=== PATIENT | female | born 2000 | race Two or more races ===

== ENCOUNTER 2023-04-25 13:51 | Outpatient (OUT) | payer MEDICAID, SELFPAY ==
[2023-04-25 15:06] LABS: HCG Quantitative 1252 mIU/mL
== END 2023-04-25 13:52 | disposition home or self-care (01) ==
LOC: LAB 13:55
PROVIDERS: PCP Family Medicine; Visit Provider Obstetrics & Gynecology
DX: N92.5 Other specified irregular menstruation (principal)
CPT/HCPCS: 36415; 84702

== ENCOUNTER 2023-05-03 12:39 | Outpatient (OUT) | payer MEDICAID, SELFPAY | END 2023-05-03 12:40 | disposition home or self-care (01) | PROVIDERS: Visit Provider Obstetrics & Gynecology | DX: N92.6 Irregular menstruation, unspecified (principal) | CPT/HCPCS: 36415; 84702 ==

== ENCOUNTER 2023-05-06 10:46 | Outpatient (OUT) | payer MEDICAID, SELFPAY ==
--- NOTE | 2023-05-06 10:47 | US_ITS ---
[address] [address] Patient Name: SANTOS HARPER MRN: [id number] date: 2000 Sex: F Assigned Patient Location: US Current Patient Location: Accession/Order Number: [id number] Exam Date: 05/06/2023 10:50 Report Date: 05/06/2023 21:13 At the request of: SHEELA ANTUNEZ Procedure: US OB transvaginal EXAMINATION: US OB transvaginal HISTORY: MISSED MENSES COMPARISON: No relevant comparison available. TECHNIQUE: Transabdominal sonographic examination was performed for obstetrical and evaluation. FINDINGS: Number: 1 Heart Rate: 107.0 bpm H.B. /min Cervix Length: 4.1 cm Gestational sac: 1.62 cm, 5 weeks 6 days CRL: 4.3 mm, 6 weeks 1 day Yolk sac: 3.1 mm The uterus is normal, anteverted. The right ovary measures 3.0 x 1.2 x 2.1 cm. The left ovary measures 3.4 x 1.8 x 2.1 cm. Suspected 2.1 cm corpus luteal cyst Clinical age: 10 weeks 1 day Clinical SANTOSH: 12/01/2023 Ultrasound age: 6 weeks 0 days Ultrasound SANTOSH: 12/30/2023 US/US OB transvaginal IMPRESSION: Viable engle intrauterine gestation measuring 6 weeks 0 days *Reference: [facility] Practice Guideline for the performance of Obstetric Ultrasound Examinations, July 03, 2007. Electronically authenticated by: JOI ROPER Date: 05/06/2023 21:13
== END 2023-05-06 10:47 | disposition home or self-care (01) ==
LOC: US 10:46
PROVIDERS: Visit Provider Obstetrics & Gynecology
DX: Z34.91 Encounter for supervision of normal pregnancy, unspecified, first trimester (principal); Z3A.01 Less than 8 weeks gestation of pregnancy; N92.6 Irregular menstruation, unspecified
CPT/HCPCS: 76817

== ENCOUNTER 2023-05-26 14:50 | Emergency (ER) | payer MEDICAID, SELFPAY ==
[2023-05-26 15:01] VITALS: BP 113/66; PULSE 71; RESP 24; TEMP 37.3; O2SAT 100; BMI 28.6
[2023-05-26] MEDS: FAMOTIDINE/PF 20 MG/2 ML VIAL IV (15:44)
[2023-05-26] MEDS: DEXTROSE 5%-0.9% NACL 1,000 ML IV.SOLN 1000 ML IV (15:44)
[2023-05-26] MEDS: METOCLOPRAMIDE HCL 10 MG/2 ML VIAL INJ (15:44)
[2023-05-26] MEDS: DIPHENHYDRAMINE HCL 50 MG/ML (1ML) VIAL 25 MG IV (15:44)
--- NOTE | 2023-05-26 15:44 | ED_ITS ---
HPI - General Adult General Chief complaint: Nausea/Vomiting/Diarrhea Stated complaint: 9 WKS PT FEELS LIKE BODY IS SHUTTING DOWN Time Seen by Provider: 05/26/23 14:54 Source: patient Mode of arrival: Wheelchair History of Present Illness HPI narrative: patient is a 23-year-old female who presents to the emergency department for a feeling that her body is shutting down . patient states she is approximately nine weeks . She had an outpatient ultrasound and quantitative hCG on 05/06/23. She has a history of hyperemesis with her previous pregnancies but states this has been much worse. She arrives to the emergency department hyperventilating and reporting diffuse abdominal pain with no fevers, upper respiratory symptoms, diarrhea. She states she is constipated. She has had no urinary symptoms or vaginal bleeding. She had a Zofran pump placed yesterday as well as a peripheral IV with IV fluids from a home health provider. she states the Zofran pump was increased today. She states she continues to have v omiting and is unable to hold down food or fluids. Related Data Previous Rx's Medication Instructions Recorded metoclopramide HCl 10 mg tablet 10 mg PO Q6H PRN nausea and 05/26/23 (Reglan) vomiting #12 tabs Allergies Allergy/AdvReac Type Severity Reaction Status Date / Time No Known Drug Allergies Allergy Verified 05/26/23 15:05 Review of Systems ROS Constitutional Denies: fever or chills Ears, nose, mouth, and throat Denies: throat pain Cardiovascular Denies: chest pain Respiratory Denies: cough Gastrointestinal Reports: abdominal pain, nausea and vomiting Genitourinary Denies: painful urination or vaginal bleeding Integumentary/Breast Denies: rash Neurological Denies: headache Hematologic/Lymphatic Denies: easy bruising Allergic/Immunologic Denies: hives Exam Narrative Exam Narrative: Gen.: Awake, alert, in no distress Head: Normocephalic, atraumatic ENT: Moist mucous membranes Respiratory: No respiratory distress, lungs clear bilaterally Cardio: Regular rate and rhythm Gastrointestinal: Abdomen is soft, nondistended and diffusely tender to palpation with no guarding or rebound, no focal areas of tenderness. Zofran pump noted to the right anterior abdomen Extremities: Moves extremities equally Psych: patient is hyperventilating on entering the exam room but she is easily redirected and when she is answering questions she speaks easily and is noted to be breathing easily Neuro: No focal neuro deficit Skin: Warm, dry, intact Constitutional Vital Signs, click to edit/add: Last Vital Signs Temp 99.1 F 05/26/23 15:01 Pulse 64 05/26/23 17:17 Resp 16 05/26/23 17:17 BP 100/60 05/26/23 17:17 Pulse Ox 100 05/26/23 17:17 O2 Del Method Room Air 05/26/23 17:17 Course Vital Signs Vital signs: Vital Signs Temperature 99.1 F 05/26/23 15:01 Pulse Rate 71 05/26/23 15:01 Respiratory Rate 24 05/26/23 15:01 Blood Pressure 113/66 05/26/23 15:01 Pulse Oximetry 100 05/26/23 15:01 Oxygen Delivery Method Room Air 05/26/23 15:01 Temperature 99.1 F 05/26/23 15:01 Pulse Rate 64 05/26/23 17:17 Respiratory Rate 16 05/26/23 17:17 Blood Pressure 100/60 05/26/23 17:17 Pulse Oximetry 100 05/26/23 17:17 Oxygen Delivery Method Room Air 05/26/23 17:17 Medical Decision Making MDM Narrative Medical decision making narrative: lab studies were obtained, no leukocytosis or significant electrolyte abnormalities noted. Patient does have ketones in her urine and the specimen was contaminated so we will wait for culture as she had no significant evidence of urinary tract infection. Abdomen is soft and benign in the emergency department on recheck by attending physician. She was treated with 1 L of D5 normal saline as well as IV Reglan, Benadryl and Pepcid with significant improvement. 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 She has a Zofran pump, she will be given additional Reglan prescription as needed. In no distress on reevaluation by attending physician at discharge. Medical Records Medical records reviewed: Yes I reviewed the patient's medical records Lab Data Lab results reviewed: Yes I reviewed the patient's lab results Labs: Lab Results 05/26/23 Range/Units 15:40 WBC 10.8 (4.0-11.0) 10^3/uL RBC 3.83 L (4.20-5.40) 10^6/uL Hgb 11.3 L (12.0-16.0) g/dL Hct 31.1 L (36.0-48.0) % MCV 81.2 (81.0-99.0) fL MCH 29.5 (26.7-34.0) pg MCHC 36.3 H (29.9-35.2) g/dL RDW 12.5 (11.0-15.0) % Plt Count 220 (150-450) 10^3/uL MPV 10.5 (9.5-13.5) fL Neut % (Auto) 73.6 (43.0-75.0) % Lymph % (Auto) 18.7 L (20.5-60.0) % [place] % (Auto) 6.7 (1.7-12.0) % Eos % (Auto) 0.1 L (0.9-7.0) % Baso % (Auto) 0.3 (0.2-2.0) % Neut # (Auto) 8.0 H (1.4-6.5) 10^3/uL Lymph # (Auto) 2.0 (1.2-3.8) 10^3/uL [place] # (Auto) 0.7 (0.3-0.8) 10^3/uL Eos # (Auto) 0.0 (0.0-0.7) 10^3/uL Baso # (Auto) 0.0 (0.0-0.1) 10^3/uL Abs Immat Gran (auto) 0.06 H (0.00-0.03) 10^3/uL Imm/Tot Granulo (auto) 0.6 H (0.0-0.5) % Sodium 134 L (136-145) mmol/L Potassium 3.5 (3.5-5.1) mmol/L Chloride 102 (98-107) mmol/L Carbon Dioxide 15.4 L (21.0-32.0) mmol/L Anion Gap 20.1 BUN 5.0 L (7.0-18.0) mg/dL Creatinine 0.64 (0.55-1.02) mg/dL Est GFR ( Amer) >60 (>=60) Est GFR (Non-Af Amer) >60 (>=60) BUN/Creatinine Ratio 7.8 Glucose 89 (74-106) mg/dL Calcium 8.7 (8.5-10.1) mg/dL Total Bilirubin 1.1 H (0.2-1.0) mg/dL AST 23 (15-37) U/L ALT 30 (14-59) U/L Alkaline Phosphatase 38 L (46-116) U/L Total Protein 7.4 (6.4-8.2) g/dL Albumin 4.0 (3.4-5.0) g/dL Globulin 3.4 g/dL Albumin/Globulin Ratio 1.2 Urine Color Lt. yellow (YELLOW) Urine Clarity Clear (CLEAR) Urine pH 7.0 (5.0-9.0) Ur Specific [place] 1.010 (1.005-1.025) Urine Protein Negative (NEG/TRACE) mg/dL Urine Glucose (UA) Negative (NEGATIVE) mg/dL Urine Ketones >=80 A (NEGATIVE) mg/dL Urine Occult Blood Trace-i (NEGATIVE) Urine Nitrite Negative (NEGATIVE) Urine Bilirubin Negative (NEGATIVE) Urine Urobilinogen 1.0 (0.2-1.0) EU/dL Ur Leukocyte Esterase Trace A (NEGATIVE) Urine RBC 0-2 (0-2) #/HPF Urine WBC 2-5 A (NONE SEEN) #/HPF Ur Squamous Epith Cells Moderate A (NONE/RARE) #/LPF Urine Crystals None seen (None Seen) #/HPF Urine Bacteria None seen (NONE SEEN) #/HPF Urine Casts None seen (NONE SEEN) #/LPF Urine Mucus Trace A (NONE SEEN) Ur Culture Indicated? No Discharge Plan Discharge Chief Complaint: Nausea/Vomiting/Diarrhea Clinical Impression: Hyperemesis Patient Disposition: Home, Self-Care Time of Disposition Decision: 16:59 Condition: Good Prescriptions / Home Meds: New metoclopramide HCl [Reglan] 10 mg tablet 10 mg PO Q6H PRN (Reason: nausea and vomiting) Qty: 12 0RF Instructions: Acute Nausea and Vomiting (ED) Stand Alone Forms: Portal Instructions Referrals: Physician,Non-Staff, MD [Primary Care Provider] - 1 week Discharge Date/Time: 05/26/23 17:18
[2023-05-26 15:46] LABS: Bilirubin Urine NEGATIVE (NEGATIVE); Blood Urine TRACE-I (NEGATIVE); Clarity Urine CLEAR (CLEAR); Color Urine LT. YELLOW (YELLOW); Glucose Urine UA NEGATIVE (NEGATIVE); Ketones Urine >=80 mg/dL (NEGATIVE); Leukocyte Esterase Urine TRACE (NEGATIVE); Nitrite Urine NEGATIVE (NEGATIVE); Protein Urine NEGATIVE (NEG/TRACE)
[2023-05-26 15:49] LABS: Basophils Percent Auto 0.3 % (0.2-2.0); Eosinophils Percent Auto 0.1 % (0.9-7.0); Hematocrit 31.1 % (36.0-48.0); Hemoglobin 11.3 g/dL (12.0-16.0); Immature Granulocytes Abs Auto 0.06 10^3/uL (0.00-0.03); Immature Granulocytes Pct Auto 0.6 % (0.0-0.5); Lymphocytes Percent Auto 18.7 % (20.5-60.0); Mean Corpuscular HGB Conc 36.3 g/dL (29.9-35.2); Mean Corpuscular Hemoglobin 29.5 pg (26.7-34.0); Mean Corpuscular Volume 81.2 fL (81.0-99.0); Mean Platelet Volume 10.5 fL (9.5-13.5); Monocytes Absolute Auto 0.7 10^3/uL (0.3-0.8); Monocytes Percent Auto 6.7 % (1.7-12.0); Neutrophils Percent Auto 73.6 % (43.0-75.0); Platelet Count 220 10^3/uL (150-450); Red Blood Count 3.83 10^6/uL (4.20-5.40); Red Cell Distribution Width 12.5 % (11.0-15.0); White Blood Count 10.8 10^3/uL (4.0-11.0)
[2023-05-26 15:50] LABS: Urine Microscopic Indicated YES
[2023-05-26 15:53] LABS: Bacteria Urine NONE SEEN #/HPF (NONE SEEN); Cast Seen? NONE SEEN #/LPF (NONE SEEN); Crystals Seen? None Seen #/HPF (None Seen); Mucus Urine TRACE (NONE SEEN); RBC Urine 0-2 #/HPF (0-2); Squamous Epithelial Cell Urine MODERATE #/LPF (NONE/RARE); Urine Culture Indicated NO
[2023-05-26 16:02] LABS: Alanine Aminotransferase 30 U/L (14-59); Albumin Globulin Ratio 1.2; Alkaline Phosphatase 38 U/L (46-116); Anion Gap 20.1; Aspartate Amino Transferase 23 U/L (15-37); BUN Creatinine Ratio 7.8; Bilirubin Total 1.1 mg/dL (0.2-1.0); Calcium 8.7 mg/dL (8.5-10.1); Carbon Dioxide 15.4 mmol/L (21.0-32.0); Chloride 102 mmol/L (98-107); Estimated GFR (African America >60 (>=60); Estimated GFR (Non-African Ame >60 (>=60); Globulin 3.4 g/dL; Glucose 89 mg/dL (74-106); Potassium 3.5 mmol/L (3.5-5.1); Sodium 134 mmol/L (136-145); Total Protein 7.4 g/dL (6.4-8.2)
[2023-05-26 16:10] VITALS: BP 119/61; PULSE 72; RESP 16; O2SAT 99
[2023-05-26 17:17] VITALS: BP 100/60; PULSE 64; RESP 16; O2SAT 100
== END 2023-05-26 17:18 | disposition home or self-care (01) ==
PROVIDERS: Physician Assistant; Emergency Provider Emergency Medicine
DX: O21.0 Mild hyperemesis gravidarum (principal); Z3A.09 9 weeks gestation of pregnancy
CPT/HCPCS: 36415; 80053; 81001; 85025; 96372; 96374; 96375; 99284

== ENCOUNTER 2023-06-03 18:03 | Emergency (ER) | payer MEDICAID, SELFPAY ==
[2023-06-03 18:05] VITALS: BP 88/65; PULSE 63; RESP 18; TEMP 36.8; O2SAT 100; BMI 26.9
--- NOTE | 2023-06-03 18:15 | PC.NURSE ---
pt presents to ED because pt is 10 weeks , obgyn is dr. covarrubias. pt has had hyperemesis during and currently has a zofran pump that she got a week ago, but pt states that medication isn't helping and still having n/v. denies any abdominal cramping or vaginal bleeding.
[2023-06-03] MEDS: DEXTROSE 5%-0.9% NACL 1,000 ML IV.SOLN 1000 ML IV (18:30)
[2023-06-03] MEDS: DIPHENHYDRAMINE HCL 50 MG/ML (1ML) VIAL 25 MG IV (18:31)
[2023-06-03] MEDS: METOCLOPRAMIDE HCL 10 MG/2 ML VIAL INJ (18:31)
[2023-06-03 18:32] LABS: Basophils Percent Auto 0.2 % (0.2-2.0); Eosinophils Percent Auto 0.2 % (0.9-7.0); Hematocrit 32.1 % (36.0-48.0); Hemoglobin 11.5 g/dL (12.0-16.0); Immature Granulocytes Abs Auto 0.03 10^3/uL (0.00-0.03); Immature Granulocytes Pct Auto 0.4 % (0.0-0.5); Lymphocytes Absolute Auto 1.5 10^3/uL (1.2-3.8); Lymphocytes Percent Auto 18.4 % (20.5-60.0); Mean Corpuscular HGB Conc 35.8 g/dL (29.9-35.2); Mean Corpuscular Hemoglobin 29.4 pg (26.7-34.0); Mean Corpuscular Volume 82.1 fL (81.0-99.0); Mean Platelet Volume 10.9 fL (9.5-13.5); Monocytes Absolute Auto 0.5 10^3/uL (0.3-0.8); Monocytes Percent Auto 6.7 % (1.7-12.0); Neutrophils Percent Auto 74.1 % (43.0-75.0); Platelet Count 231 10^3/uL (150-450); Red Blood Count 3.91 10^6/uL (4.20-5.40); White Blood Count 8.1 10^3/uL (4.0-11.0)
[2023-06-03 18:43] LABS: Bilirubin Urine NEGATIVE (NEGATIVE); Blood Urine NEGATIVE (NEGATIVE); Clarity Urine CLOUDY (CLEAR); Color Urine YELLOW (YELLOW); Glucose Urine UA NEGATIVE (NEGATIVE); Ketones Urine >=80 mg/dL (NEGATIVE); Leukocyte Esterase Urine TRACE (NEGATIVE); Nitrite Urine NEGATIVE (NEGATIVE); Protein Urine TRACE mg/dL (NEG/TRACE); Specific Gravity Urine 1.015 (1.005-1.025); Urine Microscopic Indicated YES; pH Urine 7.5 (5.0-9.0)
[2023-06-03 18:45] LABS: Alanine Aminotransferase 18 U/L (14-59); Albumin Globulin Ratio 0.9; Albumin Level 3.7 g/dL (3.4-5.0); Alkaline Phosphatase 50 U/L (46-116); Aspartate Amino Transferase 12 U/L (15-37); BUN Creatinine Ratio 14.3; Bilirubin Total 0.6 mg/dL (0.2-1.0); Calcium 9.7 mg/dL (8.5-10.1); Carbon Dioxide 19.6 mmol/L (21.0-32.0); Chloride 97 mmol/L (98-107); Estimated GFR (African America >60 (>=60); Estimated GFR (Non-African Ame >60 (>=60); Globulin 4.1 g/dL; Glucose 87 mg/dL (74-106); Potassium 3.6 mmol/L (3.5-5.1); Sodium 132 mmol/L (136-145); Total Protein 7.8 g/dL (6.4-8.2)
[2023-06-03 18:55] LABS: Bacteria Urine LARGE #/HPF (NONE SEEN); Crystals Seen? Seen #/HPF (None Seen); Mucus Urine NONE SEEN (NONE SEEN); RBC Urine 0-2 #/HPF (0-2); Squamous Epithelial Cell Urine FEW #/LPF (NONE/RARE)
[2023-06-03 18:56] LABS: Amorphous Sediment Urine MANY; Cast Seen? NONE SEEN #/LPF (NONE SEEN); Urine Culture Indicated YES
--- NOTE | 2023-06-03 19:20 | ED.GENADUL1 ---
HPI - General Adult General Chief complaint: Nausea/Vomiting/Diarrhea Stated complaint: HYPEREMISIS 10 WEEKS Time Seen by Provider: 06/03/23 18:05 Mode of arrival: walk-in Limitations: no limitations History of Present Illness HPI narrative: patient is a 23-year-old female who presents to the emergency department for the evaluation of hyperemesis in . Patient is approximately ten weeks . She has had a Zofran pump in place for one week and was seen in this emergency department one week ago for the same symptoms. She denies fevers, chills, upper respiratory symptoms. She denies abdominal pain, vaginal bleeding or fluid leakage. She has an IV in place at time of initial interview, last week she was receiving home IV fluids. She does have a prescription for Reglan and she states it is not helping in the last several days. She denies urinary symptoms. Related Data Previous Rx's Medication Instructions Recorded metoclopramide HCl 10 mg tablet 10 mg PO Q6H PRN nausea and 05/26/23 (Reglan) vomiting #12 tabs cephalexin 500 mg capsule 500 mg PO Q8H 10 days #15 caps 06/03/23 Allergies Allergy/AdvReac Type Severity Reaction Status Date / Time No Known Drug Allergies Allergy Verified 05/26/23 15:05 Review of Systems ROS Constitutional Denies: fever or chills Ears, nose, mouth, and throat Denies: throat pain Cardiovascular Denies: chest pain Respiratory Denies: shortness of breath or cough Gastrointestinal Reports: nausea and vomiting Genitourinary Denies: painful urination Musculoskeletal Denies: back pain Integumentary/Breast Denies: rash Neurological Denies: headache Exam Narrative Exam Narrative: Gen.: Awake, alert, in no distress Head: Normocephalic, atraumatic ENT: Moist mucous membranes Respiratory: No respiratory distress, lungs clear bilaterally Cardio: Regular rate and rhythm Gastrointestinal: Abdomen is soft, nondistended and nontender to palpation Extremities: Moves extremities equally Psych: Normal mood and affect Neuro: No focal neuro deficit Skin: Warm, dry, intact Constitutional Vital Signs, click to edit/add: Last Vital Signs Temp 98.3 F 06/03/23 18:05 Pulse 85 06/03/23 19:46 Resp 18 06/03/23 18:05 BP 109/61 06/03/23 19:46 Pulse Ox 9 L 06/03/23 19:46 O2 Del Method Room Air 06/03/23 18:05 Course Vital Signs Vital signs: Vital Signs Temperature 98.3 F 06/03/23 18:05 Pulse Rate 63 06/03/23 18:05 Respiratory Rate 18 06/03/23 18:05 Blood Pressure 88/65 L 06/03/23 18:05 Pulse Oximetry 100 06/03/23 18:05 Oxygen Delivery Method Room Air 06/03/23 18:05 Temperature 98.3 F 06/03/23 18:05 Pulse Rate 85 06/03/23 19:46 Respiratory Rate 18 06/03/23 18:05 Blood Pressure 109/61 06/03/23 19:46 Pulse Oximetry 9 L 06/03/23 19:46 Oxygen Delivery Method Room Air 06/03/23 18:05 Medical Decision Making MDM Narrative Medical decision making narrative: patient was medicated with IV fluids, lab studies are unremarkable, although the patient does have a very mild urinary tract infection. She is given Keflex. Follow-up with [facility] COORDINATOR and return to the Emergency Room if symptoms change or worsen. Blood pressure has improved at discharge and patient reports feeling much better with D5 normal saline, Reglan and Benadryl. Medical Records Medical records reviewed: Yes I reviewed the patient's medical records Lab Data Lab results reviewed: Yes I reviewed the patient's lab results Labs: Lab Results 06/03/23 Range/Units 18:10 WBC 8.1 (4.0-11.0) 10^3/uL RBC 3.91 L (4.20-5.40) 10^6/uL Hgb 11.5 L (12.0-16.0) g/dL Hct 32.1 L (36.0-48.0) % MCV 82.1 (81.0-99.0) fL MCH 29.4 (26.7-34.0) pg MCHC 35.8 H (29.9-35.2) g/dL RDW 13.0 (11.0-15.0) % Plt Count 231 (150-450) 10^3/uL MPV 10.9 (9.5-13.5) fL Neut % (Auto) 74.1 (43.0-75.0) % Lymph % (Auto) 18.4 L (20.5-60.0) % [place] % (Auto) 6.7 (1.7-12.0) % Eos % (Auto) 0.2 L (0.9-7.0) % Baso % (Auto) 0.2 (0.2-2.0) % Neut # (Auto) 6.0 (1.4-6.5) 10^3/uL Lymph # (Auto) 1.5 (1.2-3.8) 10^3/uL [place] # (Auto) 0.5 (0.3-0.8) 10^3/uL Eos # (Auto) 0.0 (0.0-0.7) 10^3/uL Baso # (Auto) 0.0 (0.0-0.1) 10^3/uL Abs Immat Gran (auto) 0.03 (0.00-0.03) 10^3/uL Imm/Tot Granulo (auto) 0.4 (0.0-0.5) % Sodium 132 L (136-145) mmol/L Potassium 3.6 (3.5-5.1) mmol/L Chloride 97 L (98-107) mmol/L Carbon Dioxide 19.6 L (21.0-32.0) mmol/L Anion Gap 19.0 BUN 9.0 (7.0-18.0) mg/dL Creatinine 0.63 (0.55-1.02) mg/dL Est GFR ( Amer) >60 (>=60) Est GFR (Non-Af Amer) >60 (>=60) BUN/Creatinine Ratio 14.3 Glucose 87 (74-106) mg/dL Calcium 9.7 (8.5-10.1) mg/dL Total Bilirubin 0.6 (0.2-1.0) mg/dL AST 12 L (15-37) U/L ALT 18 (14-59) U/L Alkaline Phosphatase 50 (46-116) U/L Total Protein 7.8 (6.4-8.2) g/dL Albumin 3.7 (3.4-5.0) g/dL Globulin 4.1 g/dL Albumin/Globulin Ratio 0.9 Urine Color Yellow (YELLOW) Urine Clarity Cloudy A (CLEAR) Urine pH 7.5 (5.0-9.0) Ur Specific [place] 1.015 (1.005-1.025) Urine Protein Trace (NEG/TRACE) mg/dL Urine Glucose (UA) Negative (NEGATIVE) mg/dL Urine Ketones >=80 A (NEGATIVE) mg/dL Urine Occult Blood Negative (NEGATIVE) Urine Nitrite Negative (NEGATIVE) Urine Bilirubin Negative (NEGATIVE) Urine Urobilinogen 2.0 A (0.2-1.0) EU/dL Ur Leukocyte Esterase Trace A (NEGATIVE) Urine RBC 0-2 (0-2) #/HPF Urine WBC 5-10 A (NONE SEEN) #/HPF Ur Squamous Epith Cells Few A (NONE/RARE) #/LPF Urine Crystals Seen A (None Seen) #/HPF Amorphous Sediment Many Urine Bacteria Large A (NONE SEEN) #/HPF Urine Casts None seen (NONE SEEN) #/LPF Urine Mucus None seen (NONE SEEN) Ur Culture Indicated? Yes Discharge Plan Discharge Chief Complaint: Nausea/Vomiting/Diarrhea Clinical Impression: Hyperemesis, UTI (urinary tract infection) Patient Disposition: Home, Self-Care Time of Disposition Decision: 19:43 Condition: Good Prescriptions / Home Meds: New cephalexin 500 mg capsule 500 mg PO Q8H 10 Days Qty: 15 0RF No Action metoclopramide HCl [Reglan] 10 mg tablet 10 mg PO Q6H PRN (Reason: nausea and vomiting) Qty: 12 0RF Instructions: Hyperemesis Gravidarum (ED), Urinary Tract Infection in (ED) Stand Alone Forms: Portal Instructions Referrals: Physician,Non-Staff, MD [Primary Care Provider] - 1 week
[2023-06-03 19:46] VITALS: BP 109/61; PULSE 85; O2SAT 9
== END 2023-06-03 19:55 | disposition home or self-care (01) ==
PROVIDERS: Physician Assistant; Emergency Provider Emergency Medicine Emergency Medical Services
DX: O21.0 Mild hyperemesis gravidarum (principal); O23.41 Unspecified infection of urinary tract in pregnancy, first trimester; N39.0 Urinary tract infection, site not specified; Z3A.10 10 weeks gestation of pregnancy
CPT/HCPCS: 36415; 80053; 81001; 85025; 87086; 96372; 96374; 99284

== ENCOUNTER 2023-06-08 12:20 | Outpatient (OUT) | payer MEDICAID, SELFPAY ==
[2023-06-08 12:49] LABS: Basophils Percent Auto 0.3 % (0.2-2.0); Eosinophils Percent Auto 0.3 % (0.9-7.0); Hematocrit 31.9 % (36.0-48.0); Hemoglobin 11.3 g/dL (12.0-16.0); Immature Granulocytes Abs Auto 0.03 10^3/uL (0.00-0.03); Immature Granulocytes Pct Auto 0.4 % (0.0-0.5); Lymphocytes Absolute Auto 1.4 10^3/uL (1.2-3.8); Lymphocytes Percent Auto 20.3 % (20.5-60.0); Mean Corpuscular HGB Conc 35.4 g/dL (29.9-35.2); Mean Corpuscular Hemoglobin 29.2 pg (26.7-34.0); Mean Corpuscular Volume 82.4 fL (81.0-99.0); Mean Platelet Volume 10.2 fL (9.5-13.5); Monocytes Absolute Auto 0.4 10^3/uL (0.3-0.8); Monocytes Percent Auto 5.7 % (1.7-12.0); Neutrophils Absolute Auto 4.9 10^3/uL (1.4-6.5); Platelet Count 228 10^3/uL (150-450); Red Blood Count 3.87 10^6/uL (4.20-5.40); Red Cell Distribution Width 13.1 % (11.0-15.0); White Blood Count 6.7 10^3/uL (4.0-11.0)
[2023-06-08 13:53] LABS: Thyroid Stimulating Hormone 1.448 uIU/mL (0.358-3.740)
[2023-06-08 14:25] LABS: Estimated Average Glucose 80 mg/dL; Glycohemoglobin A1C 4.4 % (4.5-6.2)
[2023-06-09 06:15] LABS: HBsAg Screen Negative (Negative); HCV Ab Non Reactive (Non Reactive); Rubella Antibodies, IgG 2.96 index (Immune >0.99)
[2023-06-09 08:14] LABS: HIV Ab/p24 Ag Screen Non Reactive (Non Reactive)
[2023-06-09 12:09] LABS: Rapid Plasma Reagin, Quant Non Reactive (NonRea<1:1)
== END 2023-06-08 12:21 | disposition home or self-care (01) ==
LOC: LAB 12:22
PROVIDERS: Visit Provider Obstetrics & Gynecology
DX: Z34.80 Encounter for supervision of other normal pregnancy, unspecified trimester (principal); N92.6 Irregular menstruation, unspecified
CPT/HCPCS: 36415; 83036; 84443; 85025; 86592; 86762; 86803; 86850; 86900; 86901; 87086; 87340; 87389

== ENCOUNTER 2023-07-11 20:22 | Outpatient (REF) | payer MEDICAID, SELFPAY ==
[2023-07-15 13:08] LABS: Age Gdln ACOG Testing Note (.); IGP, rfx Aptima HPV ASCU Note (.)
== END 2023-07-11 20:23 | disposition home or self-care (01) ==
LOC: LAB 20:22
PROVIDERS: Visit Provider Physician Assistant
DX: Z12.4 Encounter for screening for malignant neoplasm of cervix (principal)
CPT/HCPCS: G0145

== ENCOUNTER 2023-08-15 13:03 | Outpatient (OUT) | payer MEDICAID, SELFPAY ==
--- NOTE | 2023-08-15 13:04 | US_ITS ---
[address] [address] Patient Name: SANTOS HARPER MRN: [id number] date: 2000 Sex: F Assigned Patient Location: US Current Patient Location: US Accession/Order Number: [id number] Exam Date: 08/15/2023 13:06 Report Date: 08/15/2023 15:56 At the request of: SHEELA ANTUNEZ Procedure: US OB anatomy EXAMINATION: US OB anatomy, US OB transvaginal HISTORY: SECOND TRIMESTER Z34.92 COMPARISON: No relevant comparison available. TECHNIQUE: Transabdominal sonographic examination was performed for obstetrical and evaluation. FINDINGS: Number: 1 Heart Rate: 147.0 bpm Amniotic Fluid Volume: Subjectively normal Placental Location: POSTERIOR with lower margin 4.4 cm from os. Cervix Length: 4.5 cm, closed. Incidental nabothian cyst. ANATOMY: Normal Structures -cerebellum, choroid plexus, cisterna magna, lateral cerebral ventricles, orbits, midline falx, stomach, kidneys, bladder, umbilical cord insertion into abdomen, three-vessel cord, cervical spine, thoracic spine, lumbar spine, sacral spine, right upper extremity, left upper extremity, right lower extremity, left lower extremity. SUBOPTIMALLY SEEN: Hard palate, four-chamber heart, and cardiac outflow tracts due to position. ABNORMALITIES: None BIOMETRY: BPD: 4.6 cm 19 weeks 5 days HC: 18.0 cm 20 weeks 3 days AC: 15.1 cm 20 weeks 2 days FL: 3.6 cm 21 weeks 2 days EFW:373.4 grams; 63% FL/AC: 23.7 FL/BPD: 78.5 HC/AC: 1.2 GESTATIONAL AGE: Age by EDC: 20 weeks 3 days SANTOSH by EDC: 12/30/2023 Age by current US: 20 weeks 3 days SANTOSH by current US: 12/30/2023 US/US OB anatomy IMPRESSION: 1. Single live intrauterine with growth detailed above. 2. Suboptimal visualization of the hard palate, four-chamber heart, and cardiac outflow tracts due to position. Electronically authenticated by: JO MONGE Date: 08/15/2023 15:56
--- NOTE | 2023-08-15 13:05 | US_ITS ---
[address] [address] Patient Name: SANTOS HARPER MRN: [id number] date: 2000 Sex: F Assigned Patient Location: US Current Patient Location: Accession/Order Number: [id number] Exam Date: 08/15/2023 13:06 Report Date: 08/15/2023 15:56 At the request of: SHEELA ANTUNEZ Procedure: US OB transvaginal EXAMINATION: US OB anatomy, US OB transvaginal HISTORY: SECOND TRIMESTER Z34.92 COMPARISON: No relevant comparison available. TECHNIQUE: Transabdominal sonographic examination was performed for obstetrical and evaluation. FINDINGS: Number: 1 Heart Rate: 147.0 bpm Amniotic Fluid Volume: Subjectively normal Placental Location: POSTERIOR with lower margin 4.4 cm from os. Cervix Length: 4.5 cm, closed. Incidental nabothian cyst. ANATOMY: Normal Structures -cerebellum, choroid plexus, cisterna magna, lateral cerebral ventricles, orbits, midline falx, stomach, kidneys, bladder, umbilical cord insertion into abdomen, three-vessel cord, cervical spine, thoracic spine, lumbar spine, sacral spine, right upper extremity, left upper extremity, right lower extremity, left lower extremity. SUBOPTIMALLY SEEN: Hard palate, four-chamber heart, and cardiac outflow tracts due to position. ABNORMALITIES: None BIOMETRY: BPD: 4.6 cm 19 weeks 5 days HC: 18.0 cm 20 weeks 3 days AC: 15.1 cm 20 weeks 2 days FL: 3.6 cm 21 weeks 2 days EFW:373.4 grams; 63% FL/AC: 23.7 FL/BPD: 78.5 HC/AC: 1.2 GESTATIONAL AGE: Age by EDC: 20 weeks 3 days SANTOSH by EDC: 12/30/2023 Age by current US: 20 weeks 3 days SANTOSH by current US: 12/30/2023 US/US OB transvaginal IMPRESSION: 1. Single live intrauterine with growth detailed above. 2. Suboptimal visualization of the hard palate, four-chamber heart, and cardiac outflow tracts due to position. Electronically authenticated by: JO MONGE Date: 08/15/2023 15:56
== END 2023-08-15 13:04 | disposition home or self-care (01) ==
LOC: US 13:04
PROVIDERS: Visit Provider Obstetrics & Gynecology
DX: Z34.92 Encounter for supervision of normal pregnancy, unspecified, second trimester (principal); N92.6 Irregular menstruation, unspecified; Z3A.20 20 weeks gestation of pregnancy
CPT/HCPCS: 76805; 76817

== ENCOUNTER 2023-08-30 13:10 | Observation (INO) | payer MEDICAID, SELFPAY ==
--- NOTE | 2023-08-30 13:12 | US_ITS ---
[address] [address] Patient Name: SANTOS HARPER MRN: [id number] date: 2000 Sex: F Assigned Patient Location: [facility] Current Patient Location: [facility] Accession/Order Number: [id number] Exam Date: 08/30/2023 14:06 Report Date: 08/30/2023 15:45 At the request of: SHEELA ANTUNEZ Procedure: US OB amniotic fluid vol EXAMINATION: US OB placenta, US OB cervical length, US OB amniotic fluid vol HISTORY: Pain COMPARISON: Ultrasound OB anatomy 08/15/2023 FINDINGS: PLACENTA: Posterior with lower margin 4.0 cm from os. CERVIX LENGTH: 4.1 cm; closed. Incidental nabothian cysts within wall of cervix. HEART RATE: 159 bpm AMNIOTIC FLUID: 19.6 cm (normal range) OTHER: None. GA: 20 weeks 4 days SANTOSH: 12/30/2023 US/US OB amniotic fluid vol IMPRESSION: 1. Single live intrauterine . 2. Posterior placenta without previa. 3. No placental abruption or subchorionic hematoma. 4. Normal amniotic fluid volume. Electronically authenticated by: JO MONGE Date: 08/30/2023 15:45
[2023-08-30 14:02] LABS: Amnisure NEGATIVE (NEGATIVE)
--- NOTE | 2023-08-30 14:14 | US_ITS ---
[address] [address] Patient Name: SANTOS HARPER MRN: [id number] date: 2000 Sex: F Assigned Patient Location: [facility] Current Patient Location: [facility] Accession/Order Number: [id number] Exam Date: 08/30/2023 14:06 Report Date: 08/30/2023 15:45 At the request of: SHEELA ANTUNEZ Procedure: US OB placenta EXAMINATION: US OB placenta, US OB cervical length, US OB amniotic fluid vol HISTORY: Pain COMPARISON: Ultrasound OB anatomy 08/15/2023 FINDINGS: PLACENTA: Posterior with lower margin 4.0 cm from os. CERVIX LENGTH: 4.1 cm; closed. Incidental nabothian cysts within wall of cervix. HEART RATE: 159 bpm AMNIOTIC FLUID: 19.6 cm (normal range) OTHER: None. GA: 20 weeks 4 days SANTOSH: 12/30/2023 US/US OB placenta IMPRESSION: 1. Single live intrauterine . 2. Posterior placenta without previa. 3. No placental abruption or subchorionic hematoma. 4. Normal amniotic fluid volume. Electronically authenticated by: JO MONGE Date: 08/30/2023 15:45
--- NOTE | 2023-08-30 14:14 | US_ITS ---
[address] [address] Patient Name: SANTOS HARPER MRN: [id number] date: 2000 Sex: F Assigned Patient Location: [facility] Current Patient Location: [facility] Accession/Order Number: [id number] Exam Date: 08/30/2023 14:06 Report Date: 08/30/2023 15:45 At the request of: SHEELA ANTUNEZ Procedure: US OB cervical length EXAMINATION: US OB placenta, US OB cervical length, US OB amniotic fluid vol HISTORY: Pain COMPARISON: Ultrasound OB anatomy 08/15/2023 FINDINGS: PLACENTA: Posterior with lower margin 4.0 cm from os. CERVIX LENGTH: 4.1 cm; closed. Incidental nabothian cysts within wall of cervix. HEART RATE: 159 bpm AMNIOTIC FLUID: 19.6 cm (normal range) OTHER: None. GA: 20 weeks 4 days SANTOSH: 12/30/2023 US/US OB cervical length IMPRESSION: 1. Single live intrauterine . 2. Posterior placenta without previa. 3. No placental abruption or subchorionic hematoma. 4. Normal amniotic fluid volume. Electronically authenticated by: JO MONGE Date: 08/30/2023 15:45
[2023-08-30] MEDS: FLUCONAZOLE 150 MG TABLET PO (14:22)
[2023-08-30 14:23] VITALS: TEMP 36
[2023-08-30 14:23] LABS: Bilirubin Urine NEGATIVE (NEGATIVE); Blood Urine NEGATIVE (NEGATIVE); Clarity Urine CLEAR (CLEAR); Color Urine LT. YELLOW (YELLOW); Glucose Urine UA NEGATIVE (NEGATIVE); Ketones Urine NEGATIVE (NEGATIVE); Leukocyte Esterase Urine SMALL (NEGATIVE); Nitrite Urine NEGATIVE (NEGATIVE); Protein Urine NEGATIVE (NEG/TRACE); Urobilinogen Urine 0.2 EU/dL (0.2-1.0)
[2023-08-30 14:24] VITALS: BP 105/54; PULSE 63
[2023-08-30 14:37] LABS: Urine Microscopic Indicated YES
[2023-08-30 14:40] LABS: Bacteria Urine TRACE #/HPF (NONE SEEN); Mucus Urine NONE SEEN (NONE SEEN); RBC Urine NONE SEEN #/HPF (0-2); Squamous Epithelial Cell Urine MANY #/LPF (NONE/RARE); WBC Urine 0-2 #/HPF (NONE SEEN)
[2023-08-30] MEDS: 0.9 % SODIUM CHLORIDE 1,000 ML 1000 ML IV (15:53)
== END 2023-08-30 16:56 | disposition home or self-care (01) ==
PROVIDERS: Admitting Provider Obstetrics & Gynecology; Visit Provider Obstetrics & Gynecology
DX: O47.02 False labor before 37 completed weeks of gestation, second trimester (principal); Z03.71 Encounter for suspected problem with amniotic cavity and membrane ruled out; Z3A.22 22 weeks gestation of pregnancy
CPT/HCPCS: 59025; 76815; 76817; 81001; 84112; G0378; G0379

== ENCOUNTER 2023-09-13 12:43 | Outpatient (OUT) | payer MEDICAID, SELFPAY ==
[2023-09-13 14:00] LABS: Basophils Absolute Auto 0.1 10^3/uL (0.0-0.1); Basophils Percent Auto 0.5 % (0.2-2.0); Eosinophils Percent Auto 0.3 % (0.9-7.0); Hematocrit 29.8 % (36.0-48.0); Hemoglobin 9.8 g/dL (12.0-16.0); Immature Granulocytes Abs Auto 0.06 10^3/uL (0.00-0.03); Immature Granulocytes Pct Auto 0.6 % (0.0-0.5); Lymphocytes Percent Auto 20.6 % (20.5-60.0); Mean Corpuscular HGB Conc 32.9 g/dL (29.9-35.2); Mean Corpuscular Hemoglobin 29.4 pg (26.7-34.0); Mean Corpuscular Volume 89.5 fL (81.0-99.0); Mean Platelet Volume 10.5 fL (9.5-13.5); Monocytes Absolute Auto 0.5 10^3/uL (0.3-0.8); Monocytes Percent Auto 5.3 % (1.7-12.0); Neutrophils Percent Auto 72.7 % (43.0-75.0); Platelet Count 180 10^3/uL (150-450); Red Blood Count 3.33 10^6/uL (4.20-5.40); Red Cell Distribution Width 11.9 % (11.0-15.0); White Blood Count 9.7 10^3/uL (4.0-11.0)
[2023-09-13 14:15] LABS: Glucose 1 Hour 83 mg/dL
== END 2023-09-13 12:44 | disposition home or self-care (01) ==
LOC: LAB 12:44
PROVIDERS: Visit Provider Obstetrics & Gynecology
DX: Z34.92 Encounter for supervision of normal pregnancy, unspecified, second trimester (principal); N92.6 Irregular menstruation, unspecified
CPT/HCPCS: 36415; 82950; 85025

== ENCOUNTER 2023-10-30 16:48 | Observation (INO) | payer MEDICAID, SELFPAY ==
--- OUTSIDE RECORDS SUMMARY | 2023-10-30 16:52 | XMS_ITS | CCD ---
Author Name Unknown Address [address] [facility] [address] [place] [address] Organization [facility] Care Team Providers Care Artillery Meteorological Man Name Role Phone Sandy Herring Unavailable SHEELA BRITO Attending Unavailable DEXTER, DR JAYLA Noriega Primary Care Unavailable NICOLE SANCHEZ Admitting Unavailable DANIEL, NICOLE Attending Unavailable NICOLE SANCHEZ Consulting Unavailable TULIO ., DR COKER Admitting Unavailable TULIO ., DR COKER Attending Unavailable DEXTER, DR JAYLA Noriega Primary Care Unavailable JACQUELIN, DR JOI Díaz Consulting Unavailable OLMAN GALLEGOS Consulting Unavailable TULIO ., DR COKER Admitting Unavailable TULIO ., DR COKER Attending Unavailable DEXTER, DR JAYLA Noriega Primary Care Unavailable TULIO ., DR COKER Consulting Unavailable AZUCENA II, ANGIE Consulting Unavailable JOSE DAVID CHUA Consulting Unavailable TULIO ., DR COKER Admitting Unavailable TULIO ., DR COKER Attending Unavailable DEXTER, DR JAYLA Noriega Primary Care Unavailable TULIO ., DR COKER Consulting Unavailable ÓSCAR ., SHONNA Admitting Unavailable ÓSCAR ., SHONNA Attending Unavailable REQUEST, DR JOBY LISTED Primary Care Unavaila brennan MONGE, DR JO Guillen Consulting Unavailable ÓSCAR ., SHONNA Consulting Unavailable TULIO ., DR COKER Admitting Unavailable TULIO ., DR COKER Attending Unavailable DEXTER, DR JAYLA Noriega Primary Care Unavailable JACQUELIN, DR JOI Díaz Consulting Unavailable TULIO ., DR COKER Consulting Unavailable DEXTER, DR JAYLA Noriega Primary Care Unavailable MONY SAVAGE Admitting Unavailable MONY SAVAGE Attending Unavailable MARIPOSA, DR JO Guillen Consulting Unavailable GRECHNY ., HAKEEM HERNANDEZ Consulting UnavailMONY Barba Consulting Unavailable DEXTER, DR JAYLA Noriega Primary Care Unavailable PAY ., DR FERNANDES Admitting Unavailable PAY ., DR FERNANDES Attending Unavailable PAY .DR FERNANDES Consulting Unavailable SHEELA BRITO Attending Unavailable SHONNA CANTRELL Attending Unavailable SHONNA CANTRELL Attending Unavailable SHEELA BRITO Attending Unavailable Medications Current Medications Medication Drug Class(es) Dates Sig (Normalized) Sig (Original) brompheniramine maleate 0.4 mg/ml / dextromethorphan hydrobromide 2 mg/ml / pseudoephedrine hydrochloride 6 mg/ml oral solution (1 source) alpha-Adrenergic Agonist, Uncompetitive X-jzncac-K-aspartat e Receptor Antagonist, Sigma-1 Agonist Start: 05-02-2022 take 10 mL by mouth every six hours Pseudoeph-Bromp hen-DM 30-2-10 MG/5ML 10 mL Orally every 6 hours for 5 days Apr, Active busPIRone hydrochloride 10 mg oral tablet (1 source) take 1 tablet by mouth every twelve hours busPIRone HCl 10 MG 1 tablet Orally Twice a day Active escitalopram 20 mg oral tablet (1 source) Serotonin Reuptake Inhibitor take 1 tablet by mouth every twenty-four hours Lexapro 20 MG 1 tablet Orally Once a day prn Active traZODone hydrochloride 50 mg oral tablet (1 source) Serotonin Reuptake Inhibitor take 1 tablet by mouth every twenty-four hours traZODone HCl 50 MG 1 tablet at bedtime as needed Orally Once a day Active Problems Active Problems Problem Classification Problem Date Documented Da te Episodic/Chronic Abdominal pain (4 sources) Unspecified abdominal pain; Translations: [UNSPECIFIED ABDOMINAL PAIN] Onset: 12-06-2022 Episodic Anxiety disorders (1 source) Anxiety disorder, unspecified; Translations: [ANXIETY DISORDER UNSPECIFIED] Onset: 01-17-2023 Chronic Hemorrhage during ; abruptio placenta; placenta previa (5 sources) Hemorrhage in early , unspecified; Translations: [Threatened ] Onset: 12-15-2022 Episodic Mood disorders (1 source) Mood disorders; Translations: [DEPRESSION UNSPECIFIED] Onset: 01-17-2023 Other aftercare (1 source) 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; Translations: [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] Onset: 12-15-2022 Episodic Other complications of (5 sources) Missed ; Translations: [MISSED ] Onset: 01-06-2023 Episodic Other complications of (1 source) Smoking (tobacco) complicating , first trimester; Translations: [SMOKING TOBACCO COMP PREG 1ST TRI] Onset: 12-15-2022 Episodic Other complications of (1 source) Other specified related conditions, first trimester; Translations: [OTH SPEC PREG RELATED COND 1ST TRI] Onset: 12-08-2022 Episodic Residual codes; unclassified (1 source) 10 weeks gestation of ; Translations: [10 WEEKS GESTATION OF ] Onset: 12-25-2022 Episodic Residual codes; unclassified (1 source) Weeks of gestation of not specified; Translations: [WEEKS GESTATION NOT SPEC] Onset: 12-15-2022 Episodic Substance-related disorders (1 source) Nicotine dependence, other tobacco product, uncomplicated; Translations: [NICOTINE DEPEND OTH TOB PROD UNCOMP] Onset: 01-17-2023 Chronic Past or Other Problems Problem Classification Problem Date Documented Date Episodic/Chronic Fluid and electrolyte disorders (1 source) Dehydration; Translations: [DEHYDRATION] Onset: 05-11-2022 Episodic Immunizations and screening for infectious disease (1 source) Encounter for screening for human papillomavirus (HPV); Translations: [ENC SCREENING HUMAN PAPILLOMAVIRUS] Onset: 06-30-2022 Episodic Other connective tissue disease (1 source) Rhabdomyolysis; Translations: [RHABDOMYOLYSIS] Onset: 05-11-2022 Episodic Other nervous system disorders (1 source) Tremor, unspecified; Translations: [TREMOR UNSPECIFIED] Onset: 05-11-2022 Episodic Other screening for suspected conditions (not mental disorders or infectious disease) (4 sources) Encounter for screening for malignant neoplasm of cervix; Translations: [ENC SCREENING MALIG NEOPLASM CERV] Onset: 06-28-2022 Episodic Other upper respiratory infections (1 source) Acute upper respiratory infection, unspecified Onset: 05-02-2022 Resolved: 05-02-2022 Episodic Syncope (4 sources) Syncope and collapse; Translations: [SYNCOPE AND COLLAPSE] Onset: 05-08-2022 Episodic Unclassified (1 source) Cough R05.9 Onset: 05-02-2022 Resolved: 05-02-2022 Results Test Name Value Interpretation Reference Range Facility SURGICAL PATH REPORTon 01-10 SURGICAL PATH REPORT [facility] Department of Pathology [address] [place] [id number] Name: HARPERSANTOS ADAMES : 2000 [employer] [id number] Number: Gender [facility] : n: Admit 22 years Attending SHEELA BRITO Age: Provider: Ordering SHEELA BRITO Provider: Consulti Surgical Pathology Report ng: ACCESSION: COLLECTED DATE/TIME: RECEIVED DATE/TIME: PATHOLOGIST: [id number] 01/06/2023 16:30 EDT 01/07/2023 11:25 EDT LORNA DURAN MD Final Diagnosis Report for [facility] [place] PRODUCTS OF CONCEPTION: - IMMATURE CHORIONIC VILLI AND GESTATIONAL ENDOMETRIUM, CONSISTENT WITH PRODUCTS OF CONCEPTION. LORNA DURAN PATHOLOGIST (Electronic Signature) Date Verified 01/10/2023 LN Clinical Data PRE-OP DIAGNOSIS: Not specified POST-OP DIAGNOSIS: Missed PROCEDURES: D and C with suction SPECIMEN: Products of conception / Ambulatory surgery Gross Description Labeled products of conception. Received in formalin in a suction sock are multiple irregular segments of hernandez-pink to red-burr soft tissue. The individual segments have a variable granular to partially membranous character. The specimen in total aggregate measures 4.7 x 4.0 x 2.5 cm. There are no grossly identifiable parts. Value Analyst sections are submitted in three cassettes. ANEL/griselda 01/07/2023 Tissue pathology report for: [facility], [address] [place] [id number]; ____ Print 01/10/2023 13:39 EDT Number: Date/Time: [facility] Department of Pathology [address] [place] [phone] Name: SANTOS HARPER : 2000 [employer] [id number] Number: Gender Female Kenzie FERRELL : n: Admit 22 years Attending SHEELA BRITO Age: Provider: Ordering SHEELA BRITO Provider: Consulti Surgical Pathology Report ng: ACCESSION: COLLECTED DATE/TIME: RECEIVED DATE/TIME: PATHOLOGIST: [id number] 01/06/2023 16:30 EDT 01/07/2023 11:25 EDT RENEE ZUNIGA, LORNA Gross Description PATHOLOGY SERVICES PROVIDED BY [facility] (CLIA #[id number]) in cooperation with [facility] at [address] [place] [address] ( CLIA #[id number]) Microscopic Diagnosis The final diagnosis is based on a microscopic exam of phlebotomy services representative sections. Codes CPT CODE: 85765 ____ Print 01/10/2023 13:39 EDT Number: Date/Time: Normal [facility] Comment on above: Performed By: #### [id number] #### [facility] Laboratory Services [address] [place] [address] Manager Applied: Jose Agarwal MD CBC AUTO DIFFon 01-06-2023 BASO # 0.0 103/ul Normal 0.0-0.1 [facility] Comment on above: Performed By: #### P REG #### [facility] [address] [place] [address] Dr. Darian Scott Basophils/100 WBC (Bld) 0.3 % Normal 0.2-2.0 [facility] Comment on above: Performed By: #### P REG #### [facility] [address] [place] [address] Dr. Darian Scott EO # 0.0 103/ul Normal 0.0-0.7 [facility] Comment on above: Performed By: #### P REG #### [facility] [address] [place] [address] Dr. Darian Scott Eosinophils/100 WBC (Bld) 0.5 % Critically low 0.9-7.0 [facility] Comment on above: Performed By: #### P REG #### [facility] [address] [place] [address] Dr. Darian Scott Erythrocyte distribution width (RBC) [Ratio] 12.4 % Normal 11.0-15.0 [facility] Comment on above: Performed By: #### P REG #### [facility] [address] [place] [address] Dr. Darian Scott Hematocrit (Bld) [Volume fraction] 33.6 % Critically low 36.0-48.0 [facility] Comment on above: Performed By: #### P REG #### [facility] [address] [place] [address] Dr. Darian Scott Hemoglobin (Bld) [Mass/Vol] 11.6 g/dL Critically low 12.0-16.0 [facility] Comment on above: Performed By: #### P REG #### [facility] [address] [place] [address] Dr. Darian Scott IG # 0.02 10e3/ul Normal 0.00-0.03 [facility] Comment on above: Performed By: #### P REG #### [facility] [address] [place] [address] Dr. Darian Scott IG % 0.3 % Normal 0.0-0.5 [facility] Comment on above: Performed By: #### P REG #### [facility] [address] [place] [address] Dr. Darian Scott LYMPH # 1.7 103/ul Normal 1.2-3.8 [facility] Comment on above: Performed By: #### P REG #### [facility] [address] [place] [address] Dr. Darian Scott Lymphocytes/100 WBC (Bld) 28.5 % Normal 20.5-60.0 [facility] Comment on above: Performed By: #### P REG #### [facility] [address] [place] [address] Dr. Darian Scott MANUAL DIFF REQ NO Normal [facility] Comment on above: Performed By: #### P REG #### [facility] [address] [place] [address] Dr. Darian Scott MCH (RBC) [Entitic mass] 29.3 pg Normal 26.7-34.0 [facility] Comment on above: Performed By: #### P REG #### [facility] [address] [place] [address] Dr. Darian Scott MCHC (RBC) [Mass/Vol] 34.5 g/dL Normal 29.9-35.2 [facility] Comment on above: Performed By: #### P REG #### [facility] [address] [place] [address] Dr. Darian Scott MCV (RBC) [Entitic vol] 84.8 fL Normal 81.0-99.0 [facility] Comment on above: Performed By: #### P REG #### [facility] [address] [place] [address] Dr. Darian Scott MONO # 0.4 103/ul Normal 0.3-0.8 [facility] Comment on above: Performed By: #### P REG #### [facility] [address] [place] [address] Dr. Darian Scott Monocytes/100 WBC (Bld) 5.9 % Normal 1.7-12.0 [facility] Comment on above: Performed By: #### P REG #### [facility] [address] [place] [address] Dr. Darian Scott NEUT # 3.8 103/ul Normal 1.4-6.5 [facility] Comment on above: Performed By: #### P REG #### [facility] [address] [place] [address] Dr. Darian Scott Neutrophils/100 WBC (Bld) 64.5 % Normal 43.0-75.0 [facility] Comment on above: Performed By: #### P REG #### [facility] [address] [address] [address] Darian Scott Platelet mean volume (Bld) [Entitic vol] 10.1 fL Normal 9.5-13.5 [facility] Comment on above: Performed By: #### P REG #### [facility] [address] [address] [address] Darian Scott PLT 190 103/ul Normal 150-450 [facility] Comment on above: Performed By: #### P REG #### [facility] [address] [address] [address] Darian Scott RBC 3.96 106/ul Critically low 4.20-5.40 [facility] Comment on above: Performed By: #### P REG #### [facility] [address] [place] [address] Dr. Darian Scott WBC 6.0 103/ul Normal 4.0-11.0 [facility] Comment on above: Performed By: #### P REG #### [facility] [address] [address] [address] Darian Scott PREG QUANT HCGon 01-06-2023 HCG QUANT 8841 mIU/mL Normal [facility] Comment on above: Performed By: #### P REG #### [facility] [address] [place] [address] Dr. Darian Scott HCG RANGE SEE BELOW Normal [facility] Comment on above: Result Comment: 5-50 0.2-1 WEEK 50-500 1-2 WEEKS 100-5,000 2-3 WEEKS 500-10,000 3-4 WEEKS 1,000-50,000 4-5 WEEKS 10,000-100,000 5-6 WEEKS 15,000-200,000 6-8 WEEKS 10,000-100,000 2-3 MONTHS Performed By: #### P REG #### [facility] [address] [place] [address] Dr. Darian Scott US PREG TVon 12-31-2022 US PREG TV EXAMINATION: US PREG TV HISTORY: viability COMPARISON: 12/21/2022 FINDINGS: Hernandez intrauterine gestation Gestational sac: 1.86 cm, 6 weeks 2 days Ione-rump length: 3.3 mm, 6 weeks 0 days Yolk sac: 2.7 mm cardiac activity: Not observed Cervix: Closed, 4.2 cm The uterus is normal, anteverted, anteflexed The ovaries are normal in appearance Clinical age: 11 weeks 3 days Clinical SANTOSH: 07/19/2023 Ultrasound age: 6 weeks 1 day Ultrasound SANTOSH: 08/25/2023 IMPRESSION: No cardiac activity identified but seen previously. Findings are consistent with a demise Electronically authenticated by: JOI ROPER Date: 2022-12-31 15:06 Normal [facility] US PREG TVon 12-21-2022 US PREG TV EXAMINATION: US PREG TV HISTORY: Hemorrhagic complication of COMPARISON: Ultrasound transvaginal 12/14/2022 FINDINGS: GESTATIONAL SAC: Present and normal appearing. YOLK SAC: Present and normal appearing. POLE: Present and normal appearing. CARDIAC: 93 bpm UTERUS: Normal size and appearance. OVARIES: Right: Normal. Left: Normal. CERVIX: 3.3 cm in length and closed. CUL-DE-SAC: Normal. OTHER: None. AGE BY LMP: 10 weeks 0 days SANTOSH BY LMP: 07/19/2023 AGE BY US CRL: 6 weeks 4 days SANTOSH BY US CRL: 08/12/2023 IMPRESSION: 1. Single live intrauterine 6 weeks 4 days by today's ultrasound. Electronically authenticated by: JO MONGE Date: 2022-12-21 15:07 Normal [facility] CBC AUTO DIFFon 12-14-2022 BASO # 0.0 103/ul Normal 0.0-0.1 [facility] Comment on above: Performed By: #### C BC #### [facility] [address] [address] [address] Darian Scott Basophils/100 WBC (Bld) 0.9 % Normal 0.2-2.0 [facility] Comment on above: Performed By: #### C BC #### [facility] [address] [address] [address] Darian Scott EO # 0.0 103/ul Normal 0.0-0.7 [facility] Comment on above: Performed By: #### C BC #### [facility] [address] [place] [address] Dr. Darian Scott Eosinophils/100 WBC (Bld) 0.4 % Critically low 0.9-7.0 [facility] Comment on above: Performed By: #### C BC #### [facility] [address] [place] [address] Dr. Darian Scott Erythrocyte distribution width (RBC) [Ratio] 12.5 % Normal 11.0-15.0 [facility] Comment on above: Performed By: #### C BC #### [facility] [address] [place] [address] Dr. Darian Scott Hematocrit (Bld) [Volume fraction] 34.8 % Critically low 36.0-48.0 [facility] Comment on above: Performed By: #### C BC #### [facility] [address] [place] [address] Dr. Darian Scott Hemoglobin (Bld) [Mass/Vol] 11.8 g/dL Critically low 12.0-16.0 [facility] Comment on above: Performed By: #### C BC #### [facility] [address] [place] [address] Dr. Darian Scott IG # 0.02 10e3/ul Normal 0.00-0.03 [facility] Comment on above: Performed By: #### C BC #### [facility] [address] [place] [address] Dr. Darian Scott IG % 0.4 % Normal 0.0-0.5 [facility] Comment on above: Performed By: #### C BC #### [facility] [address] [place] [address] Dr. Darian Scott LYMPH # 1.4 103/ul Normal 1.2-3.8 [facility] Comment on above: Performed By: #### C BC #### [facility] [address] [place] [address] Dr. Darian Scott Lymphocytes/100 WBC (Bld) 29.3 % Normal 20.5-60.0 [facility] Comment on above: Performed By: #### C BC #### [facility] [address] [place] [address] Dr. Darian Scott MANUAL DIFF REQ NO Normal [facility] Comment on above: Performed By: #### C BC #### [facility] [address] [place] [address] Dr. Darian Scott MCH (RBC) [Entitic mass] 28.9 pg Normal 26.7-34.0 [facility] Comment on above: Performed By: #### C BC #### [facility] [address] [place] [address] Dr. Darian Scott MCHC (RBC) [Mass/Vol] 33.9 g/dL Normal 29.9-35.2 [facility] Comment on above: Performed By: #### C BC #### [facility] [address] [place] [address] Dr. Darian Scott MCV (RBC) [Entitic vol] 85.3 fL Normal 81.0-99.0 [facility] Comment on above: Performed By: #### C BC #### [facility] [address] [place] [address] Dr. Darian Scott MONO # 0.4 103/ul Normal 0.3-0.8 [facility] Comment on above: Performed By: #### C BC #### [facility] [address] [place] [address] Dr. Darian Scott Monocytes/100 WBC (Bld) 8.8 % Normal 1.7-12.0 [facility] Comment on above: Performed By: #### C BC #### [facility] [address] [place] [address] Dr. Darian Scott NEUT # 2.8 103/ul Normal 1.4-6.5 [facility] Comment on above: Performed By: #### C BC #### [facility] [address] [place] [address] Dr. Darian Scott Neutrophils/100 WBC (Bld) 60.2 % Normal 43.0-75.0 [facility] Comment on above: Performed By: #### C BC #### [facility] [address] [place] [address] Dr. Darian Scott Platelet mean volume (Bld) [Entitic vol] 10.6 fL Normal 9.5-13.5 [facility] Comment on above: Performed By: #### C BC #### [facility] [address] [place] [address] Dr. Darian Scott PLT 206 103/ul Normal 150-450 [facility] Comment on above: Performed By: #### C BC #### [facility] [address] [place] [address] Dr. Darian Scott RBC 4.08 106/ul Critically low 4.20-5.40 [facility] Comment on above: Performed By: #### C BC #### [facility] [address] [place] [address] Dr. Darian Scott WBC 4.7 103/ul Normal 4.0-11.0 [facility] Comment on above: Performed By: #### C BC #### [facility] [address] [place] [address] Dr. Darian Scott CULTURE URINEon 12-14-2022 CULTURE URINE Culture Observations : LIGHT GROWTH OF MIXED GENITAL ELEN. NO POTENTIAL PATHOGENS SEEN. Normal [facility] Comment on above: Performed By: #### JOYCE JOVELRO #### [facility] [address] [place] [address] Dr. Darian Scott ER URINE PROFILEon 3 Bilirubin Ql (U) Negative Normal NEGATIVE [facility] Comment on above: Performed By: #### JOYCE JOVELRO #### [facility] [address] [place] [address] Dr. Darian Scott Clarity (U) CLEAR Normal CLEAR [facility] Comment on above: Performed By: #### JOYCE JOVELRO #### [facility] [address] [place] [address] Dr. Dairan Scott Color (U) LT. YELLOW Normal YELLOW [facility] Comment on above: Performed By: #### JOYCE JOVELRO #### [facility] [address] [place] [address] Dr. Darian HAYWARD A micrscopic examination will be performed if indicated. Normal [facility] Comment on above: Performed By: #### Ge DUFFY UMICRO #### [facility] [address] [place] [address] Dr. Darian Scott Glucose Ql (U) Negative Normal NEGATIVE [facility] Comment on above: Performed By: #### Ge DUFFY UMICRO #### [facility] [address] [place] [address] Dr. Darian Scott Hemoglobin Ql (U) LARGE Abnormal NEGATIVE [facility] Comment on above: Performed By: #### Ge DUFFY UMICRO #### [facility] [address] [place] [address] Dr. Darian Scott Ketones Ql (U) TRACE Abnormal NEGATIVE [facility] Comment on above: Performed By: #### Ge DUFFY UMICRO #### [facility] [address] [place] [address] Dr. Darian Scott LEUKOCYTES TRACE Abnormal NEGATIVE [facility] Comment on above: Performed By: #### Ge DUFFY UMICRO #### [facility] [address] [place] [address] Dr. Darian Scott Nitrite Ql (U) Negative Normal NEGATIVE [facility] Comment on above: Performed By: #### Ge DUFFY UMICRO #### [facility] [address] [place] [address] Dr. Darian Scott pH (U) 7.5 [pH] Normal 5-9 [facility] Comment on above: Performed By: #### Ge DUFFY UMICRO #### [facility] [address] [place] [address] Dr. Darian Scott SPEC GRAVITY 1.010 Normal 1.005-<=1.025 [facility] Comment on above: Performed By: #### Ge DUFFY UMICRO #### [facility] [address] [place] [address] Dr. Darian Scott UA PROTEIN TRACE Normal NEGATIVE/ TRACE [facility] Comment on above: Performed By: #### E TATI, UMICRO #### [facility] [address] [place] [address] Dr. Darian Scott UR MICRO IND INDICATED Normal [facility] Comment on above: Performed By: #### Ge DUFFY UMICRO #### [facility] [address] [place] [address] Dr. Darian Scott Urobilinogen Qn (U) 0.2 {Marielos'U}/dL Normal 0.2 - 1.0 [facility] Comment on above: Performed By: #### Ge DUFFY UMICRO #### [facility] [address] [place] [address] Dr. Darian Scott PREG QUANT HCGon 12-14-2022 HCG QUANT 9234 mIU/mL Normal [facility] Comment on above: Performed By: #### Ge DUFFY UMICRO #### [facility] [address] [place] [address] Dr. Darian Scott HCG RANGE SEE BELOW Normal [facility] [facility] Comment on above: Result Comment: 5-50 0.2-1 WEEK 50-500 1-2 WEEKS 100-5,000 2-3 WEEKS 500-10,000 3-4 WEEKS 1,000-50,000 4-5 WEEKS 10,000-100,000 5-6 WEEKS 15,000-200,000 6-8 WEEKS 10,000-100,000 2-3 MONTHS Performed By: #### Ge DUFFY UMCHARURO #### [facility] [address] [place] [address] Dr. Darian Scott PROF CHEM 8 (BAS METB)on Anion gap [Moles/Vol] 9.9 mmol/L Normal [facility] Comment on above: Performed By: #### P REG #### [facility] [address] [place] [address] Dr. Darian Scott Calcium [Mass/Vol] 9.2 mg/dL Normal 8.5-10.1 [facility] Comment on above: Performed By: #### P REG #### [facility] [address] [place] [address] Dr. Darian Scott Chloride [Moles/Vol] 103 mmol/L Normal 98-107 [facility] Comment on above: Performed By: #### P REG #### [facility] [address] [address] [address] Darian Scott CO2 [Moles/Vol] 26.9 mmol/L Normal 21.0-32.0 [facility] Comment on above: Performed By: #### P REG #### [facility] [address] [address] [address] Darian Scott Creatinine [Mass/Vol] 0.59 mg/dL Normal 0.55-1.02 [facility] Comment on above: Performed By: #### P REG #### [facility] [address] [place] [address] Dr. Darian Soctt EGFR-AF SWAZI >60 Normal >=60 [facility] Comment on above: Performed By: #### P REG #### [facility] [address] [place] [address] Dr. Darian Scott EGFR-NON AF SWAZI >60 Normal >=60 [facility] Comment on above: Performed By: #### P REG #### [facility] [address] [address] [address] Darian Scott Glucose [Mass/Vol] 90 mg/dL Normal 74-106 [facility] Comment on above: Performed By: #### P REG #### [facility] [address] [place] [address] Dr. Darian Scott Potassium [Moles/Vol] 3.8 mmol/L Normal 3.5-5.1 [facility] Comment on above: Performed By: #### P REG #### [facility] [address] [address] [address] Darian Scott Sodium [Moles/Vol] 136 mmol/L Normal 136-145 [facility] Comment on above: Performed By: #### P REG #### [facility] [address] [place] [address] Dr. Darian Scott Urea nitrogen [Mass/Vol] 14.0 mg/dL Normal 7.0-18.0 [facility] Comment on above: Performed By: #### P REG #### [facility] [address] [place] [address] Dr. Darian Scott Urea nitrogen/Creatini ne [Mass ratio] 23.7 mg/mg Normal [facility] Comment on above: Performed By: #### P REG #### [facility] [address] [place] [address] Dr. Darian Scott TYPE AND SCREENon 12-14-2022 TYPE AND SCREEN Negative Normal [facility] Comment on above: Performed By: #### E RUR, UMICRO #### [facility] [address] [place] [address] Dr. Darian Scott URINE MICROSCOPIC ONLYon BACTERIA MODERATE Abnormal NONE SEEN [facility] Comment on above: Performed By: #### E RUR, UMICRO #### [facility] [address] [place] [address] Dr. Darian Scott Bacteria identified Cx Nom (U) INDICATED Normal [facility] Comment on above: Performed By: #### E RUR, UMICRO #### [facility] [address] [place] [address] Dr. Darian Scott CAST NONE SEEN Normal NONE SEEN [facility] Comment on above: Performed By: #### E RUR, UMICRO #### [facility] [address] [place] [address] Dr. Darian Scott Crystals LM Nom (Urine sed) NONE SEEN Normal NONE SEEN [facility] Comment on above: Performed By: #### E RUR, UMICRO #### [facility] [address] [place] [address] Dr. Darian Scott Epithelial cells LM Ql (Urine sed) MODERATE Abnormal NONE SEEN /RARE [facility] Comment on above: Performed By: #### E RUR, UMICRO #### [facility] [address] [place] [address] Dr. Darian Scott MUCOUS TRACE Abnormal NONE SEEN [facility] Comment on above: Performed By: #### E RUR, UMICRO #### [facility] [address] [place] [address] Dr. Darian Scott RBC 5-10 Abnormal 0-2 [facility] Comment on above: Performed By: #### ESTER JOVEL #### [facility] [address] [place] [address] Dr. Darian Scott WBC 5-10 Abnormal NONE SEEN [facility] Comment on above: Performed By: #### ESTER JOVEL #### [facility] [address] [address] [address] Darian Scott US PREG TVon 12-14-2022 US PREG TV EXAMINATION: US PREG TV HISTORY: Vaginal bleeding complicating early COMPARISON: No relevant comparison available. FINDINGS: GESTATIONAL SAC: Present and normal appearing. YOLK SAC: Present and normal appearing. POLE: Present and normal appearing. CARDIAC: Absent UTERUS: Normal size and appearance. Incidental nabothian cysts within the anterior wall of cervix. OVARIES: Right: Corpus lutein cyst. Left: Normal. CERVIX: 4.2 cm in length and closed. CUL-DE-SAC: Normal. OTHER: None. AGE BY LMP: 9 weeks 0 days SANTOSH BY LMP: 07/19/2023 AGE BY US CRL: 6 weeks 1 day [place] BY US CRL: 08/08/2023 IMPRESSION: 1. Single intrauterine 6 weeks 1 day by today's ultrasound with no detectable heartbeat; early versus demise. Follow-up recommended. Electronically authenticated by: JO MONGE Date: 2022-12-14 15:05 Normal [facility] ABO AND RH TYPEon 12-08-2022 ABO and Rh group Nom (Bld) ABO Rh Typing A Rh Positive Blood Bank Notes Testing done by on 12/06/22 Normal [facility] Comment on above: Performed By: #### ESTER JOVEL #### [facility] [address] [place] [address] Dr. Darian Scott CBC AUTO DIFFon 12-07-2022 BASO # 0.1 103/ul Normal 0.0-0.1 [facility] Comment on above: Performed By: #### ESTER JOVEL #### [facility] [address] [place] [address] Dr. Darian Scott Basophils/100 WBC (Bld) 0.7 % Normal 0.2-2.0 [facility] Comment on above: Performed By: #### ESTER JOVEL #### [facility] [address] [place] [address] Dr. Darian Scott EO # 0.0 103/ul Normal 0.0-0.7 [facility] Comment on above: Performed By: #### JOYCE JOVELRO #### [facility] [address] [place] [address] Dr. Darian Scott Eosinophils/100 WBC (Bld) 0.4 % Critically low 0.9-7.0 [facility] Comment on above: Performed By: #### ESTER JOVEL #### [facility] [address] [place] [address] Dr. Darian Scott Erythrocyte distribution width (RBC) [Ratio] 12.8 % Normal 11.0-15.0 [facility] Comment on above: Performed By: #### ESTER JOVEL #### [facility] [address] [place] [address] Dr. Darian Scott Hematocrit (Bld) [Volume fraction] 33.7 % Critically low 36.0-48.0 [facility] Comment on above: Performed By: #### JOYCE JOVELRO #### [facility] [address] [place] [address] Dr. Darian Scott Hemoglobin (Bld) [Mass/Vol] 11.5 g/dL Critically low 12.0-16.0 [facility] Comment on above: Performed By: #### JOYCE JOVELRO #### [facility] [address] [place] [address] Dr. Darian Scott IG # 0.01 10e3/ul Normal 0.00-0.03 [facility] Comment on above: Performed By: #### JOYCE JOVELRO #### [facility] [address] [place] [address] Dr. Darian Scott IG % 0.1 % Normal 0.0-0.5 [facility] Comment on above: Performed By: #### Ge DUFFY UMICRO #### [facility] [address] [place] [address] Dr. Darian Scott LYMPH # 2.6 103/ul Normal 1.2-3.8 [facility] Comment on above: Performed By: #### Ge DUFFY UMICRO #### [facility] [address] [place] [address] Dr. Dairan Scott Lymphocytes/100 WBC (Bld) 34.8 % Normal 20.5-60.0 [facility] Comment on above: Performed By: #### Ge DUFFY UMICRO #### [facility] [address] [place] [address] Dr. Darian Scott MANUAL DIFF REQ NO Normal [facility] Comment on above: Performed By: #### Ge DUFFY UMICRO #### [facility] [address] [place] [address] Dr. Darian Scott MCH (RBC) [Entitic mass] 29.8 pg Normal 26.7-34.0 [facility] Comment on above: Performed By: #### Ge DUFFY UMICRO #### [facility] [address] [place] [address] Dr. Darian Scott MCHC (RBC) [Mass/Vol] 34.1 g/dL Normal 29.9-35.2 [facility] Comment on above: Performed By: #### Ge DUFFY UMICRO #### [facility] [address] [place] [address] Dr. Darian Scott MCV (RBC) [Entitic vol] 87.3 fL Normal 81.0-99.0 [facility] Comment on above: Performed By: #### Ge DUFYF UMICRO #### [facility] [address] [place] [address] Dr. Darian Scott MONO # 0.5 103/ul Normal 0.3-0.8 [facility] Comment on above: Performed By: #### Ge DUFFY UMICRO #### [facility] [address] [place] [address] Dr. Darian Scott Monocytes/100 WBC (Bld) 6.9 % Normal 1.7-12.0 [facility] Comment on above: Performed By: #### ESTER JOVEL #### [facility] [address] [place] [address] Dr. Darian Scott NEUT # 4.3 103/ul Normal 1.4-6.5 [facility] Comment on above: Performed By: #### JOYCE JOVELRO #### [facility] [address] [place] [address] Dr. Darian Scott Neutrophils/100 WBC (Bld) 57.1 % Normal 43.0-75.0 [facility] Comment on above: Performed By: #### JOYCE JOVELRO #### [facility] [address] [place] [address] Dr. Darian Scott Platelet mean volume (Bld) [Entitic vol] 10.4 fL Normal 9.5-13.5 [facility] Comment on above: Performed By: #### JOYCE JOEVLRO #### [facility] [address] [place] [address] Dr. Darian Scott PLT 207 103/ul Normal 150-450 [facility] Comment on above: Performed By: #### JOYCE JOVELRO #### [facility] [address] [place] [address] Dr. Darian Scott RBC 3.86 106/ul Critically low 4.20-5.40 [facility] Comment on above: Performed By: #### JOYCE JOVELRO #### [facility] [address] [place] [address] Dr. Darian Scott WBC 7.5 103/ul Normal 4.0-11.0 [facility] Comment on above: Performed By: #### JOYCE JOVELRO #### [facility] [address] [place] [address] Dr. Darian Scott ER URINE PROFILEon 3 Bilirubin Ql (U) Negative Normal NEGATIVE [facility] Comment on above: Performed By: #### P REG #### [facility] [address] [place] [address] Dr. Darian Scott Clarity (U) CLEAR Normal CLEAR [facility] Comment on above: Performed By: #### P REG #### [facility] [address] [place] [address] Dr. Darian Scott Color (U) LT. YELLOW Normal YELLOW [facility] Comment on above: Performed By: #### P REG #### [facility] [address] [place] [address] Dr. Darian HAYWARD A micrscopic examination will be performed if indicated. Normal [facility] Comment on above: Performed By: #### P REG #### [facility] [address] [place] [address] Dr. Darian Scott Glucose Ql (U) Negative Normal NEGATIVE [facility] Comment on above: Performed By: #### P REG #### [facility] [address] [place] [address] Dr. Darian Scott Hemoglobin Ql (U) Negative Normal NEGATIVE [facility] Comment on above: Performed By: #### P REG #### [facility] [address] [place] [address] Dr. Darian Scott Ketones Ql (U) Negative Normal NEGATIVE [facility] Comment on above: Performed By: #### P REG #### [facility] [address] [place] [address] Dr. Darian Scott LEUKOCYTES Negative Normal NEGATIVE [facility] Comment on above: Performed By: #### P REG #### [facility] [address] [place] [address] Dr. Darian Scott Nitrite Ql (U) Negative Normal NEGATIVE [facility] Comment on above: Performed By: #### P REG #### [facility] [address] [place] [address] Dr. Darian Scott pH (U) 5.5 [pH] Normal 5-9 [facility] Comment on above: Performed By: #### P REG #### [facility] [address] [place] [address] Dr. Darian Scott SPEC GRAVITY <=1.005 Abnormal 1.005-<=1.025 [facility] Comment on above: Performed By: #### P REG #### [facility] [address] [place] [address] Dr. Darian Scott UA PROTEIN Negative Normal NEGATIVE/ TRACE [facility] Comment on above: Performed By: #### P REG #### [facility] [address] [place] [address] Dr. Darian Scott UR MICRO IND NOT INDICATED Normal [facility] Comment on above: Performed By: #### P REG #### [facility] [address] [place] [address] Dr. Darian Scott Urobilinogen Qn (U) 0.2 {Marielos'U}/dL Normal 0.2 - 1.0 [facility] Comment on above: Performed By: #### P REG #### [facility] [address] [place] [address] Dr. Darian Scott PROF CHEM 8 (BAS METB)on Anion gap [Moles/Vol] 15.0 mmol/L Normal [facility] Comment on above: Performed By: #### B MP #### [facility] [address] [place] [address] Dr. Darian Scott Calcium [Mass/Vol] 8.4 mg/dL Critically low 8.5-10.1 [facility] Comment on above: Performed By: #### B MP #### [facility] [address] [place] [address] Dr. Darian Scott Chloride [Moles/Vol] 106 mmol/L Normal 98-107 [facility] Comment on above: Performed By: #### B MP #### [facility] [address] [place] [address] Dr. Darian Scott CO2 [Moles/Vol] 22.6 mmol/L Normal 21.0-32.0 [facility] Comment on above: Performed By: #### B MP #### [facility] [address] [place] [address] Dr. Darian Scott Creatinine [Mass/Vol] 0.68 mg/dL Normal 0.55-1.02 [facility] Comment on above: Performed By: #### B MP #### [facility] [address] [address] [address] Darian Scott EGFR-AF SWAZI >60 Normal >=60 [facility] Comment on above: Performed By: #### B MP #### [facility] [address] [address] [address] Darian Scott EGFR-NON AF SWAZI >60 Normal >=60 [facility] Comment on above: Performed By: #### B MP #### [facility] [address] [address] [address] Darian Scott Glucose [Mass/Vol] 88 mg/dL Normal 74-106 [facility] Comment on above: Performed By: #### B MP #### [facility] [address] [place] [address] Dr. Darian Scott Potassium [Moles/Vol] 3.6 mmol/L Normal 3.5-5.1 [facility] Comment on above: Performed By: #### B MP #### [facility] [address] [place] [address] Dr. Darian Scott Sodium [Moles/Vol] 140 mmol/L Normal 136-145 [facility] Comment on above: Performed By: #### B MP #### [facility] [address] [place] [address] Dr. Darian Scott Urea nitrogen [Mass/Vol] 15.0 mg/dL Normal 7.0-18.0 [facility] Comment on above: Performed By: #### B MP #### [facility] [address] [place] [address] Dr. Darian Scott Urea nitrogen/Creatini ne [Mass ratio] 22.1 mg/mg Normal [facility] Comment on above: Performed By: #### B MP #### [facility] [address] [place] [address] Dr. Darian Scott PAP ACOG PANEL 2: 21 to 29on 07-05-2022 . . Normal [facility] Comment on above: Performed By: #### [id number] #### [facility] [address] [place] [address] Dr. Darian Scott Age Gdln ACOG Testing 21-29 [facility] Comment on above: Performed By: #### [id number] #### [facility] [address] [place] [address] Dr. Darian Scott DIAGNOSIS: Comment [facility] Comment on above: Result Comment: NEGA TIVE FOR INTRAEPITHELIAL LESION OR MALIGNANCY. Performed By: #### [id number] #### [facility] [address] [place] [address] Dr. Darian Scott Methodology: Comment [facility] Comment on above: Result Comment: This liquid based ThinPrep(R) pap test was screened with the use of an image guided system. Performed By: #### [id number] #### [facility] [address] [place] [address] Dr. Darian Scott Note: Comment [facility] Comment on above: Result Comment: The Pap smear is a screening test designed to aid in the detection of premalignant and malignant conditions of the uterine cervix. It is not a diagnostic procedure and should not be used as the sole means of detecting cervical cancer. Both false-positive and false-negative reports do occur. . Performed By: #### [id number] #### [facility] [address] [place] [address] Dr. Darian Scott Performed by: Comment Normal [facility] Comment on above: Result Comment: [employer] (ASCP) Performed By: #### [id number] #### [facility] [address] [place] [address] Dr. Darian Scott Reflex Criteria: Comment [facility] Comment on above: Result Comment: The HPV DNA reflex criteria were not met with this specimen result therefore, no HPV testing was performed. . Performed By: #### [id number] #### [facility] [address] [place] [address] Dr. Darian Scott Specimen adequacy: Comment [facility] Comment on above: Result Comment: Sati sfactory for evaluation. Endocervical and/or squamous metaplastic cells (endocervical component) are present. Performed By: #### [id number] #### [facility] [address] [address] [address] Darian Scott ER URINE PROFILEon 2 Bilirubin Ql (U) Negative Normal NEGATIVE [facility] Comment on above: Performed By: #### P REG #### [facility] [address] [address] [address] Darian Scott Clarity (U) CLEAR Normal CLEAR [facility] Comment on above: Performed By: #### P REG #### [facility] [address] [place] [address] Dr. Darian Scott Color (U) YELLOW Normal YELLOW [facility] Comment on above: Performed By: #### P REG #### [facility] [address] [place] [address] Dr. Darian HAYWARD A micrscopic examination will be performed if indicated. Normal [facility] Comment on above: Performed By: #### P REG #### [facility] [address] [place] [address] Dr. Darian Scott Glucose Ql (U) Negative Normal NEGATIVE [facility] Comment on above: Performed By: #### P REG #### [facility] [address] [place] [address] Dr. Darian Scott Hemoglobin Ql (U) MODERATE Abnormal NEGATIVE [facility] Comment on above: Performed By: #### P REG #### [facility] [address] [place] [address] Dr. Darian Scott Ketones Ql (U) Negative Normal NEGATIVE [facility] Comment on above: Performed By: #### P REG #### [facility] [address] [address] [address] Darian Scott LEUKOCYTES Negative Normal NEGATIVE [facility] Comment on above: Performed By: #### P REG #### [facility] [address] [place] [address] Dr. Darian Scott Nitrite Ql (U) Negative Normal NEGATIVE [facility] Comment on above: Performed By: #### P REG #### [facility] [address] [place] [address] Dr. Darian Scott pH (U) 6.5 [pH] Normal 5-9 [facility] Comment on above: Performed By: #### P REG #### [facility] [address] [place] [address] Dr. Darian Scott SPEC GRAVITY 1.020 Normal 1.005-<=1.025 [facility] Comment on above: Performed By: #### P REG #### [facility] [address] [place] [address] Dr. Darian Scott UA PROTEIN Negative Normal NEGATIVE/ TRACE [facility] Comment on above: Performed By: #### P REG #### [facility] [address] [place] [address] Dr. Darian Scott UR MICRO IND INDICATED Normal [facility] Comment on above: Performed By: #### P REG #### [facility] [address] [place] [address] Dr. Darian Scott Urobilinogen Qn (U) 1.0 {Marielos'U}/dL Normal 0.2 - 1.0 [facility] Comment on above: Performed By: #### P REG #### [facility] [address] [place] [address] Dr. Darian Scott URINE MICROSCOPIC ONLYon BACTERIA TRACE Abnormal NONE SEEN [facility] Comment on above: Performed By: #### P REG #### [facility] [address] [place] [address] Dr. Darian Scott Bacteria identified Cx Nom (U) NOT INDICATED Normal [facility] Comment on above: Performed By: #### P REG #### [facility] [address] [place] [address] Dr. Darian Scott CA OX CRYSTALS FEW Normal [facility] Comment on above: Performed By: #### P REG #### [facility] [address] [place] [address] Dr. Darian Scott CAST NONE SEEN Normal NONE SEEN [facility] Comment on above: Performed By: #### P REG #### [facility] [address] [address] [address] Darian Scott Crystals LM Nom (Urine sed) SEEN Abnormal NONE SEEN [facility] Comment on above: Performed By: #### P REG #### [facility] [address] [place] [address] Dr. Darian Scott Epithelial cells LM Ql (Urine sed) RARE Normal NONE SEEN /RARE [facility] Comment on above: Performed By: #### P REG #### [facility] [address] [address] [address] Darian Scott MUCOUS NONE SEEN Normal NONE SEEN [facility] Comment on above: Performed By: #### P REG #### [facility] [address] [place] [address] Dr. Darian Scott RBC 2-5 Abnormal 0-2 [facility] Comment on above: Performed By: #### P REG #### [facility] [address] [place] [address] Dr. Darian Scott WBC NONE SEEN Normal NONE SEEN [facility] Comment on above: Performed By: #### P REG #### [facility] [address] [place] [address] Dr. Darian Scott CARDIAC JESSICA ADMITon 022 CK [Catalytic activity/Vol] 445 U/L Critically high 26-192 [facility] Comment on above: Performed By: #### L IPA, CMADM, CMP, TSH #### [facility] [address] [place] [address] Dr. Darian Scott CK.MB [Mass/Vol] 1.81 ng/mL Normal <=3.60 [facility] Comment on above: Performed By: #### L IPA, CMADM, CMP, TSH #### [facility] [address] [place] [address] Dr. Darian Scott HSTROP 6.1 pg/mL Normal 4.0-51.3 [facility] Comment on above: Result Comment: CUT- OFF POINTS HAVE BEEN ESTABLISHED BASED ON THE FOURTH UNIVERSAL DEFINITIONS OF MYOCARDIAL INFARCTION. THE UPPER REFERENCE LIMIT (URL) OF TROPONIN, DEFINED THE 99TH PERCENTILE OF cTnI DISTRIBUTION IN A REFERENCE POPULATION, HAS BEEN CONFIRMED THE DECISION THRESHOLD FOR PA DIAGNOSIS. Performed By: #### L IPA, CMADM, CMP, TSH #### [facility] [address] [place] [address] Dr. Darian Scott TRESSA 94 ng/mL Critically high 9-82 [facility] Comment on above: Performed By: #### L IPA, CMADM, CMP, TSH #### [facility] [address] [place] [address] Dr. Darian Scott CBC AUTO DIFFon 05-08-2022 BASO # 0.1 103/ul Normal 0.0-0.1 [facility] Comment on above: Performed By: #### JOYCE JVOELRO #### [facility] [address] [place] [address] Dr. Darian Scott Basophils/100 WBC (Bld) 0.8 % Normal 0.2-2.0 [facility] Comment on above: Performed By: #### ESTER JOVEL #### [facility] [address] [place] [address] Dr. Darian Scott EO # 0.0 103/ul Normal 0.0-0.7 [facility] Comment on above: Performed By: #### ESTER JOVEL #### [facility] [address] [place] [address] Dr. Darian Scott Eosinophils/100 WBC (Bld) 0.5 % Critically low 0.9-7.0 [facility] Comment on above: Performed By: #### JOYCE JOVELRO #### [facility] [address] [place] [address] Dr. Darian Scott Erythrocyte distribution width (RBC) [Ratio] 12.5 % Normal 11.0-15.0 [facility] Comment on above: Performed By: #### JOYCE JOVELRO #### [facility] [address] [place] [address] Dr. Darian Scott Hematocrit (Bld) [Volume fraction] 34.4 % Critically low 36.0-48.0 [facility] Comment on above: Performed By: #### JOYCE JOVELRO #### [facility] [address] [address] [address] Darian Scott Hemoglobin (Bld) [Mass/Vol] 11.9 g/dL Critically low 12.0-16.0 [facility] Comment on above: Performed By: #### E TATI, UMICRO #### [facility] [address] [address] [address] Darian Scott IG # 0.04 10e3/ul Critically high 0.00-0.03 [facility] Comment on above: Performed By: #### E TATI, UMICRO #### [facility] [address] [place] [address] Dr. Darian Scott IG % 0.5 % Normal 0.0-0.5 [facility] Comment on above: Performed By: #### Ge DUFFY, UMICRO #### [facility] [address] [place] [address] Dr. Darian Scott LYMPH # 3.2 103/ul Normal 1.2-3.8 [facility] Comment on above: Performed By: #### Ge DUFFY, UMICRO #### [facility] [address] [place] [address] Dr. Darian Scott Lymphocytes/100 WBC (Bld) 38.7 % Normal 20.5-60.0 [facility] Comment on above: Performed By: #### Ge DUFFY, UMICRO #### [facility] [address] [place] [address] Dr. Darian Scott MANUAL DIFF REQ NO Normal [facility] Comment on above: Performed By: #### Ge DUFFY, UMICRO #### [facility] [address] [place] [address] Dr. Darian Scott MCH (RBC) [Entitic mass] 29.5 pg Normal 26.7-34.0 [facility] Comment on above: Performed By: #### Ge DUFFY, UMICRO #### [facility] [address] [place] [address] Dr. Darian Scott MCHC (RBC) [Mass/Vol] 34.6 g/dL Normal 29.9-35.2 [facility] Comment on above: Performed By: #### ESTER JOVEL #### [facility] [address] [place] [address] Dr. Darian Scott MCV (RBC) [Entitic vol] 85.4 fL Normal 81.0-99.0 [facility] Comment on above: Performed By: #### ESTER JOVEL #### [facility] [address] [place] [address] Dr. Darian Scott MONO # 0.6 103/ul Normal 0.3-0.8 [facility] Comment on above: Performed By: #### ESTER JOVEL #### [facility] [address] [place] [address] Dr. Darian Scott Monocytes/100 WBC (Bld) 7.0 % Normal 1.7-12.0 [facility] Comment on above: Performed By: #### ESTER JOVEL #### [facility] [address] [place] [address] Dr. Darian Scott NEUT # 4.3 103/ul Normal 1.4-6.5 [facility] Comment on above: Performed By: #### ESTER JOVEL #### [facility] [address] [place] [address] Dr. Darian Scott Neutrophils/100 WBC (Bld) 52.5 % Normal 43.0-75.0 [facility] Comment on above: Performed By: #### ESTER JOVEL #### [facility] [address] [place] [address] Dr. Darian Scott Platelet mean volume (Bld) [Entitic vol] 9.9 fL Normal 9.5-13.5 [facility] Comment on above: Performed By: #### ESTER JOVEL #### [facility] [address] [place] [address] Dr. Darian Scott PLT 257 103/ul Normal 150-450 [facility] Comment on above: Performed By: #### ESTER JOVEL #### [facility] [address] [place] [address] Dr. Darian Scott RBC 4.03 106/ul Critically low 4.20-5.40 [facility] Comment on above: Performed By: #### ESTER JOVEL #### [facility] [address] [place] [address] Dr. Darian Scott WBC 8.2 103/ul Normal 4.0-11.0 [facility] Comment on above: Performed By: #### ESTER JOVEL #### [facility] [address] [place] [address] Dr. Darian Scott LIPASEon 05-08-2022 Lipase [Catalytic activity/Vol] 65.0 U/L Critically low 73.0-393.0 [facility] Comment on above: Performed By: #### L IPA, CMADM, CMP, TSH #### [facility] [address] [place] [address] Dr. Darian Scott PREG HCG QUALon 05-08-2022 , QUAL Negative Normal NEGATIVE [facility] Comment on above: Performed By: #### P REG #### [facility] [address] [place] [address] Dr. Darian Scott PROF 14(COMP METB)on 022 Albumin [Mass/Vol] 3.9 g/dL Normal 3.4-5.0 [facility] Comment on above: Performed By: #### L IPA, CMADM, CMP, TSH #### [facility] [address] [place] [address] Dr. Darian Scott Albumin/Globulin [Mass ratio] 1.1 {ratio} Normal [facility] Comment on above: Performed By: #### L IPA, CMADM, CMP, TSH #### [facility] [address] [place] [address] Dr. Darian Scott ALP [Catalytic activity/Vol] 65 U/L Normal 46-116 [facility] Comment on above: Performed By: #### L IPA, CMADM, CMP, TSH #### [facility] [address] [place] [address] Dr. Darian Scott ALT [Catalytic activity/Vol] 23 U/L Normal 14-59 [facility] Comment on above: Performed By: #### L IPA, CMADM, CMP, TSH #### [facility] [address] [address] [address] Darian Scott Anion gap [Moles/Vol] 12.2 mmol/L Normal [facility] Comment on above: Performed By: #### L IPA, CMADM, CMP, TSH #### [facility] [address] [address] [address] Darian Scott AST [Catalytic activity/Vol] 18 U/L Normal 15-37 [facility] Comment on above: Performed By: #### L IPA, CMADM, CMP, TSH #### [facility] [address] [place] [address] Dr. Darian Scott Bilirubin [Mass/Vol] 0.5 mg/dL Normal 0.2-1.0 [facility] Comment on above: Performed By: #### L IPA, CMADM, CMP, TSH #### [facility] [address] [address] [address] Darian Scott Calcium [Mass/Vol] 9.2 mg/dL Normal 8.5-10.1 [facility] Comment on above: Performed By: #### L IPA, CMADM, CMP, TSH #### [facility] [address] [place] [address] Dr. Darian Scott Chloride [Moles/Vol] 104 mmol/L Normal 98-107 [facility] Comment on above: Performed By: #### L IPA, CMADM, CMP, TSH #### [facility] [address] [place] [address] Dr. Darian Scott CO2 [Moles/Vol] 27.9 mmol/L Normal 21.0-32.0 [facility] Comment on above: Performed By: #### L IPA, CMADM, CMP, TSH #### [facility] [address] [place] [address] Dr. Darian Scott Creatinine [Mass/Vol] 0.87 mg/dL Normal 0.55-1.02 [facility] Comment on above: Performed By: #### L IPA, CMADM, CMP, TSH #### [facility] [address] [address] [address] Darian Scott EGFR-AF SWAZI >60 Normal >=60 [facility] Comment on above: Performed By: #### L IPA, CMADM, CMP, TSH #### [facility] [address] [address] [address] Darian Scott EGFR-NON AF SWAZI >60 Normal >=60 [facility] Comment on above: Performed By: #### L IPA, CMADM, CMP, TSH #### [facility] [address] [address] [address] Darian Scott Globulin (S) [Mass/Vol] 3.6 g/dL Normal [facility] Comment on above: Performed By: #### L IPA, CMADM, CMP, TSH #### [facility] [address] [address] [address] Darian Scott Glucose [Mass/Vol] 89 mg/dL Normal 74-106 [facility] Comment on above: Performed By: #### L IPA, CMADM, CMP, TSH #### [facility] [address] [address] [address] Darian Scott Potassium [Moles/Vol] 3.1 mmol/L Critically low 3.5-5.1 [facility] Comment on above: Performed By: #### L IPA, CMADM, CMP, TSH #### [facility] [address] [address] [address] Darian Scott Protein [Mass/Vol] 7.5 g/dL Normal 6.4-8.2 [facility] Comment on above: Performed By: #### L IPA, CMADM, CMP, TSH #### [facility] [address] [address] [address] Darian Scott Sodium [Moles/Vol] 141 mmol/L Normal 136-145 [facility] Comment on above: Performed By: #### L IPA, CMADM, CMP, TSH #### [facility] [address] [address] [address] Darian Scott Urea nitrogen [Mass/Vol] 11.0 mg/dL Normal 7.0-18.0 [facility] Comment on above: Performed By: #### L IPA, CMADM, CMP, TSH #### [facility] [address] [address] [address] Darian Scott Urea nitrogen/Creatini ne [Mass ratio] 12.6 mg/mg Normal [facility] Comment on above: Performed By: #### L IPA, CMADM, CMP, TSH #### [facility] [address] [address] [address] Darian Scott TSHon 05-08-2022 TSH 2.377 uIU/mL Normal 0.358-3.740 [facility] Comment on above: Performed By: #### L IPA, CMADM, CMP, TSH #### [facility] [address] [address] [address] Darian Scott SARS-CoV-2 (COVID-19) RNA NA A+probe Ql (Resp)on 05-02-2022 SARS-CoV-2 (COVID-19) RNA RYAN+probe Ql (Unsp spec) Negative [facility] Other Vital Signs Date Time Vital Sign Value Performing Clinician Facility 05-02-2022 13:55-0400 Body height 157.48 cm Sandy Herring Other [facility] Other 05-02-2022 13:55-0400 Body mass index (BMI) [Ratio] 29.26 kg/m2 Sandy Herring Other [facility] Other 05-02-2022 13:55-0400 Body temperature 98.7 [degF] Sandy Herring Other [facility] Other 05-02-2022 13:55-0400 Body weight 72.58 kg Sandy Herring Other [facility] Other 05-02-2022 13:55-0400 SaO2% (BldA) [Mass fraction] 98 % Sandy Herring Other [facility] Other Encounters Encounter Date Encounter Type Care Provider Facility Start: 10-24-2023 End: 10-24-2023 ambulatory SHONNA CANTRELL Not Available Start: 10-11-2023 End: 10-11-2023 ambulatory SHEELA BRITO Not Available Start: 09-12-2023 End: 09-12-2023 ambulatory SHONNA OSMANEY Not Available Start: 08-15-2023 End: 08-15-2023 ambulatory SHEELA BRITO Not Available Start: 01-14-2023 Encounter for preprocedural cardiovascular examination DR SHEELA BRITO . [facility] Start: 01-06-2023 End: 01-07-2023 ambulatory SHEELA BRITO Facility:[facility] Start: 01-06-2023 End: 01-06-[address] SHEELA BRITO . Facility: Start: 01-05-2023 End: 01-06-[address] SHEELA BRITO . Facility: Start: 01-05-2023 End: 01-06-2023 Encounter for preprocedural cardiovascular examination DR SHEELA BRITO . Facility: Start: 12-31-2022 End: 01-01-[address] SHEELA BRITO . Facility: Start: 12-21-2022 End: 12-22-2022 ambulatory SHONNA CANTRELL . Facility: Start: 12-14-2022 End: 12-14-[address] JAYLA RENTERIA Facility: Start: 12-06-2022 End: 12-07-[address] JAYLA RENTERIA Facility: Start: 06-28-2022 End: 06-28-[address] SHEELA BRITO . Facility: Start: 05-08-2022 End: 05-09-[address] JAYLA RENTERIA Facility: Start: 05-02-2022 End: 05-02-2022 ambulatory Sandy Herring Other [facility] Other Start: 05-02-2022 Office outpatient ne w 30 minutes Sandy Herring [facility] [place] Payers Date Payer Category Payer Medicaid [id number] 2000 Unknown [id number] 2.16.84 [id number] 2001 Unknown [id number] 2.16.84 [id number] 2001 Unknown [id number] 2.16.84 [id number] 2001 Unknown [id number] 2.16.84 [id number] 2001 Unknown [id number] 2.16.84 [id number] 2001 Unknown [id number] 2.16.84 0.1.012951.3.579.2.593 2001 Unknown [id number] 2.16.84 0.1.349762.3.579.2.593 2001 Unknown [id number] 2.16.84 [id number] 2001 Unknown [id number] 2.16.84 0.1.527946.3.579.2.1259 2001 Unknown [id number] 2.16.84 0.1.611718.3.579.2.1259 2001 Unknown [id number] 2.16.840 .1.612340.3.579.2.9 2001 Unknown [id number] 2.16.840. [id number] 1959 Unknown [id number] 2.1 [id number] Social History Date Type Detail Facility Sex Assigned At [facility] Other Clinical Note 01-06-2023 Note Date & Type Note Facility 01-06-2023 Note OPERATIVE NOTE OPERATION DATE: 01/06/2023 PROCEDURE: Suction D AND C. PREOPERATIVE DIAGNOSIS: Missed . POSTOPERATIVE DIAGNOSIS: Missed . ANESTHESIA: General. SURGEON: Sheela Brito D.O. BROADCAST PROGRAM DIRECTOR: None. FINDINGS: Products of conception. SPECIMEN: Products of conception. BLOOD LOSS: 25 mL. URINE OUTPUT: Yellow and clear. PROCEDURE: The patient was taken back to the OR where she was given general anesthesia without difficulty. She was then placed in dorsal lithotomy position, prepped and draped in the normal sterile fashion. A weighted speculum was placed in the patient's vagina and the anterior lip of the cervix was identified and grasped with a single-tooth tenaculum. The patient was then gently dilated using Hegar dilators after we had sounded roughly to 10 cm. The suction curette was then tested. The suction curette was then placed in the patient's uterus and products of conception were removed using an 9-Occitan suction curette. Excellent hemostasis was noted. The patient tolerated the procedure well. Sponge, lap, and needle counts were correct x 2. All instruments were then removed from the patient's vagina. The patient was taken to the Recovery Room in stable condition. ?? [facility] Clinical Note 01-05-2023 Note Date & Type Note Facility 01-05-2023 Note EXAMINATION: XR CHES T 2 V HISTORY: Pre-surgery evaluation COMPARISON: No relevant comparison available. TECHNIQUE: FINDINGS: LUNGS: No significant pulmonary parenchymal abnormalities. VASCULATURE: No increased pulmonary vasculature. PLEURA: No pneumothorax, effusion, or pleural thickening. CARDIAC: No cardiomegaly or cardiac silhouette abnormality. MEDIASTINUM: No visible mass or adenopathy. BONES: No fracture or visible bone lesion. OTHER: Negative. IMPRESSION: Normal examination. Electronically authenticated by: JOI ROPER Date: 2023-01-05 14:07 [facility] Evaluation note 05-02-2022 Note Date & Type Note Facility 05-02-2022 Evaluation note Encounter Date Diagnosis Assessment Notes Apr, Cough (ICD-10 - R05.9) Apr, Viral URI (ICD-10 - J06.9) Advised patient that COVID PCR test was negative today. Advised patient that will treat as viral URI. Supportive care as directed, increase fluids and rest, Tylenol/Motrin as directed, rx of Bromfed as directed, cool mist humidifier, throat lozenges. Discussed infection control practices such as good hand washing and mask wearing. Patient to follow up with PCP if symptoms persist or worsen despite treatment. Immediate eval for SOB, difficulty, chest pain, fevers that do not break with antipyretic or any other concerning symptoms as reviewed on patient education handout. Patient verbalizes understanding and is agreeable to treatment plan. Patient left in stable condition. [facility] Other History general Narrative - Reported Note Date & Type Note Facility History general Narrative - Reported Type Medical History Depression/anxiety [facility] Other Summary Purpose Family History No Family History Records FoundNo Family History Records FoundNo Family History Records Found Advance Directives No Advanced Directives Records FoundNo Advanced Directives Records FoundNo Advanced Directives Records Found Additional Source Comments REASON FOR VISIT (unrecogniz ed section and content) BURR MALIBU, SORE THROAT, H/ A, COUGH INFORMATION SOURCE (unrecogn ized section and content) DATE CREATED AUTHOR 01/10/2023 [facility] DATE CREATED AUTHOR AUTHOR'S ORGANIZ ATION 01/17/2023 [facility] DATE CREATED AUTHOR AUTHOR'S ORGANIZ ATION 10/25/2023 [facility] FOR RECORDS PERTAINING TO PATIENTS WHO ARE OR HAVE BEEN ENROLLED IN A CHEMICAL DEPENDENCY/SUBSTANCEABUSE PROGRAM, SOME INFORMATION MAY BE OMITTED. This clinical summary was aggregated from multiple sources. Caution should be exercised in using it in the provision of clinical care. This summary normalizes information from multiple sources, and as a consequence, information in this document may materially change the coding, format and clinical context of patient data. In addition, data may be omitted in some cases. CLINICAL DECISIONS SHOULD BE BASED ON THE PRIMARY CLINICAL RECORDS. [facility]. provides no warranty or guarantee of the accuracy or completeness of information in this document.
[2023-10-30 17:05] VITALS: BP 120/64; PULSE 87
[2023-10-30 17:22] LABS: Bilirubin Urine NEGATIVE (NEGATIVE); Blood Urine NEGATIVE (NEGATIVE); Clarity Urine SL CLOUDY (CLEAR); Color Urine YELLOW (YELLOW); Glucose Urine UA NEGATIVE (NEGATIVE); Ketones Urine NEGATIVE (NEGATIVE); Leukocyte Esterase Urine TRACE (NEGATIVE); Nitrite Urine NEGATIVE (NEGATIVE); Protein Urine NEGATIVE (NEG/TRACE)
[2023-10-30 17:27] LABS: Urine Microscopic Indicated YES
[2023-10-30 17:28] LABS: Amorphous Sediment Urine MODERATE; Bacteria Urine MODERATE #/HPF (NONE SEEN); Cast Seen? NONE SEEN #/LPF (NONE SEEN); Crystals Seen? Seen #/HPF (None Seen); Mucus Urine TRACE (NONE SEEN); RBC Urine 0-2 #/HPF (0-2); Squamous Epithelial Cell Urine MODERATE #/LPF (NONE/RARE)
[2023-10-30 17:29] LABS: Urine Culture Indicated YES
== END 2023-10-30 18:08 | disposition home or self-care (01) ==
LOC: FBC 16:49
PROVIDERS: Admitting Provider Obstetrics & Gynecology Gynecology; Visit Provider Obstetrics & Gynecology Gynecology
DX: O26.899 Other specified pregnancy related conditions, unspecified trimester (principal); R10.30 Lower abdominal pain, unspecified; Z3A.00 Weeks of gestation of pregnancy not specified
CPT/HCPCS: 59025; 81001; 87086; G0378; G0379

== ENCOUNTER 2023-11-07 14:04 | Outpatient (OUT) | payer MEDICAID, SELFPAY ==
--- NOTE | 2023-11-07 14:07 | US_ITS ---
[address] [address] Patient Name: SANTOS HARPER MRN: [id number] date: 2000 Sex: F Assigned Patient Location: [facility] Current Patient Location: [facility] Accession/Order Number: [id number] Exam Date: 11/07/2023 14:07 Report Date: 11/07/2023 15:38 At the request of: SHEELA ANTUNEZ Procedure: US OB incomplete anatomy EXAMINATION: US OB incomplete anatomy HISTORY: SUBVISUALIZED HARD PALATE, FOUR CHAMBER HEART, RVOT, LVOT COMPARISON: 08/15/2023 TECHNIQUE: Transabdominal sonographic examination was performed for obstetrical and evaluation. FINDINGS: position: Cephalic presentation, longitudinal lie Normal anatomy: RVOT, LVOT, four-chamber heart, hard, hard palate US/US OB incomplete anatomy IMPRESSION: Normal observed anatomy *Reference: [facility] Practice Guideline for the performance of Obstetric Ultrasound Examinations, July 03, 2007. Electronically authenticated by: JOI ROPER Date: 11/07/2023 15:38
--- OUTSIDE RECORDS SUMMARY | 2023-11-07 14:10 | XMS_ITS | CCD ---
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 Name Role Phone Sandy Herring Unavailable SHEELA BRITO Attending Unavailable DEXTER, DR JAYLA Noriega Primary Care Unavailable NICOLE SANCHEZ Admitting Unavailable NICOLE SANCHEZ Attending Unavailable NICOLE SANCHEZ Consulting Unavailable TULIO [...] Unavailable ÓSCAR ., SHONNA Admitting Unavailable ÓSCAR .SHONNA Attending Unavailable REQUEST, DR HEMPHILL LISTED Primary Care Unavaila brennan MONGE, DR JO Guillen Consulting Unavailable ÓSCAR .SHONNA Consulting Unavailable TULIO ., DR COKER Admitting Unavailable TULIO ., DR COKER Attending Unavailable DEXTER, DR JAYLA Noriega Primary Care Unavailable JACQUELIN, DR JOI Díaz Consulting Unavailable TULIO ., DR COKER Consulting Unavailable DEXTER, DR JAYLA Noriega Primary Care Unavailable MONY SAVAGE Admitting Unavailable MONY SAVAGE Attending Unavailable MARIPOSA, DR JO Guillen Consulting Unavailable ALANIS .HAKEEM Consulting UnavailMONY Barba Consulting Unavailable DEXTER, DR JAYLA Noriega Primary Care Unavailable PAY ., DR FERNANDES Admitting Unavailable PAY ., DR FERNANDES Attending Unavailable PAY ., DR FERNANDES Consulting Unavailable SHEELA BRITO Attending Unavailable SHONNA CANTRELL Attending Unavailable SHONNA CANTRELL Attending Unavailable SHEELA BRITO Attending Unavailable Medications Current Medications Medication Drug Class(es) Dates Sig (Normalized) Sig (Original) brompheniramine maleate 0.4 mg/ml / dextromethorphan hydrobromide 2 mg/ml / pseudoephedrine hydrochloride 6 mg/ml oral solution (1 source) alpha-Adrenergic Agonist, Uncompetitive X-ihxxvf-D-aspartat e Receptor Antagonist, Sigma-1 Agonist Start: 05-02-2022 [...] Onset: 01-17-2023 Other aftercare (1 source) Other penitentiary (current) drug therapy; Translations: [OTH PRISON CURRENT 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] Onset: 12-15-2022 Episodic Other [...] SURGICAL PATH REPORTon 01-10 SURGICAL PATH REPORT [facility] Department of Pathology [address] [place] [address] [phone] Name: SANTOS HARPER : 2000 [facility] [id number] Number: Gender Female Kenzie AVERY GREENE : n: Admit 22 years Attending SHEELA BRITO Age: Provider: Ordering SHEELA BRITO Provider: Consulti Surgical Pathology Report ng: ACCESSION: COLLECTED DATE/TIME: RECEIVED DATE/TIME: PATHOLOGIST: [id number] 01/06/2023 16:30 EDT 01/07/2023 11:25 EDT LORNA DURAN MD Final Diagnosis Report for [facility] [employer] [place] [employer]: - IMMATURE CHORIONIC [...] cm. There are no grossly identifiable parts. Typesetters Printer sections are submitted in three cassettes. MP/griselda 01/07/2023 Tissue pathology report for: [facility], [address] [place] [id number]; ____ Print 01/10/2023 13:39 EDT Number: Date/Time: [facility] Department of Pathology [address] [place] [phone] Name: SANTOS HARPER : 2000 [facility] [id number] Number: Gender Female Kenzie AVERY GHASSAN : n: Admit 22 years Attending SHEELA BRITO Age: Provider: Ordering SHEELA BRITO Provider: Donyi Surgical Pathology Report ng: ACCESSION: COLLECTED DATE/TIME: RECEIVED DATE/TIME: PATHOLOGIST: [id number] 01/06/2023 16:30 EDT 01/07/2023 11:25 EDT RENEE ZUNIGA, LORNA Gross Description PATHOLOGY SERVICES PROVIDED BY [employer] (CLIA #[id number]) in cooperation with [facility] at [address] [place] [address] ( CLIA #[id number]) Microscopic Diagnosis The final diagnosis is based on a microscopic exam of sales representatives sections. Codes CPT CODE: 40300 ____ Print 01/10/2023 13:39 EDT Number: Date/Time: Normal [facility] Comment on above: Performed By: #### [id number] #### [facility] Laboratory Services [address] [place] [address] Final Finisher: Jose Agarwal MD CBC AUTO DIFFon 01-06-2023 BASO # 0.0 103/ul Normal 0.0-0.1 [facility] Comment on above: Performed By: #### P REG #### [facility] [address] [place] [address] Dr. Darian Scott Basophils/100 WBC (Bld) 0.3 % Normal 0.2-2.0 [facility] Comment on above: Performed By: #### P REG #### [facility] [address] [place] [address] Dr. Darian Scott EO # 0.0 103/ul Normal 0.0-0.7 [facility] Comment on above: Performed By: #### P REG #### [facility] [address] [place] [address] Dr. Darian Scott Eosinophils/100 WBC (Bld) 0.5 % Critically low 0.9-7.0 [facility] Comment on above: Performed By: #### P REG #### [facility] [address] [place] [address] Dr. Darian Scott Erythrocyte distribution width (RBC) [Ratio] 12.4 % Normal 11.0-15.0 [facility] Comment on above: Performed By: #### P REG #### [facility] [address] [place] [address] Dr. Darian Scott Hematocrit (Bld) [Volume fraction] 33.6 % Critically low 36.0-48.0 [facility] Comment on above: Performed By: #### P REG #### [facility] [address] [place] [address] Dr. Darain Scott Hemoglobin (Bld) [Mass/Vol] 11.6 g/dL Critically low 12.0-16.0 [facility] Comment on above: Performed By: #### P REG #### [facility] [address] [place] [address] Dr. Darian Scott IG # 0.02 10e3/ul Normal 0.00-0.03 [facility] Comment on above: Performed By: #### P REG #### [facility] [address] [place] [address] Dr. Darian Scott IG % 0.3 % Normal 0.0-0.5 [facility] Comment on above: Performed By: #### P REG #### [facility] [address] [place] [address] Dr. Darian Scott LYMPH # 1.7 103/ul Normal 1.2-3.8 [facility] Comment on above: Performed By: #### P REG #### [facility] [address] [place] [address] Dr. Darian Scott Lymphocytes/100 WBC (Bld) 28.5 % Normal 20.5-60.0 [facility] Comment on above: Performed By: #### P REG #### [facility] [address] [place] [address] Dr. Darian Scott MANUAL DIFF REQ NO Normal [facility] Comment on above: Performed By: #### P REG #### [facility] [address] [place] [address] Dr. Darian Scott MCH (RBC) [Entitic mass] 29.3 pg Normal 26.7-34.0 [facility] Comment on above: Performed By: #### P REG #### [facility] [address] [place] [address] Dr. Darian Scott MCHC (RBC) [Mass/Vol] 34.5 g/dL Normal 29.9-35.2 [facility] Comment on above: Performed By: #### P REG #### [facility] [address] [place] [address] Dr. Darian Scott MCV (RBC) [Entitic vol] 84.8 fL Normal 81.0-99.0 [facility] Comment on above: Performed By: #### P REG #### [facility] [address] [place] [address] Dr. Darian Scott MONO # 0.4 103/ul Normal 0.3-0.8 [facility] Comment on above: Performed By: #### P REG #### [facility] [address] [place] [address] Dr. Darian Scott Monocytes/100 WBC (Bld) 5.9 % Normal 1.7-12.0 [facility] Comment on above: Performed By: #### P REG #### [facility] [address] [place] [address] Dr. Darian Scott NEUT # 3.8 103/ul Normal 1.4-6.5 [facility] Comment on above: Performed By: #### P REG #### [facility] [address] [place] [address] Dr. Darian Scott Neutrophils/100 WBC (Bld) 64.5 % Normal 43.0-75.0 [facility] Comment on above: Performed By: #### P REG #### [facility] [address] [address] [address] Darian Scott Platelet mean volume (Bld) [Entitic vol] 10.1 fL Normal 9.5-13.5 [facility] Comment on above: Performed By: #### P REG #### [facility] [address] [address] [address] Darian Scott PLT 190 103/ul Normal 150-450 [facility] Comment on above: Performed By: #### P REG #### [facility] [address] [address] [address] Darian Scott RBC 3.96 106/ul Critically low 4.20-5.40 [facility] Comment on above: Performed By: #### P REG #### [facility] [address] [place] [address] Dr. Darian Scott WBC 6.0 103/ul Normal 4.0-11.0 [facility] Comment on above: Performed By: #### P REG #### [facility] [address] [place] [address] Dr. Darian Scott PREG QUANT HCGon 01-06-2023 HCG QUANT 8841 mIU/mL Normal [facility] Comment on above: Performed By: #### P REG #### [facility] [address] [place] [address] Dr. Darian Scott HCG RANGE SEE BELOW Normal [facility] Comment on above: Result Comment: 5-50 0.2-1 WEEK 50-500 1-2 WEEKS 100-5,000 2-3 WEEKS 500-10,000 3-4 WEEKS 1,000-50,000 4-5 WEEKS 10,000-100,000 5-6 WEEKS 15,000-200,000 6-8 WEEKS 10,000-100,000 2-3 MONTHS Performed By: #### P REG #### [facility] [address] [place] [address] Dr. Darian Scott US PREG TVon 12-31-2022 US PREG TV EXAMINATION: US PREG TV HISTORY: viability COMPARISON: 12/21/2022 FINDINGS: Hernandez intrauterine gestation Gestational sac: 1.86 cm, 6 weeks 2 days [place]-rump length: 3.3 mm, 6 weeks 0 days [...] JOI ROPER Date: 2022-12-31 15:06 Normal [facility] US PREG TVon 12-21-2022 US PREG TV [...] JO MONGE Date: 2022-12-21 15:07 Normal [facility] CBC AUTO DIFFon 12-14-2022 BASO # 0.0 103/ul Normal 0.0-0.1 [facility] Comment on above: Performed By: #### C BC #### [facility] [address] [address] [address] Darian Scott Basophils/100 WBC (Bld) 0.9 % Normal 0.2-2.0 [facility] Comment on above: Performed By: #### C BC #### [facility] [address] [address] [address] Darian Scott EO # 0.0 103/ul Normal 0.0-0.7 [facility] Comment on above: Performed By: #### C BC #### [facility] [address] [place] [address] Dr. Darian Scott Eosinophils/100 WBC (Bld) 0.4 % Critically low 0.9-7.0 [facility] Comment on above: Performed By: #### C BC #### [facility] [address] [place] [address] Dr. Darian Scott Erythrocyte distribution width (RBC) [Ratio] 12.5 % Normal 11.0-15.0 [facility] Comment on above: Performed By: #### C BC #### [facility] [address] [place] [address] Dr. Darian Scott Hematocrit (Bld) [Volume fraction] 34.8 % Critically low 36.0-48.0 [facility] Comment on above: Performed By: #### C BC #### [facility] [address] [place] [address] Dr. Darian Scott Hemoglobin (Bld) [Mass/Vol] 11.8 g/dL Critically low 12.0-16.0 [facility] Comment on above: Performed By: #### C BC #### [facility] [address] [place] [address] Dr. Dairan Scott IG # 0.02 10e3/ul Normal 0.00-0.03 [facility] Comment on above: Performed By: #### C BC #### [facility] [address] [place] [address] Dr. Darian Scott IG % 0.4 % Normal 0.0-0.5 [facility] Comment on above: Performed By: #### C BC #### [facility] [address] [place] [address] Dr. Darian Scott LYMPH # 1.4 103/ul Normal 1.2-3.8 [facility] Comment on above: Performed By: #### C BC #### [facility] [address] [place] [address] Dr. Darian Scott Lymphocytes/100 WBC (Bld) 29.3 % Normal 20.5-60.0 [facility] Comment on above: Performed By: #### C BC #### [facility] [address] [place] [address] Dr. Darian Scott MANUAL DIFF REQ NO Normal [facility] Comment on above: Performed By: #### C BC #### [facility] [address] [place] [address] Dr. Darian Scott MCH (RBC) [Entitic mass] 28.9 pg Normal 26.7-34.0 [facility] Comment on above: Performed By: #### C BC #### [facility] [address] [place] [address] Dr. Darian Scott MCHC (RBC) [Mass/Vol] 33.9 g/dL Normal 29.9-35.2 [facility] Comment on above: Performed By: #### C BC #### [facility] [address] [place] [address] Dr. Darian Scott MCV (RBC) [Entitic vol] 85.3 fL Normal 81.0-99.0 [facility] Comment on above: Performed By: #### C BC #### [facility] [address] [place] [address] Dr. Darian Scott MONO # 0.4 103/ul Normal 0.3-0.8 [facility] Comment on above: Performed By: #### C BC #### [facility] [address] [place] [address] Dr. Darian Scott Monocytes/100 WBC (Bld) 8.8 % Normal 1.7-12.0 [facility] Comment on above: Performed By: #### C BC #### [facility] [address] [place] [address] Dr. Darian Scott NEUT # 2.8 103/ul Normal 1.4-6.5 [facility] Comment on above: Performed By: #### C BC #### [facility] [address] [place] [address] Dr. Darian Scott Neutrophils/100 WBC (Bld) 60.2 % Normal 43.0-75.0 [facility] Comment on above: Performed By: #### C BC #### [facility] [address] [address] [address] Darian Scott Platelet mean volume (Bld) [Entitic vol] 10.6 fL Normal 9.5-13.5 [facility] Comment on above: Performed By: #### C BC #### [facility] [address] [place] [address] Dr. Darian Scott PLT 206 103/ul Normal 150-450 [facility] Comment on above: Performed By: #### C BC #### [facility] [address] [place] [address] Dr. Darian Scott RBC 4.08 106/ul Critically low 4.20-5.40 [facility] Comment on above: Performed By: #### C BC #### [facility] [address] [place] [address] Dr. Darian Scott WBC 4.7 103/ul Normal 4.0-11.0 [facility] Comment on above: Performed By: #### C BC #### [facility] [address] [place] [address] Dr. Darian Scott CULTURE URINEon 12-14-2022 CULTURE URINE Culture Observations : LIGHT GROWTH OF MIXED GENITAL ELEN. NO POTENTIAL PATHOGENS SEEN. Normal [facility] Comment on above: Performed By: #### Ge DUFFY UMICRO #### [facility] [address] [place] [address] Dr. Darian Scott ER URINE PROFILEon 3 Bilirubin Ql (U) Negative Normal NEGATIVE [facility] Comment on above: Performed By: #### Ge DUFFY UMICRO #### [facility] [address] [place] [address] Dr. Darian Scott Clarity (U) CLEAR Normal CLEAR [facility] Comment on above: Performed By: #### Ge DUFFY UMICRO #### [facility] [address] [place] [address] Dr. Darian Scott Color (U) LT. YELLOW Normal YELLOW [facility] Comment on above: Performed By: #### JOYCE JOVELRO #### [facility] [address] [address] [address] Darian HAYWARD A micrscopic examination will be performed if indicated. Normal [facility] Comment on above: Performed By: #### SHELLEY JOVELICRO #### [facility] [address] [place] [address] Dr. Darian Scott Glucose Ql (U) Negative Normal NEGATIVE [facility] Comment on above: Performed By: #### Ge DUFFY UMICRO #### [facility] [address] [place] [address] Dr. Darian Scott Hemoglobin Ql (U) LARGE Abnormal NEGATIVE [facility] Comment on above: Performed By: #### JOYCE JOVELRO #### [facility] [address] [place] [address] Dr. Darian Scott Ketones Ql (U) TRACE Abnormal NEGATIVE [facility] Comment on above: Performed By: #### JOYCE JOVELRO #### [facility] [address] [place] [address] Dr. Darian Scott LEUKOCYTES TRACE Abnormal NEGATIVE [facility] Comment on above: Performed By: #### JOYCE JOVELRO #### [facility] [address] [place] [address] Dr. Darian Scott Nitrite Ql (U) Negative Normal NEGATIVE [facility] Comment on above: Performed By: #### JOYCE JOVELRO #### [facility] [address] [place] [address] Dr. Darian Scott pH (U) 7.5 [pH] Normal 5-9 [facility] Comment on above: Performed By: #### JOYCE JOVELRO #### [facility] [address] [place] [address] Dr. Darian Scott SPEC GRAVITY 1.010 Normal 1.005-<=1.025 [facility] Comment on above: Performed By: #### JOYCE JOVELRO #### [facility] [address] [place] [address] Dr. Darian Scott UA PROTEIN TRACE Normal NEGATIVE/ TRACE [facility] Comment on above: Performed By: #### Ge DUFFY UMICRO #### [facility] [address] [place] [address] Dr. Darian Scott UR MICRO IND INDICATED Normal [facility] Comment on above: Performed By: #### Ge DUFFY UMICRO #### [facility] [address] [place] [address] Dr. Darian Scott Urobilinogen Qn (U) 0.2 {Marielos'U}/dL Normal 0.2 - 1.0 [facility] Comment on above: Performed By: #### Ge DUFFY UMICRO #### [facility] [address] [place] [address] Dr. Darian Scott PREG QUANT HCGon 12-14-2022 HCG QUANT 9234 mIU/mL Normal [facility] Comment on above: Performed By: #### Ge DUFFY UMICRO #### [facility] [address] [place] [address] Dr. Darian Scott HCG RANGE SEE BELOW Normal [facility] Comment on above: Result Comment: 5-50 0.2-1 WEEK 50-500 1-2 WEEKS 100-5,000 2-3 WEEKS 500-10,000 3-4 WEEKS 1,000-50,000 4-5 WEEKS 10,000-100,000 5-6 WEEKS 15,000-200,000 6-8 WEEKS 10,000-100,000 2-3 MONTHS Performed By: #### Ge DUFFY UMICRO #### [facility] [address] [place] [address] Dr. Darian Scott PROF CHEM 8 (BAS METB)on Anion gap [Moles/Vol] 9.9 mmol/L Normal [facility] Comment on above: Performed By: #### P REG #### [facility] [address] [place] [address] Dr. Darian Scott Calcium [Mass/Vol] 9.2 mg/dL Normal 8.5-10.1 [facility] Comment on above: Performed By: #### P REG #### [facility] [address] [address] [address] Darian Scott Chloride [Moles/Vol] 103 mmol/L Normal 98-107 [facility] Comment on above: Performed By: #### P REG #### [facility] [address] [place] [address] Dr. Darian Scott CO2 [Moles/Vol] 26.9 mmol/L Normal 21.0-32.0 [facility] Comment on above: Performed By: #### P REG #### [facility] [address] [place] [address] Dr. Darian Scott Creatinine [Mass/Vol] 0.59 mg/dL Normal 0.55-1.02 [facility] Comment on above: Performed By: #### P REG #### [facility] [address] [place] [address] Dr. Darian Scott EGFR-AF TRISTANIAN >60 Normal >=60 [facility] Comment on above: Performed By: #### P REG #### [facility] [address] [place] [address] Dr. Darian Scott EGFR-NON AF TRISTANIAN >60 Normal >=60 [facility] Comment on above: Performed By: #### P REG #### [facility] [address] [address] [address] Darian Scott Glucose [Mass/Vol] 90 mg/dL Normal 74-106 [facility] Comment on above: Performed By: #### P REG #### [facility] [address] [place] [address] Dr. Darian Scott Potassium [Moles/Vol] 3.8 mmol/L Normal 3.5-5.1 [facility] Comment on above: Performed By: #### P REG #### [facility] [address] [place] [address] Dr. Darian Scott Sodium [Moles/Vol] 136 mmol/L Normal 136-145 [facility] Comment on above: Performed By: #### P REG #### [facility] [address] [address] [address] Darian Scott Urea nitrogen [Mass/Vol] 14.0 mg/dL Normal 7.0-18.0 [facility] Comment on above: Performed By: #### P REG #### [facility] [address] [place] [address] Dr. Darian Scott Urea nitrogen/Creatini ne [Mass ratio] 23.7 mg/mg Normal [facility] Comment on above: Performed By: #### P REG #### [facility] [address] [place] [address] Dr. Darian Scott TYPE AND SCREENon 12-14-2022 TYPE AND SCREEN Negative Normal [facility] Comment on above: Performed By: #### E RUR, UMICRO #### [facility] [address] [place] [address] Dr. Darian Scott URINE MICROSCOPIC ONLYon BACTERIA MODERATE Abnormal NONE SEEN [facility] Comment on above: Performed By: #### E RUR, UMICRO #### [facility] [address] [place] [address] Dr. Darian Scott Bacteria identified Cx Nom (U) INDICATED Normal [facility] Comment on above: Performed By: #### E RUR, UMICRO #### [facility] [address] [place] [address] Dr. Darian Scott CAST NONE SEEN Normal NONE SEEN [facility] Comment on above: Performed By: #### E RUR, UMICRO #### [facility] [address] [place] [address] Dr. Darian Scott Crystals LM Nom (Urine sed) NONE SEEN Normal NONE SEEN [facility] Comment on above: Performed By: #### E RUR, UMICRO #### [facility] [address] [place] [address] Dr. Darian Scott Epithelial cells LM Ql (Urine sed) MODERATE Abnormal NONE SEEN /RARE [facility] Comment on above: Performed By: #### E RUR, UMICRO #### [facility] [address] [place] [address] Dr. Darian Scott MUCOUS TRACE Abnormal NONE SEEN [facility] Comment on above: Performed By: #### E RUR, UMICRO #### [facility] [address] [address] [address] Darian Scott RBC 5-10 Abnormal 0-2 [facility] Comment on above: Performed By: #### ESTER JOVEL #### [facility] [address] [address] [address] Darian Scott WBC 5-10 Abnormal NONE SEEN [facility] Comment on above: Performed By: #### ESTER JOVEL #### [facility] [address] [address] [address] Darian Scott US PREG TVon 12-14-2022 [...] by: JO MONGE Date: 2022-12-14 15:05 Normal [facility] ABO AND RH TYPEon 12-08-2022 ABO and Rh group Nom (Bld) ABO Rh Typing A Rh Positive Blood Bank Notes Testing done by on 12/06/22 Normal [facility] Comment on above: Performed By: #### ESTER JOVEL #### [facility] [address] [place] [address] Dr. Darian Scott CBC AUTO DIFFon 12-07-2022 BASO # 0.1 103/ul Normal 0.0-0.1 [facility] Comment on above: Performed By: #### ESTER JOVEL #### [facility] [address] [place] [address] Dr. Darian Scott Basophils/100 WBC (Bld) 0.7 % Normal 0.2-2.0 [facility] Comment on above: Performed By: #### JOYCE JOVELRO #### [facility] [address] [place] [address] Dr. Darian Scott EO # 0.0 103/ul Normal 0.0-0.7 [facility] Comment on above: Performed By: #### SHELLEY JOVELICRO #### [facility] [address] [place] [address] Dr. Darian Scott Eosinophils/100 WBC (Bld) 0.4 % Critically low 0.9-7.0 [facility] Comment on above: Performed By: #### JOYCE JOVELRO #### [facility] [address] [place] [address] Dr. Darian Scott Erythrocyte distribution width (RBC) [Ratio] 12.8 % Normal 11.0-15.0 [facility] Comment on above: Performed By: #### JOYCE JOVELRO #### [facility] [address] [place] [address] Dr. Darian Scott Hematocrit (Bld) [Volume fraction] 33.7 % Critically low 36.0-48.0 [facility] Comment on above: Performed By: #### JOYCE JOVELRO #### [facility] [address] [place] [address] Dr. Darian Scott Hemoglobin (Bld) [Mass/Vol] 11.5 g/dL Critically low 12.0-16.0 [facility] Comment on above: Performed By: #### SHELLEY JOVELICRO #### [facility] [address] [place] [address] Dr. Darian Scott IG # 0.01 10e3/ul Normal 0.00-0.03 [facility] Comment on above: Performed By: #### SHELLEY JOVELICRO #### [facility] [address] [place] [address] Dr. Darian Scott IG % 0.1 % Normal 0.0-0.5 [facility] Comment on above: Performed By: #### ESTER JOVEL #### [facility] [address] [place] [address] Dr. Darian Scott LYMPH # 2.6 103/ul Normal 1.2-3.8 [facility] Comment on above: Performed By: #### JOYCE JOVELRO #### [facility] [address] [place] [address] Dr. Darian Scott Lymphocytes/100 WBC (Bld) 34.8 % Normal 20.5-60.0 [facility] Comment on above: Performed By: #### JOYCE JOVELRO #### [facility] [address] [place] [address] Dr. Darian Scott MANUAL DIFF REQ NO Normal [facility] Comment on above: Performed By: #### JOYCE JOVELRO #### [facility] [address] [place] [address] Dr. Darian Scott MCH (RBC) [Entitic mass] 29.8 pg Normal 26.7-34.0 [facility] Comment on above: Performed By: #### JOYCE JOVELRO #### [facility] [address] [place] [address] Dr. Darian Scott MCHC (RBC) [Mass/Vol] 34.1 g/dL Normal 29.9-35.2 [facility] Comment on above: Performed By: #### JOYCE JOVELRO #### [facility] [address] [place] [address] Dr. Darian Scott MCV (RBC) [Entitic vol] 87.3 fL Normal 81.0-99.0 [facility] Comment on above: Performed By: #### JOYCE JOVELRO #### [facility] [address] [place] [address] Dr. Darian Scott MONO # 0.5 103/ul Normal 0.3-0.8 [facility] Comment on above: Performed By: #### JOYCE JOVELRO #### [facility] [address] [place] [address] Dr. Darian Scott Monocytes/100 WBC (Bld) 6.9 % Normal 1.7-12.0 [facility] Comment on above: Performed By: #### Ge DUFFY UMICRO #### [facility] [address] [place] [address] Dr. Darian Scott NEUT # 4.3 103/ul Normal 1.4-6.5 [facility] Comment on above: Performed By: #### Ge DUFFY UMICRO #### [facility] [address] [place] [address] Dr. Darian Scott Neutrophils/100 WBC (Bld) 57.1 % Normal 43.0-75.0 [facility] Comment on above: Performed By: #### Ge DUFFY UMICRO #### [facility] [address] [place] [address] Dr. Darian Scott Platelet mean volume (Bld) [Entitic vol] 10.4 fL Normal 9.5-13.5 [facility] Comment on above: Performed By: #### Ge DUFFY UMICRO #### [facility] [address] [place] [address] Dr. Darian Scott PLT 207 103/ul Normal 150-450 [facility] Comment on above: Performed By: #### Ge DUFFY UMICRO #### [facility] [address] [place] [address] Dr. Darian Scott RBC 3.86 106/ul Critically low 4.20-5.40 [facility] Comment on above: Performed By: #### Ge DUFFY UMICRO #### [facility] [address] [place] [address] Dr. Darian Scott WBC 7.5 103/ul Normal 4.0-11.0 [facility] Comment on above: Performed By: #### Ge DUFFY UMICRO #### [facility] [address] [place] [address] Dr. Darian Scott ER URINE PROFILEon 3 Bilirubin Ql (U) Negative Normal NEGATIVE [facility] Comment on above: Performed By: #### P REG #### [facility] [address] [place] [address] Dr. Darian Scott Clarity (U) CLEAR Normal CLEAR [facility] Comment on above: Performed By: #### P REG #### [facility] [address] [place] [address] Dr. Darian Scott Color (U) LT. YELLOW Normal YELLOW [facility] Comment on above: Performed By: #### P REG #### [facility] [address] [place] [address] Dr. Darian HAYWARD A micrscopic examination will be performed if indicated. Normal [facility] Comment on above: Performed By: #### P REG #### [facility] [address] [place] [address] Dr. Darian Scott Glucose Ql (U) Negative Normal NEGATIVE [facility] Comment on above: Performed By: #### P REG #### [facility] [address] [place] [address] Dr. Darian Scott Hemoglobin Ql (U) Negative Normal NEGATIVE [facility] Comment on above: Performed By: #### P REG #### [facility] [address] [place] [address] Dr. Darian Scott Ketones Ql (U) Negative Normal NEGATIVE [facility] Comment on above: Performed By: #### P REG #### [facility] [address] [place] [address] Dr. Darian Scott LEUKOCYTES Negative Normal NEGATIVE [facility] Comment on above: Performed By: #### P REG #### [facility] [address] [place] [address] Dr. Darian Scott Nitrite Ql (U) Negative Normal NEGATIVE [facility] Comment on above: Performed By: #### P REG #### [facility] [address] [place] [address] Dr. Darian Scott pH (U) 5.5 [pH] Normal 5-9 [facility] Comment on above: Performed By: #### P REG #### [facility] [address] [place] [address] Dr. Darian Scott SPEC GRAVITY <=1.005 Abnormal 1.005-<=1.025 [facility] Comment on above: Performed By: #### P REG #### [facility] [address] [place] [address] Dr. Darian Scott UA PROTEIN Negative Normal NEGATIVE/ TRACE [facility] Comment on above: Performed By: #### P REG #### [facility] [address] [place] [address] Dr. Darian Scott UR MICRO IND NOT INDICATED Normal [facility] Comment on above: Performed By: #### P REG #### [facility] [address] [place] [address] Dr. Darian Scott Urobilinogen Qn (U) 0.2 {Marielos'U}/dL Normal 0.2 - 1.0 [facility] Comment on above: Performed By: #### P REG #### [facility] [address] [place] [address] Dr. Darian Scott PROF CHEM 8 (BAS METB)on Anion gap [Moles/Vol] 15.0 mmol/L Normal [facility] Comment on above: Performed By: #### B MP #### [facility] [address] [place] [address] Dr. Darian Scott Calcium [Mass/Vol] 8.4 mg/dL Critically low 8.5-10.1 [facility] Comment on above: Performed By: #### B MP #### [facility] [address] [place] [address] Dr. Darian Scott Chloride [Moles/Vol] 106 mmol/L Normal 98-107 [facility] Comment on above: Performed By: #### B MP #### [facility] [address] [place] [address] Dr. Darian Scott CO2 [Moles/Vol] 22.6 mmol/L Normal 21.0-32.0 [facility] Comment on above: Performed By: #### B MP #### [facility] [address] [place] [address] Dr. Darian Scott Creatinine [Mass/Vol] 0.68 mg/dL Normal 0.55-1.02 [facility] Comment on above: Performed By: #### B MP #### [facility] [address] [address] [address] Darian Scott EGFR-AF TRISTANIAN >60 Normal >=60 [facility] Comment on above: Performed By: #### B MP #### [facility] [address] [address] [address] Darian Scott EGFR-NON AF TRISTANIAN >60 Normal >=60 [facility] Comment on above: Performed By: #### B MP #### [facility] [address] [address] [address] Darian Scott Glucose [Mass/Vol] 88 mg/dL Normal 74-106 [facility] Comment on above: Performed By: #### B MP #### [facility] [address] [address] [address] Darian Scott Potassium [Moles/Vol] 3.6 mmol/L Normal 3.5-5.1 [facility] Comment on above: Performed By: #### B MP #### [facility] [address] [address] [address] Darian Scott Sodium [Moles/Vol] 140 mmol/L Normal 136-145 [facility] Comment on above: Performed By: #### B MP #### [facility] [address] [address] [address] Darian Scott Urea nitrogen [Mass/Vol] 15.0 mg/dL Normal 7.0-18.0 [facility] Comment on above: Performed By: #### B MP #### [facility] [address] [address] [address] Darian Scott Urea nitrogen/Creatini ne [Mass ratio] 22.1 mg/mg Normal [facility] Comment on above: Performed By: #### B MP #### [facility] [address] [address] [address] Darian Scott PAP ACOG PANEL 2: 21 to 30on 07-05-2022 . . Normal [facility] Comment on above: Performed By: #### [id number] #### [facility] [address] [place] [address] Dr. Darian Scott Age Gdln ACOG Testing 21-29 [facility] Comment on above: Performed By: #### [id number] #### [facility] [address] [place] [address] Dr. Darian Scott DIAGNOSIS: Comment Normal [facility] Comment on above: Result Comment: NEGA TIVE FOR INTRAEPITHELIAL LESION OR MALIGNANCY. Performed By: #### [id number] #### [facility] [address] [place] [address] Dr. Darian Scott Methodology: Comment [facility] Comment on above: Result Comment: This liquid based ThinPrep(R) pap test was screened with the use of an image guided system. Performed By: #### [id number] #### [facility] [address] [place] [address] Dr. Darian Scott Note: Comment [facility] Comment on above: Result Comment: The Pap smear is a screening test designed to aid in the detection of premalignant and malignant conditions of the uterine cervix. It is not a diagnostic procedure and should not be used as the sole means of detecting cervical cancer. Both false-positive and false-negative reports do occur. . Performed By: #### [id number] #### [facility] [address] [place] [address] Dr. Darian Scott Performed by: Comment Normal [facility] Comment on above: Result Comment: Hunter Fay Appointment Specialist (ASCP) Performed By: #### [id number] #### [facility] [address] [place] [address] Dr. Darian Scott Reflex Criteria: Comment [facility] Comment on above: Result Comment: The HPV DNA reflex criteria were not met with this specimen result therefore, no HPV testing was performed. . Performed By: #### [id number] #### [facility] [address] [place] [address] Dr. Darian Scott Specimen adequacy: Comment [facility] Comment on above: Result Comment: Sati sfactory for evaluation. Endocervical and/or squamous metaplastic cells (endocervical component) are present. Performed By: #### [id number] #### [facility] [address] [place] [address] Dr. Darian Scott ER URINE PROFILEon 2 Bilirubin Ql (U) Negative Normal NEGATIVE [facility] Comment on above: Performed By: #### P REG #### [facility] [address] [place] [address] Dr. Darian Scott Clarity (U) CLEAR Normal CLEAR [facility] Comment on above: Performed By: #### P REG #### [facility] [address] [place] [address] Dr. Darian Scott Color (U) YELLOW Normal YELLOW [facility] Comment on above: Performed By: #### P REG #### [facility] [address] [place] [address] Dr. Darian HAYWARD A micrscopic examination will be performed if indicated. Normal [facility] Comment on above: Performed By: #### P REG #### [facility] [address] [place] [address] Dr. Darian Scott Glucose Ql (U) Negative Normal NEGATIVE [facility] Comment on above: Performed By: #### P REG #### [facility] [address] [place] [address] Dr. Darian Scott Hemoglobin Ql (U) MODERATE Abnormal NEGATIVE [facility] Comment on above: Performed By: #### P REG #### [facility] [address] [place] [address] Dr. Darian Scott Ketones Ql (U) Negative Normal NEGATIVE [facility] Comment on above: Performed By: #### P REG #### [facility] [address] [place] [address] Dr. Darian Scott LEUKOCYTES Negative Normal NEGATIVE [facility] Comment on above: Performed By: #### P REG #### [facility] [address] [place] [address] Dr. Darian Scott Nitrite Ql (U) Negative Normal NEGATIVE [facility] Comment on above: Performed By: #### P REG #### [facility] [address] [place] [address] Dr. Darian Scott pH (U) 6.5 [pH] Normal 5-9 [facility] Comment on above: Performed By: #### P REG #### [facility] [address] [place] [address] Dr. Darian Scott SPEC GRAVITY 1.020 Normal 1.005-<=1.025 [facility] Comment on above: Performed By: #### P REG #### [facility] [address] [place] [address] Dr. Darian Scott UA PROTEIN Negative Normal NEGATIVE/ TRACE [facility] Comment on above: Performed By: #### P REG #### [facility] [address] [place] [address] Dr. Darian Scott UR MICRO IND INDICATED Normal [facility] Comment on above: Performed By: #### P REG #### [facility] [address] [place] [address] Dr. Darian Scott Urobilinogen Qn (U) 1.0 {Marielos'U}/dL Normal 0.2 - 1.0 [facility] Comment on above: Performed By: #### P REG #### [facility] [address] [place] [address] Dr. Darian Scott URINE MICROSCOPIC ONLYon BACTERIA TRACE Abnormal NONE SEEN [facility] Comment on above: Performed By: #### P REG #### [facility] [address] [place] [address] Dr. Darian Scott Bacteria identified Cx Nom (U) NOT INDICATED Normal [facility] Comment on above: Performed By: #### P REG #### [facility] [address] [place] [address] Dr. Darian Scott CA OX CRYSTALS FEW Normal [facility] Comment on above: Performed By: #### P REG #### [facility] [address] [place] [address] Dr. Darian Scott CAST NONE SEEN Normal NONE SEEN [facility] Comment on above: Performed By: #### P REG #### [facility] [address] [address] [address] Darian Scott Crystals LM Nom (Urine sed) SEEN Abnormal NONE SEEN [facility] Comment on above: Performed By: #### P REG #### [facility] [address] [address] [address] Darian Scott Epithelial cells LM Ql (Urine sed) RARE Normal NONE SEEN /RARE [facility] Comment on above: Performed By: #### P REG #### [facility] [address] [place] [address] Dr. Darian Scott MUCOUS NONE SEEN Normal NONE SEEN [facility] Comment on above: Performed By: #### P REG #### [facility] [address] [place] [address] Dr. Darian Scott RBC 2-5 Abnormal 0-2 [facility] Comment on above: Performed By: #### P REG #### [facility] [address] [place] [address] Dr. Darian Scott WBC NONE SEEN Normal NONE SEEN [facility] Comment on above: Performed By: #### P REG #### [facility] [address] [address] [address] Darian Scott CARDIAC JESSICA ADMITon 022 CK [Catalytic activity/Vol] 445 U/L Critically high 26-192 [facility] Comment on above: Performed By: #### L IPA, CMADM, CMP, TSH #### [facility] [address] [place] [address] Dr. Darian Scott CK.MB [Mass/Vol] 1.81 ng/mL Normal <=3.60 [facility] Comment on above: Performed By: #### L IPA, CMADM, CMP, TSH #### [facility] [address] [place] [address] Dr. Darian Scott HSTROP 6.1 pg/mL Normal 4.0-51.3 [facility] Comment on above: Result Comment: CUT- OFF POINTS HAVE BEEN ESTABLISHED BASED ON THE FOURTH UNIVERSAL DEFINITIONS OF MYOCARDIAL INFARCTION. THE UPPER REFERENCE LIMIT (URL) OF TROPONIN, DEFINED THE 99TH PERCENTILE OF cTnI DISTRIBUTION IN A REFERENCE POPULATION, HAS BEEN CONFIRMED THE DECISION THRESHOLD FOR OK DIAGNOSIS. Performed By: #### L IPA, CMADM, CMP, TSH #### [facility] [address] [place] [address] Dr. Darian Scott TRESSA 94 ng/mL Critically high 9-82 [facility] Comment on above: Performed By: #### L IPA, CMADM, CMP, TSH #### [facility] [address] [place] [address] Dr. Darian Scott CBC AUTO DIFFon 05-08-2022 BASO # 0.1 103/ul Normal 0.0-0.1 [facility] Comment on above: Performed By: #### JOYCE JOVELRO #### [facility] [address] [place] [address] Dr. Darian Scott Basophils/100 WBC (Bld) 0.8 % Normal 0.2-2.0 [facility] Comment on above: Performed By: #### ESTER JOVEL #### [facility] [address] [place] [address] Dr. Darian Scott EO # 0.0 103/ul Normal 0.0-0.7 [facility] Comment on above: Performed By: #### ESTER JOVEL #### [facility] [address] [place] [address] Dr. Darian Scott Eosinophils/100 WBC (Bld) 0.5 % Critically low 0.9-7.0 [facility] Comment on above: Performed By: #### JOYCE JOVELRO #### [facility] [address] [place] [address] Dr. Darian Scott Erythrocyte distribution width (RBC) [Ratio] 12.5 % Normal 11.0-15.0 [facility] Comment on above: Performed By: #### JOYCE JOVELRO #### [facility] [address] [place] [address] Dr. Darian Scott Hematocrit (Bld) [Volume fraction] 34.4 % Critically low 36.0-48.0 [facility] Comment on above: Performed By: #### Ge DUFFY UMICRO #### [facility] [address] [place] [address] Dr. Darian Scott Hemoglobin (Bld) [Mass/Vol] 11.9 g/dL Critically low 12.0-16.0 [facility] Comment on above: Performed By: #### E TATI, UMICRO #### [facility] [address] [place] [address] Dr. Darian Scott IG # 0.04 10e3/ul Critically high 0.00-0.03 [facility] Comment on above: Performed By: #### E TATI UMICRO #### [facility] [address] [place] [address] Dr. Darian Scott IG % 0.5 % Normal 0.0-0.5 [facility] Comment on above: Performed By: #### Ge DUFFY UMICRO #### [facility] [address] [place] [address] Dr. Darian Scott LYMPH # 3.2 103/ul Normal 1.2-3.8 [facility] Comment on above: Performed By: #### Ge DUFFY UMICRO #### [facility] [address] [place] [address] Dr. Darian Scott Lymphocytes/100 WBC (Bld) 38.7 % Normal 20.5-60.0 [facility] Comment on above: Performed By: #### Ge DUFFY UMICRO #### [facility] [address] [place] [address] Dr. Darian Scott MANUAL DIFF REQ NO Normal [facility] Comment on above: Performed By: #### Ge DUFFY, UMICRO #### [facility] [address] [place] [address] Dr. Darian Scott MCH (RBC) [Entitic mass] 29.5 pg Normal 26.7-34.0 [facility] Comment on above: Performed By: #### E TATI, UMICRO #### [facility] [address] [place] [address] Dr. Darian Scott MCHC (RBC) [Mass/Vol] 34.6 g/dL Normal 29.9-35.2 [facility] Comment on above: Performed By: #### ESTER JOVEL #### [facility] [address] [place] [address] Dr. Darian Scott MCV (RBC) [Entitic vol] 85.4 fL Normal 81.0-99.0 [facility] Comment on above: Performed By: #### JOYCE JOVELRO #### [facility] [address] [place] [address] Dr. Darian Scott MONO # 0.6 103/ul Normal 0.3-0.8 [facility] Comment on above: Performed By: #### JOYCE JOVELRO #### [facility] [address] [place] [address] Dr. Darian Scott Monocytes/100 WBC (Bld) 7.0 % Normal 1.7-12.0 [facility] Comment on above: Performed By: #### ESTER JOVEL #### [facility] [address] [place] [address] Dr. Darian Scott NEUT # 4.3 103/ul Normal 1.4-6.5 [facility] Comment on above: Performed By: #### ESTER JOVEL #### [facility] [address] [place] [address] Dr. Darian Scott Neutrophils/100 WBC (Bld) 52.5 % Normal 43.0-75.0 [facility] Comment on above: Performed By: #### JOYCE JOVELRO #### [facility] [address] [place] [address] Dr. Darian Scott Platelet mean volume (Bld) [Entitic vol] 9.9 fL Normal 9.5-13.5 [facility] Comment on above: Performed By: #### JOYCE JOVELRO #### [facility] Laboratory [address] [place] [address] Dr. Darian Scott PLT 257 103/ul Normal 150-450 [facility] Comment on above: Performed By: #### JOYCE JOVELRO #### [facility] [address] [address] [address] Darian Scott RBC 4.03 106/ul Critically low 4.20-5.40 [facility] Comment on above: Performed By: #### E TATI, UMICRO #### [facility] [address] [address] [address] Darian Scott WBC 8.2 103/ul Normal 4.0-11.0 [facility] Comment on above: Performed By: #### E TATI, SHELLEYICRO #### [facility] [address] [place] [address] Dr. Darian Scott LIPASEon 05-08-2022 Lipase [Catalytic activity/Vol] 65.0 U/L Critically low 73.0-393.0 [facility] Comment on above: Performed By: #### L IPA, CMADM, CMP, TSH #### [facility] [address] [place] [address] Dr. Darian Scott PREG HCG QUALon 05-08-2022 , QUAL Negative Normal NEGATIVE [facility] Comment on above: Performed By: #### P REG #### [facility] [address] [place] [address] Dr. Darian Scott PROF 14(COMP METB)on 022 Albumin [Mass/Vol] 3.9 g/dL Normal 3.4-5.0 [facility] Comment on above: Performed By: #### L IPA, CMADM, CMP, TSH #### [facility] [address] [place] [address] Dr. Darian Scott Albumin/Globulin [Mass ratio] 1.1 {ratio} Normal [facility] Comment on above: Performed By: #### L IPA, CMADM, CMP, TSH #### [facility] [address] [place] [address] Dr. Darian Scott ALP [Catalytic activity/Vol] 65 U/L Normal 46-116 [facility] Comment on above: Performed By: #### L IPA, CMADM, CMP, TSH #### [facility] [address] [place] [address] Dr. Darian Scott ALT [Catalytic activity/Vol] 23 U/L Normal 14-59 [facility] Comment on above: Performed By: #### L IPA, CMADM, CMP, TSH #### [facility] [address] [address] [address] Darian Scott Anion gap [Moles/Vol] 12.2 mmol/L Normal [facility] Comment on above: Performed By: #### L IPA, CMADM, CMP, TSH #### [facility] [address] [address] [address] Darian Scott AST [Catalytic activity/Vol] 18 U/L Normal 15-37 [facility] Comment on above: Performed By: #### L IPA, CMADM, CMP, TSH #### [facility] [address] [place] [address] Dr. Darian Scott Bilirubin [Mass/Vol] 0.5 mg/dL Normal 0.2-1.0 [facility] Comment on above: Performed By: #### L IPA, CMADM, CMP, TSH #### [facility] [address] [address] [address] Darian Scott Calcium [Mass/Vol] 9.2 mg/dL Normal 8.5-10.1 [facility] Comment on above: Performed By: #### L IPA, CMADM, CMP, TSH #### [facility] [address] [place] [address] Dr. Darian Scott Chloride [Moles/Vol] 104 mmol/L Normal 98-107 [facility] Comment on above: Performed By: #### L IPA, CMADM, CMP, TSH #### [facility] [address] [address] [address] Darian Scott CO2 [Moles/Vol] 27.9 mmol/L Normal 21.0-32.0 [facility] Comment on above: Performed By: #### L IPA, CMADM, CMP, TSH #### [facility] [address] [place] [address] Dr. Darian Scott Creatinine [Mass/Vol] 0.87 mg/dL Normal 0.55-1.02 [facility] Comment on above: Performed By: #### L IPA, CMADM, CMP, TSH #### [facility] [address] [address] [address] Darian Scott EGFR-AF TRISTANIAN >60 Normal >=60 [facility] Comment on above: Performed By: #### L IPA, CMADM, CMP, TSH #### [facility] [address] [address] [address] Darian Scott EGFR-NON AF TRISTANIAN >60 Normal >=60 [facility] Comment on above: Performed By: #### L IPA, CMADM, CMP, TSH #### [facility] [address] [address] [address] Darian Scott Globulin (S) [Mass/Vol] 3.6 g/dL Normal [facility] Comment on above: Performed By: #### L IPA, CMADM, CMP, TSH #### [facility] [address] [address] [address] Darian Scott Glucose [Mass/Vol] 89 mg/dL Normal 74-106 [facility] Comment on above: Performed By: #### L IPA, CMADM, CMP, TSH #### [facility] [address] [address] [address] Darian Scott Potassium [Moles/Vol] 3.1 mmol/L Critically low 3.5-5.1 [facility] Comment on above: Performed By: #### L IPA, CMADM, CMP, TSH #### [facility] [address] [address] [address] Darian Scott Protein [Mass/Vol] 7.5 g/dL Normal 6.4-8.2 [facility] Comment on above: Performed By: #### L IPA, CMADM, CMP, TSH #### [facility] [address] [address] [address] Darian Scott Sodium [Moles/Vol] 141 mmol/L Normal 136-145 [facility] Comment on above: Performed By: #### L IPA, CMADM, CMP, TSH #### [facility] [address] [address] [address] Darian Scott Urea nitrogen [Mass/Vol] 11.0 mg/dL Normal 7.0-18.0 [facility] Comment on above: Performed By: #### L IPA, CMADM, CMP, TSH #### [facility] [address] [address] [address] Darian Scott Urea nitrogen/Creatini ne [Mass ratio] 12.6 mg/mg Normal [facility] Comment on above: Performed By: #### L IPA, CMADM, CMP, TSH #### [facility] [address] [address] [address] Darian Scott TSHon 05-08-2022 TSH 2.377 uIU/mL Normal 0.358-3.740 [facility] Comment on above: Performed By: #### L IPA, CMADM, CMP, TSH #### [facility] [address] [address] [address] Darian Scott SARS-CoV-2 (COVID-19) RNA NA A+probe Ql (Resp)on 05-02-2022 SARS-CoV-2 (COVID-19) RNA RYAN+probe Ql (Unsp spec) Negative [facility] Other Vital Signs Date Time Vital Sign Value Performing Clinician Facility 05-02-2022 13:55-0400 Body height 157.48 cm Sandy Herring Other [facility] Other 05-02-2022 13:55-0400 Body mass index (BMI) [Ratio] 29.26 kg/m2 Sandy Herring Other [facility] Other 05-02-2022 13:55-0400 Body temperature 98.7 [degF] Sandy Herring Other [facility] Other 05-02-2022 13:55-0400 Body weight 72.58 kg Sandy Herring Other [facility] Other 05-02-2022 13:55-0400 SaO2% (BldA) [Mass fraction] 98 % Sandy Herring Other [facility] Other Encounters Encounter Date Encounter Type Care Provider Facility Start: 10-24-2023 End: 10-24-2023 ambulatory SHONNA CANTRELL Not Available Start: 10-11-2023 End: 10-11-2023 ambulatory SHEELA BRITO Not Available Start: 09-12-2023 End: 09-12-2023 ambulatory SHONNA OSMANEY Not Available Start: 08-15-2023 End: 08-15-2023 ambulatory SHEELA BRITO Not Available Start: 01-14-2023 Encounter for preprocedural cardiovascular examination DR SHEELA BRITO . [facility] Start: 01-06-2023 End: 01-07-2023 ambulatory SHEELA BRITO Facility:[facility] Start: 01-06-2023 End: 01-06-[address] [...] 05-02-2022 End: 05-02-2022 ambulatory Sandy Herring Other [facility] Other Start: 05-02-2022 Office outpatient ne w 30 minutes Sandy Herring [facility] [place] Payers Date Payer Category Payer Medicaid [id number] 2001 Unknown [id number] 2.16.84 [id number] 2001 Unknown [id number] 2.16.84 [id number] 2001 Unknown [id number] 2.16.84 [id number] 2001 Unknown [id number] 2.16.84 0.1.045009.3.579.2.593 2001 Unknown [id number] 2.16.84 [id number] 2001 Unknown [id number] 2.16.84 0.1.190830.3.579.2.593 2001 Unknown [id number] 2.16.84 0.1.289070.3.579.2.593 2001 Unknown [id number] 2.16.84 0.1.606217.3.579.2.593 2001 Unknown [id number] 2.16.84 0.1.765278.3.579.2.1259 2001 Unknown [id number] 2.16.84 0.1.176280.3.579.2.1259 2001 Unknown [id number] 2.16.840 .1.038801.3.579.2.9 2001 Unknown [id number] 2.16.840. [id number] 1959 Unknown [id number] 2.1 [id number] Social History Date Type Detail Facility Sex Assigned At [facility] Other Clinical Note 01-06-2023 Note Date & Type Note Facility 01-06-2023 Note OPERATIVE NOTE OPERATION DATE: 01/06/2023 PROCEDURE: Suction D AND C. PREOPERATIVE DIAGNOSIS: Missed . POSTOPERATIVE DIAGNOSIS: Missed . ANESTHESIA: General. SURGEON: Sheela Brito D.O. CALIBRATION ENGINEER: None. FINDINGS: Products of conception. SPECIMEN: Products [...] products of conception were removed using an 9-Spanish suction curette. Excellent hemostasis was noted. The patient tolerated the procedure well. Sponge, lap, and needle counts were correct x 2. All instruments were then removed from the patient's vagina. The patient was taken to the Recovery Room in stable condition. ?? [facility] Clinical Note 01-05-2023 Note Date & Type [...] authenticated by: JOI ROPER Date: 2023-01-05 14:07 [facility] Evaluation note 05-02-2022 Note Date [...] treatment plan. Patient left in stable condition. [facility] Other History general Narrative - Reported Note Date & Type Note Facility History general Narrative - Reported Type Medical History Depression/anxiety [facility] Other Summary Purpose Family History No Family History Records FoundNo Family History Records FoundNo Family History Records Found Advance Directives No Advanced Directives Records FoundNo Advanced Directives Records FoundNo Advanced Directives Records Found Additional Source Comments REASON FOR VISIT (unrecogniz ed section and content) BURR MALIBU, SORE THROAT, H/ A, COUGH INFORMATION SOURCE (unrecogn ized section and content) DATE CREATED AUTHOR 01/10/2023 [facility] DATE CREATED AUTHOR AUTHOR'S ORGANIZ ATION 01/17/2023 [facility] DATE CREATED AUTHOR AUTHOR'S ORGANIZ ATION 10/25/2023 [facility] EPIC FOR RECORDS PERTAINING TO PATIENTS WHO ARE [...] BE BASED ON THE PRIMARY CLINICAL RECORDS. [employer] [facility]. provides no warranty or guarantee of the accuracy or completeness of information in this document.
== END 2023-11-07 14:05 | disposition home or self-care (01) ==
LOC: NOMS 14:04
PROVIDERS: Visit Provider Obstetrics & Gynecology
DX: Z36.2 Encounter for other antenatal screening follow-up (principal)
CPT/HCPCS: 76815

== ENCOUNTER 2023-11-14 16:18 | Observation (INO) | payer MEDICAID, SELFPAY ==
[2023-11-14 16:37] VITALS: BP 106/53; PULSE 70
[2023-11-14 18:32] LABS: Bilirubin Urine NEGATIVE (NEGATIVE); Blood Urine NEGATIVE (NEGATIVE); Clarity Urine CLEAR (CLEAR); Color Urine LT. YELLOW (YELLOW); Glucose Urine UA NEGATIVE (NEGATIVE); Ketones Urine NEGATIVE (NEGATIVE); Leukocyte Esterase Urine NEGATIVE (NEGATIVE); Nitrite Urine NEGATIVE (NEGATIVE); Protein Urine NEGATIVE (NEG/TRACE); Urobilinogen Urine 0.2 EU/dL (0.2-1.0); pH Urine 7.5 (5.0-9.0)
[2023-11-14 18:33] LABS: Urine Microscopic Indicated NO
== END 2023-11-14 18:00 | disposition home or self-care (01) ==
PROVIDERS: Admitting Provider Obstetrics & Gynecology; Visit Provider Obstetrics & Gynecology
DX: O47.9 False labor, unspecified (principal); Z3A.00 Weeks of gestation of pregnancy not specified
CPT/HCPCS: 59025; 81003; G0378; G0379

== ENCOUNTER 2023-11-22 15:16 | Outpatient (OUT) | payer MEDICAID, SELFPAY ==
[2023-11-22 15:33] LABS: Basophils Percent Auto 0.3 % (0.2-2.0); Eosinophils Absolute Auto 0.1 10^3/uL (0.0-0.7); Eosinophils Percent Auto 0.6 % (0.9-7.0); Hematocrit 28.4 % (36.0-48.0); Immature Granulocytes Abs Auto 0.04 10^3/uL (0.00-0.03); Immature Granulocytes Pct Auto 0.5 % (0.0-0.5); Lymphocytes Absolute Auto 1.8 10^3/uL (1.2-3.8); Lymphocytes Percent Auto 20.9 % (20.5-60.0); Mean Corpuscular HGB Conc 31.7 g/dL (29.9-35.2); Mean Corpuscular Hemoglobin 26.5 pg (26.7-34.0); Mean Corpuscular Volume 83.8 fL (81.0-99.0); Mean Platelet Volume 10.6 fL (9.5-13.5); Monocytes Absolute Auto 0.8 10^3/uL (0.3-0.8); Neutrophils Percent Auto 68.7 % (43.0-75.0); Platelet Count 178 10^3/uL (150-450); Red Blood Count 3.39 10^6/uL (4.20-5.40); Red Cell Distribution Width 13.1 % (11.0-15.0); White Blood Count 8.8 10^3/uL (4.0-11.0)
== END 2023-11-22 15:17 | disposition home or self-care (01) ==
LOC: LAB 15:18
PROVIDERS: Visit Provider Physician Assistant
DX: O99.013 Anemia complicating pregnancy, third trimester (principal)
CPT/HCPCS: 36415; 85025

== ENCOUNTER 2023-12-06 19:56 | Outpatient (REF) | payer MEDICAID, SELFPAY ==
--- OUTSIDE RECORDS SUMMARY | 2023-12-06 20:05 | XMS_ITS | CCD ---
Author Name Unknown Address [id number] [place] [address] Organization [facility] Care Team Providers Care Chaplain Name Role Phone Sandy Herring Unavailable SHEELA ANTUNEZ Attending Unavailable DEXTER, DR JAYLA Noriega Primary Care Unavailable NICOLE SANCHEZ Admitting Unavailable NICOLE SANCHEZ Attending Unavailable NICOLE SANCHEZ Consulting Unavailable DARYL ., DR COKER Admitting Unavailable DARYL ., DR COKER Attending Unavailable DEXTER, DR JAYLA Noriega Primary Care Unavailable JACQUELIN, DR JOI Díaz Consulting Unavailable GALLEGOS, OLMAN Consulting Unavailable DARYL ., DR COKER Admitting Unavailable DARYL ., DR COKER Attending Unavailable DEXTER, DR JAYLA Noriega Primary Care Unavailable DARYL ., DR COKER Consulting Unavailable AZUCENA II, ANGIE Consulting Unavailable JOSE DAVID CHUA Consulting Unavailable DARYL ., DR COKER Admitting Unavailable DARYL ., DR COKER Attending Unavailable DEXTER, DR JAYLA Noriega Primary Care Unavailable DARYL ., DR COKER Consulting Unavailable ÓSCAR ., JESSICA Admitting Unavailable ÓSCAR .JESSICA Attending Unavailable REQUEST, DR HEMPHILL LISTED Primary Care Unavaila brennan MONGE, DR JO Guillen Consulting Unavailable ÓSCAR .JESSICA Consulting Unavailable DARYL ., DR COKER Admitting Unavailable DARYL ., DR COKER Attending Unavailable DEXTER, DR JAYLA Noriega Primary Care Unavailable JACQUELIN, DR JOI Díaz Consulting Unavailable DARYL ., DR COKER Consulting Unavailable DEXTER, DR JAYLA Noriega Primary Care Unavailable MONY SAVAGE Admitting Unavailable MONY SAVAGE Attending Unavailable MARIPOSA, DR JO Guillen Consulting Unavailable PIETERCHNY ., HAKEEM HERNANDEZ Consulting UnavailMONY Barba Consulting Unavailable DEXTER, DR JAYLA Noriega Primary Care Unavailable PAY ., DR FERNANDES Admitting Unavailable PAY ., DR FERNADNES Attending Unavailable PAY ., DR FERNANDES Consulting Unavailable Unavailable Primary Care Provider Unavailkike e SHEELA ANTUNEZ Attending Unavailable JESSICA CANTRELL Attending Unavailable SHEELA ANTUNEZ Attending Unavailable JESSICA CANTRELL Attending Unavailable SHEELA ANTUNEZ Attending Unavailable JESSICA CANTRELL Attending Unavailable Medications Current Medications Medication Drug Class(es) Dates Sig (Normalized) Sig (Original) ARIPiprazole 5 mg oral tablet (1 source) Atypical Antipsychotic Start: 01-13-2023 take 1 tablet by mouth in the morning ARIPiprazole (Abilify) 5 MG tablet Take 5 mg by mouth in the morning. 0 01/13/2023 Active brompheniramine maleate 0.4 mg/ml / dextromethorphan hydrobromide 2 mg/ml / pseudoephedrine hydrochloride 6 mg/ml oral solution (1 source) alpha-Adrenergic Agonist, Uncompetitive L-nedhwt-C-aspartat e Receptor Antagonist, Sigma-1 Agonist Start: 05-02-2022 take 10 mL by mouth every six hours Pseudoeph-Bromphe n-DM 30-2-10 MG/5ML 10 mL Orally every 6 hours for 5 days Apr, Active busPIRone hydrochloride 10 mg oral tablet (3 sources) Start: 01-18-2023 take 1 tablet by mouth at bedtime busPIRone (Buspar) 10 MG tablet TAKE 1 TABLET (10 MG TOTAL) BY MOUTH IN THE MORNING AND BEFORE BEDTIME 0 01/18/2023 Active busPIRone HCl (B USPAR PO) BuSpar 0 Active take 1 tablet by glo th every twelve hours busPIRone HCl 10 MG 1 tablet Orally Twic e a day Active escitalopram 20 mg oral tablet (3 sources) Serotonin Reuptake Inhibitor Start: 06-08-2023 take 1 tablet by mouth in the morning escitalopram (Lexapro) 20 MG tablet Take 20 mg by mouth in the morning. 0 06/08/2023 Active escitalopram (Le xapro) 5 MG tablet Lexapro 0 Active take 1 tablet by glo th every twenty-four hours Lexapro 20 MG 1 tablet Orally Once a day prn Active magnesium oxide 400 mg oral tablet (1 source) Start: 08-10-2023 take 1 tablet by mouth once daily in the morning magnesium oxide (Mag-Ox) 400 (240 Mg) MG tablet Indications: Nonintractable headache, unspecified chronicity pattern, unspecified headache type TAKE 1 TABLET BY MOUTH EVERY MORNING 90 tablet 4 08/10/2023 Active metoclopramide 10 mg oral tablet (1 source) Dopamine-2 Receptor Antagonist Start: 08-30-2023 take 1 tablet by mouth three times daily as needed metoclopramide (Reglan) 10 MG tablet TAKE 1 TABLET BY MOUTH 3 TIMES A DAY NEEDED BEFORE MEALS 0 08/30/2023 Active ondansetron 4 mg disintegrating oral tablet (1 source) Serotonin-3 Receptor Antagonist Start: 12-21-2022 take 1 tablet by mouth every four to six hours as needed ondansetron ODT (Zofran-ODT) 4 MG disintegrating tablet 1 tablet on the tongue and allow to dissolve Orally every 4-6 hours as needed for 14 days 0 12/21/2022 Active polysaccharide iron complex 391 mg oral capsule (1 source) Start: 09-14-2023 End: 12-13-2023 take 1 capsule by mouth in the morning iron polysaccharides (ProFe) 391.3 (180 Fe) MG capsule Indications: Low iron Take 1 capsule (391.3 mg) by mouth in the morning. 30 capsule 2 09/14/2023 12/13/2023 Active promethazine hydrochloride 12.5 mg oral tablet (1 source) Phenothiazine Start: 06-21-2023 take 1 tablet by mouth every six hours for nausea promethazine (Phenergan) 12.5 MG tablet Indications: Nausea and vomiting, unspecified vomiting type TAKE 1 TABLET BY MOUTH EVERY 6 (SIX) HOURS IF NEEDED FOR NAUSEA OR VOMITING FOR UP TO 14 DAYS. 56 tablet 0 06/21/2023 Active traZODone hydrochloride 50 mg oral tablet [...] Onset: 01-17-2023 Other aftercare (1 source) Other longterm (current) drug therapy; Translations: [OTH JAIL CURRENT 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] Onset: 12-15-2022 Episodic Other [...] OTH TOB PROD UNCOMP] Onset: 01-17-2023 Chronic Unclassified (1 source) OB Reminders Onset: 05-11-2023 05-11-2023 Past or Other Problems Problem Classification Problem [...] Test Name Value Interpretation Reference Range Facility [facility] (CLEAN/CATCH) SET UP / OPERATOR/JAYRO RO IF IND.on 11-14-2023 BILIRUBIN URINE Negative NEGATIVE [facility] BLOOD URINE Negative NEGATIVE [facility] Clarity (U) CLEAR CLEAR [facility] Color (U) LT. YELLOW YELLOW [facility] GLUCOSE URINE UA Negative NEGATIVE mg/dL [facility] Ketones Ql (U) Negative NEGATIVE mg/dL [facility] Leukocyte esterase Test strip Ql (U) Negative NEGATIVE [facility] NITRITE URINE Negative NEGATIVE [facility] pH (U) 7.5 [pH] 5.0 - 9.0 [facility] PROTEIN URINE Negative NEG/TRACE mg/dL [facility] SPECIFIC GRAVITY URINE 1.020 1.005 - 1.025 [facility] URINE MICROSCOPIC INDICATED NO [facility] UROBILINOGEN URINE 0.2 EU/dL 0.2 - 1.0 EU/dL [facility] SURGICAL PATH REPORTon 01-10 SURGICAL PATH REPORT [facility] Department of Pathology [address] [place] [id number] Name: SANTOS HARPER : 2000 [facility] [id number] Number: Gender Female [facility] : n: Admit 22 years Attending SHEELA ANTUNEZ Age: Provider: Ordering SHEELA ANTUNEZ Provider: Consulti Surgical Pathology Report ng: ACCESSION: COLLECTED DATE/TIME: RECEIVED DATE/TIME: PATHOLOGIST: [id number] 01/06/2023 16:30 EDT 01/07/2023 11:25 EDT LORNA DURAN MD Final Diagnosis Report for [facility] [place] [employer]: - IMMATURE CHORIONIC VILLI AND GESTATIONAL ENDOMETRIUM, CONSISTENT WITH PRODUCTS OF CONCEPTION. LORNA DRUAN PATHOLOGIST (Electronic Signature) Date Verified 01/10/2023 LN [...] cm. There are no grossly identifiable parts. [employer] English Teacher sections are submitted in three cassettes. MP/ln 01/07/2023 Tissue pathology report for: [facility], [address] [place] [address]; ____ Print 01/10/2023 13:39 EDT Number: Date/Time: [facility] Department of Pathology [address] [place], [place] [id number] Name: SANTOS HARPER : 2000 [facility] [id number] Number: Gender [facility] Ad[facility] 22 years Attending SHEELA ANTUNEZ Age: Provider: Ordering SHEELA ANTUNEZ Provider: Consulti Surgical Pathology Report ng: ACCESSION: COLLECTED DATE/TIME: RECEIVED DATE/TIME: PATHOLOGIST: [id number] 01/06/2023 16:30 EDT 01/07/2023 11:25 EDT LORNA DURAN MD Gross Description PATHOLOGY SERVICES PROVIDED BY [facility] (CLIA #[id number]) in cooperation with [facility] at [address] [place] [address] ( CLIA #[id number]) Microscopic Diagnosis The final diagnosis is based on a microscopic exam of sales and marketing representative sections. Codes CPT CODE: 53434 ____ Print 01/10/2023 13:39 EDT Number: Date/Time: Normal [facility] Comment on above: Performed By: #### [id number] #### [facility] Laboratory Services [id number] [id number] Jewelry Setter: Jose Agarwal MD CBC AUTO DIFFon 01-06-2023 BASO # 0.0 103/ul Normal 0.0-0.1 [facility] Comment on above: Performed By: #### P REG #### [facility] [address] [place] [address] Dr. Darian Scott Basophils/100 WBC (Bld) 0.3 % Normal 0.2-2.0 [facility] Comment on above: Performed By: #### P REG #### [facility] [address] [place] [address] Dr. Darian Scott EO # 0.0 103/ul Normal 0.0-0.7 [facility] Comment on above: Performed By: #### P REG #### [facility] [address] [place] [address] Dr. Darian Scott Eosinophils/100 WBC (Bld) 0.5 % Critically low 0.9-7.0 [facility] Comment on above: Performed By: #### P REG #### [facility] [address] [place] [address] Dr. Darian Scott Erythrocyte distribution width (RBC) [Ratio] 12.4 % Normal 11.0-15.0 [facility] Comment on above: Performed By: #### P REG #### [facility] [address] [address] [address] Darian Scott Hematocrit (Bld) [Volume fraction] 33.6 % Critically low 36.0-48.0 [facility] Comment on above: Performed By: #### P REG #### [facility] [address] [address] [address] Darian Scott Hemoglobin (Bld) [Mass/Vol] 11.6 g/dL Critically low 12.0-16.0 [facility] Comment on above: Performed By: #### P REG #### [facility] [address] [address] [address] Darian Scott IG # 0.02 10e3/ul Normal 0.00-0.03 [facility] Comment on above: Performed By: #### P REG #### [facility] [address] [address] [address] Darian Scott IG % 0.3 % Normal 0.0-0.5 [facility] Comment on above: Performed By: #### P REG #### [facility] [address] [address] [address] Darian Scott LYMPH # 1.7 103/ul Normal 1.2-3.8 [facility] Comment on above: Performed By: #### P REG #### [facility] [address] [address] [address] Darian Scott Lymphocytes/100 WBC (Bld) 28.5 % Normal 20.5-60.0 [facility] Comment on above: Performed By: #### P REG #### [facility] [address] [address] [address] Darian Scott MANUAL DIFF REQ NO Normal [facility] Comment on above: Performed By: #### P REG #### [facility] [address] [address] [address] Darian Scott MCH (RBC) [Entitic mass] 29.3 pg Normal 26.7-34.0 [facility] Comment on above: Performed By: #### P REG #### [facility] [address] [address] [address] Darian Scott MCHC (RBC) [Mass/Vol] 34.5 g/dL Normal 29.9-35.2 [facility] Comment on above: Performed By: #### P REG #### [facility] [address] [address] [address] Darian Scott MCV (RBC) [Entitic vol] 84.8 fL Normal 81.0-99.0 [facility] Comment on above: Performed By: #### P REG #### [facility] [address] [address] [address] Darian Scott MONO # 0.4 103/ul Normal 0.3-0.8 [facility] Comment on above: Performed By: #### P REG #### [facility] [address] [place] [address] Dr. Darian Scott Monocytes/100 WBC (Bld) 5.9 % Normal 1.7-12.0 [facility] Comment on above: Performed By: #### P REG #### [facility] [address] [place] [address] Dr. Darian Scott NEUT # 3.8 103/ul Normal 1.4-6.5 [facility] Comment on above: Performed By: #### P REG #### [facility] [address] [place] [address] Dr. Darian Scott Neutrophils/100 WBC (Bld) 64.5 % Normal 43.0-75.[address] [facility] Comment on above: Performed By: #### P REG #### [facility] [address] [place] [address] Dr. Darian Scott Platelet mean volume (Bld) [Entitic vol] 10.1 fL Normal 9.5-13.[address] [facility] Comment on above: Performed By: #### P REG #### [facility] [address] [place] [address] Dr. Darian Scott PLT 190 103/ul Normal 150-[address] [facility] Comment on above: Performed By: #### P REG #### [facility] [address] [address] [address] Darian Scott RBC 3.96 106/ul Critically low 4.20-5.40 [facility] Comment on above: Performed By: #### P REG #### [facility] [address] [place] [address] Dr. Darian Scott WBC 6.0 103/ul Normal 4.0-11.0 [facility] Comment on above: Performed By: #### P REG #### [facility] [address] [address] [address] Darian Scott PREG QUANT HCGon 01-06-2023 HCG QUANT 8841 mIU/mL Normal [facility] Comment on above: Performed By: #### P REG #### [facility] [address] [place] [address] Dr. Darian Scott HCG RANGE SEE BELOW Normal [facility] Comment on above: Result Comment: 5-50 0.2-1 WEEK 50-500 1-2 WEEKS 100-5,000 2-3 WEEKS 500-10,000 3-4 WEEKS 1,000-50,000 4-5 WEEKS 10,000-100,000 5-6 WEEKS 15,000-200,000 6-8 WEEKS 10,000-100,000 2-3 MONTHS Performed By: #### P REG #### [facility] [address] [place] [address] Dr. Darian Scott US PREG TVon 12-31-2022 US PREG TV EXAMINATION: US PREG TV HISTORY: viability COMPARISON: 12/21/2022 FINDINGS: Hernandez intrauterine gestation Gestational sac: 1.86 cm, 6 weeks 2 days [place]-rump length: 3.3 mm, 6 weeks 0 days [...] JOI ROPER Date: 2022-12-31 15:[address] [facility] US PREG TVon 12-21-2022 US PREG TV [...] JO MONGE Date: 2022-12-21 15:[address] [facility] CBC AUTO DIFFon 12-14-2022 BASO # 0.0 103/ul Normal 0.0-0.1 [facility] Comment on above: Performed By: #### C BC #### [facility] [address] [place] [address] Dr. Darian Scott Basophils/100 WBC (Bld) 0.9 % Normal 0.2-2.[address] [facility] Comment on above: Performed By: #### C BC #### [facility] [address] [place] [address] Dr. Darian Scott EO # 0.0 103/ul Normal 0.0-0.[address] [facility] Comment on above: Performed By: #### C BC #### [facility] [address] [place] [address] Dr. Darian Scott Eosinophils/100 WBC (Bld) 0.4 % Critically low 0.9-7.[address] [facility] Comment on above: Performed By: #### C BC #### [facility] [address] [place] [address] Dr. Darian Scott Erythrocyte distribution width (RBC) [Ratio] 12.5 % Normal 11.0-15.0 [facility] Comment on above: Performed By: #### C BC #### [facility] [address] [place] [address] Dr. Darian Scott Hematocrit (Bld) [Volume fraction] 34.8 % Critically low 36.0-48.0 [facility] Comment on above: Performed By: #### C BC #### [facility] [address] [place] [address] Dr. Darian Scott Hemoglobin (Bld) [Mass/Vol] 11.8 g/dL Critically low 12.0-16.0 [facility] Comment on above: Performed By: #### C BC #### [facility] [address] [place] [address] Dr. Darian Scott IG # 0.02 10e3/ul Normal 0.00-0.03 [facility] Comment on above: Performed By: #### C BC #### [facility] [address] [place] [address] Dr. Darian Scott IG % 0.4 % Normal 0.0-0.5 [facility] Comment on above: Performed By: #### C BC #### [facility] [address] [place] [address] Dr. Darian Scott LYMPH # 1.4 103/ul Normal 1.2-3.8 [facility] Comment on above: Performed By: #### C BC #### [facility] [address] [place] [address] Dr. Darian Scott Lymphocytes/100 WBC (Bld) 29.3 % Normal 20.5-60.0 [facility] Comment on above: Performed By: #### C BC #### [facility] [address] [place] [address] Dr. Darian Scott MANUAL DIFF REQ NO Normal [facility] Comment on above: Performed By: #### C BC #### [facility] [address] [place] [address] Dr. Darian Scott MCH (RBC) [Entitic mass] 28.9 pg Normal 26.7-34.0 [facility] Comment on above: Performed By: #### C BC #### [facility] [address] [place] [address] Dr. Darian Scott MCHC (RBC) [Mass/Vol] 33.9 g/dL Normal 29.9-35.2 [facility] Comment on above: Performed By: #### C BC #### [facility] [address] [place] [address] Dr. Darian Scott MCV (RBC) [Entitic vol] 85.3 fL Normal 81.0-99.0 [facility] Comment on above: Performed By: #### C BC #### [facility] [address] [place] [address] Dr. Darian Scott MONO # 0.4 103/ul Normal 0.3-0.[address] [facility] Comment on above: Performed By: #### C BC #### [facility] [address] [place] [address] Dr. Darian Scott Monocytes/100 WBC (Bld) 8.8 % Normal 1.7-12.0 [facility] Comment on above: Performed By: #### C BC #### [facility] [address] [place] [address] Dr. Darian Scott NEUT # 2.8 103/ul Normal 1.4-6.5 [facility] Comment on above: Performed By: #### C BC #### [facility] [address] [place] [address] Dr. Darian Scott Neutrophils/100 WBC (Bld) 60.2 % Normal 43.0-75.[address] [facility] Comment on above: Performed By: #### C BC #### [facility] [address] [place] [address] Dr. Darian Scott Platelet mean volume (Bld) [Entitic vol] 10.6 fL Normal 9.5-13.[address] [facility] Comment on above: Performed By: #### C BC #### [facility] [address] [place] [address] Dr. Darian Scott PLT 206 103/ul Normal 150-[address] [facility] Comment on above: Performed By: #### C BC #### [facility] [address] [place] [address] Dr. Darian Scott RBC 4.08 106/ul Critically low 4.20-5.40 [facility] Comment on above: Performed By: #### C BC #### [facility] [address] [place] [address] Dr. Darian Scott WBC 4.7 103/ul Normal 4.0-11.0 [facility] Comment on above: Performed By: #### C BC #### [facility] [address] [place] [address] Dr. Darian Scott CULTURE URINEon 12-14-2022 CULTURE URINE Culture Observations : LIGHT GROWTH OF MIXED GENITAL ELEN. NO POTENTIAL PATHOGENS SEEN. Normal [facility] Comment on above: Performed By: #### JOYCE JOVELRO #### [facility] [address] [place] [address] Dr. Darian Scott ER URINE PROFILEon 3 Bilirubin Ql (U) Negative Normal NEGATIVE [facility] Comment on above: Performed By: #### JOYCE JOVELRO #### [facility] [address] [place] [address] Dr. Darian Scott Clarity (U) CLEAR Normal CLEAR [facility] Comment on above: Performed By: #### JOYCE JOVELRO #### [facility] [address] [place] [address] Dr. Darian Scott Color (U) LT. YELLOW Normal YELLOW [facility] Comment on above: Performed By: #### JOYCE JOVELRO #### [facility] [address] [place] [address] Dr. Darian Scott ERUJarrod A micrscopic examination will be performed if indicated. Normal [facility] Comment on above: Performed By: #### JOYCE JOVELRO #### [facility] [address] [place] [address] Dr. Darian Scott Glucose Ql (U) Negative Normal NEGATIVE [facility] Comment on above: Performed By: #### JOYCE JOVELRO #### [facility] [address] [place] [address] Dr. Darian Scott Hemoglobin Ql (U) LARGE Abnormal NEGATIVE [facility] Comment on above: Performed By: #### Ge DUFFY UMICRO #### [facility] [address] [address] [address] Darian Scott Ketones Ql (U) TRACE Abnormal NEGATIVE [facility] Comment on above: Performed By: #### Ge DUFFY UMICRO #### [facility] [address] [place] [address] Dr. Darian Scott LEUKOCYTES TRACE Abnormal NEGATIVE [facility] Comment on above: Performed By: #### Ge DUFFY UMICRO #### [facility] [address] [address] [address] Darian Scott Nitrite Ql (U) Negative Normal NEGATIVE [facility] Comment on above: Performed By: #### Ge DUFFY UMICRO #### [facility] [address] [place] [address] Dr. Darian Scott pH (U) 7.5 [pH] Normal 5-[address] [facility] Comment on above: Performed By: #### Ge DUFFY UMICRO #### [facility] [address] [place] [address] Dr. Darian Scott SPEC GRAVITY 1.010 Normal 1.005-<=1.025 [facility] Comment on above: Performed By: #### eG DUFFY UMICRO #### [facility] [address] [place] [address] Dr. Darian Scott UA PROTEIN TRACE Normal NEGATIVE/ TRACE [facility] Comment on above: Performed By: #### Ge DUFFY UMICRO #### [facility] [address] [place] [address] Dr. Darian Scott UR MICRO IND INDICATED Normal [facility] Comment on above: Performed By: #### Ge DUFFY UMICRO #### [facility] [address] [place] [address] Dr. Darian Scott Urobilinogen Qn (U) 0.2 {Marielos'U}/dL Normal 0.2 - 1.0 [facility] Comment on above: Performed By: #### Ge DUFFY UMICRO #### [facility] [address] [address] [address] Darian Scott PREG QUANT HCGon 12-14-2022 HCG QUANT 9234 mIU/mL Normal [facility] Comment on above: Performed By: #### ESTER JOVEL #### [facility] [address] [place] [address] Dr. Darian Scott HCG RANGE SEE BELOW Normal [facility] Comment on above: Result Comment: 5-50 0.2-1 WEEK 50-500 1-2 WEEKS 100-5,000 2-3 WEEKS 500-10,000 3-4 WEEKS 1,000-50,000 4-5 WEEKS 10,000-100,000 5-6 WEEKS 15,000-200,000 6-8 WEEKS 10,000-100,000 2-3 MONTHS Performed By: #### ESTER JOVEL #### [facility] [address] [place] [address] Dr. Darian Scott PROF CHEM 8 (BAS METB)on Anion gap [Moles/Vol] 9.9 mmol/L Normal [facility] Comment on above: Performed By: #### P REG #### [facility] [address] [place] [address] Dr. Darian Scott Calcium [Mass/Vol] 9.2 mg/dL Normal 8.5-10.1 [facility] Comment on above: Performed By: #### P REG #### [facility] [address] [place] [address] Dr. Darian Scott Chloride [Moles/Vol] 103 mmol/L Normal 98-[address] [facility] Comment on above: Performed By: #### P REG #### [facility] [address] [place] [address] Dr. Darian Scott CO2 [Moles/Vol] 26.9 mmol/L Normal 21.0-32.0 [facility] Comment on above: Performed By: #### P REG #### [facility] [address] [place] [address] Dr. Darian Scott Creatinine [Mass/Vol] 0.59 mg/dL Normal 0.55-1.02 [facility] Comment on above: Performed By: #### P REG #### [facility] [address] [address] [address] Darian Scott EGFR-AF NICARAGUAN >60 Normal >=60 [facility] Comment on above: Performed By: #### P REG #### [facility] [address] [address] [address] Darian Scott EGFR-NON AF NICARAGUAN >60 Normal >=[address] [facility] Comment on above: Performed By: #### P REG #### [facility] [address] [address] [address] Darian Scott Glucose [Mass/Vol] 90 mg/dL Normal 74-106 [facility] Comment on above: Performed By: #### P REG #### [facility] [address] [address] [address] Darian Scott Potassium [Moles/Vol] 3.8 mmol/L Normal 3.5-5.1 [facility] Comment on above: Performed By: #### P REG #### [facility] [address] [address] [address] Darian Scott Sodium [Moles/Vol] 136 mmol/L Normal 136-145 [facility] Comment on above: Performed By: #### P REG #### [facility] [address] [address] [address] Darian Scott Urea nitrogen [Mass/Vol] 14.0 mg/dL Normal 7.0-18.[address] [facility] Comment on above: Performed By: #### P REG #### [facility] [address] [address] [address] Darian Scott Urea nitrogen/Creatini ne [Mass ratio] 23.7 mg/mg Normal [facility] Comment on above: Performed By: #### P REG #### [facility] [address] [place] [address] Dr. Darian Scott TYPE AND SCREENon 12-14-2022 TYPE AND SCREEN Negative Normal [facility] Comment on above: Performed By: #### ESTER JOVEL #### [facility] [address] [place] [address] Dr. Darian Scott URINE MICROSCOPIC ONLYon BACTERIA MODERATE Abnormal NONE SEEN [facility] Comment on above: Performed By: #### Ge DUFFY UMICRO #### [facility] [address] [place] [address] Dr. Darian Scott Bacteria identified Cx Nom (U) INDICATED Normal [facility] Comment on above: Performed By: #### Ge DUFFY UMICRO #### [facility] [address] [place] [address] Dr. Darian Scott CAST NONE SEEN Normal NONE SEEN [facility] Comment on above: Performed By: #### Ge DUFFY UMICRO #### [facility] [address] [place] [address] Dr. Darian Scott Crystals LM Nom (Urine sed) NONE SEEN Normal NONE SEEN [facility] Comment on above: Performed By: #### Ge DUFFY UMICRO #### [facility] [address] [place] [address] Dr. Darian Scott Epithelial cells LM Ql (Urine sed) MODERATE Abnormal NONE SEEN /RARE [facility] Comment on above: Performed By: #### SHELLEY JOVELICRO #### [facility] [address] [place] [address] Dr. Darian Scott MUCOUS TRACE Abnormal NONE SEEN [facility] Comment on above: Performed By: #### Ge DUFFY UMICRO #### [facility] [address] [place] [address] Dr. Darian Scott RBC 5-10 Abnormal 0-[address] [facility] Comment on above: Performed By: #### Ge DUFFY UMICRO #### [facility] [address] [place] [address] Dr. Darian Scott WBC 5-10 Abnormal NONE SEEN [facility] Comment on above: Performed By: #### Ge DUFFY UMICRO #### [facility] [address] [place] [address] Dr. Darian Scott US PREG TVon 12-14-2022 [...] by: JO MONGE Date: 2022-12-14 15:05 Normal [facility] ABO AND RH TYPEon 12-08-2022 ABO and Rh group Nom (Bld) ABO Rh Typing A Rh Positive Blood Bank Notes Testing done by on 12/06/22 [facility] Comment on above: Performed By: #### ESTER JOVEL #### [facility] [address] [place] [address] Dr. Darian Scott CBC AUTO DIFFon 12-07-2022 BASO # 0.1 103/ul Normal 0.0-0.1 [facility] Comment on above: Performed By: #### ESTER JOVEL #### [facility] [address] [place] [address] Dr. Darian Scott Basophils/100 WBC (Bld) 0.7 % Normal 0.2-2.0 [facility] Comment on above: Performed By: #### ESTER JOVEL #### [facility] [address] [place] [address] Dr. Darian Soctt EO # 0.0 103/ul Normal 0.0-0.7 [facility] Comment on above: Performed By: #### ESTER JOVEL #### [facility] [address] [place] [address] Dr. Darian Scott Eosinophils/100 WBC (Bld) 0.4 % Critically low 0.9-7.[address] [facility] Comment on above: Performed By: #### ESTER JOVEL #### [facility] [address] [place] [address] Dr. Darian Scott Erythrocyte distribution width (RBC) [Ratio] 12.8 % Normal 11.0-15.[address] [facility] Comment on above: Performed By: #### ESTER JOVEL #### [facility] [address] [place] [address] Dr. Darian Scott Hematocrit (Bld) [Volume fraction] 33.7 % Critically low 36.0-48.[address] [facility] Comment on above: Performed By: #### ESTER JOVEL #### [facility] [address] [place] [address] Dr. Darian Scott Hemoglobin (Bld) [Mass/Vol] 11.5 g/dL Critically low 12.0-16.[address] [facility] Comment on above: Performed By: #### ESTER JOVEL #### [facility] [address] [place] [address] Dr. Darian Scott IG # 0.01 10e3/ul Normal 0.00-0.[address] [facility] Comment on above: Performed By: #### ESTER JOVEL #### [facility] [address] [place] [address] Dr. Darian Scott IG % 0.1 % Normal 0.0-0.[address] [facility] Comment on above: Performed By: #### JOYCE JOVELRO #### [facility] [address] [place] [address] Dr. Darian Scott LYMPH # 2.6 103/ul Normal 1.2-3.[address] [facility] Comment on above: Performed By: #### JOYCE JOVELRO #### [facility] [address] [place] [address] Dr. Darian Scott Lymphocytes/100 WBC (Bld) 34.8 % Normal 20.5-60.[address] [facility] Comment on above: Performed By: #### JOYCE JOVELRO #### [facility] [address] [place] [address] Dr. Darian Scott MANUAL DIFF REQ NO Normal [facility] Comment on above: Performed By: #### E MAMTAR, UMICRO #### [facility] [address] [place] [address] Dr. Darian Scott MCH (RBC) [Entitic mass] 29.8 pg Normal 26.7-34.0 [facility] Comment on above: Performed By: #### E RUWilmer, UMICRO #### [facility] [address] [place] [address] Dr. Darian Scott MCHC (RBC) [Mass/Vol] 34.1 g/dL Normal 29.9-35.2 [facility] Comment on above: Performed By: #### E TATI, UMICRO #### [facility] [address] [place] [address] Dr. Darian Scott MCV (RBC) [Entitic vol] 87.3 fL Normal 81.0-99.0 [facility] Comment on above: Performed By: #### Ge DUFFY ICRO #### [facility] [address] [place] [address] Dr. Darian Scott MONO # 0.5 103/ul Normal 0.3-0.8 [facility] Comment on above: Performed By: #### Ge DUFFY, UMICRO #### [facility] [address] [place] [address] Dr. Darian Scott Monocytes/100 WBC (Bld) 6.9 % Normal 1.7-12.[address] [facility] Comment on above: Performed By: #### Ge DUFFY, UMICRO #### [facility] [address] [place] [address] Dr. Darian Scott NEUT # 4.3 103/ul Normal 1.4-6.5 [facility] Comment on above: Performed By: #### E RUWilmer, UMICRO #### [facility] [address] [place] [address] Dr. Darian Scott Neutrophils/100 WBC (Bld) 57.1 % Normal 43.0-75.0 [facility] Comment on above: Performed By: #### ESTER JOVEL #### [facility] [address] [place] [address] Dr. Darian Scott Platelet mean volume (Bld) [Entitic vol] 10.4 fL Normal 9.5-13.5 [facility] Comment on above: Performed By: #### ESTER JOVEL #### [facility] [address] [place] [address] Dr. Darian Scott PLT 207 103/ul Normal 150-[address] [facility] Comment on above: Performed By: #### ESTER JOVEL #### [facility] [address] [place] [address] Dr. Darian Scott RBC 3.86 106/ul Critically low 4.20-5.40 [facility] Comment on above: Performed By: #### ESTER JOVEL #### [facility] [address] [place] [address] Dr. Darian Scott WBC 7.5 103/ul Normal 4.0-11.0 [facility] Comment on above: Performed By: #### ESTER JOVEL #### [facility] [address] [place] [address] Dr. Darian Scott ER URINE PROFILEon 3 Bilirubin Ql (U) Negative Normal NEGATIVE [facility] Comment on above: Performed By: #### P REG #### [facility] [address] [place] [address] Dr. Darian Scott Clarity (U) CLEAR Normal CLEAR [facility] Comment on above: Performed By: #### P REG #### [facility] [address] [place] [address] Dr. Darian Scott Color (U) LT. YELLOW Normal YELLOW [facility] Comment on above: Performed By: #### P REG #### [facility] [address] [place] [address] Dr. Darian Scott ERUAHD A micrscopic examination will be performed if indicated. Normal [facility] Comment on above: Performed By: #### P REG #### [facility] [address] [address] [address] Darian Scott Glucose Ql (U) Negative Normal NEGATIVE [facility] Comment on above: Performed By: #### P REG #### [facility] [address] [address] [address] Darian Scott Hemoglobin Ql (U) Negative Normal NEGATIVE [facility] Comment on above: Performed By: #### P REG #### [facility] [address] [address] [address] Darian Scott Ketones Ql (U) Negative Normal NEGATIVE [facility] Comment on above: Performed By: #### P REG #### [facility] [address] [address] [address] Darian Scott LEUKOCYTES Negative Normal NEGATIVE [facility] Comment on above: Performed By: #### P REG #### [facility] [address] [address] [address] Darian Scott Nitrite Ql (U) Negative Normal NEGATIVE [facility] Comment on above: Performed By: #### P REG #### [facility] [address] [address] [address] Darian Scott pH (U) 5.5 [pH] Normal 5-9 [facility] Comment on above: Performed By: #### P REG #### [facility] [address] [place] [address] Dr. Darian Scott SPEC GRAVITY <=1.005 Abnormal 1.005-<=1.025 [facility] Comment on above: Performed By: #### P REG #### [facility] [address] [place] [address] Dr. Darian Scott UA PROTEIN Negative Normal NEGATIVE/ TRACE [facility] Comment on above: Performed By: #### P REG #### [facility] [address] [place] [address] Dr. Darian Scott UR MICRO IND NOT INDICATED Normal [facility] Comment on above: Performed By: #### P REG #### [facility] [address] [address] [address] Darian Scott Urobilinogen Qn (U) 0.2 {Marielos'U}/dL Normal 0.2 - 1.[address] [facility] Comment on above: Performed By: #### P REG #### [facility] [address] [place] [address] Dr. Darian Scott PROF CHEM 8 (BAS METB)on Anion gap [Moles/Vol] 15.0 mmol/L Normal [facility] Comment on above: Performed By: #### B MP #### [facility] [address] [place] [address] Dr. Darian Scott Calcium [Mass/Vol] 8.4 mg/dL Critically low 8.5-10.[address] [facility] Comment on above: Performed By: #### B MP #### [facility] [address] [place] [address] Dr. Darian Scott Chloride [Moles/Vol] 106 mmol/L Normal 98-[address] [facility] Comment on above: Performed By: #### B MP #### [facility] [address] [place] [address] Dr. Darian Scott CO2 [Moles/Vol] 22.6 mmol/L Normal 21.0-32.0 [facility] Comment on above: Performed By: #### B MP #### [facility] [address] [place] [address] Dr. Darian Scott Creatinine [Mass/Vol] 0.68 mg/dL Normal 0.55-1.[address] [facility] Comment on above: Performed By: #### B MP #### [facility] [address] [place] [address] Dr. Darian Scott EGFR-AF NICARAGUAN >60 Normal >=60 [facility] Comment on above: Performed By: #### B MP #### [facility] [address] [place] [address] Dr. Darian Scott EGFR-NON AF NICARAGUAN >60 Normal >=[address] [facility] Comment on above: Performed By: #### B MP #### [facility] [address] [place], [place] [id number] Dr. Darian Scott Glucose [Mass/Vol] 88 mg/dL Normal 74-106 [facility] Comment on above: Performed By: #### B MP #### [facility] [address] [address] [address] Darian Scott Potassium [Moles/Vol] 3.6 mmol/L Normal 3.5-5.1 [facility] Comment on above: Performed By: #### B MP #### [facility] [address] [address] [address] Darian Scott Sodium [Moles/Vol] 140 mmol/L Normal 136-145 [facility] Comment on above: Performed By: #### B MP #### [facility] [address] [address] [address] Darian Scott Urea nitrogen [Mass/Vol] 15.0 mg/dL Normal 7.0-18.0 [facility] Comment on above: Performed By: #### B MP #### [facility] [address] [place] [address] Dr. Darian Scott Urea nitrogen/Creatini ne [Mass ratio] 22.1 mg/mg [facility] Comment on above: Performed By: #### B MP #### [facility] [address] [place] [address] Dr. Darian Scott PAP ACOG PANEL 2: 22 to 30on 07-05-2022 . . Normal [facility] Comment on above: Performed By: #### [id number] #### [facility] [address] [place] [address] Dr. Darian Scott Age Gdln ACOG Testing 21-29 Normal [facility] Comment on above: Performed By: #### [id number] #### [facility] [address] [place] [address] Dr. Darian Scott DIAGNOSIS: Comment Normal [facility] Comment on above: Result Comment: NEGA TIVE FOR INTRAEPITHELIAL LESION OR MALIGNANCY. Performed By: #### [id number] #### [facility] [address] [place] [address] Dr. Darian Scott Methodology: Comment Normal [facility] Comment on above: Result Comment: This liquid based ThinPrep(R) pap test was screened with the use of an image guided system. Performed By: #### [id number] #### [facility] [address] [place] [address] Dr. Darian Scott Note: Comment Normal [facility] Comment on above: Result Comment: The Pap smear is a screening test designed to aid in the detection of premalignant and malignant conditions of the uterine cervix. It is not a diagnostic procedure and should not be used as the sole means of detecting cervical cancer. Both false-positive and false-negative reports do occur. . Performed By: #### [id number] #### [facility] [address] [place] [address] Dr. 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 [address] [place] [address] Dr. Darian Scott Reflex Criteria: Comment Normal [facility] Comment on above: Result Comment: The HPV DNA reflex criteria were not met with this specimen result therefore, no HPV testing was performed. . Performed By: #### [id number] #### [facility] [address] [place] [address] Dr. Darian Scott Specimen adequacy: Comment Normal [facility] Comment on above: Result Comment: Sati sfactory for evaluation. Endocervical and/or squamous metaplastic cells (endocervical component) are present. Performed By: #### [id number] #### [facility] [address] [place] [address] Dr. Darian Scott ER URINE PROFILEon 2 Bilirubin Ql (U) Negative Normal NEGATIVE [facility] Comment on above: Performed By: #### P REG #### [facility] [address] [place] [address] Dr. Darian Scott Clarity (U) CLEAR Normal CLEAR [facility] Comment on above: Performed By: #### P REG #### [facility] [address] [address] [address] Darian Scott Color (U) YELLOW Normal YELLOW [facility] Comment on above: Performed By: #### P REG #### [facility] [address] [place] [address] Dr. Darian HAYWARD A micrscopic examination will be performed if indicated. Normal [facility] Comment on above: Performed By: #### P REG #### [facility] [address] [place] [address] Dr. Darian Scott Glucose Ql (U) Negative Normal NEGATIVE [facility] Comment on above: Performed By: #### P REG #### [facility] [address] [place] [address] Dr. Darian Scott Hemoglobin Ql (U) MODERATE Abnormal NEGATIVE [facility] Comment on above: Performed By: #### P REG #### [facility] [address] [place] [address] Dr. Darian Scott Ketones Ql (U) Negative Normal NEGATIVE [facility] Comment on above: Performed By: #### P REG #### [facility] [address] [place] [address] Dr. Darian Scott LEUKOCYTES Negative Normal NEGATIVE [facility] Comment on above: Performed By: #### P REG #### [facility] [address] [place] [address] Dr. Darian Scott Nitrite Ql (U) Negative Normal NEGATIVE [facility] Comment on above: Performed By: #### P REG #### [facility] [address] [place] [address] Dr. Darian Scott pH (U) 6.5 [pH] Normal 5-[address] [facility] Comment on above: Performed By: #### P REG #### [facility] [address] [place] [address] Dr. Darian Scott SPEC GRAVITY 1.020 Normal 1.005-<=1.025 [facility] Comment on above: Performed By: #### P REG #### [facility] [address] [place] [address] Dr. Darian Scott UA PROTEIN Negative Normal NEGATIVE/ TRACE [facility] Comment on above: Performed By: #### P REG #### [facility] [address] [place] [address] Dr. Darian Scott UR MICRO IND INDICATED Normal [facility] Comment on above: Performed By: #### P REG #### [facility] [address] [place] [address] Dr. Darian Scott Urobilinogen Qn (U) 1.0 {Marielos'U}/dL Normal 0.2 - 1.[address] [facility] Comment on above: Performed By: #### P REG #### [facility] [address] [place] [address] Dr. Darian Scott URINE MICROSCOPIC ONLYon BACTERIA TRACE Abnormal NONE SEEN [facility] Comment on above: Performed By: #### P REG #### [facility] [address] [place] [address] Dr. Darian Scott Bacteria identified Cx Nom (U) NOT INDICATED Normal [facility] Comment on above: Performed By: #### P REG #### [facility] [address] [place] [address] Dr. Darian Scott CA OX CRYSTALS FEW Normal [facility] Comment on above: Performed By: #### P REG #### [facility] [address] [place] [address] Dr. Darian Scott CAST NONE SEEN Normal NONE SEEN [facility] Comment on above: Performed By: #### P REG #### [facility] [address] [place] [address] Dr. Darian Scott Crystals LM Nom (Urine sed) SEEN Abnormal NONE SEEN [facility] Comment on above: Performed By: #### P REG #### [facility] [address] [place] [address] Dr. Darian Scott Epithelial cells LM Ql (Urine sed) RARE Normal NONE SEEN /RARE [facility] Comment on above: Performed By: #### P REG #### [facility] [address] [place] [address] Dr. Darian Scott MUCOUS NONE SEEN Normal NONE SEEN [facility] Comment on above: Performed By: #### P REG #### [facility] [address] [address] [address] Darian Scott RBC 2-5 Abnormal 0-[address] [facility] Comment on above: Performed By: #### P REG #### [facility] [address] [address] [address] Darian Scott WBC NONE SEEN Normal NONE SEEN [facility] Comment on above: Performed By: #### P REG #### [facility] [address] [address] [address] Darian Scott CARDIAC JESSICA ADMITon 022 CK [Catalytic activity/Vol] 445 U/L Critically high 26-[address] [facility] Comment on above: Performed By: #### L IPA, CMADM, CMP, TSH #### [facility] [address] [place] [address] Dr. Darian Scott CK.MB [Mass/Vol] 1.81 ng/mL Normal <=3.60 [facility] Comment on above: Performed By: #### L IPA, CMADM, CMP, TSH #### [facility] [address] [address] [address] Darian Scott HSTROP 6.1 pg/mL Normal 4.0-51.[address] [facility] Comment on above: Result Comment: CUT- OFF POINTS HAVE BEEN ESTABLISHED BASED ON THE FOURTH UNIVERSAL DEFINITIONS OF MYOCARDIAL INFARCTION. THE UPPER REFERENCE LIMIT (URL) OF TROPONIN, DEFINED THE 99TH PERCENTILE OF cTnI DISTRIBUTION IN A REFERENCE POPULATION, HAS BEEN CONFIRMED THE DECISION THRESHOLD FOR NV DIAGNOSIS. Performed By: #### L IPA, CMADM, CMP, TSH #### [facility] [address] [address] [address] Darian Scott TRESSA 94 ng/mL Critically high 9-82 [facility] Comment on above: Performed By: #### L IPA, CMADM, CMP, TSH #### [facility] [address] [address] [address] Darian Scott CBC AUTO DIFFon 05-08-2022 BASO # 0.1 103/ul Normal 0.0-0.1 [facility] Comment on above: Performed By: #### E RUR, UMICRO #### [facility] [address] [place] [address] Dr. Darian Scott Basophils/100 WBC (Bld) 0.8 % Normal 0.2-2.0 [facility] Comment on above: Performed By: #### ESTER JOVEL #### [facility] [address] [place] [address] Dr. Darian Scott EO # 0.0 103/ul Normal 0.0-0.[address] [facility] Comment on above: Performed By: #### JOYCE JOVELRO #### [facility] [address] [place] [address] Dr. Darian Scott Eosinophils/100 WBC (Bld) 0.5 % Critically low 0.9-7.0 [facility] Comment on above: Performed By: #### JOYCE JOVELRO #### [facility] [address] [place] [address] Dr. Darian Scott Erythrocyte distribution width (RBC) [Ratio] 12.5 % Normal 11.0-15.0 [facility] Comment on above: Performed By: #### JOYCE JOVELRO #### [facility] [address] [place] [address] Dr. Darian Scott Hematocrit (Bld) [Volume fraction] 34.4 % Critically low 36.0-48.0 [facility] Comment on above: Performed By: #### JOYCE JOVELRO #### [facility] [address] [place] [address] Dr. Darian Scott Hemoglobin (Bld) [Mass/Vol] 11.9 g/dL Critically low 12.0-16.0 [facility] Comment on above: Performed By: #### JOYCE JOVELRO #### [facility] [address] [place] [address] Dr. Darian Scott IG # 0.04 10e3/ul Critically high 0.00-0.03 [facility] Comment on above: Performed By: #### JOYCE JOVELRO #### [facility] [address] [place] [address] Dr. Darian Scott IG % 0.5 % Normal 0.0-0.5 [facility] Comment on above: Performed By: #### JOYCE JOVELRO #### [facility] [address] [place] [address] Dr. Darian Scott LYMPH # 3.2 103/ul Normal 1.2-3.[address] [facility] Comment on above: Performed By: #### SHELLEY JOVELICRO #### [facility] [address] [place] [address] Dr. Darian Scott Lymphocytes/100 WBC (Bld) 38.7 % Normal 20.5-60.[address] [facility] Comment on above: Performed By: #### SHELLEY JOVELICRO #### [facility] [address] [place] [address] Dr. Darian Scott MANUAL DIFF REQ NO Normal [facility] Comment on above: Performed By: #### SHELLEY JOVELICRO #### [facility] [address] [place] [address] Dr. Darian Scott MCH (RBC) [Entitic mass] 29.5 pg Normal 26.7-34.[address] [facility] Comment on above: Performed By: #### JOYCE JOVELRO #### [facility] [address] [place] [address] Dr. Draian Scott MCHC (RBC) [Mass/Vol] 34.6 g/dL Normal 29.9-35.[address] [facility] Comment on above: Performed By: #### Ge DUFFY UMICRO #### [facility] [address] [place] [address] Dr. Darian Scott MCV (RBC) [Entitic vol] 85.4 fL Normal 81.0-99.[address] [facility] Comment on above: Performed By: #### Ge DUFFY UMICRO #### [facility] [address] [place] [address] Dr. Darian Scott MONO # 0.6 103/ul Normal 0.3-0.[address] [facility] Comment on above: Performed By: #### SHELLEY JOVELICRO #### [facility] [address] [place] [address] Dr. Darian Scott Monocytes/100 WBC (Bld) 7.0 % Normal 1.7-12.0 [facility] Comment on above: Performed By: #### Ge DUFFY UMICRO #### [facility] [address] [place] [address] Dr. Darian Scott NEUT # 4.3 103/ul Normal 1.4-6.5 [facility] Comment on above: Performed By: #### Ge DUFFY UMICRO #### [facility] [address] [place] [address] Dr. Darian Scott Neutrophils/100 WBC (Bld) 52.5 % Normal 43.0-75.[address] [facility] Comment on above: Performed By: #### Ge DUFFY UMICRO #### [facility] [address] [place] [address] Dr. Darian Scott Platelet mean volume (Bld) [Entitic vol] 9.9 fL Normal 9.5-13.5 [facility] Comment on above: Performed By: #### Ge DUFFY UMICRO #### [facility] [address] [place] [address] Dr. Darian Scott PLT 257 103/ul Normal 150-[address] [facility] Comment on above: Performed By: #### Ge DUFFY UMICRO #### [facility] [address] [place] [address] Dr. Darian Scott RBC 4.03 106/ul Critically low 4.20-5.40 [facility] Comment on above: Performed By: #### Ge DUFFY UMICRO #### [facility] [address] [place] [address] Dr. Darian Scott WBC 8.2 103/ul Normal 4.0-11.[address] [facility] Comment on above: Performed By: #### Ge DUFFY UMICRO #### [facility] [address] [place] [address] Dr. Darian Scott LIPASEon 05-08-2022 Lipase [Catalytic activity/Vol] 65.0 U/L Critically low 73.0-393.0 [facility] Comment on above: Performed By: #### L IPA, CMADM, CMP, TSH #### [facility] [address] [address] [address] Darian Scott PREG HCG QUALon 05-08-2022 , QUAL Negative Normal NEGATIVE [facility] Comment on above: Performed By: #### P REG #### [facility] [address] [address] [address] Darian Scott PROF 14(COMP METB)on 022 Albumin [Mass/Vol] 3.9 g/dL Normal 3.4-5.0 [facility] Comment on above: Performed By: #### L IPA, CMADM, CMP, TSH #### [facility] [address] [place] [address] Dr. Darian Scott Albumin/Globulin [Mass ratio] 1.1 {ratio} Normal [facility] Comment on above: Performed By: #### L IPA, CMADM, CMP, TSH #### [facility] [address] [address] [address] Darian Scott ALP [Catalytic activity/Vol] 65 U/L Normal 46-116 [facility] Comment on above: Performed By: #### L IPA, CMADM, CMP, TSH #### [facility] [address] [address] [address] Darian Scott ALT [Catalytic activity/Vol] 23 U/L Normal 14-[address] [facility] Comment on above: Performed By: #### L IPA, CMADM, CMP, TSH #### [facility] [address] [address] [address] Darian Scott Anion gap [Moles/Vol] 12.2 mmol/L Normal [facility] Comment on above: Performed By: #### L IPA, CMADM, CMP, TSH #### [facility] [address] [address] [address] Darian Scott AST [Catalytic activity/Vol] 18 U/L Normal 15-37 [facility] Comment on above: Performed By: #### L IPA, CMADM, CMP, TSH #### [facility] [address] [address] [address] Darian Scott Bilirubin [Mass/Vol] 0.5 mg/dL Normal 0.2-1.0 [facility] Comment on above: Performed By: #### L IPA, CMADM, CMP, TSH #### [facility] [address] [address] [address] Darian Scott Calcium [Mass/Vol] 9.2 mg/dL Normal 8.5-10.[address] [facility] Comment on above: Performed By: #### L IPA, CMADM, CMP, TSH #### [facility] [address] [place] [address] Dr. Darian Scott Chloride [Moles/Vol] 104 mmol/L Normal 98-[address] [facility] Comment on above: Performed By: #### L IPA, CMADM, CMP, TSH #### [facility] [address] [address] [address] Darian Scott CO2 [Moles/Vol] 27.9 mmol/L Normal 21.0-32.0 [facility] Comment on above: Performed By: #### L IPA, CMADM, CMP, TSH #### [facility] [address] [place] [address] Dr. Darian Scott Creatinine [Mass/Vol] 0.87 mg/dL Normal 0.55-1.[address] [facility] Comment on above: Performed By: #### L IPA, CMADM, CMP, TSH #### [facility] [address] [place] [address] Dr. Darian Scott EGFR-AF NICARAGUAN >60 Normal >=60 [facility] Comment on above: Performed By: #### L IPA, CMADM, CMP, TSH #### [facility] [address] [place] [address] Dr. Darian Scott EGFR-NON AF NICARAGUAN >60 Normal >=[address] [facility] Comment on above: Performed By: #### L IPA, CMADM, CMP, TSH #### [facility] [address] [place] [address] Dr. Darian Scott Globulin (S) [Mass/Vol] 3.6 g/dL Normal [facility] Comment on above: Performed By: #### L IPA, CMADM, CMP, TSH #### [facility] [address] [address] [address] Darian Scott Glucose [Mass/Vol] 89 mg/dL Normal 74-[address] [facility] Comment on above: Performed By: #### L IPA, CMADM, CMP, TSH #### [facility] [address] [address] [address] Darian Scott Potassium [Moles/Vol] 3.1 mmol/L Critically low 3.5-5.[address] [facility] Comment on above: Performed By: #### L IPA, CMADM, CMP, TSH #### [facility] [address] [address] [address] Darian Scott Protein [Mass/Vol] 7.5 g/dL Normal 6.4-8.[address] [facility] Comment on above: Performed By: #### L IPA, CMADM, CMP, TSH #### [facility] [address] [address] [address] Darian Scott Sodium [Moles/Vol] 141 mmol/L Normal 136-[address] [facility] Comment on above: Performed By: #### L IPA, CMADM, CMP, TSH #### [facility] [address] [address] [address] Darian Scott Urea nitrogen [Mass/Vol] 11.0 mg/dL Normal 7.0-18.[address] [facility] Comment on above: Performed By: #### L IPA, CMADM, CMP, TSH #### [facility] [address] [address] [address] Darian Scott Urea nitrogen/Creatini ne [Mass ratio] 12.6 mg/mg Normal [facility] Comment on above: Performed By: #### L IPA, CMADM, CMP, TSH #### [facility] [address] [address] [address] Darian Scott TSHon 05-08-2022 TSH 2.377 uIU/mL Normal 0.358-3.740 [facility] Comment on above: Performed By: #### L IPA, CMADM, CMP, TSH #### [facility] [address] [address] [address] Darian Scott SARS-CoV-2 (COVID-19) RNA NA A+probe Ql (Resp)on 05-02-2022 SARS-CoV-2 (COVID-19) RNA RYAN+probe Ql (Unsp spec) Negative [employer] Other Vital Signs Date Time Vital Sign Value Performing Clinician Facility 05-02-2022 13:55-0400 Body height 157.48 cm [facility] [employer] Other 05-02-2022 13:55-0400 Body mass index (BMI) [Ratio] 29.26 kg/m2 [facility] Other [employer] Other 05-02-2022 13:55-0400 Body temperature 98.7 [degF] [facility] Other [employer] Other 05-02-2022 13:55-0400 Body weight 72.58 kg [facility] Other [employer] Other 05-02-2022 13:55-0400 SaO2% (BldA) [Mass fraction] 98 % [facility] Other [employer] Other Encounters Encounter Date Encounter Type Care Provider Facility Start: 11-22-2023 End: 11-22-2023 ambulatory JESSICA CANTRELL Not Available Start: 11-14-2023 [facility] Result Encounter Sheela Daryl DO Work Phone: [facility] Unsolicited Start: 11-14-2023 [facility] Result Encounter Sheela Daryl DO Work Phone: [facility] Unsolicited Start: 11-07-2023 End: 11-07-2023 ambulatory SHEELA ANTUNEZ Not Available Start: 10-24-2023 End: 10-24-2023 ambulatory JESSICA CANTRELL Not Available Start: 10-11-2023 End: 10-11-2023 ambulatory SHEELA ANTUNEZ Not Available Start: 09-12-2023 End: 09-12-2023 ambulatory JESSICA CANTRELL Not Available Start: 08-15-2023 End: 08-15-2023 ambulatory SHEELA ANTUNEZ Not Available Start: 01-14-2023 Encounter for preprocedural cardiovascular examination DR SHEELA ANTUNEZ . [facility] Start: 01-06-2023 End: 01-07-2023 ambulatory SHEELA ANTUNEZ Facility:[facility] Start: 01-06-2023 End: 01-06-[address] SHEELA ANTUNEZ . Facility: Start: 01-05-2023 End: 01-06-[address] SHEELA ANTUNEZ . Facility: Start: 01-05-2023 End: 01-06-2023 Encounter for preprocedural cardiovascular examination DR SHEELA ANTUNEZ . Facility: Start: 12-31-2022 End: 01-01-[address] SHEELA ANTUNEZ . Facility: Start: 12-21-2022 End: 12-22-2022 ambulatory JESSICA CANTRELL . Facility: Start: 12-14-2022 End: 12-14-[address] JAYLA RENTERIA Facility: Start: 12-06-2022 End: 12-07-[address] JAYLA RENTERIA Facility: Start: 06-28-2022 End: 06-28-[address] SHEELA ANTUNEZ . Facility: Start: 05-08-2022 End: 05-09-[address] JAYLA RENTERIA Facility: Start: 05-02-2022 End: 05-02-2022 ambulatory [facility] Other [employer] Other Start: 05-02-2022 Office outpatient ne w 30 minutes [facility] Procedures Date Procedure Procedure Detail Performing Clinician Start: 11-14-2023 TB UA (CLEAN/CATCH) SET UP / OPERATOR/MICRO IF IND. Sheela Daryl DO Work Phone: Plan of Treatment Date Care Activity Detail Author Start: 11-22-2023 End: 11-22-2023 Patient encounter procedure 11/22/2023 2:30 PM EST Routine [facility] [address] [address] Jessica Cantrell PA [address] [place], [place] [id number] [facility] Start: 06-03-2023 Influenza vaccination Influenza Vacc ine (#1) [facility] Immunizations Immunization Date Immunization Notes Care Provider Fa cility 07-28-2018 influenza virus vacc ine, unspecified formulation Sheela Saeedzio DO Work Phone: [facility] Payers Date Payer Category Payer Medicaid [id number] 2022 Medicaid [place] [employer] [id number] 2022-Present [address] [place] [address] [id number] 2001 Unknown [id number] 2001 Unknown [id number] [id number] 2001 Unknown [id number] [id number] 2001 Unknown [id number] [id number] 2001 Unknown [id number] [id number] 2001 Unknown [id number] [id number] 2001 Unknown [id number] [id number] 2001 Unknown [id number] [id number] 2001 Unknown [id number] 2.16.840.1.202278.3.579.2.9 2001 Unknown [id number] 2.16.840.1.964930.3.579.2.9 2001 Unknown [id number] 2.16.840.1.869412.3.579.2.9 2001 Unknown [id number] 2.16.840.1.304405.3.579.2.9 2001 Unknown [id number] 2.16.840.1.135147.3.579.2.9 2001 Unknown [id number] [id number] 1959 Unknown [id number] Social History Date Type Detail Facility Start: 05-30-2023 Sex Assigned At [facility] Other Start: 05-30-2023 Tobacco smoking status [facility] Never smoked tobacco [facility] Start: 05-30-2023 Tobacco use and exposure Smokeless tobacco non-user [facility] Start: 10-24-2023 Alcohol intake Lifetime non-drinker (finding) [facility] Start: 05-30-2023 History of Social function [facility] Start: 04-08-2023 [facility] Start: 2000 Sex Assigned At Female [facility] Start: 05-11-2023 Gender identity Identifies as female gender (finding) [facility] Start: 05-11-2023 Sexual orientation Bisexual (finding) [facility] Goals Date Patient Goal Desired Activity /State Personal health goal Clinical Note 01-06-2023 Note Date & Type Note Facility 01-06-2023 Note OPERATIVE NOTE OPERATION DATE: 01/06/2023 PROCEDURE: Suction D AND C. PREOPERATIVE DIAGNOSIS: Missed . POSTOPERATIVE DIAGNOSIS: Missed . ANESTHESIA: General. SURGEON: Sheela Daryl, D.O. 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 FINDINGS: Products of conception. SPECIMEN: Products [...] products of conception were removed using an 9-Prydeinig suction curette. Excellent hemostasis was noted. The patient tolerated the procedure well. Sponge, lap, and needle counts were correct x 2. All instruments were then removed from the patient's vagina. The patient was taken to the Recovery Room in stable condition. ?? [facility] Clinical Note 01-05-2023 Note Date & Type [...] authenticated by: JOI ROPER Date: 2023-01-05 14:07 [facility] Evaluation note 05-02-2022 Note Date & [...] treatment plan. Patient left in stable condition. [employer] Other History general Narrative - Reported Note Date & Type Note Facility History general Narrative - Reported Type Medical History Depression/anxiety [employer] Other Summary Purpose Family History No Family History Records FoundNo Family History Records FoundNo Family History Records Found Advance Directives No Advanced Directives Records FoundNo Advanced Directives Records FoundNo Advanced Directives Records Found Additional Source Comments REASON FOR VISIT (unrecogniz ed section and content) BURR MALIBU, SORE THROAT, H/ A, COUGH INFORMATION SOURCE (unrecogn ized section and content) DATE CREATED AUTHOR 01/10/2023 [facility] DATE CREATED AUTHOR AUTHOR'S ORGANIZ ATION 01/17/2023 [facility] DATE CREATED AUTHOR AUTHOR'S ORGANIZ ATION 11/29/2023 [facility] FOR RECORDS PERTAINING TO PATIENTS WHO [...] BE BASED ON THE PRIMARY CLINICAL RECORDS. [employer] provides no warranty or guarantee of the accuracy or completeness of information in this document.
== END 2023-12-06 19:57 | disposition home or self-care (01) ==
LOC: LAB 19:56
PROVIDERS: Visit Provider Obstetrics & Gynecology
DX: Z34.93 Encounter for supervision of normal pregnancy, unspecified, third trimester (principal)
CPT/HCPCS: 87081

== ENCOUNTER 2023-12-06 20:22 | Observation (INO) | payer MEDICAID, SELFPAY ==
[2023-12-06 20:39] VITALS: BP 115/64; PULSE 82
[2023-12-06 21:14] LABS: Bilirubin Urine NEGATIVE (NEGATIVE); Blood Urine NEGATIVE (NEGATIVE); Clarity Urine CLEAR (CLEAR); Color Urine LT. YELLOW (YELLOW); Glucose Urine UA NEGATIVE (NEGATIVE); Ketones Urine >=80 mg/dL (NEGATIVE); Leukocyte Esterase Urine SMALL (NEGATIVE); Nitrite Urine NEGATIVE (NEGATIVE); Protein Urine TRACE mg/dL (NEG/TRACE); Specific Gravity Urine 1.025 (1.005-1.025); pH Urine 7.5 (5.0-9.0)
[2023-12-06 21:20] LABS: Urine Microscopic Indicated YES
[2023-12-06 21:23] LABS: Amorphous Sediment Urine MANY; Bacteria Urine TRACE #/HPF (NONE SEEN); Cast Seen? NONE SEEN #/LPF (NONE SEEN); Crystals Seen? Seen #/HPF (None Seen); Mucus Urine LARGE (NONE SEEN); Squamous Epithelial Cell Urine MODERATE #/LPF (NONE/RARE); Urine Culture Indicated YES
[2023-12-06 23:06] VITALS: BP 111/62; PULSE 90; RESP 16; TEMP 37.3
[2023-12-07] MEDS: 0.9 % SODIUM CHLORIDE 1,000 ML 1000 ML IV (02:12)
[2023-12-07] MEDS: CEFAZOLIN SODIUM/DEXTROSE,ISO 2 GM/50 ML PIGGYBACK IV (02:13)
[2023-12-07 02:15] VITALS: BP 118/69; PULSE 97
[2023-12-07 02:16] VITALS: BP 118/69; PULSE 97; RESP 20; TEMP 37.3
[2023-12-07] MEDS: ONDANSETRON PF 4 MG/2 ML VIAL IV (02:56)
[2023-12-07] MEDS: 0.9 % SODIUM CHLORIDE 1,000 ML 150 ML IV (03:47)
[2023-12-07 09:43] VITALS: BP 120/59; PULSE 72
--- NOTE | 2023-12-07 09:52 | PM.OBLDTN ---
OB - Triage/Final Diagnosis Visit Information Date of evaluation: 12/07/23 Reason for evaluation: threatened labor and other (uti) Evaluation Cervical dilation (cm): 1 Cervical effacement (%): 50 Laboratory results: Laboratory Tests 12/06/23 20:45 Urine Color Lt. yellow Urine Clarity Clear Urine pH 7.5 Ur Specific [place] 1.025 Urine Protein Trace Urine Glucose (UA) Negative Urine Ketones >=80 A Urine Occult Blood Negative Urine Nitrite Negative Urine Bilirubin Negative Urine Urobilinogen 1.0 Ur Leukocyte Esterase Small A Urine RBC 2-5 A Urine WBC 10-20 A Ur Squamous Epith Cells Moderate A Urine Crystals Seen A Amorphous Sediment Many Urine Bacteria Trace A Urine Casts None seen Urine Mucus Large A Ur Culture Indicated? Yes Vital signs: Vital Signs - 24 hr 12/06/23 20:39 12/06/23 23:06 12/06/23 23:06 Temperature 99.1 F Pulse Rate 82 90 90 Respiratory Rate 16 Blood Pressure 115/64 111/62 Blood Pressure [Right Arm] 111/62 Oxygen Delivery Method Room Air 12/06/23 23:06 12/07/23 02:15 12/07/23 02:16 Temperature Pulse Rate 97 H Respiratory Rate 20 Blood Pressure 118/69 Blood Pressure [Right Arm] Oxygen Delivery Method Room Air Room Air 12/07/23 02:16 12/07/23 09:43 Temperature 99.2 F Pulse Rate 97 H 72 Respiratory Rate 20 Blood Pressure 120/59 Blood Pressure [Right Arm] 118/69 Oxygen Delivery Method Room Air Infant 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
[2023-12-07 10:01] VITALS: BP 120/59; PULSE 72; RESP 18; TEMP 36.4
[2023-12-07] MEDS: CEFAZOLIN SODIUM/DEXTROSE,ISO 1 GM/50 ML IV.SOLN IV (10:24)
== END 2023-12-07 12:00 | disposition home or self-care (01) ==
PROVIDERS: Admitting Provider Obstetrics & Gynecology; Visit Provider Obstetrics & Gynecology
DX: O23.43 Unspecified infection of urinary tract in pregnancy, third trimester (principal); N39.0 Urinary tract infection, site not specified; O47.03 False labor before 37 completed weeks of gestation, third trimester; Z3A.36 36 weeks gestation of pregnancy
CPT/HCPCS: 59025; 81001; 87081; 87086; 96365; 96366; 96375; G0378; G0379

== ENCOUNTER 2023-12-12 07:34 | Outpatient (RCR) | payer MEDICAID, SELFPAY ==
[2023-12-05] MEDS: FERRIC CARBOXYMALTOSE 750 MG in 0.9 % SODIUM CHLORIDE 250 ML 1060 MG IV (11:59)
[2023-12-05 15:02] VITALS: BP 117/58; PULSE 72; RESP 18; TEMP 36.6; O2SAT 98
--- NOTE | 2023-12-05 15:03 | PC.NURSE ---
1150: Pt. to [facility] amb. accompanied by significant other and child. Seated in recliner. VSS. #20 gauge iv initiated to right wrist on first attempt perRoula Monge RN. Pt. tolerated without c/o. Flushes easily without s&s of infiltration. IV iron infusion initiated at this time. See MAR. Pt. given water. 1225: Infusion completed without s&s of adverse reaction. IV d/c'd, pressure to site. 1228: Pt. d/c'd amb. to home with family.
[2023-12-12 11:45] VITALS: BP 113/74; PULSE 84; RESP 20; TEMP 36.5; O2SAT 98
[2023-12-12] MEDS: FERRIC CARBOXYMALTOSE 750 MG in 0.9 % SODIUM CHLORIDE 250 ML 1060 MG IV (12:00)
--- NOTE | 2023-12-12 12:25 | PC.NURSE ---
Patient is here for Injectafer infusion, she states she tolerated her previous infusion well without any issues. She denies any concerns today. IV was started in her right AC with good blood return, vitals obtained and stable. She tolerated Injectafer infusion well and denies any concerns. She was discharged home ambulatory.
== END 2023-12-12 12:33 | disposition home or self-care (01) ==
LOC: INF 07:34
PROVIDERS: Visit Provider Obstetrics & Gynecology
DX: D50.9 Iron deficiency anemia, unspecified (principal)
CPT/HCPCS: 36415; 96365; 96366; J1439

== ENCOUNTER 2023-12-22 22:56 | Inpatient (IN) | payer MEDICAID, SELFPAY ==
--- OUTSIDE RECORDS SUMMARY | 2023-12-22 23:00 | XMS_ITS | CCD ---
Author Organization [facility] Care Team Providers Care Bioinformatics Research Technician Name Role Phone Sandy Herring Unavailable SHEELA BRITO Attending Unavailable DEXTER, DR JAYLA Noriega Primary Care Unavailable NICOLE SANCHEZ Admitting Unavailable DANIEL, NICOLE Attending Unavailable NICOLE SANCHEZ Consulting Unavailable DARYL ., DR COKER Admitting Unavailable DARYL ., DR COKER Attending Unavailable DEXTER, DR JAYLA Noriega Primary Care Unavailable JACQUELIN, DR JOI Díaz Consulting Unavailable OLMAN GALLEGOS Consulting Unavailable DARYL ., DR COKER Admitting [...] Unavailable ÓSCAR ., JESSICA Admitting Unavailable ÓSCAR ., JESSICA Attending Unavailable REQUEST, DR NONE LISTED Primary Care Unavaila brennan MONGE, DR JO Guillen Consulting Unavailable ÓSCAR ., JESSICA Consulting Unavailable DARYL ., DR COKER Admitting Unavailable DARYL ., DR COKER Attending Unavailable DEXTER, DR JAYLA Noriega Primary Care Unavailable [place], DR JOI Díaz Consulting Unavailable DARYL ., [...] FERNANDES Consulting Unavailable Unavailable Primary Care Provider UnavailSHEELA Chavez Attending Unavailable JESSICA CANTRELL Attending Unavailable SHEELA BRITO Attending Unavailable JESSICA CANTRELL Attending Unavailable SHEELA BRITO Attending Unavailable SHEELA BRITO Attending Unavailable DARYL, SHEELA Attending Unavailable JESSICA CANTRELL Attending Unavailable SHEELA BRITO Attending Unavailable [...] oral solution (1 source) alpha-Adrenergic Agonist, Uncompetitive M-lbllzf-O-aspartat e Receptor Antagonist, Sigma-1 Agonist Start: 05-02-2022 [...] Onset: 01-17-2023 Other aftercare (1 source) Other chcf (current) drug therapy; Translations: [OTH [facility] CURRENT 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] Onset: 12-15-2022 Episodic Other [...] Test Name Value Interpretation Reference Range Facility TB UA (CLEAN/CATCH) WINDOWS SYSTEMS ADMIN/JAYRO RO IF IND.on 11-14-2023 BILIRUBIN URINE Negative [...] SURGICAL PATH REPORTon 01-10 SURGICAL PATH REPORT [facility] Department of Pathology [address] [place] [id number] Name: SANTOS HARPER : 2000 [facility] [id number] Number: Gender Female [facility] : n: Admit 22 years Attending SHEELA BRITO Age: Provider: Ordering SHEELA BRITO Provider: Consulti Surgical Pathology Report ng: ACCESSION: COLLECTED DATE/TIME: RECEIVED DATE/TIME: PATHOLOGIST: [id number] 01/06/2023 16:30 EDT 01/07/2023 11:25 EDT LORNA DURAN MD Final Diagnosis Report for [facility] [place] [employer]: - IMMATURE CHORIONIC [...] cm. There are no grossly identifiable parts. Template Clerk sections are submitted in three cassettes. MP/ln 01/07/2023 Tissue pathology report for: [facility], [address] [place] [address]; ____ Print 01/10/2023 13:39 EDT Number: Date/Time: [facility] Department of Pathology [address] [place], [place] [id number] [phone] Name: SANTOS HARPER : 2000 [facility] [id number] Number: Gender [facility] : n: Admit 22 years Attending SHEELA BRITO Age: Provider: Ordering SHEELA BRITO Provider: Consulti Surgical Pathology Report ng: ACCESSION: COLLECTED DATE/TIME: RECEIVED DATE/TIME: PATHOLOGIST: [id number] 01/06/2023 16:30 EDT 01/07/2023 11:25 EDT LORNA DURAN MD Gross Description PATHOLOGY SERVICES PROVIDED BY [employer] (CLIA #[id number]) in cooperation with [facility] at [address] [place] [address] ( CLIA #[id number]) Microscopic Diagnosis The final diagnosis is based on a microscopic exam of retail account representative sections. Codes CPT CODE: 09772 ____ Print 01/10/2023 13:39 EDT Number: Date/Time: Normal [facility] Comment on above: Performed By: #### [id number] #### [facility] Laboratory Services [id number] [id number] Patrol Police Sergeant: Jose Agarwal MD CBC AUTO DIFFon 01-06-2023 BASO # 0.0 103/ul Normal 0.0-0.1 [facility] Comment on above: Performed By: #### P REG #### [facility] [address] [address] [address] Darian Scott Basophils/100 WBC (Bld) 0.3 % Normal 0.2-2.0 [facility] Comment on above: Performed By: #### P REG #### [facility] [address] [place] [address] Dr. Darian Scott EO # 0.0 103/ul Normal 0.0-0.7 [facility] Comment on above: Performed By: #### P REG #### [facility] [address] [place] [address] Dr. Darian Scott Eosinophils/100 WBC (Bld) 0.5 % Critically low 0.9-7.0 [facility] Comment on above: Performed By: #### P REG #### [facility] [address] [place] [address] Dr. Darian Scott Erythrocyte distribution width (RBC) [Ratio] 12.4 % Normal 11.0-15.0 [facility] Comment on above: Performed By: #### P REG #### [facility] [address] [address] [address] Darian Scott Hematocrit (Bld) [Volume fraction] 33.6 % Critically low 36.0-48.0 [facility] Comment on above: Performed By: #### P REG #### [facility] [address] [place] [address] Dr. Darian Scott Hemoglobin (Bld) [Mass/Vol] 11.6 g/dL Critically low 12.0-16.0 [facility] Comment on above: Performed By: #### P REG #### [facility] [address] [place] [address] Dr. Darian Scott IG # 0.02 10e3/ul Normal 0.00-0.03 [facility] Comment on above: Performed By: #### P REG #### [facility] [address] [place] [address] Dr. Darian Scott IG % 0.3 % Normal 0.0-0.5 [facility] Comment on above: Performed By: #### P REG #### [facility] [address] [place] [address] Dr. Darian Scott LYMPH # 1.7 103/ul Normal 1.2-3.8 [facility] Comment on above: Performed By: #### P REG #### [facility] [address] [place] [address] Dr. Darian Scott Lymphocytes/100 WBC (Bld) 28.5 % Normal 20.5-60.0 [facility] Comment on above: Performed By: #### P REG #### [facility] [address] [place] [address] Dr. Darian Scott MANUAL DIFF REQ NO Normal [facility] Comment on above: Performed By: #### P REG #### [facility] [address] [place] [address] Dr. Darian Scott MCH (RBC) [Entitic mass] 29.3 pg Normal 26.7-34.0 [facility] Comment on above: Performed By: #### P REG #### [facility] [address] [address] [address] Darian Scott MCHC (RBC) [Mass/Vol] 34.5 g/dL Normal 29.9-35.2 [facility] Comment on above: Performed By: #### P REG #### [facility] [address] [address] [address] Darian Scott MCV (RBC) [Entitic vol] 84.8 fL Normal 81.0-99.0 [facility] Comment on above: Performed By: #### P REG #### [facility] [address] [place] [address] Dr. Darian Scott MONO # 0.4 103/ul Normal 0.3-0.8 [facility] Comment on above: Performed By: #### P REG #### [facility] [address] [place] [address] Dr. Darian Scott Monocytes/100 WBC (Bld) 5.9 % Normal 1.7-12.0 [facility] Comment on above: Performed By: #### P REG #### [facility] [address] [place] [address] Dr. Darian Scott NEUT # 3.8 103/ul Normal 1.4-6.5 [facility] Comment on above: Performed By: #### P REG #### [facility] [address] [place] [address] Dr. Darian Scott Neutrophils/100 WBC (Bld) 64.5 % Normal 43.0-75.0 [facility] Comment on above: Performed By: #### P REG #### [facility] [address] [place] [address] Dr. Darian Scott Platelet mean volume (Bld) [Entitic vol] 10.1 fL Normal 9.5-13.5 [facility] Comment on above: Performed By: #### P REG #### [facility] [address] [place] [address] Dr. Darina Scott PLT 190 103/ul Normal 150-450 [facility] Comment on above: Performed By: #### P REG #### [facility] [address] [address] [address] Darian Scott RBC 3.96 106/ul Critically low 4.20-5.40 The [facility] Comment on above: Performed By: #### P REG #### [facility] [address] [place] [address] Dr. Darian Scott WBC 6.0 103/ul Normal 4.0-11.0 [facility] Comment on above: Performed By: #### P REG #### [facility] [address] [address] [address] Darian Scott PREG QUANT HCGon 01-06-2023 HCG QUANT 8841 mIU/mL Normal [facility] Comment on above: Performed By: #### P REG #### [facility] [address] [place] [address] Dr. Darian Scott HCG RANGE SEE BELOW Normal [facility] Comment on above: Result Comment: 5-50 0.2-1 WEEK 50-500 1-2 WEEKS 100-5,000 2-3 WEEKS 500-10,000 3-4 WEEKS 1,000-50,000 4-5 WEEKS 10,000-100,000 5-6 WEEKS 15,000-200,000 6-8 WEEKS 10,000-100,000 2-3 MONTHS Performed By: #### P REG #### [facility] [address] [place] [address] Dr. Darian Scott US PREG TVon 12-31-2022 US PREG TV EXAMINATION: US PREG TV HISTORY: viability COMPARISON: 12/21/2022 FINDINGS: Hernandez intrauterine gestation Gestational sac: 1.86 cm, 6 weeks 2 days [place]-rump length: 3.3 mm, 6 weeks 0 days [...] JOI ROPER Date: 2022-12-31 15:06 Normal [facility] US PREG TVon 12-21-2022 US PREG TV [...] JO MONGE Date: 2022-12-21 15:07 Normal [facility] CBC AUTO DIFFon 12-14-2022 BASO # 0.0 103/ul Normal 0.0-0.1 [facility] Comment on above: Performed By: #### C BC #### [facility] [address] [place] [address] Dr. Darian Scott Basophils/100 WBC (Bld) 0.9 % Normal 0.2-2.0 [facility] Comment on above: Performed By: #### C BC #### [facility] [address] [place] [address] Dr. Darian Scott EO # 0.0 103/ul Normal 0.0-0.7 [facility] Comment on above: Performed By: #### C BC #### [facility] [address] [place] [address] Dr. Darian Scott Eosinophils/100 WBC (Bld) 0.4 % Critically low 0.9-7.0 [facility] Comment on above: Performed By: #### C BC #### [facility] [address] [place] [address] Dr. Darian Scott Erythrocyte distribution width (RBC) [Ratio] 12.5 % Normal 11.0-15.0 [facility] Comment on above: Performed By: #### C BC #### [facility] [address] [place] [address] Dr. Darian Scott Hematocrit (Bld) [Volume fraction] 34.8 % Critically low 36.0-48.0 [facility] Comment on above: Performed By: #### C BC #### [facility] [address] [place] [address] Dr. Darian Scott Hemoglobin (Bld) [Mass/Vol] 11.8 g/dL Critically low 12.0-16.0 [facility] Comment on above: Performed By: #### C BC #### [facility] [address] [place] [address] Dr. Darian Scott IG # 0.02 10e3/ul Normal 0.00-0.03 [facility] Comment on above: Performed By: #### C BC #### [facility] [address] [place] [address] Dr. Darian Scott IG % 0.4 % Normal 0.0-0.5 [facility] Comment on above: Performed By: #### C BC #### [facility] [address] [place] [address] Dr. Darian Scott LYMPH # 1.4 103/ul Normal 1.2-3.8 [facility] Comment on above: Performed By: #### C BC #### [facility] [address] [place] [address] Dr. Darian Scott Lymphocytes/100 WBC (Bld) 29.3 % Normal 20.5-60.0 [facility] Comment on above: Performed By: #### C BC #### [facility] [address] [place] [address] Dr. Darian Scott MANUAL DIFF REQ NO Normal [facility] Comment on above: Performed By: #### C BC #### [facility] [address] [place] [address] Dr. Darian Scott MCH (RBC) [Entitic mass] 28.9 pg Normal 26.7-34.0 [facility] Comment on above: Performed By: #### C BC #### [facility] [address] [place] [address] Dr. Darian Scott MCHC (RBC) [Mass/Vol] 33.9 g/dL Normal 29.9-35.2 [facility] Comment on above: Performed By: #### C BC #### [facility] [address] [place] [address] Dr. Darian Scott MCV (RBC) [Entitic vol] 85.3 fL Normal 81.0-99.0 [facility] Comment on above: Performed By: #### C BC #### [facility] [address] [place] [address] Dr. Darian Scott MONO # 0.4 103/ul Normal 0.3-0.8 [facility] Comment on above: Performed By: #### C BC #### [facility] [address] [place] [address] Dr. Darian Scott Monocytes/100 WBC (Bld) 8.8 % Normal 1.7-12.0 [facility] Comment on above: Performed By: #### C BC #### [facility] [address] [place] [address] Dr. Darian Scott NEUT # 2.8 103/ul Normal 1.4-6.5 [facility] Comment on above: Performed By: #### C BC #### [facility] [address] [place] [address] Dr. Darian Scott Neutrophils/100 WBC (Bld) 60.2 % Normal 43.0-75.0 [facility] Comment on above: Performed By: #### C BC #### [facility] [address] [place] [address] Dr. Darian Scott Platelet mean volume (Bld) [Entitic vol] 10.6 fL Normal 9.5-13.5 [facility] Comment on above: Performed By: #### C BC #### [facility] [address] [place] [address] Dr. Darian Scott PLT 206 103/ul Normal 150-450 [facility] Comment on above: Performed By: #### C BC #### [facility] [address] [place] [address] Dr. Darian Scott RBC 4.08 106/ul Critically low 4.20-5.40 [facility] Comment on above: Performed By: #### C BC #### [facility] [address] [place] [address] Dr. Darian Scott WBC 4.7 103/ul Normal 4.0-11.0 [facility] Comment on above: Performed By: #### C BC #### [facility] [address] [place] [address] Dr. Darian Scott CULTURE URINEon 12-14-2022 CULTURE URINE Culture Observations : LIGHT GROWTH OF MIXED GENITAL ELEN. NO POTENTIAL PATHOGENS SEEN. Normal [facility] Comment on above: Performed By: #### ESTER JOVEL #### [facility] [address] [place] [address] Dr. Darian Scott ER URINE PROFILEon 3 Bilirubin Ql (U) Negative Normal NEGATIVE [facility] Comment on above: Performed By: #### JOYCE JOVELRO #### [facility] [address] [place] [address] Dr. Darian Scott Clarity (U) CLEAR Normal CLEAR [facility] Comment on above: Performed By: #### ESTER JOVEL #### [facility] [address] [place] [address] Dr. Darian Scott Color (U) LT. YELLOW Normal YELLOW [facility] Comment on above: Performed By: #### ESTER JOVEL #### [facility] [address] [place] [address] Dr. Darian Scott ERUJarrod A micrscopic examination will be performed if indicated. Normal [facility] Comment on above: Performed By: #### JOYCE JOVELRO #### [facility] [address] [place] [address] Dr. Darian Scott Glucose Ql (U) Negative Normal NEGATIVE [facility] Comment on above: Performed By: #### JOYCE JOVELRO #### [facility] [address] [place] [address] Dr. Darian Scott Hemoglobin Ql (U) LARGE Abnormal NEGATIVE [facility] Comment on above: Performed By: #### Ge DUFFY UMICRO #### [facility] [address] [place] [address] Dr. Darian Scott Ketones Ql (U) TRACE Abnormal NEGATIVE [facility] Comment on above: Performed By: #### Ge DUFFY UMICRO #### [facility] [address] [place] [address] Dr. Darian Scott LEUKOCYTES TRACE Abnormal NEGATIVE [facility] Comment on above: Performed By: #### Ge DUFFY UMICRO #### [facility] [address] [place] [address] Dr. Darain Scott Nitrite Ql (U) Negative Normal NEGATIVE [facility] Comment on above: Performed By: #### Ge DUFFY UMICRO #### [facility] [address] [place] [address] Dr. Darian Scott pH (U) 7.5 [pH] Normal 5-9 [facility] Comment on above: Performed By: #### Ge DUFFY UMICRO #### [facility] [address] [place] [address] Dr. Darian Scott SPEC GRAVITY 1.010 Normal 1.005-<=1.025 [facility] Comment on above: Performed By: #### Ge DUFFY UMICRO #### [facility] [address] [place] [address] Dr. Darian Scott UA PROTEIN TRACE Normal NEGATIVE/ TRACE [facility] Comment on above: Performed By: #### Ge DUFFY UMICRO #### [facility] [address] [place] [address] Dr. Darian Scott UR MICRO IND INDICATED Normal [facility] Comment on above: Performed By: #### Ge DUFFY UMICRO #### [facility] [address] [place] [address] Dr. Darian Scott Urobilinogen Qn (U) 0.2 {Marielos'U}/dL Normal 0.2 - 1.0 [facility] Comment on above: Performed By: #### Ge DUFFY UMICRO #### [facility] [address] [address] [address] Darian Scott PREG QUANT HCGon 12-14-2022 HCG QUANT 9234 mIU/mL Normal [facility] Comment on above: Performed By: #### ESTER JOVEL #### [facility] [address] [place] [address] Dr. Darian Scott HCG RANGE SEE BELOW Normal [facility] Comment on above: Result Comment: 5-50 0.2-1 WEEK 50-500 1-2 WEEKS 100-5,000 2-3 WEEKS 500-10,000 3-4 WEEKS 1,000-50,000 4-5 WEEKS 10,000-100,000 5-6 WEEKS 15,000-200,000 6-8 WEEKS 10,000-100,000 2-3 MONTHS Performed By: #### ESTER JOVEL #### [facility] [address] [place] [address] Dr. Darian Scott PROF CHEM 8 (BAS METB)on Anion gap [Moles/Vol] 9.9 mmol/L Normal [facility] Comment on above: Performed By: #### P REG #### [facility] [address] [place] [address] Dr. Darian Scott Calcium [Mass/Vol] 9.2 mg/dL Normal 8.5-10.1 [facility] Comment on above: Performed By: #### P REG #### [facility] [address] [place] [address] Dr. Darian Scott Chloride [Moles/Vol] 103 mmol/L Normal 98-107 [facility] Comment on above: Performed By: #### P REG #### [facility] [address] [place] [address] Dr. Darian Scott CO2 [Moles/Vol] 26.9 mmol/L Normal 21.0-32.0 [facility] Comment on above: Performed By: #### P REG #### [facility] [address] [place] [address] Dr. Darian Scott Creatinine [Mass/Vol] 0.59 mg/dL Normal 0.55-1.02 [facility] Comment on above: Performed By: #### P REG #### [facility] [address] [address] [address] Darian Scott EGFR-AF NAURUAN >60 Normal >=60 [facility] Comment on above: Performed By: #### P REG #### [facility] [address] [address] [address] Darian Scott EGFR-NON AF NAURUAN >60 Normal >=60 [facility] Comment on above: Performed By: #### P REG #### [facility] [address] [address] [address] Darian Scott Glucose [Mass/Vol] 90 mg/dL Normal 74-106 [facility] Comment on above: Performed By: #### P REG #### [facility] [address] [address] [address] Darian Scott Potassium [Moles/Vol] 3.8 mmol/L Normal 3.5-5.1 [facility] Comment on above: Performed By: #### P REG #### [facility] [address] [address] [address] Darian Scott Sodium [Moles/Vol] 136 mmol/L Normal 136-145 [facility] Comment on above: Performed By: #### P REG #### [facility] [address] [address] [address] Darian Scott Urea nitrogen [Mass/Vol] 14.0 mg/dL Normal 7.0-18.0 [facility] Comment on above: Performed By: #### P REG #### [facility] [address] [address] [address] Darian Scott Urea nitrogen/Creatini ne [Mass ratio] 23.7 mg/mg Normal [facility] Comment on above: Performed By: #### P REG #### [facility] [address] [address] [address] Darian Scott TYPE AND SCREENon 12-14-2022 TYPE AND SCREEN Negative Normal The [facility] Comment on above: Performed By: #### ESTER JOVEL #### [facility] [address] [place] [address] Dr. Darian Scott URINE MICROSCOPIC ONLYon BACTERIA MODERATE Abnormal NONE SEEN [facility] Comment on above: Performed By: #### JOYCE JOVELRO #### [facility] [address] [place] [address] Dr. Darian Scott Bacteria identified Cx Nom (U) INDICATED Normal [facility] Comment on above: Performed By: #### Ge DUFFY UMICRO #### [facility] [address] [place] [address] Dr. Darian Scott CAST NONE SEEN Normal NONE SEEN [facility] Comment on above: Performed By: #### SHELLEY JOVELICRO #### [facility] [address] [place] [address] Dr. Darian Scott Crystals LM Nom (Urine sed) NONE SEEN Normal NONE SEEN [facility] Comment on above: Performed By: #### SHELLEY JOVELICRO #### [facility] [address] [place] [address] Dr. Darian Scott Epithelial cells LM Ql (Urine sed) MODERATE Abnormal NONE SEEN /RARE [facility] Comment on above: Performed By: #### JOYCE JOVELRO #### [facility] [address] [place] [address] Dr. Darian Scott MUCOUS TRACE Abnormal NONE SEEN [facility] Comment on above: Performed By: #### JOYCE JOVELRO #### [facility] [address] [place] [address] Dr. Darian Scott RBC 5-10 Abnormal 0-2 [facility] Comment on above: Performed By: #### JOYCE JOEVLRO #### [facility] [address] [place] [address] Dr. Darian Scott WBC 5-10 Abnormal NONE SEEN [facility] Comment on above: Performed By: #### Ge DUFFY UMICRO #### [facility] [address] [place] [address] Dr. Darian Scott US PREG TVon 12-14-2022 [...] by: JO MONGE Date: 2022-12-14 15:05 Normal [facility] ABO AND RH TYPEon 12-08-2022 ABO and Rh group Nom (Bld) ABO Rh Typing A Rh Positive Blood Bank Notes Testing done by on 12/06/22 [facility] Comment on above: Performed By: #### ESTER JOVEL #### [facility] [address] [place] [address] Dr. Darian Scott CBC AUTO DIFFon 12-07-2022 BASO # 0.1 103/ul Normal 0.0-0.1 [facility] Comment on above: Performed By: #### ESTER JOVEL #### [facility] [address] [place] [address] Dr. Darian Scott Basophils/100 WBC (Bld) 0.7 % Normal 0.2-2.0 [facility] Comment on above: Performed By: #### ESTER JOVEL #### [facility] [address] [place] [address] Dr. Darian Scott EO # 0.0 103/ul Normal 0.0-0.7 [facility] Comment on above: Performed By: #### ESTER JOVEL #### [facility] [address] [place] [address] Dr. Darian Scott Eosinophils/100 WBC (Bld) 0.4 % Critically low 0.9-7.0 [facility] Comment on above: Performed By: #### ESTER JOVEL #### [facility] [address] [place] [address] Dr. Darian Scott Erythrocyte distribution width (RBC) [Ratio] 12.8 % Normal 11.0-15.0 [facility] Comment on above: Performed By: #### ESTER JOVEL #### [facility] [address] [place] [address] Dr. Darian Scott Hematocrit (Bld) [Volume fraction] 33.7 % Critically low 36.0-48.0 [facility] Comment on above: Performed By: #### ESTER JOVEL #### [facility] [address] [place] [address] Dr. Darian Scott Hemoglobin (Bld) [Mass/Vol] 11.5 g/dL Critically low 12.0-16.0 [facility] Comment on above: Performed By: #### ESTER JOVEL #### [facility] [address] [place] [address] Dr. Darian Scott IG # 0.01 10e3/ul Normal 0.00-0.03 [facility] Comment on above: Performed By: #### ESTER JOVEL #### [facility] [address] [place] [address] Dr. Darian Scott IG % 0.1 % Normal 0.0-0.5 [facility] Comment on above: Performed By: #### JOYCE JOVELRO #### [facility] [address] [place] [address] Dr. Darian Scott LYMPH # 2.6 103/ul Normal 1.2-3.8 [facility] Comment on above: Performed By: #### JOYCE JOVELRO #### [facility] [address] [place] [address] Dr. Darian Scott Lymphocytes/100 WBC (Bld) 34.8 % Normal 20.5-60.0 [facility] Comment on above: Performed By: #### SHELLEY JOVELICRO #### [facility] [address] [place] [address] Dr. Darian Scott MANUAL DIFF REQ NO Normal [facility] Comment on above: Performed By: #### E RUR, UMICRO #### [facility] [address] [place] [address] Dr. Darian Scott MCH (RBC) [Entitic mass] 29.8 pg Normal 26.7-34.0 [facility] Comment on above: Performed By: #### E RUWilmer, UMICRO #### [facility] [address] [place] [address] Dr. Darian Scott MCHC (RBC) [Mass/Vol] 34.1 g/dL Normal 29.9-35.2 [facility] Comment on above: Performed By: #### E TATI UMICRO #### [facility] [address] [place] [address] Dr. Darian Scott MCV (RBC) [Entitic vol] 87.3 fL Normal 81.0-99.0 [facility] Comment on above: Performed By: #### Ge DUFFY UMICRO #### [facility] [address] [place] [address] Dr. Darian Scott MONO # 0.5 103/ul Normal 0.3-0.8 [facility] Comment on above: Performed By: #### Ge DUFFY, UMICRO #### [facility] [address] [place] [address] Dr. Darian Scott Monocytes/100 WBC (Bld) 6.9 % Normal 1.7-12.0 [facility] Comment on above: Performed By: #### E TATI UMICRO #### [facility] [address] [place] [address] Dr. Darian Scott NEUT # 4.3 103/ul Normal 1.4-6.5 [facility] Comment on above: Performed By: #### E RUR, UMICRO #### [facility] [address] [place] [address] Dr. Darian Scott Neutrophils/100 WBC (Bld) 57.1 % Normal 43.0-75.0 [facility] Comment on above: Performed By: #### ESTER JOVEL #### [facility] [address] [place] [address] Dr. Darian Scott Platelet mean volume (Bld) [Entitic vol] 10.4 fL Normal 9.5-13.5 [facility] Comment on above: Performed By: #### ESTER JOVEL #### [facility] [address] [place] [address] Dr. Darian Scott PLT 207 103/ul Normal 150-450 [facility] Comment on above: Performed By: #### ESTER JOVEL #### [facility] [address] [place] [address] Dr. Darian Scott RBC 3.86 106/ul Critically low 4.20-5.40 The [facility] Comment on above: Performed By: #### ESTER JOVEL #### [facility] [address] [place] [address] Dr. Darian Scott WBC 7.5 103/ul Normal 4.0-11.0 [facility] Comment on above: Performed By: #### ESTER JOVEL #### [facility] [address] [place] [address] Dr. Darian Scott ER URINE PROFILEon 3 Bilirubin Ql (U) Negative Normal NEGATIVE [facility] Comment on above: Performed By: #### P REG #### [facility] [address] [place] [address] Dr. Darian Scott Clarity (U) CLEAR Normal CLEAR [facility] Comment on above: Performed By: #### P REG #### [facility] [address] [place] [address] Dr. Darian Scott Color (U) LT. YELLOW Normal YELLOW [facility] Comment on above: Performed By: #### P REG #### [facility] [address] [place] [address] Dr. Darian Scott ERUAHD A micrscopic examination will be performed if indicated. Normal [facility] Comment on above: Performed By: #### P REG #### [facility] [address] [address] [address] Darian Scott Glucose Ql (U) Negative Normal NEGATIVE [facility] Comment on above: Performed By: #### P REG #### [facility] [address] [address] [address] Darian Scott Hemoglobin Ql (U) Negative Normal NEGATIVE [facility] Comment on above: Performed By: #### P REG #### [facility] [address] [address] [address] Darian Scott Ketones Ql (U) Negative Normal NEGATIVE [facility] Comment on above: Performed By: #### P REG #### [facility] [address] [place] [address] Dr. Darian Scott LEUKOCYTES Negative Normal NEGATIVE [facility] Comment on above: Performed By: #### P REG #### [facility] [address] [address] [address] Darian Scott Nitrite Ql (U) Negative Normal NEGATIVE [facility] Comment on above: Performed By: #### P REG #### [facility] [address] [address] [address] Darian Scott pH (U) 5.5 [pH] Normal 5-9 [facility] Comment on above: Performed By: #### P REG #### [facility] [address] [place] [address] Dr. Darian Scott SPEC GRAVITY <=1.005 Abnormal 1.005-<=1.025 [facility] Comment on above: Performed By: #### P REG #### [facility] [address] [place] [address] Dr. Darian Scott UA PROTEIN Negative Normal NEGATIVE/ TRACE [facility] Comment on above: Performed By: #### P REG #### [facility] [address] [place] [address] Dr. Darian Scott UR MICRO IND NOT INDICATED Normal [facility] Comment on above: Performed By: #### P REG #### [facility] [address] [address] [address] Darian Scott Urobilinogen Qn (U) 0.2 {Marielos'U}/dL Normal 0.2 - 1.0 [facility] Comment on above: Performed By: #### P REG #### [facility] [address] [place] [address] Dr. Darian Scott PROF CHEM 8 (BAS METB)on Anion gap [Moles/Vol] 15.0 mmol/L Normal [facility] Comment on above: Performed By: #### B MP #### [facility] [address] [place] [address] Dr. Darian Scott Calcium [Mass/Vol] 8.4 mg/dL Critically low 8.5-10.1 [facility] Comment on above: Performed By: #### B MP #### [facility] [address] [place] [address] Dr. Darian Scott Chloride [Moles/Vol] 106 mmol/L Normal 98-107 [facility] Comment on above: Performed By: #### B MP #### [facility] [address] [place] [address] Dr. Darian Scott CO2 [Moles/Vol] 22.6 mmol/L Normal 21.0-32.0 [facility] Comment on above: Performed By: #### B MP #### [facility] [address] [place] [address] Dr. Darian Scott Creatinine [Mass/Vol] 0.68 mg/dL Normal 0.55-1.02 [facility] Comment on above: Performed By: #### B MP #### [facility] [address] [place] [address] Dr. Darian Scott EGFR-AF NAURUAN >60 Normal >=60 [facility] Comment on above: Performed By: #### B MP #### [facility] [address] [place] [address] Dr. Darian Scott EGFR-NON AF NAURUAN >60 Normal >=60 [facility] Comment on above: Performed By: #### B MP #### [facility] [address] [address] [address] Darian Scott Glucose [Mass/Vol] 88 mg/dL Normal 74-106 [facility] Comment on above: Performed By: #### B MP #### [facility] [address] [address] [address] Darian Scott Potassium [Moles/Vol] 3.6 mmol/L Normal 3.5-5.1 [facility] Comment on above: Performed By: #### B MP #### [facility] [address] [address] [address] Darian Scott Sodium [Moles/Vol] 140 mmol/L Normal 136-145 [facility] Comment on above: Performed By: #### B MP #### [facility] [address] [address] [address] Darian Scott Urea nitrogen [Mass/Vol] 15.0 mg/dL Normal 7.0-18.0 [facility] Comment on above: Performed By: #### B MP #### [facility] [address] [place] [address] Dr. Darian Scott Urea nitrogen/Creatini ne [Mass ratio] 22.1 mg/mg Normal [facility] Comment on above: Performed By: #### B MP #### [facility] [address] [place] [address] Dr. Darian Scott PAP ACOG PANEL 2: 22 to 30on 07-05-2022 . . Normal [facility] Comment on above: Performed By: #### [id number] #### [facility] [address] [address] [address] Darian Scott Age Gdln ACOG Testing 21-29 Normal [facility] Comment on above: Performed By: #### [id number] #### [facility] [address] [place] [address] Dr. Darian Scott DIAGNOSIS: Comment Normal [facility] Comment on above: Result Comment: NEGA TIVE FOR INTRAEPITHELIAL LESION OR MALIGNANCY. Performed By: #### [id number] #### [facility] [address] [place] [address] Dr. Darian Scott Methodology: Comment Normal [facility] Comment on above: Result Comment: This liquid based ThinPrep(R) pap test was screened with the use of an image guided system. Performed By: #### [id number] #### [facility] [address] [place] [address] Dr. Darian Scott Note: Comment Normal [facility] Comment on above: Result Comment: The Pap smear is a screening test designed to aid in the detection of premalignant and malignant conditions of the uterine cervix. It is not a diagnostic procedure and should not be used as the sole means of detecting cervical cancer. Both false-positive and false-negative reports do occur. . Performed By: #### [id number] #### [facility] [address] [place] [address] Dr. Darian Scott Performed by: Comment Normal [facility] Comment on above: Result Comment: [employer] (AS[employer]) Performed By: #### [id number] #### [facility] [address] [place] [address] Dr. Darian Scott Reflex Criteria: Comment Normal [facility] Comment on above: Result Comment: The HPV DNA reflex criteria were not met with this specimen result therefore, no HPV testing was performed. . Performed By: #### [id number] #### [facility] [address] [place] [address] Dr. Darian Scott Specimen adequacy: Comment Normal [facility] Comment on above: Result Comment: Sati sfactory for evaluation. Endocervical and/or squamous metaplastic cells (endocervical component) are present. Performed By: #### [id number] #### [facility] [address] [place] [address] Dr. Darian Scott ER URINE PROFILEon 2 Bilirubin Ql (U) Negative Normal NEGATIVE [facility] Comment on above: Performed By: #### P REG #### [facility] [address] [place] [address] Dr. Darian Scott Clarity (U) CLEAR Normal CLEAR [facility] Comment on above: Performed By: #### P REG #### [facility] [address] [place] [address] Dr. Darian Scott Color (U) YELLOW Normal YELLOW [facility] Comment on above: Performed By: #### P REG #### [facility] [address] [place] [address] Dr. Darian HAYWARD A micrscopic examination will be performed if indicated. Normal [facility] Comment on above: Performed By: #### P REG #### [facility] [address] [place] [address] Dr. Darian Scott Glucose Ql (U) Negative Normal NEGATIVE [facility] Comment on above: Performed By: #### P REG #### [facility] [address] [place] [address] Dr. Darian Scott Hemoglobin Ql (U) MODERATE Abnormal NEGATIVE [facility] Comment on above: Performed By: #### P REG #### [facility] [address] [place] [address] Dr. Darian Scott Ketones Ql (U) Negative Normal NEGATIVE [facility] Comment on above: Performed By: #### P REG #### [facility] [address] [place] [address] Dr. Darian Scott LEUKOCYTES Negative Normal NEGATIVE [facility] Comment on above: Performed By: #### P REG #### [facility] [address] [place] [address] Dr. Darian Scott Nitrite Ql (U) Negative Normal NEGATIVE [facility] Comment on above: Performed By: #### P REG #### [facility] [address] [place] [address] Dr. Darian Scott pH (U) 6.5 [pH] Normal 5-9 [facility] Comment on above: Performed By: #### P REG #### [facility] [address] [place] [address] Dr. Darian Scott SPEC GRAVITY 1.020 Normal 1.005-<=1.025 [facility] Comment on above: Performed By: #### P REG #### [facility] [address] [place] [address] Dr. Darian Scott UA PROTEIN Negative Normal NEGATIVE/ TRACE [facility] Comment on above: Performed By: #### P REG #### [facility] [address] [place] [address] Dr. Darian Scott UR MICRO IND INDICATED Normal [facility] Comment on above: Performed By: #### P REG #### [facility] [address] [place] [address] Dr. Darian Scott Urobilinogen Qn (U) 1.0 {Marielos'U}/dL Normal 0.2 - 1.0 [facility] Comment on above: Performed By: #### P REG #### [facility] [address] [place] [address] Dr. Darian Scott URINE MICROSCOPIC ONLYon BACTERIA TRACE Abnormal NONE SEEN [facility] Comment on above: Performed By: #### P REG #### [facility] [address] [place] [address] Dr. Darian Scott Bacteria identified Cx Nom (U) NOT INDICATED Normal [facility] Comment on above: Performed By: #### P REG #### [facility] [address] [place] [address] Dr. Darian Scott CA OX CRYSTALS FEW Normal [facility] Comment on above: Performed By: #### P REG #### [facility] [address] [place] [address] Dr. Darian Scott CAST NONE SEEN Normal NONE SEEN [facility] Comment on above: Performed By: #### P REG #### [facility] [address] [place] [address] Dr. Darian Scott Crystals LM Nom (Urine sed) SEEN Abnormal NONE SEEN [facility] Comment on above: Performed By: #### P REG #### [facility] [address] [place] [address] Dr. Darian Scott Epithelial cells LM Ql (Urine sed) RARE Normal NONE SEEN /RARE [facility] Comment on above: Performed By: #### P REG #### [facility] [address] [place] [address] Dr. Darian Scott MUCOUS NONE SEEN Normal NONE SEEN [facility] Comment on above: Performed By: #### P REG #### [facility] [address] [address] [address] Darian Scott RBC 2-5 Abnormal 0-2 [facility] Comment on above: Performed By: #### P REG #### [facility] [address] [address] [address] Darian Scott WBC NONE SEEN Normal NONE SEEN [facility] Comment on above: Performed By: #### P REG #### [facility] [address] [address] [address] Darian Scott CARDIAC JESSICA ADMITon 022 CK [Catalytic activity/Vol] 445 U/L Critically high 26-192 [facility] Comment on above: Performed By: #### L IPA, CMADM, CMP, TSH #### [facility] [address] [address] [address] Darian Scott CK.MB [Mass/Vol] 1.81 ng/mL Normal <=3.60 [facility] Comment on above: Performed By: #### L IPA, CMADM, CMP, TSH #### [facility] [address] [address] [address] Darian Scott HSTROP 6.1 pg/mL Normal 4.0-51.3 [facility] Comment on above: Result Comment: CUT- OFF POINTS HAVE BEEN ESTABLISHED BASED ON THE FOURTH UNIVERSAL DEFINITIONS OF MYOCARDIAL INFARCTION. THE UPPER REFERENCE LIMIT (URL) OF TROPONIN, DEFINED THE 99TH PERCENTILE OF cTnI DISTRIBUTION IN A REFERENCE POPULATION, HAS BEEN CONFIRMED THE DECISION THRESHOLD FOR [place] DIAGNOSIS. Performed By: #### L IPA, CMADM, CMP, TSH #### [facility] [address] [address] [address] Darian Scott TRESSA 94 ng/mL Critically high 9-82 The [facility] Comment on above: Performed By: #### L IPA, CMADM, CMP, TSH #### [facility] [address] [address] [address] Darian Scott CBC AUTO DIFFon 05-08-2022 BASO # 0.1 103/ul Normal 0.0-0.1 [facility] Comment on above: Performed By: #### E RUR, UMICRO #### [facility] [address] [place] [address] Dr. Darian Scott Basophils/100 WBC (Bld) 0.8 % Normal 0.2-2.0 [facility] Comment on above: Performed By: #### ESTER JOVEL #### [facility] [address] [place] [address] Dr. Darian Scott EO # 0.0 103/ul Normal 0.0-0.7 [facility] Comment on above: Performed By: #### JOYCE JOVELRO #### [facility] [address] [place] [address] Dr. Darian Scott Eosinophils/100 WBC (Bld) 0.5 % Critically low 0.9-7.0 [facility] Comment on above: Performed By: #### JOYCE JOVELRO #### [facility] [address] [place] [address] Dr. Darian Scott Erythrocyte distribution width (RBC) [Ratio] 12.5 % Normal 11.0-15.0 [facility] Comment on above: Performed By: #### JOYCE JOVELRO #### [facility] [address] [place] [address] Dr. Darian Scott Hematocrit (Bld) [Volume fraction] 34.4 % Critically low 36.0-48.0 [facility] Comment on above: Performed By: #### JOYCE JOVELRO #### [facility] [address] [place] [address] Dr. Darian Scott Hemoglobin (Bld) [Mass/Vol] 11.9 g/dL Critically low 12.0-16.0 [facility] Comment on above: Performed By: #### JOYCE JOVELRO #### [facility] [address] [place] [address] Dr. Darian Scott IG # 0.04 10e3/ul Critically high 0.00-0.03 [facility] Comment on above: Performed By: #### JOYCE JOVELRO #### [facility] [address] [place] [address] Dr. Darian Scott IG % 0.5 % Normal 0.0-0.5 [facility] Comment on above: Performed By: #### JOYCE JOVELRO #### [facility] [address] [place] [address] Dr. Darian Scott LYMPH # 3.2 103/ul Normal 1.2-3.8 [facility] Comment on above: Performed By: #### SHELLEY JOVELICRO #### [facility] [address] [place] [address] Dr. Darian Scott Lymphocytes/100 WBC (Bld) 38.7 % Normal 20.5-60.0 [facility] Comment on above: Performed By: #### Ge DUFFY UMICRO #### [facility] [address] [place] [address] Dr. Darian Scott MANUAL DIFF REQ NO Normal [facility] Comment on above: Performed By: #### SHELLEY JOVELICRO #### [facility] [address] [place] [address] Dr. Darian Scott MCH (RBC) [Entitic mass] 29.5 pg Normal 26.7-34.0 [facility] Comment on above: Performed By: #### SHELLEY JOVELICRO #### [facility] [address] [place] [address] Dr. Darian Scott MCHC (RBC) [Mass/Vol] 34.6 g/dL Normal 29.9-35.2 [facility] Comment on above: Performed By: #### Ge DUFFY UMICRO #### [facility] [address] [place] [address] Dr. Darian Scott MCV (RBC) [Entitic vol] 85.4 fL Normal 81.0-99.0 [facility] Comment on above: Performed By: #### Ge DUFFY UMICRO #### [facility] [address] [place] [address] Dr. Darian Scott MONO # 0.6 103/ul Normal 0.3-0.8 [facility] Comment on above: Performed By: #### SHELLEY JOVELICRO #### [facility] [address] [place] [address] Dr. Darian Scott Monocytes/100 WBC (Bld) 7.0 % Normal 1.7-12.0 [facility] Comment on above: Performed By: #### Ge DUFFY UMICRO #### [facility] [address] [place] [address] Dr. Darian Scott NEUT # 4.3 103/ul Normal 1.4-6.5 [facility] Comment on above: Performed By: #### Ge DUFFY UMICRO #### [facility] [address] [place] [address] Dr. Darian Scott Neutrophils/100 WBC (Bld) 52.5 % Normal 43.0-75.0 [facility] Comment on above: Performed By: #### Ge DUFFY UMICRO #### [facility] [address] [place] [address] Dr. Darian Scott Platelet mean volume (Bld) [Entitic vol] 9.9 fL Normal 9.5-13.5 [facility] Comment on above: Performed By: #### SHELLEY JOVELICRO #### [facility] [address] [place] [address] Dr. Darian Scott PLT 257 103/ul Normal 150-450 [facility] Comment on above: Performed By: #### Ge DUFFY UMICRO #### [facility] [address] [place] [address] Dr. Darian Scott RBC 4.03 106/ul Critically low 4.20-5.40 [facility] Comment on above: Performed By: #### Ge DUFFY UMICRO #### [facility] [address] [place] [address] Dr. Darian Scott WBC 8.2 103/ul Normal 4.0-11.0 [facility] Comment on above: Performed By: #### Ge DUFFY UMICRO #### [facility] [address] [place] [address] Dr. Darian Scott LIPASEon 05-08-2022 Lipase [Catalytic activity/Vol] 65.0 U/L Critically low 73.0-393.0 [facility] Comment on above: Performed By: #### L IPA, CMADM, CMP, TSH #### [facility] [address] [address] [address] Darian Scott PREG HCG QUALon 05-08-2022 , QUAL Negative Normal NEGATIVE The [facility] Comment on above: Performed By: #### P REG #### [facility] [address] [address] [address] Darian Scott PROF 14(COMP METB)on 022 Albumin [Mass/Vol] 3.9 g/dL Normal 3.4-5.0 [facility] Comment on above: Performed By: #### L IPA, CMADM, CMP, TSH #### [facility] [address] [place] [address] Dr. Darian Scott Albumin/Globulin [Mass ratio] 1.1 {ratio} Normal [facility] Comment on above: Performed By: #### L IPA, CMADM, CMP, TSH #### [facility] [address] [address] [address] Darian Scott ALP [Catalytic activity/Vol] 65 U/L Normal 46-116 [facility] Comment on above: Performed By: #### L IPA, CMADM, CMP, TSH #### [facility] [address] [address] [address] Darian Scott ALT [Catalytic activity/Vol] 23 U/L Normal 14-59 [facility] Comment on above: Performed By: #### L IPA, CMADM, CMP, TSH #### [facility] [address] [address] [address] Darian Scott Anion gap [Moles/Vol] 12.2 mmol/L Normal [facility] Comment on above: Performed By: #### L IPA, CMADM, CMP, TSH #### [facility] [address] [address] [address] Darian Scott AST [Catalytic activity/Vol] 18 U/L Normal 15-37 [facility] Comment on above: Performed By: #### L IPA, CMADM, CMP, TSH #### [facility] [address] [address] [address] Darian Scott Bilirubin [Mass/Vol] 0.5 mg/dL Normal 0.2-1.0 [facility] Comment on above: Performed By: #### L IPA, CMADM, CMP, TSH #### [facility] [address] [address] [address] Darian Scott Calcium [Mass/Vol] 9.2 mg/dL Normal 8.5-10.1 [facility] Comment on above: Performed By: #### L IPA, CMADM, CMP, TSH #### [facility] [address] [place] [address] Dr. Darian Scott Chloride [Moles/Vol] 104 mmol/L Normal 98-107 [facility] Comment on above: Performed By: #### L IPA, CMADM, CMP, TSH #### [facility] [address] [address] [address] Darian Scott CO2 [Moles/Vol] 27.9 mmol/L Normal 21.0-32.0 [facility] Comment on above: Performed By: #### L IPA, CMADM, CMP, TSH #### [facility] [address] [place] [address] Dr. Darian Scott Creatinine [Mass/Vol] 0.87 mg/dL Normal 0.55-1.02 [facility] Comment on above: Performed By: #### L IPA, CMADM, CMP, TSH #### [facility] [address] [place] [address] Dr. Darian Scott EGFR-AF NAURUAN >60 Normal >=60 [facility] Comment on above: Performed By: #### L IPA, CMADM, CMP, TSH #### [facility] [address] [place] [address] Dr. Darian Scott EGFR-NON AF NAURUAN >60 Normal >=60 [facility] Comment on above: Performed By: #### L IPA, CMADM, CMP, TSH #### [facility] [address] [place] [address] Dr. Darian Scott Globulin (S) [Mass/Vol] 3.6 g/dL Normal [facility] Comment on above: Performed By: #### L IPA, CMADM, CMP, TSH #### [facility] [address] [address] [address] Darian Scott Glucose [Mass/Vol] 89 mg/dL Normal 74-106 [facility] Comment on above: Performed By: #### L IPA, CMADM, CMP, TSH #### [facility] [address] [address] [address] Darian Scott Potassium [Moles/Vol] 3.1 mmol/L Critically low 3.5-5.1 [facility] Comment on above: Performed By: #### L IPA, CMADM, CMP, TSH #### [facility] [address] [address] [address] Darian Scott Protein [Mass/Vol] 7.5 g/dL Normal 6.4-8.2 [facility] Comment on above: Performed By: #### L IPA, CMADM, CMP, TSH #### [facility] [address] [address] [address] Darian Scott Sodium [Moles/Vol] 141 mmol/L Normal 136-145 [facility] Comment on above: Performed By: #### L IPA, CMADM, CMP, TSH #### [facility] [address] [address] [address] Darian Scott Urea nitrogen [Mass/Vol] 11.0 mg/dL Normal 7.0-18.0 [facility] Comment on above: Performed By: #### L IPA, CMADM, CMP, TSH #### [facility] [address] [address] [address] Darian Scott Urea nitrogen/Creatini ne [Mass ratio] 12.6 mg/mg Normal [facility] Comment on above: Performed By: #### L IPA, CMADM, CMP, TSH #### [facility] [address] [address] [address] Darian Scott TSHon 05-08-2022 TSH 2.377 uIU/mL Normal 0.358-3.740 [facility] Comment on above: Performed By: #### L IPA, CMADM, CMP, TSH #### [facility] [address] [place] [address] Dr. Darian Scott SARS-CoV-2 (COVID-19) RNA NA A+probe Ql (Resp)on 05-02-2022 SARS-CoV-2 (COVID-19) RNA RYAN+probe Ql (Unsp spec) Negative [facility] Other Vital Signs Date Time Vital Sign Value Performing Clinician Facility 05-02-2022 13:55-0400 Body height 157.48 cm [employer] Other [facility] Other 05-02-2022 13:55-0400 Body mass index (BMI) [Ratio] 29.26 kg/m2 [facility] [employer] Other [facility] Other 05-02-2022 13:55-0400 Body temperature 98.7 [degF] Sandy Herring Other [facility] Other 05-02-2022 13:55-0400 Body weight 72.58 kg Sandy Herring Other [facility] Other 05-02-2022 13:55-0400 SaO2% (BldA) [Mass fraction] 98 % Sandy Herring Other [facility] Other Encounters Encounter Date Encounter Type Care Provider Facility Start: 12-20-2023 End: 12-20-2023 ambulatory SHEELA DARYL Not Available Start: 12-12-2023 End: 12-12-2023 ambulatory SHEELA DARYL Not Available Start: 12-06-2023 End: 12-06-2023 ambulatory SHEELA DARYL Not Available Start: 11-22-2023 End: 11-22-2023 ambulatory JESSICA CANTRELL Not Available Start: 11-14-2023 Clinisync Result Encounter Sheela Daryl DO Work Phone: [facility] Unsolicited Start: 11-14-2023 Clinisync Result Encounter Sheela Daryl DO Work Phone: [facility] Unsolicited Start: 11-07-2023 End: 11-07-2023 ambulatory SHEELA BRITO Not Available Start: 10-24-2023 End: 10-24-2023 ambulatory JESSICA ÓSCAR Not Available Start: 10-11-2023 End: 10-11-2023 ambulatory SHEELA BRITO Not Available Start: 09-12-2023 End: 09-12-2023 ambulatory JESSICA ÓSCAR Not Available Start: 08-15-2023 End: 08-15-2023 ambulatory SHEELA BRITO Not Available Start: 01-14-2023 Encounter for preprocedural cardiovascular examination DR SHEELA BRITO . [facility] Start: 01-06-2023 End: 01-07-2023 ambulatory SHEELA BRITO Facility:[facility] Start: 01-06-2023 End: 01-06-[address] [...] 05-08-2022 End: 05-09-[address] JAYLA RENTERIA Facility:[facility] Start: 05-02-2022 End: 05-02-2022 ambulatory Sandy Herring Other [facility] Other Start: 05-02-2022 Office outpatient ne w 30 minutes Sandy Herring [facility] Procedures Date Procedure Procedure Detail Performing Clinician Start: 11-14-2023 [facility] UA (CLEAN/CATCH) WINDOWS SYSTEMS ADMIN/MICRO IF IND. Sheela Saeedzio DO Work Phone: Plan of Treatment Date Care Activity Detail Author Start: 11-22-2023 End: 11-22-2023 Patient encounter procedure 11/22/2023 2:30 PM EST Routine [facility] [address] [place] [address] Jessica Cantrell PA [address] [place] [address] [facility] Start: 06-03-2023 Influenza vaccination Influenza Vacc ine (#1) [facility] Immunizations Immunization Date Immunization Notes Care Provider [facility] 07-28-2018 influenza virus vacc ine, unspecified formulation Sheela Daryl DO Work Phone: [facility] Payers Date Payer Category Payer Medicaid [id number] 2022 Medicaid [place] [id number] 2022-Present [address] [place] [address] [id number] 2001 Unknown [id number] [id number] 2001 Unknown [id number] [id number]3 2001 Unknown [id number] 2.16.840.1.289253.3.579.2.593 2001 Unknown [id number] 2.16.840.1.402464.3.579.2.593 2001 Unknown [id number] 2.16.840.1.223043.3.579.2.593 2001 Unknown [id number] 2.16.840.1.636942.3.579.2.593 2001 Unknown [id number] 2.16.840.1.935431.3.579.2.593 2001 Unknown [id number] 2.16.840.1.086525.3.579.2.593 2001 Unknown [id number] 2.16.840.1.089485.3.579.2.1259 2001 Unknown [id number] 2.16.840.1.612195.3.579.2.1259 2001 Unknown [id number] 2.16.840.1.111241.3.579.2.9 2001 Unknown [id number] 2.16.840.1.994767.3.579.2.9 2001 Unknown [id number] 2.16.840.1.358092.3.579.2.9 2001 Unknown [id number] 2.16.840.1.778212.3.579.2.9 2001 Unknown [id number] 2.16.840.1.297706.3.579.2.9 2001 Unknown [id number] 2.16.840.1.439280.3.579.2.9 2001 Unknown [id number] 2.16.840.1.724916.3.579.2.1259 1959 Unknown [id number] Social History Date Type Detail Facility Start: 05-30-2023 Sex Assigned At [facility] [employer] [facility] Other Start: 05-30-2023 Tobacco smoking status TXIS Never smoked tobacco [facility] Start: 05-30-2023 Tobacco use and exposure Smokeless tobacco non-user [facility] Start: 10-24-2023 Alcohol intake Lifetime non-drinker (finding) [facility] Start: 05-30-2023 History of Social function [facility] Start: 04-08-2023 [facility] Start: 2001 Sex Assigned At Female [facility] Start: 05-11-2023 Gender identity Identifies as female gender (finding) [facility] Start: 05-11-2023 Sexual orientation Bisexual (finding) [facility] Goals Date Patient Goal Desired Activity /State Personal health goal Clinical Note 01-06-2023 Note Date & Type Note Facility 01-06-2023 Note OPERATIVE NOTE OPERATION DATE: 01/06/2023 PROCEDURE: Suction D AND C. PREOPERATIVE DIAGNOSIS: Missed . POSTOPERATIVE DIAGNOSIS: Missed . ANESTHESIA: General. SURGEON: Sheela Brito D.O. PEDIATRICS HOSPITALIST: None. FINDINGS: Products of conception. SPECIMEN: Products [...] products of conception were removed using an 9-Frisian suction curette. Excellent hemostasis was noted. The patient tolerated the procedure well. Sponge, lap, and needle counts were correct x 2. All instruments were then removed from the patient's vagina. The patient was taken to the Recovery Room in stable condition. ?? [facility] Clinical Note 01-05-2023 Note Date & Type [...] authenticated by: JOI ROPER Date: 2023-01-05 14:07 [facility] Evaluation note 05-02-2022 Note Date & Type [...] treatment plan. Patient left in stable condition. [facility] Other History general Narrative - Reported Note Date & Type Note Facility History general Narrative - Reported Type Medical History Depression/anxiety [facility] Other Summary Purpose Family History No Family History Records FoundNo Family History Records FoundNo Family History Records Found Advance Directives No Advanced Directives Records FoundNo Advanced Directives Records FoundNo Advanced Directives Records Found Additional Source Comments REASON FOR VISIT (unrecogniz ed section and content) BURR MALIBU, SORE THROAT, H/ A, COUGH INFORMATION SOURCE (unrecogn ized section and content) DATE CREATED AUTHOR 01/10/2023 [facility] DATE CREATED AUTHOR AUTHOR'S ORGANIZ ATION 01/17/2023 [facility] DATE CREATED AUTHOR AUTHOR'S ORGANIZ ATION 12/21/2023 [facility] FOR RECORDS PERTAINING TO PATIENTS [...] BE BASED ON THE PRIMARY CLINICAL RECORDS. [facility] [employer] [facility]. provides no warranty or guarantee of the accuracy or completeness of information in this document.
[2023-12-22] MEDS: 0.9 % SODIUM CHLORIDE 1,000 ML 125 ML IV (23:28)
[2023-12-22 23:34] VITALS: TEMP 35.7
[2023-12-22 23:35] VITALS: BP 127/74; PULSE 77
[2023-12-22 23:39] LABS: Hematocrit 31.4 % (36.0-48.0); Hemoglobin 10.2 g/dL (12.0-16.0); Mean Corpuscular HGB Conc 32.5 g/dL (29.9-35.2); Mean Corpuscular Volume 83.1 fL (81.0-99.0); Mean Platelet Volume 10.8 fL (9.5-13.5); Platelet Count 198 10^3/uL (150-450); Red Blood Count 3.78 10^6/uL (4.20-5.40); Red Cell Distribution Width 16.6 % (11.0-15.0); White Blood Count 10.2 10^3/uL (4.0-11.0)
[2023-12-22 23:45] VITALS: PULSE 77; RESP 16; TEMP 36
[2023-12-22 23:50] LABS: Amphetamine Screen Urine NEGATIVE (NEGATIVE); Barbiturates Screen Urine NEGATIVE (NEGATIVE); Benzodiazepines Screen Urine NEGATIVE (NEGATIVE); Buprenorphine Screen Urine NEGATIVE (NEGATIVE); Cannabinoid Screen Urine POSITIVE (NEGATIVE); Cocaine Screen Urine NEGATIVE (NEGATIVE); Methadone Screen Urine NEGATIVE (NEGATIVE); Methamphetamines Screen Urine NEGATIVE (NEGATIVE); Opiate Screen Urine NEGATIVE (NEGATIVE); Oxycodone Screen Urine NEGATIVE (NEGATIVE); Phencyclidine Screen Urine NEGATIVE (NEGATIVE); Tricyclic Antidepressant Urine NEGATIVE (NEGATIVE)
[2023-12-23] VITALS (61 sets, daily range): BP systolic 90–166; BP diastolic 47–106; PULSE 57–129; RESP 12–24; TEMP 36.5–37.2; O2SAT 94–100
[2023-12-23] MEDS: OXYTOCIN/0.9 % SODIUM CHLORIDE 10 UNITS/500 ML PLAST..BAG 6 UNIT IV (00:05)
[2023-12-23] MEDS: 0.9 % SODIUM CHLORIDE 1,000 ML 125 ML IV ×2 (07:05→10:24)
[2023-12-23] MEDS: ROPIVACAINE HCL/PF 400 MG/200 ML PREMIX 6 MG EPIDURAL (11:47)
[2023-12-23] MEDS: CITRIC ACID/SODIUM CITRATE 30 ML SOLUTION ORACIT SHOHL'S SOLN PO (13:31)
[2023-12-23] MEDS: METOCLOPRAMIDE HCL 10 MG/2 ML VIAL IVP (13:31)
[2023-12-23] MEDS: FAMOTIDINE/PF 20 MG/2 ML VIAL IV (13:31)
[2023-12-23] MEDS: CEFAZOLIN SODIUM/DEXTROSE,ISO 2 GM/50 ML PIGGYBACK IV ×2 (13:32→20:26)
[2023-12-23] MEDS: LACTATED RINGER'S SOLUTION 1,000 ML 50 ML IV (14:14)
--- NOTE | 2023-12-23 14:22 | PM.ONB ---
Brief Operative Note Date of procedure: 12/23/23 Pre-op diagnosis: iup at 39wks, non reassuring heart tones Post-op diagnosis: same as pre-op Procedure: NAME OF PROCEDURE: [ section ] PROCEDURE: Patient was taken back to the Operating Room where she was given a spinal anesthesia with Duramorph without difficulty. She was prepped and draped in the normal sterile fashion. A Pfannenstiel skin incision was then made 2 cm above the symphysis pubis and carried down to underlying rectus fascia using a Bovie. The fascia was incised in the midline and extended laterally using Godwin scissors. Two Dev clamps were placed on the superior aspect of the fascia and dissected off the underlying rectus muscles. The same was performed on the inferior aspect as well. The muscles were then in the midline. Peritoneum was identified and entered bluntly. The peritoneum was then extended superiorly and inferiorly with good visualization of the bladder. The bladder blade was inserted. A low transverse incision was made on the patient's uterus and extended laterally digitally. The was then delivered atraumatically after the bladder blade was removed in the cephalic position. The cord was clamped and cut. Cord blood was obtained. The infant was handed off to awaiting team. The patient's placenta was spontaneously delivered. The uterus was then exteriorized. The uterus was cleared of all clots and debris. The bladder blade was reinserted. The patient's uterine incision was closed using #0 Vicryl in a running lock fashion. Excellent hemostasis was assured. The uterus was then returned to the patient's abdomen. The patient's abdomen was copiously irrigated using warm saline. Peritoneal gutters were cleared of all clots and debris. Again excellent hemostasis was assured. The patient's peritoneum was closed using 3-0 Vicryl in a running fashion. The patient's fascia was closed using #0 Vicryl in a running fashion. The patient's skin was closed using 4-0 Vicryl subcuticularly. The patient tolerated the procedure well. Sponge, lap, and needle counts were correct x2. The patient was taken to the Recovery Room in stable condition. Anesthesia: epidural Surgeon: Tin Brito Assistant Customer Service Manager: Katheryn Mancuso Estimated blood loss (mL): 600 Pathology: other (placenta) Condition: stable Disposition: PACU Urinary Catheter Management Urinary Catheter Management Urethral: Cath placed during this visit: yes Urethral indwelling: No Insertion date: 12/23/23 Insertion time: 11:49
--- NOTE | 2023-12-23 14:25 | PM.OBPRCCS ---
Procedure Pre-op/Post-op diagnoses: Pre-Op/Post-Op Diagnoses Operation Date: 12/23/23 13:00 <No data on this case meets the specified criteria> Procedure: Procedures Operation Date: 12/23/23 13:00 Actual Procedure Side Surgeon p Not Applicable Tin Brito DO Lace Roller Operator: Katheryn Mancuso Estimated blood loss (mL): 600 Disposition: PACU Anesthesia type: Epidural
[2023-12-23] MEDS: WATER FOR INJECTION, STERILE 20 ML VIAL INJ (14:40)
[2023-12-23] MEDS: BUPIVACAINE LIPOSOME/PF 266 MG/13.3 ML VIAL INJ (14:40)
[2023-12-23] MEDS: OXYTOCIN/0.9 % SODIUM CHLORIDE 20 UNITS/1,000 ML PLAST..BAG 125 UNIT IV (14:55)
[2023-12-23] MEDS: KETOROLAC TROMETHAMINE 30 MG/ML VIAL IVP (20:21)
[2023-12-24] VITALS (7 sets, daily range): BP systolic 120–127; BP diastolic 60–71; PULSE 68–93; RESP 16; TEMP 36.7–37.4
[2023-12-24] MEDS: ACETAMINOPHEN 500 MG TABLET 1000 MG PO ×2 (02:07→10:34)
[2023-12-24] MEDS: ENOXAPARIN SODIUM 40 MG/0.4 ML SYRINGE SUBQ (02:08)
[2023-12-24 06:03] LABS: Basophils Absolute Auto 0.1 10^3/uL (0.0-0.1); Basophils Percent Auto 0.3 % (0.2-2.0); Eosinophils Percent Auto 0.1 % (0.9-7.0); Hematocrit 26.2 % (36.0-48.0); Hemoglobin 8.2 g/dL (12.0-16.0); Immature Granulocytes Abs Auto 0.12 10^3/uL (0.00-0.03); Immature Granulocytes Pct Auto 0.8 % (0.0-0.5); Lymphocytes Absolute Auto 1.8 10^3/uL (1.2-3.8); Mean Corpuscular HGB Conc 31.3 g/dL (29.9-35.2); Mean Corpuscular Hemoglobin 26.5 pg (26.7-34.0); Mean Corpuscular Volume 84.5 fL (81.0-99.0); Mean Platelet Volume 10.4 fL (9.5-13.5); Monocytes Absolute Auto 1.1 10^3/uL (0.3-0.8); Neutrophils Absolute Auto 12.2 10^3/uL (1.4-6.5); Neutrophils Percent Auto 79.8 % (43.0-75.0); Platelet Count 154 10^3/uL (150-450); Red Cell Distribution Width 17.4 % (11.0-15.0); White Blood Count 15.2 10^3/uL (4.0-11.0)
[2023-12-24] MEDS: KETOROLAC TROMETHAMINE 30 MG/ML VIAL IVP ×3 (06:15→18:27)
[2023-12-24] MEDS: SIMETHICONE 80 MG TAB.CHEW PO ×3 (06:59→18:34)
[2023-12-24] MEDS: DOCUSATE SODIUM 100 MG CAPSULE PO ×2 (10:35→21:28)
--- NOTE | 2023-12-24 11:40 | PM.OBPN ---
OB - PN: Subj Subjective Interval history: PATIENT REQUESTING TO BE BACK ON ABILIFY AND BUSPAR. SHE IS BREAST FEEDING. THESE ARE L - 3 MEDS. SHE IS ALSO ON LEXAPRO. WILL LET ELECTRICAL AND INSTRUMENT ENGINEER DECIDE ON CONTINUING ABILITY AND BUSPAR THERE IS NO LITERATURE ON THESE TWO DRUGS. PATIENT AGREES WITH THIS DECISION. CAN CONTINUE LEXAPRO 20 MG QHS Patient comments: pain well controlled and incisional pain [place] infant status: doing well and well [place] feeding status: exclusively Exam Narrative Exam Narrative: COMPLAINS OF TENDERNESS FROM CS INCISION. (CS DONE FOR JEOPARDY, FIRST ONE). Constitutional Vital Signs, click to edit/add: Last Vital Signs Temp 99.4 F 12/24/23 10:30 Pulse 68 12/24/23 10:28 Resp 16 12/24/23 10:30 BP 120/60 12/24/23 10:28 Pulse Ox 94 L 12/23/23 15:27 O2 Del Method Room Air 12/24/23 04:35 Documenting provider has reviewed patient's vital signs: yes Common normals: no apparent distress, average body habitus, oriented x3, no limitations, healthy appearing, alert and well nourished General appearance: cooperative and comfortable Orientation/consciousness: Yes awake, Yes oriented to person, Yes oriented to place and Yes oriented to time HENMT Common normals: normocephalic and head/scalp atraumatic Eye Pupil: PERRL and accommodation reflex normal Neck & C-Spine Common normals: full ROM and supple Chest Common normals: inspection of chest normal Respiratory Common normals: normal respiratory effort Cardio Common normals: regular rate and regular rhythm GI Common normals: Normal to inspection, nondistended, normoactive bowel sounds present and soft to palpation Auscultation: normoactive bowel sounds Common normals: no CVA tenderness Back & Pelvis Common normals: no thoracic nor lumbar tenderness Extremity Common normals: normal to inspection, full ROM and no calf tenderness Neuro Common normals: oriented x3, CN's II-XII intact bilaterally, moves all extremities, no focal motor deficits and no sensory deficits noted Psych Common normals: mental status grossly normal, thought process normal, cooperative, affect normal and speech normal Appearance: grossly normal Attitude: calm Activity/motor behavior: appropriate eye contact Mood and affect: elevated mood (NORMAL ELEVATED MOOD DUE TO OF HER BABY AND EXCITED ABOUT) Thought process: normal thought process Insight: insight good Judgement: judgment good Results Labs Labs: Short CBC 12/24/23 Range/Units 05:51 WBC 15.2 H (4.0-11.0) 10^3/uL Hgb 8.2 L (12.0-16.0) g/dL Hct 26.2 L (36.0-48.0) % Plt Count 154 (150-450) 10^3/uL Urinary Catheter Management Urinary Catheter Management Urethral: Cath placed during this visit: yes, but has since been removed by the nurse Urethral indwelling: No Insertion date: 12/23/23 Insertion time: 11:49 Removal date: 12/24/23 Removal time: 06:40 OB - PN: A/P Assessment and Plan (1) History of primary section: Assessment and Plan: HAD A PRIMARY CS DUE TO JEOPARDY. NO COMPLICATIONS. PAIN WELL CONTROLLED. AMBULATING NORMALLY. DOES COMPLAIN OF TENDERNESS AT INCISION SITE. IS BREAST FEEDING. (2) Depression: Assessment and Plan: PATIENT WAS ON ABILIFY, BUSPAR AND LEXAPRO. WILL CONTINUE LEXAPRO. NO SUICIDAL IDEATION. MOOD CURRENTLY NOT DEPRESSED. WILL LET ELECTRICAL AND INSTRUMENT ENGINEER DECIDE ON CONTINUING OTHER TWO ANTIDEPRESSANTS THEY ARE L - 3 DRUGS. PATIENT AGREES WITH THIS PLAN Qualifiers: Depression Type: persistent depressive disorder Qualified Code(s): F34.1 - Dysthymic disorder Plan ROUTINE PPD 1 POD 1 CARE Plan - day: 1 Plan: routine postop care Time Spent with Patient Time: Total time spent is greater than 50% in coordination of care (as documented) at patient's floor/unit and/or counseling patient: Total time spent with greater than 50% in coordination of care (as documented) at patient's floor/unit and/or counseling patient: less than 15 minutes
--- NOTE | 2023-12-24 18:42 | PC.NURSE ---
rates pain a 6, up to chair, medicated with toradol and simethicone
[2023-12-24] MEDS: ESCITALOPRAM 10 MG TABLET 20 MG PO (21:28)
--- NOTE | 2023-12-24 21:52 | PC.NURSE ---
2114-Bath demo completed with parents. Educated on skin care and thermal regulation.
[2023-12-25] MEDS: KETOROLAC TROMETHAMINE 30 MG/ML VIAL IVP ×3 (00:04→12:33)
[2023-12-25 00:07] VITALS: BP 117/69; PULSE 75; RESP 16; TEMP 36.8
[2023-12-25] MEDS: ENOXAPARIN SODIUM 40 MG/0.4 ML SYRINGE SUBQ (02:12)
--- NOTE | 2023-12-25 07:16 | PC.NURSE ---
Report given to Pavel Lin RN
[2023-12-25 08:39] VITALS: BP 121/70; PULSE 64
[2023-12-25 08:46] VITALS: RESP 16; TEMP 36.7
[2023-12-25] MEDS: DOCUSATE SODIUM 100 MG CAPSULE PO ×2 (09:29→21:12)
--- NOTE | 2023-12-25 12:38 | P.OBPN_ITS ---
OB - PN: Subj Subjective Interval history: PATIENT REQUESTING TO BE BACK ON ABILIFY AND BUSPAR. SHE IS BREAST FEEDING. THESE ARE L - 3 MEDS. SHE IS ALSO ON LEXAPRO. WILL LET AIRCRAFT ENGINE ASSEMBLER DECIDE ON CONTINUING ABILITY AND BUSPAR THERE IS NO LITERATURE ON THESE TWO DRUGS. PATIENT AGREES WITH THIS DECISION. CAN CONTINUE LEXAPRO 20 MG QHS Exam Constitutional Vital Signs, click to edit/add: Last Vital Signs Temp 98.1 F 12/25/23 08:46 Pulse 64 12/25/23 08:39 Resp 16 12/25/23 08:46 BP 121/70 12/25/23 08:39 Pulse Ox 94 L 12/23/23 15:27 O2 Del Method Room Air 12/25/23 00:07 Urinary Catheter Management Urinary Catheter Management Urethral: Cath placed during this visit: yes, but has since been removed by the nurse Urethral indwelling: No Insertion date: 12/23/23 Insertion time: 11:49 Removal date: 12/24/23 Removal time: 06:40 OB - PN: A/P Assessment and Plan (1) History of primary section: (2) Depression: Qualifiers: Depression Type: persistent depressive disorder Qualified Code(s): F34.1 - Dysthymic disorder Time Spent with Patient Time: Total time spent is greater than 50% in coordination of care (as documented) at patient's floor/unit and/or counseling patient:
--- NOTE | 2023-12-25 12:39 | P.OBPN_ITS ---
OB - PN: Subj Subjective Interval history: PATIENT REQUESTING TO BE BACK ON ABILIFY AND BUSPAR. SHE IS BREAST FEEDING. THESE ARE L - 3 MEDS. SHE IS ALSO ON LEXAPRO. WILL LET FURNITURE MAKER DECIDE ON CONTINUING ABILITY AND BUSPAR THERE IS NO LITERATURE ON THESE TWO DRUGS. PATIENT AGREES WITH THIS DECISION. CAN CONTINUE LEXAPRO 20 MG QHS Exam Constitutional Vital Signs, click to edit/add: Last Vital Signs Temp 98.1 F 12/25/23 08:46 Pulse 64 12/25/23 08:39 Resp 16 12/25/23 08:46 BP 121/70 12/25/23 08:39 Pulse Ox 94 L 12/23/23 15:27 O2 Del Method Room Air 12/25/23 00:07 Urinary Catheter Management Urinary Catheter Management Urethral: Cath placed during this visit: yes, but has since been removed by the nurse Urethral indwelling: No Insertion date: 12/23/23 Insertion time: 11:49 Removal date: 12/24/23 Removal time: 06:40 OB - PN: A/P Assessment and Plan (1) History of primary section: (2) Depression: Qualifiers: Depression Type: persistent depressive disorder Qualified Code(s): F34.1 - Dysthymic disorder Time Spent with Patient Time: Total time spent is greater than 50% in coordination of care (as documented) at patient's floor/unit and/or counseling patient:
--- NOTE | 2023-12-25 12:40 | P.OBPN_ITS ---
OB - PN: Subj Subjective Interval history: PATIENT REQUESTING TO BE BACK ON ABILIFY AND BUSPAR. SHE IS BREAST FEEDING. THESE ARE L - 3 MEDS. SHE IS ALSO ON LEXAPRO. WILL LET WET PAN MIXER DECIDE ON CONTINUING ABILITY AND BUSPAR THERE IS NO LITERATURE ON THESE TWO DRUGS. PATIENT AGREES WITH THIS DECISION. CAN CONTINUE LEXAPRO 20 MG QHS Exam Constitutional Vital Signs, click to edit/add: Last Vital Signs Temp 98.1 F 12/25/23 08:46 Pulse 64 12/25/23 08:39 Resp 16 12/25/23 08:46 BP 121/70 12/25/23 08:39 Pulse Ox 94 L 12/23/23 15:27 O2 Del Method Room Air 12/25/23 00:07 Urinary Catheter Management Urinary Catheter Management Urethral: Cath placed during this visit: yes, but has since been removed by the nurse Urethral indwelling: No Insertion date: 12/23/23 Insertion time: 11:49 Removal date: 12/24/23 Removal time: 06:40 OB - PN: A/P Assessment and Plan (1) History of primary section: (2) Depression: Qualifiers: Depression Type: persistent depressive disorder Qualified Code(s): F34.1 - Dysthymic disorder Time Spent with Patient Time: Total time spent is greater than 50% in coordination of care (as documented) at patient's floor/unit and/or counseling patient: Total time spent with greater than 50% in coordination of care (as documented) at patient's floor/unit and/or counseling patient: less than 15 minutes
--- NOTE | 2023-12-25 12:40 | P.OBPN_ITS ---
OB - PN: Subj Subjective Interval history: PATIENT REQUESTING TO BE BACK ON ABILIFY AND BUSPAR. SHE IS BREAST FEEDING. THESE ARE L - 3 MEDS. SHE IS ALSO ON LEXAPRO. WILL LET CAKE CUTTER MACHINE DECIDE ON CONTINUING ABILITY AND BUSPAR THERE IS NO LITERATURE ON THESE TWO DRUGS. PATIENT AGREES WITH THIS DECISION. CAN CONTINUE LEXAPRO 20 MG QHS Patient comments: no complaints, pain well controlled and tolerating diet [place] status: doing well and well feeding status: exclusively Narrative: patient is doing well emotionally just on lexapro without buspar and abilify. Exam Constitutional Vital Signs, click to edit/add: Last Vital Signs Temp 98.1 F 12/25/23 08:46 Pulse 64 12/25/23 08:39 Resp 16 12/25/23 08:46 BP 121/70 12/25/23 08:39 Pulse Ox 94 L 12/23/23 15:27 O2 Del Method Room Air 12/25/23 00:07 HENMT Common normals: normocephalic and head/scalp atraumatic Eye Pupil: PERRL and accommodation reflex normal Neck & C-Spine Common normals: full ROM and supple Respiratory Common normals: normal respiratory effort Cardio Common normals: regular rhythm GI Common normals: Normal to inspection, nondistended, normoactive bowel sounds present Common normals: no CVA tenderness Back & Pelvis Common normals: thoracic and lumbar spine normal to inspection Extremity Common normals: normal to inspection, full ROM and no calf tenderness Neuro Common normals: oriented x3, CN's II-XII intact bilaterally, moves all extremities, no focal motor deficits and no sensory deficits noted Sensorium/orientation: awake, alert, oriented to person, oriented to place and oriented to time Psych Common normals: mental status grossly normal, thought process normal, cooperative, affect normal and speech normal Urinary Catheter Management Urinary Catheter Management Urethral: Cath placed during this visit: yes, but has since been removed by the nurse Urethral indwelling: No Insertion date: 12/23/23 Insertion time: 11:49 Removal date: 12/24/23 Removal time: 06:40 OB - PN: A/P Assessment and Plan (1) History of primary section: Assessment and Plan: POD PPD 2, NOT DESIRING DISCHARGE. VOICING NO COMPLAINTS. EXAM NONFOCAL. BREAST FEEDING GOING WELL. BELIEVES HER BOWELS WILL MOVE THIS AM. IS ANEMIC AT HEMOGLOBIN OF 8+ HOWEVER NO SYMPTOMS. HAVE STARTED IRON SULFATE 325 MG PO BID. (2) Depression: Assessment and Plan: MOOD IS GOOD ON LEXAPRO ONLY. NOT TAKING ABILIFY OR BUSPAR BREAST FEEDING AND NO THESE ARE L - 3 MEDICATIONS Qualifiers: Depression Type: persistent depressive disorder Qualified Code(s): F34.1 - Dysthymic disorder Plan CONTINUE CURRENT MANAGEMENT Plan - day: 2 Plan: routine postop care Time Spent with Patient Time: Total time spent is greater than 50% in coordination of care (as documented) at patient's floor/unit and/or counseling patient: Total time spent with greater than 50% in coordination of care (as documented) at patient's floor/unit and/or counseling patient: less than 15 minutes
[2023-12-25 17:50] VITALS: BP 128/72; PULSE 74
[2023-12-25 18:02] VITALS: RESP 16; TEMP 37.1
[2023-12-25] MEDS: IBUPROFEN 400 MG TABLET 800 MG PO (18:32)
[2023-12-26 00:05] VITALS: BP 128/68; PULSE 70
[2023-12-26] MEDS: ESCITALOPRAM 10 MG TABLET 20 MG PO (00:08)
[2023-12-26 00:27] VITALS: BP 128/68; PULSE 70; RESP 16; TEMP 36.8
[2023-12-26] MEDS: ENOXAPARIN SODIUM 40 MG/0.4 ML SYRINGE SUBQ (02:03)
[2023-12-26 08:05] VITALS: BP 120/80; PULSE 71; RESP 16; TEMP 37.1
[2023-12-26 08:07] VITALS: BP 120/80; PULSE 71
[2023-12-26] MEDS: DOCUSATE SODIUM 100 MG CAPSULE PO (08:11)
[2023-12-26] MEDS: IBUPROFEN 400 MG TABLET 800 MG PO (08:11)
--- NOTE | 2023-12-26 08:37 | PM.OBPN ---
OB - PN: Subj Subjective Interval history: PATIENT REQUESTING TO BE BACK ON ABILIFY AND BUSPAR. SHE IS BREAST FEEDING. THESE ARE L - 3 MEDS. SHE IS ALSO ON LEXAPRO. WILL LET BOWLING BALL FINISHER DECIDE ON CONTINUING ABILITY AND BUSPAR THERE IS NO LITERATURE ON THESE TWO DRUGS. PATIENT AGREES WITH THIS DECISION. CAN CONTINUE LEXAPRO 20 MG QHS Patient comments: no complaints and pain well controlled [place] status: doing well Exam Constitutional Vital Signs, click to edit/add: Last Vital Signs Temp 98.2 F 12/26/23 00:27 Pulse 71 12/26/23 08:07 Resp 16 12/26/23 00:27 BP 120/80 12/26/23 08:07 Pulse Ox 94 L 12/23/23 15:27 O2 Del Method Room Air 12/26/23 00:27 Documenting provider has reviewed patient's vital signs: yes Common normals: no apparent distress Respiratory Common normals: clear to auscultation bilaterally Cardio Common normals: regular rate and regular rhythm GI Common normals: Normal to inspection, nondistended, normoactive bowel sounds present Extremity Common normals: no calf tenderness Urinary Catheter Management Urinary Catheter Management Urethral: Cath placed during this visit: yes, but has since been removed by the nurse Urethral indwelling: No Insertion date: 12/23/23 Insertion time: 11:49 Removal date: 12/24/23 Removal time: 06:40 OB - PN: A/P Assessment and Plan (1) History of primary section: (2) Depression: Qualifiers: Depression Type: persistent depressive disorder Qualified Code(s): F34.1 - Dysthymic disorder Plan - day: 3 Plan: routine postop care, discharge home and other (1wk) Time Spent with Patient Time: Total time spent is greater than 50% in coordination of care (as documented) at patient's floor/unit and/or counseling patient: Total time spent with greater than 50% in coordination of care (as documented) at patient's floor/unit and/or counseling patient: less than 15 minutes
--- NOTE | 2023-12-26 11:10 | DS_ITS ---
DISCHARGE DATE: 12/26/23 ? PRIMARY DIAGNOSES: 1.? Intrauterine at 39 weeks. 2.? Non-reassuring heart tones. ? PROCEDURE:? section. ? HOSPITAL COURSE:? As expected.? Please see chart for full details.? ? LABORATORY DATA:? Please see chart. ? COMPLICATIONS:? None. ? DISCHARGE CONDITION:? Stable. ? CONSULTATION:? Anesthesia. ? DISCHARGE INSTRUCTIONS: 1.? Diet:? Regular. 2.? Medications: a.? Percocet 5/325 one to two p.o. every 4-6 hours p.r.n. pain. b.? Motrin 800 one p.o. every 8 hours p.r.n. pain. 3.? Followup in one week. Restrictions:? Pelvic rest for 6 weeks.? No heavy lifting.? May drive when pain free and no longer on narcotics. MTDD
--- NOTE | 2023-12-27 10:46 | SWNOTE1 ---
JONY spoke with pt via phone call on 12/26/23, pt was discharged prior to JONY assessing pt. SW consulted due to positive THC drug screen on admission. Pt does admit to using gummies every now and then during . She voiced she used due to hyperemesis and losing weight during . At this time, pt does not plan on continuing use. She is looking in to getting her medical marijuana card, but does not have it yet. JONY advised on not doing any THC around children. Pt does have a 3 year old daughter at home and also father of the children in the home as well. She voiced they have a good support system and everything they need at home for baby. No other concerns at this time. JONY called and made report to [facility] CPS. JONY filled out HIPAA form and sent to
== END 2023-12-26 11:10 | disposition home or self-care (01) | DRG 540 ==
PROVIDERS: Admitting Provider Obstetrics & Gynecology; Visit Provider Obstetrics & Gynecology
PROC: 10D00Z1 Extraction of Products of Conception, Low, Open Approach (ICD-10-PCS; CPT 59514; principal; 2023-12-23 13:00)
DX: O99.344 Other mental disorders complicating childbirth (principal); O76 Abnormality in fetal heart rate and rhythm complicating labor and delivery; Z3A.39 39 weeks gestation of pregnancy; Z37.0 Single live birth; F34.1 Dysthymic disorder; O99.324 Drug use complicating childbirth; F12.90 Cannabis use, unspecified, uncomplicated
CPT/HCPCS: 36415; 51702; 59050; 64488; 80307; 85025; 85027; 86850; 86900; 86901; 88307; 94667; 94668; 96372; 96374; 96376; 99999; J1094

== ENCOUNTER 2025-01-14 11:28 | Outpatient (OUT) | payer MEDICAID, SELFPAY ==
--- OUTSIDE RECORDS SUMMARY | 2025-01-14 11:48 | XMS_ITS | CCD ---
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 Film Processing Name Role Phone Sandy Herring Unavailable TIN BRITO Attending Unavailable DEXTER, DR LINETTE Noriega Primary Care Unavailable NICOLE SANCHEZ Admitting Unavailable DANIEL, NICOLE Attending Unavailable NICOLE SANCHEZ Consulting Unavailable DARYL ., DR COKER Admitting Unavailable DARYL ., DR COKER Attending Unavailable DEXTER, DR LINETTE Noriega Primary Care Unavailable JACQUELIN, DR JOI Díaz Consulting Unavailable OLMAN GALLEGOS Consulting Unavailable DARYL ., DR COKER Admitting Unavailable DARYL ., DR COKER Attending Unavailable DEXTER, DR LINETTE Noriega Primary Care Unavailable DARYL ., DR COKER Consulting Unavailable AZUCENA II, ANGIE Consulting Unavailable JOSE DAVID CHUA Consulting Unavailable DARYL ., DR COKER Admitting Unavailable DARYL ., DR COKER Attending Unavailable DEXTER, DR LINETTE Noriega Primary Care Unavailable DARYL ., DR COKER Consulting Unavailable ÓSCAR ., JESSICA Admitting Unavailable ÓSCAR ., JESSICA Attending Unavailable REQUEST, DR HEMPHILL LISTED Primary Care Unavaila brennan MONGE, DR JO Guillen Consulting Unavailable ÓSCAR ., JESSICA Consulting Unavailable DARYL ., DR COKER Admitting Unavailable DARYL ., DR COKER Attending Unavailable DEXTER, DR LINETTE Noriega Primary Care Unavailable JACQUELIN, DR JOI Díaz Consulting Unavailable DARYL ., DR COKER Consulting Unavailable DEXTER, DR LINETTE Noriega Primary Care Unavailable MONY SAVAGE Admitting Unavailable MONY SAVAGE Attending Unavailable MARIPOSA, DR JO Guillen Consulting Unavailable GRECHNY ., HAKEEM HERNANDEZ Consulting UnavailMONY Barba Consulting Unavailable DEXTER, DR LINETTE Noriega Primary Care Unavailable PAY ., DR FERNANDES Admitting Unavailable PAY ., DR FERNANDES Attending Unavailable PAY ., DR FERNANDES Consulting Unavailable Unavailable Primary Care Provider UnavailMD Linette Aguiar Primary Care Provider Tin Brito Attending Provider Linette Shaffer Primary Care Unavailable DarylTin dixon Attending Unavailable Tin Brito Admitting Unavailable GILES, BETY L Referring Unavailable GILES, BETY L Primary Care Unavailable Giles BIODIESEL DIVISION MANAGER-GALLERY OR MUSEUM ATTENDANT, Bety L Primary Care Provider GILES, BETY L Attending Unavailable GILES, BETY L Referring Unavailable GILES, BETY L Primary Care Unavailable GILES, BETY L Attending Unavailable GILES, BETY L Referring Unavailable GILES, BETY L Primary Care Unavailable Giles BIODIESEL DIVISION MANAGER-GALLERY OR MUSEUM ATTENDANT, Bety L Primary Care Provider JESSICA CANTRELL Attending Unavailable AREVALO, JOSE Attending Unavailable GILES, BETY Referring Unavailable AREVALO, JOSE Attending Unavailable AREVALO, JOSE Attending Unavailable AREVALO, JOSE Attending Unavailable AREVALO, JOSE Attending Unavailable AREVALO, JOSE Attending Unavailable AREVALO, JOSE Attending Unavailable AREVALO, JOSE Attending Unavailable AREVALO, JOSE Attending Unavailable AREVALO, JOSE Attending Unavailable AREVALO, JOSE Attending Unavailable AREVALO, JOSE Attending Unavailable TIN BRITO Attending Unavailable Medications Current Medications Medication Drug Class(es) Dates Sig (Normalized) Sig (Original) atomoxetine 40 mg oral capsule (6 sources) Norepinephrine Reuptake Inhibitor Start: 10-18-2024 take 1 capsule by mouth in the morning atomoxetine (STRATTERA) 40 mg capsule Indications: Attention deficit hyperactivity disorder (ADHD), combined type Take 1 capsule (40 mg total) by mouth in the morning. 90 capsule 1 10/18/2024 Active Start: 09-19-2024 End: 10-18-2024 take 1 capsule by mouth in the morning atomoxetine (STRATTERA) 25 mg capsule Take 1 capsule (25 mg total) by mouth in the morning. 90 capsule 1 09/19/2024 10/18/2024 Discontinued (Therapy completed) Start: 08-23-2024 take 1 capsule by mo [facility] in the morning atomoxetine (STRATTERA) 25 mg capsule Take 1 capsule (25 mg total) by mouth in the morning. 30 capsule 1 08/23/2024 Active brompheniramine maleate 0.4 mg/ml / dextromethorphan hydrobromide 2 mg/ml / pseudoephedrine hydrochloride 6 mg/ml oral solution (1 source) alpha-Adrenergic Agonist, Uncompetitive W-jxepqn-V-aspartate Receptor Antagonist, Sigma-1 Agonist Start: 05-02-2022 take 10 mL by mouth every six hours Iufvzqtdw-Nqrijjfa-QF 30-2-10 MG/5ML 10 mL Orally every 6 hours for 5 days Apr, Active busPIRone hydrochloride 10 mg oral tablet (14 sources) Start: 09-07-2022 End: 08-23-2024 take 1 tablet by mouth in the morning, then take 1 tablet by mouth at bedtime busPIRone (BUSPAR) 10 mg tablet Indications: Generalized anxiety disorder Take 1 tablet (10 mg total) by mouth in the morning and 1 tablet (10 mg total) before bedtime. 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 30 capsule 1 10/18/2024 01/07/2025 Discontinued desogestrel 0.15 mg / ethinyl estradiol 0.03 mg oral tablet (2 sources) Progestin, Estrogen Start: 01-01-2025 End: 01-01-2026 desogestrel-ethinyl estradiol (Apri) 0.15-30 MG-MCG tablet Indications: Menorrhagia with irregular cycle Take 1 tablet by mouth Daily 28 tablet 12 01/01/2025 01/01/2026 Active escitalopram 10 mg oral tablet (20 sources) Serotonin Reuptake Inhibitor Start: 08-23-2024 take 1 tablet by mouth in the morning escitalopram (LEXAPRO) 10 mg tablet Take 1 tablet (10 mg total) by mouth in the morning. 30 tablet 08/23/2024 Active Start: 06-08-2023 End: 01-01-2025 take 1 tablet by mouth in the morning escitalopram (Lexapro) 20 MG tablet Take 20 mg by mouth in the morning. 06/08/2023 01/01/2025 Discontinued End: 01-01-2025 escitalopram (Lexapro) 5 MG tablet Lexapro 01/01/2025 Discontinued take 1 tablet by glo th every [...] DAY NEEDED BEFORE MEALS 0 08/30/2023 Active norethindrone 0.35 mg oral tablet (20 sources) Start: 02-06-2024 End: 02-05-2025 take 1 tablet by mouth once daily Jencycla 0.35 MG tablet Indications: 6 weeks follow-up TAKE 1 TABLET BY MOUTH EVERY DAY 84 tablet 3 12/20/2024 Active ondansetron 4 mg disintegrating oral tablet [...] morning. 30 capsule 2 09/14/2023 12/13/2023 Active no115/iron/folic acid ( 19 ORAL) (12 sources) take 1 tablet by mouth once daily no115/iron/folic acid ( 19 ORAL) Take 1 tablet by mouth daily. Active take 1 tablet by mouth once lilly y no115/iron/folic acid ( 19 ORAL) Take 1 tablet by mouth daily. 0 Active promethazine hydrochloride 12.5 mg oral tablet [...] as needed Orally Once a day Active Completed/Discontinued Medications Medication Drug Class(es) Dates Sig (Normalized) Sig (Original) ARIPiprazole 5 mg oral tablet (11 sources) Atypical Antipsychotic Start: 10-12-2022 End: 08-23-2024 take 1 tablet by mouth in the morning ARIPiprazole (ABILIFY) 5 mg tablet Indications: Unspecified mood (affective) disorder (CMS-HCC) Take 1 tablet (5 mg total) by mouth in the morning. 30 tablet 3 10/12/2022 08/23/2024 Discontinued (Therapy completed) citalopram 20 mg oral tablet (20 sources) Serotonin Reuptake Inhibitor Start: 03-07-2024 End: 01-01-2025 take 1 tablet by mouth once daily citalopram (CeleXA) 20 MG tablet Indications: 6 weeks follow-up TAKE 1 TABLET BY MOUTH EVERY DAY 90 tablet 4 03/07/2024 01/01/2025 Discontinued MV-Min-Fe Fum-FA-DHA ( 1 PO) (20 sources) End: 01-01-2025 MV-Min-Fe Fum-FA-DHA ( 1 PO) Take 1 tablet by mouth in the morning. 01/01/2025 Discontinued MV-Min- Fe Fum-FA-DHA ( 1 PO) Take 1 tablet by mouth in the morning. Active Problems Active Problems Problem Classification Problem Date Documented Date Episodic/Chronic Abdominal pain (4 sources) Unspecified abdominal pain; Translations: [UNSPECIFIED ABDOMINAL PAIN] Onset: 12-06-2022 Episodic Anxiety disorders (20 sources) Anxiety disorder, unspecified; Translations: [Generalized anxiety disorder] Onset: 09-10-2020 12-08-2023 Chronic Attention-deficit, conduct, and disruptive behavior disorders (20 sources) Attention deficit hyperactivity disorder, combined type; Translations: [Attention-deficit hyperactivity disorder, combined type] Onset: 05-15-2024 05-15-2024 Chronic Attention-deficit, conduct, and disruptive behavior disorders (1 source) Attention-deficit hyperactivity disorder, combined type; Translations: [Attention-deficit hyperactivity disorder, combined type] Onset: 10-18-2024 Chronic Contraceptive and procreative management (2 sources) Sterilization requested; Translations: [Encounter for sterilization] 01-01-2025 Episodic Deficiency and other anemia (2 sources) Iron deficiency anemia, unspecified; Translations: [Iron deficiency anemia, unspecified] Onset: 08-23-2024 Episodic Deficiency and other anemia (1 source) Iron deficiency anemia; Translations: [Iron deficiency anemia, unspecified] 08-23-2024 Episodic Hemorrhage during ; abruptio placenta; placenta previa (5 sources) Hemorrhage in early , unspecified; Translations: [Threatened ] Onset: 12-15-2022 Episodic Immunizations and screening for infectious disease (3 sources) Encounter for screening for human papillomavirus (HPV); Translations: [Encounter for immunization] Onset: 06-30-2022 08-23-2024 Episodic Menstrual disorders (4 sources) Menometrorrhagia; Translations: [Excessive and frequent menstruation with irregular cycle] 01-01-2025 Chronic Mood disorders (20 sources) Mood disorder; Translations: [Unspecified mood [affective] disorder] Onset: 09-10-2020 Resolved: 09-07-2022 12-08-2023 Chronic Other aftercare (1 source) Other intermediate card tender (current) drug therapy; Translations: [OTH 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] Onset: 12-15-2022 Episodic Other complications of (5 sources) Missed ; Translations: [MISSED ] Onset: 01-06-2023 Episodic Other complications of (1 source) Smoking (tobacco) complicating , first trimester; Translations: [SMOKING TOBACCO COMP PREG 1ST TRI] Onset: 12-15-2022 Episodic Other complications of (1 source) Other specified related conditions, first trimester; Translations: [OTH SPEC PREG RELATED COND 1ST TRI] Onset: 12-08-2022 Episodic Other nervous system disorders (1 source) Carpal tunnel syndrome of left wrist; Translations: [Carpal tunnel syndrome, left upper limb] 06-15-2024 Chronic Other nutritional; endocrine; and metabolic disorders (1 source) Overweight; Translations: [Overweight] Onset: 08-23-2024 Episodic Other nutritional; endocrine; and metabolic disorders (1 source) Body mass index 25-29 - overweight; Translations: [Overweight] 08-23-2024 Episodic Residual codes; unclassified (1 source) 10 weeks gestation of ; Translations: [10 WEEKS GESTATION OF ] Onset: 12-25-2022 Episodic Residual codes; unclassified (1 source) Weeks of gestation of not specified; Translations: [WEEKS GESTATION NOT SPEC] Onset: 12-15-2022 Episodic Substance-related disorders (1 source) Nicotine dependence, other tobacco product, uncomplicated; Translations: [NICOTINE DEPEND OTH TOB PROD UNCOMP] Onset: 01-17-2023 Chronic Unclassified (20 sources) OB Reminders Onset: 05-11-2023 05-11-2023 Unclassified (1 source) Annual Exam Onset: 08-23-2024 Past or Other Problems Problem Classification Problem Date Documented Da te Episodic/Chronic Fluid and electrolyte disorders (1 source) Dehydration; Translations: [DEHYDRATION] Onset: 05-11-2022 Episodic Mood disorders (13 sources) Mood disorders; Translations: [DEPRESSION UNSPECIFIED] Onset: 12-17-2022 Resolved: 08-23-2024 08-23-2024 Other connective tissue disease (1 source) Rhabdomyolysis; [...] Test Name Value Interpretation Reference Range Facility US PELVIC COMPLETE W/ TVon 0 01-08-2025 US PELVIC COMPLETE W/ TV EXAM: US PELVIC COMPLETE W/ TV HISTORY: Left lower quadrant pain, menorrhagia x 3 months, frequent periods. COMPARISON: None available. TECHNIQUE: Two-dimensional transabdominal grayscale ultrasound imaging of the pelvis was performed. Color flow Doppler imaging of the ovaries was also performed. Transvaginal was performed. FINDINGS: UTERUS 7.7 x 3.4 x 5.5 cm The uterus is retroflexed in position and demonstrates a normal, homogeneous echotexture. Multiple nabothian cysts are visualized within the cervix. ENDOMETRIUM 0.7 cm The endometrium demonstrates a normal, homogeneous echotexture. RIGHT OVARY 3.6 x 1.2 x 3.1 cm The right ovary demonstrates a normal echotexture. There is normal color Doppler flow. LEFT OVARY 3.3 x 2.0 x 3.2 cm The left ovary demonstrates a normal echotexture. There is normal color Doppler flow. There is a 2.2 cm simple cyst visualized. Mild fluid is present within the cul-de-sac. IMPRESSION: 1. Simple left ovarian cyst. 2. Normal color Doppler flow within the bilateral ovaries. 3. Mild fluid within the cul-de-sac. Interpreted by: Electronically signed by DAIYL KNOX II, MD, PHD at 08-Jan-2025 11:23:06 PM [facility] Normal Not Available Comment on above: Order Comment: US PE LVIS-TRANSVAG IF INDICATED Patient's last menstrual period was 12/04/2024. HCG ( test) Ql (U)o n 01-01-2025 Interpretation and review of laboratory results Normal [facility] Preg Test, Ur [facility] macro (dipstick) panel (U)on 01-01-2025 Bilirubin, UA Negative Negative - 4(70) +++ mg/dL [facility] Blood, UA Positive Negative - 50 Yazan/mcL [facility] Comment on above: trace-lysed Clarity, UA Clear [facility] Color, UA Yellow [facility] e Glucose, UA Negative Negative - 1999(110) ++++ mg/dL [facility] Interpretation and review of laboratory results Abnormal [facility] re Ketones, UA Negative Negative - 160(16) ++++ mg/dL [facility] Leukocytes, UA Moderate Negative - 500+++ Mello/mcL [facility] Nitrite, UA Negative Negative - Positive [facility] pH, UA 7 5 - 9 [facility] e Protein, UA Negative Negative - 1999(20) ++++ mg/dL [facility] Spec Grav, UA 1.02 1 - 1.03 [facility] Urobilinogen, UA 0.2 0.2 - 12 mg/dL [facility] CBC AND AUTO DIFFon 08-23-20 24 ABSOLUTE BASOPHIL 0.1 X10E9/L Normal 0.0-0.2 [facility] Comment on above: Performed By: #### C AUBREE [facility], 85755-6 #### [facility] ([id number]) [address], [address] [place] [address] ABSOLUTE NEUTROPHIL 3.4 X10E9/L Normal 1.5-6.6 [facility] Comment on above: Performed By: #### Carola MAK CMP, 58330-3 #### [facility] ([id number]) [address], [address] [place] [address] Basophils/100 WBC (Bld) 1.1 % Normal [facility] Comment on above: Performed By: #### Carola MAK CMP, 40902-2 #### [facility] ([id number]) [address], [address] [place] [address] Eosinophils (Bld) [#/Vol] 0.0 10*3/uL Normal 0.0-0.4 [facility] Comment on above: Performed By: #### Carola MAK CMP, 58987-0 #### [facility] ([id number]) [address], [address] [place] [address] Eosinophils/100 WBC (Bld) 0.5 % Normal [facility] Comment on above: Performed By: #### Carola MAK CMP, 50813-3 #### [facility] ([id number]) [address] [place] [address] Erythrocyte distribution width (RBC) [Ratio] 13.0 % Normal 11.5-15.0 [facility] Comment on above: Performed By: #### Carola MAK CMP, 87064-9 #### [facility] ([id number]) [address] [place] [address] Hematocrit (Bld) [Volume fraction] 35.9 % Normal 35-47 [facility] Comment on above: Performed By: #### Carola MAK CMP, 62424-5 #### [facility] ([id number]) [address] [place] [address] Hemoglobin (Bld) [Mass/Vol] 12.7 g/dL Normal 11.7-15.5 [facility] Comment on above: Performed By: #### Carola MAK CMP, 27137-1 #### [facility] ([id number]) [address], [facility] [address] [place] [address] Lymphocytes (Bld) [#/Vol] 1.9 10*3/uL Normal 1.0-3.5 [facility] Comment on above: Performed By: #### Carola MAK CMP, 88217-6 #### [facility] ([id number]) [address], [address] [place] [address] Lymphocytes/100 WBC (Bld) 33.3 % Normal [facility] Comment on above: Performed By: #### Carola MAK CMP, 24303-3 #### [facility] ([id number]) [address], [address] [place] [address] MCH (RBC) [Entitic mass] 30.3 pg Normal 27-34 [facility] Comment on above: Performed By: #### Carola MAK CMP, 68248-5 #### [facility] ([id number]) [address], [address] [place] [address] MCHC (RBC) [Mass/Vol] 35.5 g/dL Normal 32-36 [facility] Comment on above: Performed By: #### Carola MAK, CMP, 58111-4 #### [facility] ([id number]) [address], [address] [place] [address] MCV (RBC) [Entitic vol] 85 fL Normal 80-100 [facility] Comment on above: Performed By: #### Carola MAK, CMP, 45092-4 #### [facility] ([id number]) [address], [address] [place] [address] Monocytes (Bld) [#/Vol] 0.3 10*3/uL Normal 0-0.9 [facility] Comment on above: Performed By: #### Carola MAK CMP, 24214-9 #### [facility] ([id number]) [address], [address] [place] [address] Monocytes/100 WBC (Bld) 4.8 % Normal [facility] Comment on above: Performed By: #### Carola MAK, CMP, 33663-7 #### [facility] ([id number]) [address], [address] [place] [address] Neutrophils/100 WBC (Bld) 60.3 % Normal [facility] Comment on above: Performed By: #### Carola MAK, CMP, 32841-0 #### [facility] ([id number]) [address], [facility] [address] [place] [address] Platelet mean volume (Bld) [Entitic vol] 9.5 fL Normal 7-12 [facility] Comment on above: Performed By: #### Carola MAK CMP, 41901-2 #### [facility] ([id number]) [address] [address] Platelets (Bld) [#/Vol] 226 10*3/uL Normal 150-450 [facility] Comment on above: Performed By: #### Carola MAK, IAIN, 34193-5 #### [facility] ([id number]) [address] [address] RBC COUNT 4.20 X10E12/L Normal 3.80-5.20 [facility] Comment on above: Performed By: #### Carola MAK, [facility], 28454-6 #### [facility] ([id number]) [address] [address] WBC (Bld) [#/Vol] 5.6 10*3/uL Normal 4.0-11.0 [facility] Comment on above: Performed By: #### Carola MAK, IAIN, 48215-9 #### [facility] ([id number]) [address] [address] CBC auto differentialon 08-04 Basophils (Bld) [#/Vol] 0.1 10*3/uL [facility] Basophils/100 WBC (Bld) 1.1 % [facility] Eosinophils (Bld) [#/Vol] 0 10*3/uL [facility] Eosinophils/100 WBC (Bld) 0.5 % [facility] Erythrocyte distribution width (RBC) [Ratio] 13 % 11.5 - 15.0 % [facility] Hematocrit (Bld) [Volume fraction] 35.9 % 35 - 47 % [facility] Hemoglobin (Bld) [Mass/Vol] 12.7 g/dL 11.7 - 15.5 g/dL [facility] Lymphocytes (Bld) [#/Vol] 1.9 10*3/uL [facility] Lymphocytes/100 WBC (Bld) 33.3 % [facility] MCH (RBC) [Entitic mass] 30.3 pg 27 - 34 pg [facility] MCHC (RBC) [Mass/Vol] 35.5 g/dL 32 - 36 g/dL [facility] MCV (RBC) [Entitic vol] 85 fL 80 - 100 fL [facility] Monocytes (Bld) [#/Vol] 0.3 10*3/uL [facility] Monocytes/100 WBC (Bld) 4.8 % [facility] Neutrophils (Bld) [#/Vol] 3.4 10*3/uL [facility] Neutrophils/100 WBC (Bld) 60.3 % [facility] Platelet mean volume (Bld) [Entitic vol] 9.5 fL 7 - 12 fL [facility] Platelets (Bld) [#/Vol] 226 10*3/uL [facility] RBC (Bld) [#/Vol] 4.2 10*6/uL [facility] WBC corrected for nucl RBC Auto (Bld) [#/Vol] 5.6 [facility] COMPREHENSIVE METABOLIC PANE Sunil 08-23-2024 Albumin [Mass/Vol] 4.6 g/dL Normal 3.2-5.3 [facility] Comment on above: Performed By: #### C AUBREE, CMP, 21986-2 #### [facility] ([id number]) [address] [place] [address] ALP [Catalytic activity/Vol] 46 U/L Normal 39-130 [facility] Comment on above: Performed By: #### C AUBREE, CMP, 35642-3 #### [facility] ([id number]) [address] [place] [address] ALT [Catalytic activity/Vol] 18 U/L Normal 0-31 [facility] Comment on above: Performed By: #### C BCA, CMP, 25732-1 #### [facility] ([id number]) [address] [place] [address] Anion gap [Moles/Vol] 8 mmol/L Normal 5-15 [facility] Comment on above: Performed By: #### C BCA, CMP, 51769-7 #### [facility] ([id number]) [address] [place] [address] AST [Catalytic activity/Vol] 18 U/L Normal 0-41 [facility] Comment on above: Performed By: #### C BCA, CMP, 81617-3 #### [facility] ([id number]) [address] [place] [address] Bilirubin [Mass/Vol] 0.6 mg/dL Normal 0.3-1.2 [facility] Comment on above: Performed By: #### C BCA, CMP, 91943-2 #### [facility] ([id number]) [address] [place] [address] Calcium [Mass/Vol] 9.5 mg/dL Normal 8.5-10.5 [facility] Comment on above: Performed By: #### C BCA, CMP, 95667-6 #### [facility] ([id number]) [address] [place] [address] Chloride [Moles/Vol] 104 mmol/L Normal 98-109 [facility] Comment on above: Performed By: #### C BCA, CMP, 56472-7 #### [facility] ([id number]) [address] [place] [address] CO2 [Moles/Vol] 25 mmol/L Normal 22-32 [facility] Comment on above: Performed By: #### C BCA, CMP, 50580-4 #### [facility] ([id number]) [address] [place] [address] Creatinine [Mass/Vol] 0.67 mg/dL Normal 0.40-1.00 [facility] Comment on above: Result Comment: METH OD TRACEABLE TO IDMS STANDARD Performed By: #### C IAIN MAK, 19802-1 #### [facility] ([id number]) [address] [place] [address] eGFR (CKD-EPI) NON-RACE DEPENDENT >90 Normal >59 [facility] Comment on above: Result Comment: Reported eGFR is based on the CKD-EPI 2020 equation that does not use a race coefficient. Performed By: #### C IAIN MAK, 08246-5 #### [facility] ([id number]) [address] [place] [address] Glucose [Mass/Vol] 74 mg/dL Normal 65-99 [facility] Comment on above: Performed By: #### C AUBREE CMP, 49821-9 #### [facility] ([id number]) [address] [place] [address] Potassium [Moles/Vol] 3.6 mmol/L Normal 3.5-5.0 [facility] Comment on above: Performed By: #### C AUBREE CMP, 92563-7 #### [facility] ([id number]) [address] [place] [id number] Protein [Mass/Vol] 7.5 g/dL Normal 6.0-8.0 [facility] Comment on above: Performed By: #### C AUBREE CMP, 66859-2 #### [facility] ([id number]) [address] [place] [address] Sodium [Moles/Vol] 137 mmol/L Normal 134-146 [facility] Comment on above: Performed By: #### C BCA CMP, 45094-0 #### [facility] ([id number]) [address] [place] [address] Urea nitrogen [Mass/Vol] 13 mg/dL Normal 5-23 [facility] Comment on above: Performed By: #### C BCA, [facility], 75629-6 #### [facility] ([id number]) [address] [place] [address] Comprehensive metabolic pane sunil 08-23-2024 Albumin [Mass/Vol] 4.6 g/dL 3.2 - 5.3 g/dL [facility] ALP [Catalytic activity/Vol] 46 U/L 39 - 130 U/L [facility] ALT No additional P-5'-P [Catalytic activity/Vol] 18 U/L 0 - 31 U/L [facility] Anion gap [Moles/Vol] 8 mmol/L 5 - 15 mmol/L [facility] AST [Catalytic activity/Vol] 18 U/L 0 - 41 U/L [facility] Bilirubin [Mass/Vol] 0.6 mg/dL 0.3 - 1.2 mg/dL [facility] Calcium [Mass/Vol] 9.5 mg/dL 8.5 - 10. 5 mg/dL [facility] Chloride [Moles/Vol] 104 mmol/L 98 - 109 mmol/L [facility] CO2 [Moles/Vol] 25 mmol/L 22 - 32 mmol/L [facility] Creatinine [Mass/Vol] 0.67 mg/dL 0.40 - 1.00 mg/dL [facility] Comment on above: METHOD TRACEABLE TO IDNE STANDARD eGFR (CKD-EPI)non-race dependent - PINF [facility] Comment on above: Reported eGFR is based on the CKD-EPI 2020 equation that does not use a race coefficient. Glucose [Mass/Vol] 74 mg/dL 65 - 99 mg/dL [facility] Potassium [Moles/Vol] 3.6 mmol/L 3.5 - 5.0 mmol/L [facility] Protein [Mass/Vol] 7.5 g/dL 6.0 - 8.0 g/dL [facility] Sodium [Moles/Vol] 137 mmol/L 134 - 146 mmol/L [facility] Urea nitrogen [Mass/Vol] 13 mg/dL 5 - 23 mg/dL [facility] Lipid 1996 panelon 4 Cholesterol [Mass/Vol] 98 mg/dL Low 150 - 200 mg/dL [facility] Cholesterol in HDL [Mass/Vol] 47 mg/dL 39 - PINF mg/dL [facility] Comment on above: HDL <40 mg/dL - High Risk HDL > or = 40mg/dL- Desirable HDL >60 mg/dL - Negative Risk Cholesterol in LDL [Mass/Vol] 42 mg/dL NINF - 130 mg/dL [facility] Comment on above: LDL <100 mg/dL - Desirable LDL >160 mg/dL - High Risk Cholesterol in VLDL [Mass/Vol] 9 mg/dL 0 - 30 mg/dL [facility] Cholesterol.total/C holesterol in HDL [Mass ratio] 2.1 {ratio} 1.0 - 5.0 [facility] Interpretation and review of laboratory results Abnormal [facility] Triglyceride [Mass/Vol] 47 mg/dL 27 - 150 mg/dL [facility] Cholesterol [Mass/Vol] 98 mg/dL Low 150-200 [facility] Comment on above: Performed By: #### C BCA, [facility], 65284-4 #### [facility] ([id number]) [address] [place] [address] Cholesterol in HDL [Mass/Vol] 47 mg/dL Normal >39 [facility] Comment on above: Result Comment: HDL <40 mg/dL - High Risk HDL > or = 40mg/dL- Desirable HDL >60 mg/dL - Negative Risk Performed By: #### Carola MAK, IAIN, 78639-4 #### [facility] ([id number]) [address] [place] [address] Cholesterol in LDL [Mass/Vol] 42 mg/dL Normal <130 [facility] Comment on above: Result Comment: LDL <100 mg/dL - Desirable LDL >160 mg/dL - High Risk Performed By: #### Carola MAK, CMP, 07844-8 #### [facility] ([id number]) [address] [place] [address] Cholesterol in VLDL [Mass/Vol] 9 mg/dL Normal 0-30 [facility] Comment on above: Performed By: #### Carola MAK CMP, 75473-7 #### [facility] ([id number]) [address] [place] [address] CHOLESTEROL:HDL 2.1 Normal 1.0-5.0 [facility] Comment on above: Performed By: #### Carola MAK, IAIN, 47709-1 #### [facility] ([id number]) [address] [place] [address] Triglyceride [Mass/Vol] 47 mg/dL Normal 27-150 [facility] Comment on above: Performed By: #### Carola MAK, IAIN, 33301-3 #### [facility] ([id number]) [address], [facility] [address] [place] [address] No Panel Informationon 08-23 [facility] Sunil 12-23-2023 L Specimen: [id number] Received: 12/26/23 Status: BULMARO Perez Num: [id number] Spec Type: Surgical Subm Dr: Tin Brito Tissues: A Placenta - 3rd Trimester (Greater than 28 weeks) (PLACENTA) Procedures: HE/3, Gross/Micro L5 Age/ Patient Sex Location Account Attending Physician Santos Harper Ge LABELL [id number] Tin Brito SPEC NUM: [id number] RECD: 12/26/23 STATUS: BULMARO JESSICADestiny NUM: [id number] CASA: 12/23/[address]: Tin Brito ENTERED: 12/26/[address] [facility] [address]: Ghassan,Spencer SPEC TYPE: Surgical DEPT: [facility] ORDERED: HE/3, Gross/Micro L5 ORDERED: HE/3, Gross/Micro L5 Pathological Diagnosis Placenta, With:? Umbilical Cord: Three Vessel Cord, Unremarkable. Membranes: Unremarkable. Placenta: Mature Chorionic Villi, Consistent With Third Trimester Placenta. No Parenchymal Lesions Are Identified. Clinical Information Induction Gross Description Received in formalin labeled with the patient's name, date of and placenta is a 18.0 x 16.5 x 2.5 cm placenta with an attached umbilical cord and attached membranes . The hernandez-leyva, semitranslucent membranes insert marginally over the disc. The 21.0 x 1.2 cm umbilical cord inserts eccentrically 5.7 cm cm from the closest disc margin and contains three vessels on cut section. The trimmed weight is 552 g. The surface is bluegray. The maternal surface is with minimal adherent clotted material. The cut surface is spongy, red without discrete lesion. Rotary Cutter Feeder sections are submitted in 2 cassettes as follows: A1 - cord and central disc A2 - membranes and marginal disc -------- Specimen: [id number] Received: 12/26/23 Status: BULMARO Chris Num: [id number] Spec Type: Surgical Subm Dr: Tin Brito Tissues: A Placenta - 3rd Trimester (Greater than 28 weeks) (PLACENTA) Procedures: MOHITKatia L5 -------- Patient: Santos Harper [id number] (Continued) -------- Specimen: [id number] Received: 12/26/23 (Continued) Signed (signature on file) Indra Clay MD 12/27/23 1435 -------- Specimen: [id number] Received: 12/26/23 Status: BULMARO Perez Num: [id number] Spec Type: Surgical Subm Dr: Tin Brito Tissues: A Placenta - 3rd Trimester (Greater than 28 weeks) (PLACENTA) Procedures: RADHAKatia Serrano L5 -------- Patient: Santos Harper [id number] (Continued) -------- Specimen: [id number] Received: 12/26/23 (Continued) CPT Codes 08062 -------- -------- Specimen: [id number] Received: 12/26/23 Status: BULMARO Perez Num: [id number] Spec Type: Surgical Subm Dr: Tin Brito Tissues: A Placenta - 3rd Trimester (Greater than 28 weeks) (PLACENTA) Procedures: HE/3, Gross/Micro L5 -------- Patient: Santos Harper [id number] (Continued) -------- Signed (signature on file) Indra Clay MD 12/27/23 1435 [facility] UA (CLEAN/CATCH) MARKET RESEARCH ASSISTANT/JAYRO RO IF IND.on 11-14-2023 BILIRUBIN URINE Negative NEGATIVE [facility] BLOOD URINE Negative NEGATIVE [facility] Clarity (U) CLEAR CLEAR [facility] Color (U) LT. YELLOW YELLOW [facility] GLUCOSE URINE UA Negative NEGATIVE mg/dL [facility] Ketones Ql (U) Negative NEGATIVE mg/dL [facility] Leukocyte esterase Test strip Ql (U) Negative NEGATIVE [facility] NITRITE URINE Negative NEGATIVE [facility] pH (U) 7.5 [pH] 5.0 - 9.0 [facility] PROTEIN URINE Negative NEG/TRACE mg/dL [facility] SPECIFIC GRAVITY URINE 1.020 1.005 - 1.025 [facility] URINE MICROSCOPIC INDICATED NO [facility] UROBILINOGEN URINE 0.2 EU/dL 0.2 - 1.0 EU/dL [facility]IS[facility]NC [facility] SURGICAL PATH REPORTon 01-10 SURGICAL PATH REPORT [facility] Department of Pathology [address] [place] [address] Name: SANTOS HARPER : 2000 [employer] [id number] Number: Gender Female Kenzie SÁNCHEZUE : n: Admit 22 years Attending TIN BRITO Age: Provider: Ordering TIN BRITO Provider: Consulti Surgical Pathology Report ng: ACCESSION: COLLECTED DATE/TIME: RECEIVED DATE/TIME: PATHOLOGIST: [id number] 01/06/2023 16:30 EDT 01/07/2023 11:25 EDT LORNA DURAN MD Final Diagnosis Report for [facility] [place] [place] [employer]: - IMMATURE CHORIONIC [...] are multiple irregular segments of hernandez-pink to red-leyva soft tissue. The individual segments have a variable granular to partially membranous character. The specimen in total aggregate measures 4.7 x 4.0 x 2.5 cm. There are no grossly identifiable parts. [employer] C[employer] Feeder sections are submitted in three cassettes. MP/ln 01/07/2023 Tissue pathology report for: [facility], [address] [place] [id number]; ____ Print 01/10/2023 13:39 EDT Number: Date/Time: [facility] Department of Pathology [address] [place] [phone] Name: SANTOS HARPER : 2000 [facility] [id number] Number: [facility] Admit 22 years Attending TIN BRITO Age: Provider: Ordering TIN BRITO Provider: Consulti Surgical Pathology Report ng: ACCESSION: COLLECTED DATE/TIME: RECEIVED DATE/TIME: PATHOLOGIST: [id number] 01/06/2023 16:30 EDT 01/07/2023 11:25 EDT RENEE ZUNIGA, LORNA Gross Description PATHOLOGY SERVICES PROVIDED BY [employer] (CLIA #[id number]) in cooperation with [facility] at [address] [place] [address] ( CLIA #[id number]) Microscopic Diagnosis The final diagnosis is based on a microscopic exam of sales representative girls' apparel sections. Codes CPT CODE: 17980 ____ Print 01/10/2023 13:39 EDT Number: Date/Time: Normal [facility] Comment on above: Performed By: #### [id number] #### [facility] Laboratory Services [address] [place] [address] Office Services Manager: Jose Agarwal MD CBC AUTO DIFFon 01-06-2023 BASO # 0.0 103/ul Normal 0.0-0.[address] [facility] Comment on above: Performed By: #### P REG #### [facility] [address] [place] [address] Dr. Darian Scott Basophils/100 WBC (Bld) 0.3 % Normal 0.2-2.[address] [facility] Comment on above: Performed By: #### P REG #### [facility] [address] [place] [address] Dr. Darian Scott EO # 0.0 103/ul Normal 0.0-0.7 [facility] Comment on above: Performed By: #### P REG #### [facility] [address] [place] [address] Dr. Darian Scott Eosinophils/100 WBC (Bld) 0.5 % Critically low 0.9-7.[address] [facility] Comment on above: Performed By: #### P REG #### [facility] [address] [place] [address] Dr. Darian Scott Erythrocyte distribution width (RBC) [Ratio] 12.4 % Normal 11.0-15.[address] [facility] Comment on above: Performed By: #### P REG #### [facility] [address] [place] [address] Dr. Darian Scott Hematocrit (Bld) [Volume fraction] 33.6 % Critically low 36.0-48.[address] [facility] Comment on above: Performed By: #### P REG #### [facility] [address] [place] [address] Dr. Darian Scott Hemoglobin (Bld) [Mass/Vol] 11.6 g/dL Critically low 12.0-16.[address] [facility] Comment on above: Performed By: #### P REG #### [facility] [address] [place] [address] Dr. Darian Scott IG # 0.02 10e3/ul Normal 0.00-0.[address] [facility] Comment on above: Performed By: #### P REG #### [facility] [address] [place] [address] Dr. Darian Scott IG % 0.3 % Normal 0.0-0.[address] [facility] Comment on above: Performed By: #### P REG #### [facility] [address] [place] [address] Dr. Darian Scott LYMPH # 1.7 103/ul Normal 1.2-3.[address] [facility] Comment on above: Performed By: #### P REG #### [facility] [address] [place] [address] Dr. Darian Scott Lymphocytes/100 WBC (Bld) 28.5 % Normal 20.5-60.[address] [facility] Comment on above: Performed By: #### P REG #### [facility] [address] [place] [address] Dr. Darian Scott MANUAL DIFF REQ NO Normal [facility] Comment on above: Performed By: #### P REG #### [facility] [address] [address] [address] Darian Scott MCH (RBC) [Entitic mass] 29.3 pg Normal 26.7-34.0 [facility] Comment on above: Performed By: #### P REG #### [facility] [address] [place] [address] Dr. Darian Scott MCHC (RBC) [Mass/Vol] 34.5 g/dL Normal 29.9-35.2 [facility] Comment on above: Performed By: #### P REG #### [facility] [address] [place] [address] Dr. Darian Scott MCV (RBC) [Entitic vol] 84.8 fL Normal 81.0-99.[address] [facility] Comment on above: Performed By: #### P REG #### [facility] [address] [place] [address] Dr. Darian Scott MONO # 0.4 103/ul Normal 0.3-0.8 [facility] Comment on above: Performed By: #### P REG #### [facility] [address] [place] [address] Dr. Darian Scott Monocytes/100 WBC (Bld) 5.9 % Normal 1.7-12.[address] [facility] Comment on above: Performed By: #### P REG #### [facility] [address] [place] [address] Dr. Darian Scott NEUT # 3.8 103/ul Normal 1.4-6.5 [facility] Comment on above: Performed By: #### P REG #### [facility] [address] [place] [address] Dr. Darian Scott Neutrophils/100 WBC (Bld) 64.5 % Normal 43.0-75.0 [facility] Comment on above: Performed By: #### P REG #### [facility] [address] [place] [address] Dr. Darian Scott Platelet mean volume (Bld) [Entitic vol] 10.1 fL Normal 9.5-13.5 [facility] Comment on above: Performed By: #### P REG #### [facility] [address] [address] [address] Darian Scott PLT 190 103/ul Normal 150-450 [facility] Comment on above: Performed By: #### P REG #### [facility] [address] [address] [address] Darian Scott RBC 3.96 106/ul Critically low 4.20-5.40 [facility] Comment on above: Performed By: #### P REG #### [facility] [address] [address] [address] Darian Scott WBC 6.0 103/ul Normal 4.0-11.[address] [facility] Comment on above: Performed By: #### P REG #### [facility] [address] [place] [address] Dr. Darian Scott PREG QUANT HCGon 01-06-2023 HCG QUANT 8841 mIU/mL Normal [facility] Comment on above: Performed By: #### P REG #### [facility] [address] [place] [address] Dr. Darian Scott HCG RANGE SEE BELOW Normal [facility] Comment on above: Result Comment: 5-50 0.2-1 WEEK 50-500 1-2 WEEKS 100-5,000 2-3 WEEKS 500-10,000 3-4 WEEKS 1,000-50,000 4-5 WEEKS 10,000-100,000 5-6 WEEKS 15,000-200,000 6-8 WEEKS 10,000-100,000 2-3 MONTHS Performed By: #### P REG #### [facility] [address] [place] [address] Dr. Darian Scott US PREG TVon 12-31-2022 US PREG TV EXAMINATION: US PREG TV HISTORY: viability COMPARISON: 12/21/2022 FINDINGS: Hernandez intrauterine gestation Gestational sac: 1.86 cm, 6 weeks 2 days [place]-rump length: 3.3 mm, 6 weeks 0 days [...] JOI ROPER Date: 2022-12-31 15:06 Normal [facility] US PREG TVon 12-21-2022 US PREG [...] JO MONGE Date: 2022-12-21 15:07 Normal [facility] CBC AUTO DIFFon 12-14-2022 BASO # 0.0 103/ul Normal 0.0-0.1 [facility] Comment on above: Performed By: #### C BC #### [facility] [address] [place] [address] Dr. Darian Scott Basophils/100 WBC (Bld) 0.9 % Normal 0.2-2.0 [facility] Comment on above: Performed By: #### C BC #### [facility] [address] [place] [address] Dr. Darian Scott EO # 0.0 103/ul Normal 0.0-0.7 [facility] Comment on above: Performed By: #### C BC #### [facility] [address] [address] [address] Darian Scott Eosinophils/100 WBC (Bld) 0.4 % Critically low 0.9-7.[address] [facility] Comment on above: Performed By: #### C BC #### [facility] [address] [place] [address] Dr. Darian Scott Erythrocyte distribution width (RBC) [Ratio] 12.5 % Normal 11.0-15.[address] [facility] Comment on above: Performed By: #### C BC #### [facility] [address] [place] [address] Dr. Darian Scott Hematocrit (Bld) [Volume fraction] 34.8 % Critically low 36.0-48.[address] [facility] Comment on above: Performed By: #### C BC #### [facility] [address] [place] [address] Dr. Darian Scott Hemoglobin (Bld) [Mass/Vol] 11.8 g/dL Critically low 12.0-16.[address] [facility] Comment on above: Performed By: #### C BC #### [facility] [address] [place] [address] Dr. Darian Scott IG # 0.02 10e3/ul Normal 0.00-0.[address] [facility] Comment on above: Performed By: #### C BC #### [facility] [address] [place] [address] Dr. Darian Scott IG % 0.4 % Normal 0.0-0.[address] [facility] Comment on above: Performed By: #### C BC #### [facility] [address] [place] [address] Dr. Darian Scott LYMPH # 1.4 103/ul Normal 1.2-3.8 [facility] Comment on above: Performed By: #### C BC #### [facility] [address] [place] [address] Dr. Darian Scott Lymphocytes/100 WBC (Bld) 29.3 % Normal 20.5-60.0 [facility] Comment on above: Performed By: #### C BC #### [facility] [address] [place] [address] Dr. Darian Scott MANUAL DIFF REQ NO Normal [facility] Comment on above: Performed By: #### C BC #### [facility] [address] [place] [address] Dr. Darian Scott MCH (RBC) [Entitic mass] 28.9 pg Normal 26.7-34.[address] [facility] Comment on above: Performed By: #### C BC #### [facility] [address] [place] [address] Dr. Darian Scott MCHC (RBC) [Mass/Vol] 33.9 g/dL Normal 29.9-35.2 [facility] Comment on above: Performed By: #### C BC #### [facility] [address] [place] [address] Dr. Darian Scott MCV (RBC) [Entitic vol] 85.3 fL Normal 81.0-99.[address] [facility] Comment on above: Performed By: #### C BC #### [facility] [address] [place] [address] Dr. Darian Scott MONO # 0.4 103/ul Normal 0.3-0.[address] [facility] Comment on above: Performed By: #### C BC #### [facility] [address] [place] [address] Dr. Darian Scott Monocytes/100 WBC (Bld) 8.8 % Normal 1.7-12.[address] [facility] Comment on above: Performed By: #### C BC #### [facility] [address] [place] [address] Dr. Darian Scott NEUT # 2.8 103/ul Normal 1.4-6.[address] [facility] Comment on above: Performed By: #### C BC #### [facility] [address] [place] [address] Dr. Darian Scott Neutrophils/100 WBC (Bld) 60.2 % Normal 43.0-75.0 [facility] Comment on above: Performed By: #### C BC #### [facility] [address] [place] [address] Dr. Darian Scott Platelet mean volume (Bld) [Entitic vol] 10.6 fL Normal 9.5-13.5 [facility] Comment on above: Performed By: #### C BC #### [facility] [address] [place] [address] Dr. Darian Scott PLT 206 103/ul Normal 150-[address] [facility] Comment on above: Performed By: #### C BC #### [facility] [address] [place] [address] Dr. Darian Scott RBC 4.08 106/ul Critically low 4.20-5.40 [facility] Comment on above: Performed By: #### C BC #### [facility] [address] [place] [address] Dr. Darian Scott WBC 4.7 103/ul Normal 4.0-11.[address] [facility] Comment on above: Performed By: #### C BC #### [facility] [address] [place] [address] Dr. Darian Scott CULTURE URINEon 12-14-2022 CULTURE URINE Culture Observations : LIGHT GROWTH OF MIXED GENITAL ELEN. NO POTENTIAL PATHOGENS SEEN. Normal [facility] Comment on above: Performed By: #### JOYCE JOVELRO #### [facility] [address] [place] [address] Dr. Darian Scott ER URINE PROFILEon 3 Bilirubin Ql (U) Negative Normal NEGATIVE [facility] Comment on above: Performed By: #### JOYCE JOVELRO #### [facility] [address] [place] [address] Dr. Darian Scott Clarity (U) CLEAR Normal CLEAR [facility] Comment on above: Performed By: #### JOYCE JOVELRO #### [facility] [address] [place] [address] Dr. Darian Scott Color (U) LT. YELLOW Normal YELLOW [facility] Comment on above: Performed By: #### JOYCE JOVELRO #### [facility] [address] [place] [address] Dr. Darian HAYWARD A micrscopic examination will be performed if indicated. Normal [facility] Comment on above: Performed By: #### SHELLEY JOVELICRO #### [facility] [address] [place] [address] Dr. Darian Scott Glucose Ql (U) Negative Normal NEGATIVE [facility] Comment on above: Performed By: #### Ge DUFFY UMICRO #### [facility] [address] [place] [address] Dr. Darian Scott Hemoglobin Ql (U) LARGE Abnormal NEGATIVE [facility] Comment on above: Performed By: #### Ge DUFFY UMICRO #### [facility] [address] [place] [address] Dr. Darian Scott Ketones Ql (U) TRACE Abnormal NEGATIVE [facility] Comment on above: Performed By: #### Ge DUFFY UMICRO #### [facility] [address] [place] [address] Dr. Darian Scott LEUKOCYTES TRACE Abnormal NEGATIVE [facility] Comment on above: Performed By: #### Ge DUFFY UMICRO #### [facility] [address] [place] [address] Dr. Darian Scott Nitrite Ql (U) Negative Normal NEGATIVE [facility] Comment on above: Performed By: #### Ge DUFFY UMICRO #### [facility] [address] [place] [address] Dr. Darian Scott pH (U) 7.5 [pH] Normal 5-9 [facility] Comment on above: Performed By: #### Ge DUFFY UMICRO #### [facility] [address] [place] [address] Dr. Darian Scott SPEC GRAVITY 1.010 Normal 1.005-<=1.025 [facility] Comment on above: Performed By: #### Ge DUFFY UMICRO #### [facility] [address] [place] [address] Dr. Darian Scott UA PROTEIN TRACE Normal NEGATIVE/ TRACE [facility] Comment on above: Performed By: #### Ge DUFFY UMICRO #### [facility] [address] [place] [address] Dr. Darian Scott UR MICRO IND INDICATED Normal [facility] Comment on above: Performed By: #### Ge DUFFY UMICRO #### [facility] [address] [place] [address] Dr. Darian Scott Urobilinogen Qn (U) 0.2 {Marielos'U}/dL Normal 0.2 - 1. 0 [facility] Comment on above: Performed By: #### ESTER JOVEL #### [facility] [address] [address] [address] Darian Scott PREG QUANT HCGon 12-14-2022 HCG QUANT 9234 mIU/mL Normal [facility] Comment on above: Performed By: #### ESTER JOVEL #### [facility] [address] [address] [address] Darian Scott HCG RANGE SEE BELOW Normal [facility] Comment on above: Result Comment: 5-50 0.2-1 WEEK 50-500 1-2 WEEKS 100-5,000 2-3 WEEKS 500-10,000 3-4 WEEKS 1,000-50,000 4-5 WEEKS 10,000-100,000 5-6 WEEKS 15,000-200,000 6-8 WEEKS 10,000-100,000 2-3 MONTHS Performed By: #### ESTER JOVEL #### [facility] [address] [place] [address] Dr. Darian Scott PROF CHEM 8 (BAS METB)on Anion gap [Moles/Vol] 9.9 mmol/L Normal [facility] Comment on above: Performed By: #### P REG #### [facility] [address] [place] [address] Dr. Darian Scott Calcium [Mass/Vol] 9.2 mg/dL Normal 8.5-10.1 [facility] Comment on above: Performed By: #### P REG #### [facility] [address] [address] [address] Darian Scott Chloride [Moles/Vol] 103 mmol/L Normal 98-[address] [facility] Comment on above: Performed By: #### P REG #### [facility] [address] [place] [address] Dr. Darian Scott CO2 [Moles/Vol] 26.9 mmol/L Normal 21.0-32.0 [facility] Comment on above: Performed By: #### P REG #### [facility] [address] [address] [address] Darian Scott Creatinine [Mass/Vol] 0.59 mg/dL Normal 0.55-1.[address] [facility] Comment on above: Performed By: #### P REG #### [facility] [address] [address] [address] Darian Scott EGFR-AF ANGOLAN >60 Normal >=60 [facility] Comment on above: Performed By: #### P REG #### [facility] [address] [address] [address] Darian Scott EGFR-NON AF ANGOLAN >60 Normal >=[address] [facility] Comment on above: Performed By: #### P REG #### [facility] [address] [address] [address] Darian Scott Glucose [Mass/Vol] 90 mg/dL Normal 74-106 [facility] Comment on above: Performed By: #### P REG #### [facility] [address] [address] [address] Darian Scott Potassium [Moles/Vol] 3.8 mmol/L Normal 3.5-5.[address] [facility] Comment on above: Performed By: #### P REG #### [facility] [address] [address] [address] Darian Scott Sodium [Moles/Vol] 136 mmol/L Normal 136-145 [facility] Comment on above: Performed By: #### P REG #### [facility] [address] [address] [address] Darian Scott Urea nitrogen [Mass/Vol] 14.0 mg/dL Normal 7.0-18.[address] [facility] Comment on above: Performed By: #### P REG #### [facility] [address] [place] [address] Dr. Darian Scott Urea nitrogen/Creatinine [Mass ratio] 23.7 mg/mg Normal [facility] Comment on above: Performed By: #### P REG #### [facility] [address] [place] [address] Dr. Darian Scott TYPE AND SCREENon 12-14-2022 TYPE AND SCREEN Negative Normal [facility] Comment on above: Performed By: #### Ge DUFFY UMICRO #### [facility] [address] [place] [address] Dr. Darian Scott URINE MICROSCOPIC ONLYon BACTERIA MODERATE Abnormal NONE SEEN [facility] Comment on above: Performed By: #### Ge DUFFY UMICRO #### [facility] [address] [place] [address] Dr. Darian Scott Bacteria identified Cx Nom (U) INDICATED Normal [facility] Comment on above: Performed By: #### Ge DUFFY UMICRO #### [facility] [address] [place] [address] Dr. Darian Scott CAST NONE SEEN Normal NONE SEEN [facility] Comment on above: Performed By: #### Ge DUFFY UMICRO #### [facility] [address] [place] [address] Dr. Darian Scott Crystals LM Nom (Urine sed) NONE SEEN Normal NONE SEEN [facility] Comment on above: Performed By: #### Ge DUFFY UMICRO #### [facility] [address] [place] [address] Dr. Darian Scott Epithelial cells LM Ql (Urine sed) MODERATE Abnormal NONE SEEN /RARE [facility] Comment on above: Performed By: #### Ge DUFFY UMICRO #### [facility] [address] [place] [address] Dr. Darian Scott MUCOUS TRACE Abnormal NONE SEEN [facility] Comment on above: Performed By: #### Ge DUFFY UMICRO #### [facility] [address] [place] [address] Dr. Darian Scott RBC 5-10 Abnormal 0-2 [facility] Comment on above: Performed By: #### Ge DUFFY UMICRO #### [facility] [address] [place] [address] Dr. Darian Scott WBC 5-10 Abnormal NONE SEEN [facility] Comment on above: Performed By: #### ESTER JOVEL #### [facility] [address] [address] [address] Darian Scott US PREG TVon 12-14-2022 [...] by: JO MONGE Date: 2022-12-14 15:[address] [facility] ABO AND RH TYPEon 12-08-2022 ABO and Rh group Nom (Bld) ABO Rh Typing A Rh Positive Blood Bank Notes Testing done by on 12/06/22 [facility] Comment on above: Performed By: #### ESTER JOVEL #### [facility] [address] [address] [address] Darian Scott CBC AUTO DIFFon 12-07-2022 BASO # 0.1 103/ul Normal 0.0-0.[address] [facility] Comment on above: Performed By: #### ESTER JOVEL #### [facility] [address] [address] [address] Darian Scott Basophils/100 WBC (Bld) 0.7 % Normal 0.2-2.[address] [facility] Comment on above: Performed By: #### JOYCE JOVELRO #### [facility] [address] [address] [address] Darian Scott EO # 0.0 103/ul Normal 0.0-0.[address] [facility] Comment on above: Performed By: #### ESTER JOVEL #### [facility] [address] [place] [address] Dr. Darian Scott Eosinophils/100 WBC (Bld) 0.4 % Critically low 0.9-7.0 [facility] Comment on above: Performed By: #### JOYCE JOVELRO #### [facility] [address] [place] [address] Dr. Darian Scott Erythrocyte distribution width (RBC) [Ratio] 12.8 % Normal 11.0-15.0 [facility] Comment on above: Performed By: #### ESTER JOVEL #### [facility] [address] [place] [address] Dr. Darian Scott Hematocrit (Bld) [Volume fraction] 33.7 % Critically low 36.0-48.0 [facility] Comment on above: Performed By: #### JOYCE JOVELRO #### [facility] [address] [place] [address] Dr. Darian Scott Hemoglobin (Bld) [Mass/Vol] 11.5 g/dL Critically low 12.0-16.0 [facility] Comment on above: Performed By: #### JOYCE JOVELRO #### [facility] [address] [place] [address] Dr. Darian Scott IG # 0.01 10e3/ul Normal 0.00-0.03 [facility] Comment on above: Performed By: #### JOYCE JOVELRO #### [facility] [address] [place] [address] Dr. Darian Scott IG % 0.1 % Normal 0.0-0.5 [facility] Comment on above: Performed By: #### JOYCE JOVELRO #### [facility] [address] [place] [address] Dr. Darian Scott LYMPH # 2.6 103/ul Normal 1.2-3.8 [facility] Comment on above: Performed By: #### JOYCE JOVELRO #### [facility] [address] [place] [address] Dr. Darian Scott Lymphocytes/100 WBC (Bld) 34.8 % Normal 20.5-60.[address] [facility] Comment on above: Performed By: #### Ge DUFFY UMICRO #### [facility] [address] [place] [address] Dr. Darian Scott MANUAL DIFF REQ NO Normal [facility] Comment on above: Performed By: #### Ge DUFFY UMICRO #### [facility] [address] [place] [address] Dr. Darian Scott MCH (RBC) [Entitic mass] 29.8 pg Normal 26.7-34.[address] [facility] Comment on above: Performed By: #### Ge DUFFY UMICRO #### [facility] [address] [place] [address] Dr. Darian Scott MCHC (RBC) [Mass/Vol] 34.1 g/dL Normal 29.9-35.2 [facility] Comment on above: Performed By: #### Ge DUFFY ICRO #### [facility] [address] [place] [address] Dr. Darian Scott MCV (RBC) [Entitic vol] 87.3 fL Normal 81.0-99.[address] [facility] Comment on above: Performed By: #### Ge DUFFY UMICRO #### [facility] [address] [place] [address] Dr. Darian Scott MONO # 0.5 103/ul Normal 0.3-0.[address] [facility] Comment on above: Performed By: #### Ge DUFFY ICRO #### [facility] [address] [place] [address] Dr. Darian Scott Monocytes/100 WBC (Bld) 6.9 % Normal 1.7-12.[address] [facility] Comment on above: Performed By: #### Ge DUFFY, UMICRO #### [facility] [address] [place] [address] Dr. Darian Scott NEUT # 4.3 103/ul Normal 1.4-6.[address] [facility] Comment on above: Performed By: #### JOYCE JOVELRO #### [facility] [address] [place] [address] Dr. Darian Scott Neutrophils/100 WBC (Bld) 57.1 % Normal 43.0-75.[address] [facility] Comment on above: Performed By: #### JOYCE JOVELRO #### [facility] [address] [place] [address] Dr. Darian Scott Platelet mean volume (Bld) [Entitic vol] 10.4 fL Normal 9.5-13.[address] [facility] Comment on above: Performed By: #### JOYCE JOVELRO #### [facility] [address] [place] [address] Dr. Darian Scott PLT 207 103/ul Normal 150-450 [facility] Comment on above: Performed By: #### JOYCE JOVELRO #### [facility] [address] [place] [address] Dr. Darian Scott RBC 3.86 106/ul Critically low 4.20-5.40 [facility] Comment on above: Performed By: #### JOYCE JOVELRO #### [facility] [address] [place] [address] Dr. Darian Scott WBC 7.5 103/ul Normal 4.0-11.0 [facility] Comment on above: Performed By: #### JOYCE JOVELRO #### [facility] [address] [place] [address] Dr. Darian Scott ER URINE PROFILEon 3 Bilirubin Ql (U) Negative Normal NEGATIVE [facility] Comment on above: Performed By: #### P REG #### [facility] [address] [place] [address] Dr. Darian Scott Clarity (U) CLEAR Normal CLEAR [facility] Comment on above: Performed By: #### P REG #### [facility] [address] [place] [address] Dr. Darian Scott Color (U) LT. YELLOW Normal YELLOW [facility] Comment on above: Performed By: #### P REG #### [facility] [address] [address] [address] Darian HAYWARD A micrscopic examination will be performed if indicated. Normal [facility] Comment on above: Performed By: #### P REG #### [facility] [address] [address] [address] Darian Scott Glucose Ql (U) Negative Normal NEGATIVE [facility] Comment on above: Performed By: #### P REG #### [facility] [address] [address] [address] Darian Scott Hemoglobin Ql (U) Negative Normal NEGATIVE [facility] Comment on above: Performed By: #### P REG #### [facility] [address] [place] [address] Dr. Darian Scott Ketones Ql (U) Negative Normal NEGATIVE [facility] Comment on above: Performed By: #### P REG #### [facility] [address] [address] [address] Darian Scott LEUKOCYTES Negative Normal NEGATIVE [facility] Comment on above: Performed By: #### P REG #### [facility] [address] [address] [address] Darian Scott Nitrite Ql (U) Negative Normal NEGATIVE [facility] Comment on above: Performed By: #### P REG #### [facility] [address] [address] [address] Darian Scott pH (U) 5.5 [pH] Normal 5-[address] [facility] Comment on above: Performed By: #### P REG #### [facility] [address] [address] [address] Darian Scott SPEC GRAVITY <=1.005 Abnormal 1.005-<=1.025 [facility] Comment on above: Performed By: #### P REG #### [facility] [address] [place] [address] Dr. Darian Scott UA PROTEIN Negative Normal NEGATIVE/ TRACE [facility] Comment on above: Performed By: #### P REG #### [facility] [address] [address] [address] Darian Scott UR MICRO IND NOT INDICATED Normal [facility] Comment on above: Performed By: #### P REG #### [facility] [address] [address] [address] Darian Scott Urobilinogen Qn (U) 0.2 {Marielos'U}/dL Normal 0.2 - 1. [address] [facility] Comment on above: Performed By: #### P REG #### [facility] [address] [place] [address] Dr. Darian Scott PROF CHEM 8 (BAS METB)on Anion gap [Moles/Vol] 15.0 mmol/L Normal [facility] Comment on above: Performed By: #### B MP #### [facility] [address] [place] [address] Dr. Darian Scott Calcium [Mass/Vol] 8.4 mg/dL Critically low 8.5-10.1 [facility] Comment on above: Performed By: #### B MP #### [facility] [address] [place] [address] Dr. Darian Scott Chloride [Moles/Vol] 106 mmol/L Normal 98-[address] [facility] Comment on above: Performed By: #### B MP #### [facility] [address] [place] [address] Dr. Darian Scott CO2 [Moles/Vol] 22.6 mmol/L Normal 21.0-32.0 [facility] Comment on above: Performed By: #### B MP #### [facility] [address] [place] [address] Dr. Darian Scott Creatinine [Mass/Vol] 0.68 mg/dL Normal 0.55-1.[address] [facility] Comment on above: Performed By: #### B MP #### [facility] [address] [place] [address] Dr. Darian Scott EGFR-AF ANGOLAN >60 Normal >=60 [facility] Comment on above: Performed By: #### B MP #### [facility] [address] [address] [address] Darian Scott EGFR-NON AF ANGOLAN >60 Normal >=60 [facility] Comment on above: Performed By: #### B MP #### [facility] [address] [address] [address] Darian Scott Glucose [Mass/Vol] 88 mg/dL Normal 74-106 [facility] Comment on above: Performed By: #### B MP #### [facility] [address] [address] [address] Darian Scott Potassium [Moles/Vol] 3.6 mmol/L Normal 3.5-5.[address] [facility] Comment on above: Performed By: #### B MP #### [facility] [address] [place] [address] Dr. Darian Scott Sodium [Moles/Vol] 140 mmol/L Normal 136-145 [facility] Comment on above: Performed By: #### B MP #### [facility] [address] [place] [address] Dr. Darian Scott Urea nitrogen [Mass/Vol] 15.0 mg/dL Normal 7.0-18.[address] [facility] Comment on above: Performed By: #### B MP #### [facility] [address] [place] [address] Dr. Darian Scott Urea nitrogen/Creatinine [Mass ratio] 22.1 mg/mg Normal [facility] Comment on above: Performed By: #### B MP #### [facility] [address] [place] [address] Dr. Darian Scott PAP ACOG PANEL 2: 22 to 30on 07-05-2022 . . Normal [facility] Comment on above: Performed By: #### [id number] #### [facility] [address] [place] [address] Dr. Darian Scott Age Gdln ACOG Testing 21-[address] [facility] Comment on above: Performed By: #### [id number] #### [facility] [address] [place] [address] Dr. Darian Scott DIAGNOSIS: Comment Normal [facility] Comment on above: Result Comment: NEGA TIVE FOR INTRAEPITHELIAL LESION OR MALIGNANCY. Performed By: #### [id number] #### [facility] [address] [place] [address] Dr. Darian Scott Methodology: Comment Normal [facility] Comment on above: Result Comment: This liquid based ThinPrep(R) pap test was screened with the use of an image guided system. Performed By: #### [id number] #### [facility] [address] [place] [address] Dr. Darian Scott Note: Comment Normal [facility] Comment on above: Result Comment: The Pap smear is a screening test designed to aid in the detection of premalignant and malignant conditions of the uterine cervix. It is not a diagnostic procedure and should not be used as the sole means of detecting cervical cancer. Both false-positive and false-negative reports do occur. . Performed By: #### [id number] #### [facility] [address] [place] [address] Dr. Darian Scott Performed by: Comment Normal [facility] Comment on above: Result Comment: Hunter [employer]ay Therapist Speech (ASCP) Performed By: #### [id number] #### [facility] [address] [place] [address] Dr. Darian Scott Reflex Criteria: Comment Normal [facility] Comment on above: Result Comment: The HPV DNA reflex criteria were not met with this specimen result therefore, no HPV testing was performed. . Performed By: #### [id number] #### [facility] [address] [place] [address] Dr. Darian Scott Specimen adequacy: Comment Normal [facility] Comment on above: Result Comment: Sati sfactory for evaluation. Endocervical and/or squamous metaplastic cells (endocervical component) are present. Performed By: #### [id number] #### [facility] [address] [place] [address] Dr. Darian Scott ER URINE PROFILEon 2 Bilirubin Ql (U) Negative Normal NEGATIVE [facility] Comment on above: Performed By: #### P REG #### [facility] [address] [place] [address] Dr. Darian Scott Clarity (U) CLEAR Normal CLEAR [facility] Comment on above: Performed By: #### P REG #### [facility] [address] [place] [address] Dr. Darian Scott Color (U) YELLOW Normal YELLOW [facility] Comment on above: Performed By: #### P REG #### [facility] [address] [place] [address] Dr. Darian HAYWARD A micrscopic examination will be performed if indicated. Normal [facility] Comment on above: Performed By: #### P REG #### [facility] [address] [place] [address] Dr. Darian Scott Glucose Ql (U) Negative Normal NEGATIVE [facility] Comment on above: Performed By: #### P REG #### [facility] [address] [place] [address] Dr. Darian Scott Hemoglobin Ql (U) MODERATE Abnormal NEGATIVE [facility] Comment on above: Performed By: #### P REG #### [facility] [address] [place] [address] Dr. Darian Scott Ketones Ql (U) Negative Normal NEGATIVE [facility] Comment on above: Performed By: #### P REG #### [facility] [address] [place] [address] Dr. Darian Scott LEUKOCYTES Negative Normal NEGATIVE [facility] Comment on above: Performed By: #### P REG #### [facility] [address] [place] [address] Dr. Darian Scott Nitrite Ql (U) Negative Normal NEGATIVE [facility] Comment on above: Performed By: #### P REG #### [facility] [address] [place] [address] Dr. Darian Scott pH (U) 6.5 [pH] Normal 5-[address] [facility] Comment on above: Performed By: #### P REG #### [facility] [address] [place] [address] Dr. Darian Scott SPEC GRAVITY 1.020 Normal 1.005-<=1.025 [facility] Comment on above: Performed By: #### P REG #### [facility] [address] [place] [address] Dr. Darian Scott UA PROTEIN Negative Normal NEGATIVE/ TRACE [facility] Comment on above: Performed By: #### P REG #### [facility] [address] [place] [address] Dr. Darian Scott UR MICRO IND INDICATED Normal [facility] Comment on above: Performed By: #### P REG #### [facility] [address] [place] [address] Dr. Darian Scott Urobilinogen Qn (U) 1.0 {Marielos'U}/dL Normal 0.2 - 1. [address] [facility] Comment on above: Performed By: #### P REG #### [facility] [address] [place] [address] Dr. Darian Scott URINE MICROSCOPIC ONLYon BACTERIA TRACE Abnormal NONE SEEN [facility] Comment on above: Performed By: #### P REG #### [facility] [address] [place] [address] Dr. Darian Scott Bacteria identified Cx Nom (U) NOT INDICATED Normal [facility] [facility] Comment on above: Performed By: #### P REG #### [facility] [address] [place] [address] Dr. Darian Scott CA OX CRYSTALS FEW Normal [facility] Comment on above: Performed By: #### P REG #### [facility] [address] [place] [address] Dr. Darian Scott CAST NONE SEEN Normal NONE SEEN [facility] Comment on above: Performed By: #### P REG #### [facility] [address] [place] [address] Dr. Darian Scott Crystals LM Nom (Urine sed) SEEN Abnormal NONE SEEN [facility] Comment on above: Performed By: #### P REG #### [facility] [address] [place] [address] Dr. Darian Scott Epithelial cells LM Ql (Urine sed) RARE Normal NONE SEEN /RARE [facility] Comment on above: Performed By: #### P REG #### [facility] [address] [address] [address] Darian Scott MUCOUS NONE SEEN Normal NONE SEEN [facility] Comment on above: Performed By: #### P REG #### [facility] [address] [address] [address] Darian Scott RBC 2-5 Abnormal 0-2 [facility] Comment on above: Performed By: #### P REG #### [facility] [address] [address] [address] Darian Scott WBC NONE SEEN Normal NONE SEEN [facility] Comment on above: Performed By: #### P REG #### [facility] [address] [address] [address] Darian Scott CARDIAC JESSICA ADMITon 022 CK [Catalytic activity/Vol] 445 U/L Critically high 26-[address] [facility] Comment on above: Performed By: #### L IPA, CMADM, CMP, TSH #### [facility] [address] [address] [address] Darian Scott CK.MB [Mass/Vol] 1.81 ng/mL Normal <=3.60 [facility] Comment on above: Performed By: #### L IPA, CMADM, CMP, TSH #### [facility] [address] [place] [address] Dr. Darian Scott HSTROP 6.1 pg/mL Normal 4.0-51.3 [facility] Comment on above: Result Comment: CUT- OFF POINTS HAVE BEEN ESTABLISHED BASED ON THE FOURTH UNIVERSAL DEFINITIONS OF MYOCARDIAL INFARCTION. THE UPPER REFERENCE LIMIT (URL) OF TROPONIN, DEFINED THE 99TH PERCENTILE OF cTnI DISTRIBUTION IN A REFERENCE POPULATION, HAS BEEN CONFIRMED THE DECISION THRESHOLD FOR [place] DIAGNOSIS. Performed By: #### L IPA, CMADM, CMP, TSH #### [facility] [address] [address] [address] Darian Scott TRESSA 94 ng/mL Critically high 9-82 [facility] Comment on above: Performed By: #### L IPA, CMADM, CMP, TSH #### [facility] [address] [place] [address] Dr. Darian Scott CBC AUTO DIFFon 05-08-2022 BASO # 0.1 103/ul Normal 0.0-0.[address] [facility] Comment on above: Performed By: #### JOYCE JOVELRO #### [facility] [address] [place] [address] Dr. Darian Scott Basophils/100 WBC (Bld) 0.8 % Normal 0.2-2.0 [facility] Comment on above: Performed By: #### JOYCE JOVELRO #### [facility] [address] [place] [address] Dr. Darian Scott EO # 0.0 103/ul Normal 0.0-0.[address] [facility] Comment on above: Performed By: #### JOYCE JOVELRO #### [facility] [address] [place] [address] Dr. Darian Scott Eosinophils/100 WBC (Bld) 0.5 % Critically low 0.9-7.[address] [facility] Comment on above: Performed By: #### JOYCE JOVELRO #### [facility] [address] [place] [address] Dr. Darian Scott Erythrocyte distribution width (RBC) [Ratio] 12.5 % Normal 11.0-15.[address] [facility] Comment on above: Performed By: #### JOYCE JOVELRO #### [facility] [address] [place] [address] Dr. Darian Scott Hematocrit (Bld) [Volume fraction] 34.4 % Critically low 36.0-48.[address] [facility] Comment on above: Performed By: #### JOYCE JOVELRO #### [facility] [address] [place] [address] Dr. Darian Scott Hemoglobin (Bld) [Mass/Vol] 11.9 g/dL Critically low 12.0-16.[address] [facility] Comment on above: Performed By: #### JOYCE JOVELRO #### [facility] [address] [place] [address] Dr. Darian Scott IG # 0.04 10e3/ul Critically high 0.00-0.03 [facility] Comment on above: Performed By: #### JOYCE JOVELRO #### [facility] [address] [place] [address] Dr. Darian Scott IG % 0.5 % Normal 0.0-0.[address] [facility] Comment on above: Performed By: #### JOYCE JOVELRO #### [facility] [address] [place] [address] Dr. Darian Scott LYMPH # 3.2 103/ul Normal 1.2-3.[address] [facility] Comment on above: Performed By: #### JOYCE JOVELRO #### [facility] [address] [place] [address] Dr. Darian Scott Lymphocytes/100 WBC (Bld) 38.7 % Normal 20.5-60.[address] [facility] Comment on above: Performed By: #### SHELLEY JOVELICRO #### [facility] [address] [place] [address] Dr. Darian Scott MANUAL DIFF REQ NO Normal [facility] Comment on above: Performed By: #### JOYCE JOVELRO #### [facility] [address] [place] [address] Dr. Darian Scott MCH (RBC) [Entitic mass] 29.5 pg Normal 26.7-34.0 [facility] Comment on above: Performed By: #### SHELLEY JOVELICRO #### [facility] [address] [place] [address] Dr. Darian Scott MCHC (RBC) [Mass/Vol] 34.6 g/dL Normal 29.9-35.2 [facility] Comment on above: Performed By: #### Ge DUFFY UMICRO #### [facility] [address] [place] [address] Dr. Darian Scott MCV (RBC) [Entitic vol] 85.4 fL Normal 81.0-99.0 [facility] Comment on above: Performed By: #### JOYCE JOVELRO #### [facility] [address] [place] [address] Dr. Darian Scott MONO # 0.6 103/ul Normal 0.3-0.[address] [facility] Comment on above: Performed By: #### JOYCE JOVELRO #### [facility] [address] [place] [address] Dr. Darian Scott Monocytes/100 WBC (Bld) 7.0 % Normal 1.7-12.[address] [facility] Comment on above: Performed By: #### Ge DUFFY UMICRO #### [facility] [address] [place] [address] Dr. Darian Scott NEUT # 4.3 103/ul Normal 1.4-6.[address] [facility] Comment on above: Performed By: #### SHELLEY JOVELICRO #### [facility] [address] [place] [address] Dr. Darian Scott Neutrophils/100 WBC (Bld) 52.5 % Normal 43.0-75.0 [facility] Comment on above: Performed By: #### SHELLEY JOVELICRO #### [facility] [address] [place] [address] Dr. Darian Scott Platelet mean volume (Bld) [Entitic vol] 9.9 fL Normal 9.5-13.5 [facility] Comment on above: Performed By: #### SHELLEY JOVELICRO #### [facility] [address] [place] [address] Dr. Darian Scott PLT 257 103/ul Normal 150-450 [facility] Comment on above: Performed By: #### SHELLEY JOVELICRO #### [facility] [address] [place] [address] Dr. Darian Scott RBC 4.03 106/ul Critically low 4.20-5.40 [facility] Comment on above: Performed By: #### SHELLEY JOVELICRO #### [facility] [address] [place] [address] Dr. Darian Scott WBC 8.2 103/ul Normal 4.0-11.[address] [facility] Comment on above: Performed By: #### E JOYCE DUFFYRO #### [facility] [address] [address] [address] Darian Scott LIPASEon 05-08-2022 Lipase [Catalytic activity/Vol] 65.0 U/L Critically low 73.0-393.[address] [facility] Comment on above: Performed By: #### L IPA, CMADM, CMP, TSH #### [facility] [address] [address] [address] Darian Scott PREG HCG QUALon 05-08-2022 , QUAL Negative Normal NEGATIVE [facility] Comment on above: Performed By: #### P REG #### [facility] [address] [place] [address] Dr. Darian Scott PROF 14(COMP METB)on 022 Albumin [Mass/Vol] 3.9 g/dL Normal 3.4-5.0 [facility] Comment on above: Performed By: #### L IPA, CMADM, CMP, TSH #### [facility] [address] [address] [address] Darian Scott Albumin/Globulin [Mass ratio] 1.1 {ratio} Normal [facility] Comment on above: Performed By: #### L IPA, CMADM, CMP, TSH #### [facility] [address] [address] [address] Darian Scott ALP [Catalytic activity/Vol] 65 U/L Normal 46-116 [facility] Comment on above: Performed By: #### L IPA, CMADM, CMP, TSH #### [facility] [address] [address] [address] Darian Scott ALT [Catalytic activity/Vol] 23 U/L Normal 14-[address] [facility] Comment on above: Performed By: #### L IPA, CMADM, CMP, TSH #### [facility] [address] [address] [address] Darian Scott Anion gap [Moles/Vol] 12.2 mmol/L Normal [facility] Comment on above: Performed By: #### L IPA, CMADM, CMP, TSH #### [facility] [address] [address] [address] Darian Scott AST [Catalytic activity/Vol] 18 U/L Normal 15-[address] [facility] Comment on above: Performed By: #### L IPA, CMADM, CMP, TSH #### [facility] [address] [address] [address] Darian Scott Bilirubin [Mass/Vol] 0.5 mg/dL Normal 0.2-1.[address] [facility] Comment on above: Performed By: #### L IPA, CMADM, CMP, TSH #### [facility] [address] [address] [address] Darian Scott Calcium [Mass/Vol] 9.2 mg/dL Normal 8.5-10.1 [facility] Comment on above: Performed By: #### L IPA, CMADM, CMP, TSH #### [facility] [address] [address] [address] Darian Scott Chloride [Moles/Vol] 104 mmol/L Normal 98-107 [facility] Comment on above: Performed By: #### L IPA, CMADM, CMP, TSH #### [facility] [address] [address] [address] Darian Scott CO2 [Moles/Vol] 27.9 mmol/L Normal 21.0-32.0 [facility] Comment on above: Performed By: #### L IPA, CMADM, CMP, TSH #### [facility] [address] [place] [address] Dr. Darian Scott Creatinine [Mass/Vol] 0.87 mg/dL Normal 0.55-1.[address] [facility] Comment on above: Performed By: #### L IPA, CMADM, CMP, TSH #### [facility] [address] [place] [address] Dr. Darian Scott EGFR-AF ANGOLAN >60 Normal >=60 [facility] Comment on above: Performed By: #### L IPA, CMADM, CMP, TSH #### [facility] [address] [address] [address] Darian Scott EGFR-NON AF ANGOLAN >60 Normal >=60 [facility] Comment on above: Performed By: #### L IPA, CMADM, CMP, TSH #### [facility] [address] [address] [address] Darian Scott Globulin (S) [Mass/Vol] 3.6 g/dL Normal [facility] Comment on above: Performed By: #### L IPA, CMADM, CMP, TSH #### [facility] [address] [address] [address] Darian Scott Glucose [Mass/Vol] 89 mg/dL Normal 74-106 [facility] Comment on above: Performed By: #### L IPA, CMADM, CMP, TSH #### [facility] [address] [address] [address] Darian Scott Potassium [Moles/Vol] 3.1 mmol/L Critically low 3.5-5.1 [facility] Comment on above: Performed By: #### L IPA, CMADM, CMP, TSH #### [facility] [address] [address] [address] Darian Scott Protein [Mass/Vol] 7.5 g/dL Normal 6.4-8.2 [facility] Comment on above: Performed By: #### L IPA, CMADM, CMP, TSH #### [facility] [address] [address] [address] Darian Scott Sodium [Moles/Vol] 141 mmol/L Normal 136-145 [facility] Comment on above: Performed By: #### L IPA, CMADM, CMP, TSH #### [facility] [address] [address] [address] Darian Scott Urea nitrogen [Mass/Vol] 11.0 mg/dL Normal 7.0-18.[address] [facility] Comment on above: Performed By: #### L IPA, CMADM, CMP, TSH #### [facility] [address] [address] [address] Darian Scott Urea nitrogen/Creatinine [Mass ratio] 12.6 mg/mg Normal [facility] Comment on above: Performed By: #### L IPA, CMADM, CMP, TSH #### [facility] [id number] Darian Scott TSHon 05-08-2022 TSH 2.377 uIU/mL Normal 0.358-3.740 [facility] Comment on above: Performed By: #### L IPA, CMADM, CMP, TSH #### [facility] [id number] Darian Scott SARS-CoV-2 (COVID-19) RNA NA A+probe Ql (Resp)on 05-02-2022 SARS-CoV-2 (COVID-19) RNA RYAN+probe Ql (Unsp spec) Negative [facility] Other Vital Signs Date Time Vital Sign Value Performing Clinician Facility 01-01-2025 14:15-0400 Body mass index (BMI) [Ratio] 25.06 kg/m2 [employer] Work Phone: [facility] 01-01-2025 14:15-0400 Body weight 62.14 kg [employer] Work Phone: [facility] 01-01-2025 14:15-0400 Diastolic blood pressure 68 mm[Hg] Tin Daryl [employer] Work Phone: [facility] 01-01-2025 14:15-0400 Systolic blood pressure 120 mm[Hg] Tin Daryl [employer] Work Phone: [facility] 10-18-2024 15:30-0500 Body height 157.5 cm Bety Giles [employer] DIV[employer] MANAGER[employer]GALLERY OR MUSEUM ATTENDANT Work Phone: [facility] [employer] [facility] 10-18-2024 15:30-0500 Body mass index (BMI) [Ratio] 25.09 kg/m2 Bety Giles [employer] DIVISION MANAGER-GALLERY OR MUSEUM ATTENDANT Work Phone: [facility] 10-18-2024 15:30-0500 Body temperature 98.29 [degF] Bety Cote [employer] DIVISION MANAGER-GALLERY OR MUSEUM ATTENDANT Work Phone: [facility] 10-18-2024 15:30-0500 Body weight 62.23 kg Bety Cote [employer]EL DIVISION MANAGER-GALLERY OR MUSEUM ATTENDANT Work Phone: [facility] [employer] [facility] 10-18-2024 15:30-0500 Diastolic blood pressure 62 mm[Hg] Bety Giles [employer]EL DIVISION MANAGER-GALLERY OR MUSEUM ATTENDANT Work Phone: [facility] [employer] [facility] 10-18-2024 15:30-0500 Heart rate 61 /min Betyjosé miguel Cote BI[employer]EL DIVISION MANAGER-GALLERY OR MUSEUM ATTENDANT Work Phone: [facility] [employer] [facility] 10-18-2024 15:30-0500 Respiratory rate 18 /min Betyjosé miguel Cote [employer]EL DIVISION MANAGER-GALLERY OR MUSEUM ATTENDANT Work Phone: [facility] 10-18-2024 15:30-0500 SaO2% (BldA) [Mass fraction] 99 % Betyjosé miguel Cote [employer]EL DIVISION MANAGER-GALLERY OR MUSEUM ATTENDANT Work Phone: [facility] [employer] [facility] 10-18-2024 15:30-0500 Systolic blood pressure 90 mm[Hg] Betyjosé miguel Cote [employer]EL DIVISION MANAGER-GALLERY OR MUSEUM ATTENDANT Work Phone: [facility] [employer] [facility] 08-23-2024 16:12-0500 Body height 157.5 cm Bety Cote [employer]EL DIVISION MANAGER-GALLERY OR MUSEUM ATTENDANT Work Phone: [facility] [employer] [facility] 08-23-2024 16:12-0500 Body mass index (BMI) [Ratio] 26.85 kg/m2 Betyjosé miguel Cote [employer] DIVISION MANAGER-GALLERY OR MUSEUM ATTENDANT Work Phone: [facility] 08-23-2024 16:12-0500 Body temperature 98.29 [degF] Betyjosé miguel Cote BIOD[employer]EL DIVISION MANAGER-GALLERY OR MUSEUM ATTENDANT Work Phone: [facility] [employer] [facility] 08-23-2024 16:12-0500 Body weight 66.59 kg Betyjosé miguel Cote BI[employer]EL DIVISION MANAGER-GALLERY OR MUSEUM ATTENDANT Work Phone: [facility] [employer] [facility] 08-23-2024 16:12-0500 Diastolic blood pressure 58 mm[Hg] Betyjosé miguel Cote BIOD[employer]EL DIVISION MANAGER-GALLERY OR MUSEUM ATTENDANT Work Phone: [employer] 08-23-2024 16:12-0500 Heart rate 66 /min Bety Cote BIOD[employer]EL DIVISION MANAGER-GALLERY OR MUSEUM ATTENDANT Work Phone: [employer] 08-23-2024 16:12-0500 Respiratory rate 18 /min Bety Cote [employer]EL DIVISION MANAGER-GALLERY OR MUSEUM ATTENDANT Work Phone: [employer] 08-23-2024 16:12-0500 SaO2% (BldA) [Mass fraction] 98 % Bety Cote [employer]OD[employer]EL DIVISION MANAGER-GALLERY OR MUSEUM ATTENDANT Work Phone: [employer] 08-23-2024 16:12-0500 Systolic blood pressure 100 mm[Hg] Bety Cote BIOD[employer]EL DIVISION MANAGER-GALLERY OR MUSEUM ATTENDANT Work Phone: [employer] 05-02-2022 13:55-0400 Body height 157.48 cm Sandy Herring Other [facility] Other 05-02-2022 13:55-0400 Body mass index (BMI) [Ratio] 29.26 kg/m2 Sandy Herring Other [facility] Other 05-02-2022 13:55-0400 Body temperature 98.7 [degF] Sandy Herring Other [facility] Other 05-02-2022 13:55-0400 Body weight 72.58 kg Sandy Herring Other [facility] Other 05-02-2022 13:55-0400 SaO2% (BldA) [Mass fraction] 98 % Sandy Herring Other [facility] Other Encounters Encounter Date Encounter Type Care Provider Facility Start: 01-08-2025 End: 01-08-2025 ambulatory JESSICA CANTRELL Not Available Start: 01-03-2025 End: 01-07-2025 Refill Bety Cote [employer] DIV[employer] MANAGER-GALLERY OR MUSEUM ATTENDANT [facility] Comment on above: Severe episode of re current major depressive disorder, without psychotic features ([facility]) Start: 01-01-2025 End: 01-01-2025 [employer]amboo flowsheet Tin Daryl DO Work Phone: [facility] Start: 01-01-2025 End: 01-01-2025 Bamboo flowsheet Tin Daryl DO Work Phone: [facility] Start: 01-01-2025 End: 01-01-2025 ambulatory TIN DARYL Not Available Start: 01-01-2025 End: 01-01-2025 Office outpatient visit 15 minutes Tin Daryl DO Work Phone: [facility] Comment on above: Menorrhagia with irr egular cycle; Request for sterilization; Menorrhagia with regular cycle Start: 10-18-2024 End: 10-18-2024 Office outpatient visit 15 minutes [facility] BI[employer] DIVISION MANAGER-GALLERY OR MUSEUM ATTENDANT Work Phone: [facility] Comment on above: Attention deficit hy peractivity disorder (ADHD), combined type (Primary Dx); Generalized anxiety disorder; Severe episode of recurrent major depressive disorder, without psychotic features ([facility]) Start: 10-18-2024 End: 10-18-2024 ambulatory [facility] Start: 09-18-2024 End: 09-18-2024 ambulatory JOSE AREVALO Not Available Start: 09-18-2024 End: 09-18-2024 Bamboo flowsheet Jose Arevalo [employer]IC TEACHER [facility] Start: 09-18-2024 End: 09-18-2024 Bamboo flowsheet Jose Arevalo MUSIC TEACHER [facility] Start: 09-11-2024 End: 09-11-2024 Bamboo flowsheet Jose Arevalo MUSIC TEACHER [facility] Start: 09-11-2024 End: 09-11-2024 Bamboo flowsheet Jose Arevalo MUSIC TEACHER [facility] Start: 09-11-2024 End: 09-11-2024 ambulatory JOSE AREVALO Not Available Start: 08-23-2024 End: 08-23-2024 ambulatory [facility] Start: 08-23-2024 Encounter for genera l adult medical examination without abnormal findings [facility] Start: 08-23-2024 End: 08-23-2024 Patient encounter status Bety Cote BIOD[employer]EL DIVISION MANAGER-GALLERY OR MUSEUM ATTENDANT Work Phone: [facility] Work Phone: Start: 08-23-2024 End: 08-23-2024 Periodic preventive med est patient 18-39 yrs Bety Cote BIODIESEL DIVISION MANAGER-GALLERY OR MUSEUM ATTENDANT Work Phone: [facility] Comment on above: Wellness examination (Primary Dx); Generalized anxiety disorder; Dysthymic disorder; Influenza vaccination administered at current visit; Iron deficiency anemia, unspecified iron deficiency anemia type; Overweight (BMI 25.0-29.9) Start: 08-23-2024 End: 08-23-2024 ambulatory [facility] Start: 08-23-2024 Encounter for genera l adult medical examination without abnormal findings [facility] Start: 08-07-2024 End: 08-07-2024 Bamboo flowsheet Jose Arevalo MUSIC TEACHER [facility] Start: 08-07-2024 End: 08-07-2024 Bamboo flowsheet Jose Arevalo MUSIC TEACHER [facility] Start: 08-07-2024 End: 08-07-2024 ambulatory JOSE AREVALO Not Available Start: 07-24-2024 End: 07-24-2024 Bamboo flowsheet Jose Arevalo MUSIC TEACHER [facility] Start: 07-24-2024 End: 07-24-2024 Bamboo flowsheet Jose Arevalo MUSIC TEACHER [facility] Start: 07-24-2024 End: 07-24-2024 ambulatory JOSE AREVALO Not Available Start: 07-18-2024 End: 07-19-2024 Refill Bety Cote [employer]EL DIVISION MANAGER-GALLERY OR MUSEUM ATTENDANT Work Phone: [facility] Comment on above: Generalized anxiety disorder; Dysthymic disorder Start: 07-10-2024 End: 07-10-2024 Bamboo flowsheet Jose Arevalo MUSIC TEACHER [facility] Start: 07-10-2024 End: 07-10-2024 Bamboo flowsheet Jose Arevalo MUSIC TEACHER [facility] Start: 07-10-2024 End: 07-10-2024 ambulatory JOSE AREVALO Not Available Start: 07-03-2024 End: 07-03-2024 Bamboo flowsheet Jose Arevalo MUSIC TEACHER [facility] Start: 07-03-2024 End: 07-03-2024 Bamboo flowsheet Jose Arevalo MUSIC TEACHER [facility] Start: 07-03-2024 End: 07-03-2024 ambulatory JOSE AREVALO Not Available Start: 06-26-2024 End: 06-26-2024 Bamboo flowsheet Jose Arevalo MUSIC TEACHER [facility] Start: 06-26-2024 End: 06-26-2024 Bamboo flowsheet Jose Arevalo MUSIC TEACHER [facility] Start: 06-26-2024 End: 07-03-2024 Telephone encounter Bety Cote BIOD[employer]EL DIVISION MANAGER-GALLERY OR MUSEUM ATTENDANT Work Phone: [facility] Start: 06-26-2024 End: 06-26-2024 ambulatory JOSE AREVALO Not Available Start: 06-23-2024 End: 06-25-2024 Refill Bety Cote BI[employer]EL DIVISION MANAGER-GALLERY OR MUSEUM ATTENDANT Work Phone: [facility] Comment on above: Generalized anxiety disorder; Dysthymic disorder Start: 06-19-2024 End: 06-19-2024 Bamboo flowsheet Jose Arevalo MUSIC TEACHER [facility] Start: 06-19-2024 End: 06-19-2024 Bamboo flowsheet Jose Arevalo MUSIC TEACHER [facility] Start: 06-19-2024 End: 06-19-2024 ambulatory JOSE AREVALO Not Available Start: 06-15-2024 End: 06-15-2024 Orders Only Bety Cote [employer]EL DIVISION MANAGER-GALLERY OR MUSEUM ATTENDANT Work Phone: [facility] Comment on above: Carpal tunnel syndro me of left wrist (Primary Dx) Start: 06-13-2024 End: 06-15-2024 Telephone encounter Bety Cote BIOD[employer]EL DIVISION MANAGER-GALLERY OR MUSEUM ATTENDANT Work Phone: [facility] Start: 06-12-2024 End: 06-12-2024 Bamboo flowsheet Jose Arevalo MUSIC TEACHER [facility] Start: 06-12-2024 End: 06-12-2024 Bamboo flowsheet Jose Arevalo MUSIC TEACHER [facility] Start: 06-12-2024 End: 06-12-2024 ambulatory JOSE AREVALO Not Available Start: 06-05-2024 End: 06-05-2024 Bamboo flowsheet Jose Arevalo MUSIC TEACHER [facility] Start: 06-05-2024 End: 06-05-2024 Bamboo flowsheet Jose Arevalo MUSIC TEACHER [facility] Start: 06-05-2024 End: 06-05-2024 ambulatory JOSE AREVALO Not Available Start: 05-29-2024 End: 05-29-2024 Bamboo flowsheet Jose Arevalo MUSIC TEACHER [facility] Start: 05-29-2024 End: 05-29-2024 Bamboo flowsheet Jose Arevalo MUSIC TEACHER [facility] Start: 05-29-2024 End: 05-29-2024 ambulatory JOSE AREVALO Not Available Start: 05-15-2024 End: 05-15-2024 ambulatory JOSE AREVALO Not Available Start: 04-30-2024 End: 04-30-2024 Telephone encounter Bety Cote BIODIESEL DIVISION MANAGER-GALLERY OR MUSEUM ATTENDANT [facility] Start: 04-27-2024 End: 04-27-2024 Orders Only Bety Cote BIODIESEL DIVISION MANAGER-GALLERY OR MUSEUM ATTENDANT Work Phone: [facility] Comment on above: Generalized anxiety disorder (Primary Dx) Start: 04-26-2024 End: 04-30-2024 Telephone encounter Bety Cote BIODIESEL DIVISION MANAGER-GALLERY OR MUSEUM ATTENDANT Work Phone: [facility] Start: 02-06-2024 End: 02-06-2024 ambulatory JESSICA ÓSCAR Not Available Start: 12-23-2023 End: 12-23-2023 ambulatory Linette Shaffer Facility:[facility] Start: 12-23-2023 End: 12-23-2023 ambulatory MD Linette Shaffer Work Phone: [facility] Work Phone: Start: 12-23-2023 End: 12-23-2023 Departed Referred MD Linette Shaffer Work Phone: [facility] Start: 11-14-2023 Clinisync Result Encounter Tin Brito DO Work Phone: [facility] Unsolicited Start: 11-14-2023 Clinisync Result Encounter Tin Brito DO Work Phone: [facility] External [facility] Unsolicited Start: 10-31-2023 Refill Bety Cote BIODIESEL DIVISION MANAGER-GALLERY OR MUSEUM ATTENDANT Work Phone: [facility] Comment on above: Generalized anxiety disorder; Dysthymic disorder Start: 01-14-2023 Encounter for preprocedural cardiovascular examination DR TIN BRITO . [facility] Start: 01-06-2023 End: 01-07-2023 ambulatory TIN BRITO Facility:[facility] Start: 01-06-2023 End: 01-06-[address] TIN BRITO . Facility: Start: 01-05-2023 End: 01-06-[address] TIN BRITO . Facility: Start: 01-05-2023 End: 01-06-2023 Encounter for preprocedural cardiovascular examination DR TIN BRITO . Facility: Start: 12-31-2022 End: 01-01-[address] TIN BRITO . Facility: Start: 12-21-2022 End: 12-22-2022 ambulatory JESSICA CANTRELL . Facility: Start: 12-14-2022 End: 12-14-[address] LINETTE SHAFFER Facility: Start: 12-06-2022 End: 12-07-[address] LINETTE SHAFFER Facility:[facility] Start: 06-28-2022 End: 06-28-[address] TIN BRITO . Facility:[facility] Start: 05-08-2022 End: 05-09-[address] LINETTE SHAFFER Facility:[facility] Start: 05-02-2022 End: 05-02-2022 ambulatory Sandy Herring Other [employer] Other Start: 05-02-2022 Office outpatient ne w 30 minutes Sandy Herring [facility] Procedures Date Procedure Procedure Detail Performing Clinician Start: 01-01-2025 Urnls dip stick/tabl et rgnt non-auto w/o micrscp Tin Brito DO Work Phone: Start: 09-18-2024 End: 09-18-2024 Psychotherapy w/patient 60 minutes PTSD (post-traumatic stress disorder) (CMS/HCC) Jose BEAVER Comment on above: PTSD (post-traumatic stress disorder) (CMS/HCC); Bipolar 1 disorder (CMS/HCC); Attention deficit hyperactivity disorder (ADHD), combined type (CMS/HCC) Start: 09-11-2024 End: 09-11-2024 Psychotherapy w/patient 60 minutes PTSD (post-traumatic stress disorder) (CMS/HCC) Jose BEAVER Comment on above: PTSD (post-traumatic stress disorder) (CMS/HCC); Bipolar 1 disorder (CMS/HCC); Attention deficit hyperactivity disorder (ADHD), combined type (CMS/HCC); Seasonal affective disorder (CMS/HCC) Start: 08-23-2024 Adult depression screening assessment Bety Cote APRN-GALLERY OR MUSEUM ATTENDANT Work Phone: Start: 08-07-2024 End: 08-07-2024 Psychotherapy w/patient 60 minutes PTSD (post-traumatic stress disorder) (CMS/HCC) Jose BEAVER Comment on above: PTSD (post-traumatic stress disorder) (CMS/HCC); Bipolar 1 disorder (CMS/HCC); Attention deficit hyperactivity disorder (ADHD), combined type (CMS/HCC) Start: 07-24-2024 End: 07-24-2024 Psychotherapy w/patient 45 minutes PTSD (post-traumatic stress disorder) (CMS/HCC) Jose Arevalo MUSIC TEACHER Comment on above: PTSD (post-traumatic stress disorder) (CMS/HCC); Bipolar 1 disorder (CMS/HCC); Attention deficit hyperactivity disorder (ADHD), combined type (CMS/HCC) Start: 07-10-2024 End: 07-10-2024 Psychotherapy w/patient 45 minutes PTSD (post-traumatic stress disorder) (CMS/HCC) Jose Arevalo MUSIC TEACHER Comment on above: PTSD (post-traumatic stress disorder) (CMS/HCC); Bipolar 1 disorder (CMS/HCC); Attention deficit hyperactivity disorder (ADHD), combined type (CMS/HCC); Seasonal affective disorder (CMS/HCC) Start: 07-03-2024 End: 07-03-2024 Psychotherapy w/patient 60 minutes PTSD (post-traumatic stress disorder) (CMS/HCC) Jose Arevalo MUSIC TEACHER Comment on above: PTSD (post-traumatic stress disorder) (CMS/HCC); Bipolar 1 disorder (CMS/HCC); Attention deficit hyperactivity disorder (ADHD), combined type (CMS/HCC) Start: 06-26-2024 End: 06-26-2024 Psychotherapy w/patient 60 minutes PTSD (post-traumatic stress disorder) (CMS/HCC) Jose Arevalo MUSIC TEACHER Comment on above: PTSD (post-traumatic stress disorder) (CMS/HCC); Bipolar 1 disorder (CMS/HCC); Attention deficit hyperactivity disorder (ADHD), combined type (CMS/HCC) Start: 06-19-2024 End: 06-19-2024 Psychotherapy w/patient 60 minutes PTSD (post-traumatic stress disorder) (CMS/HCC) Jose Arevalo MUSIC TEACHER Comment on above: PTSD (post-traumatic stress disorder) (CMS/HCC); Bipolar 1 disorder (CMS/HCC); Attention deficit hyperactivity disorder (ADHD), combined type (CMS/HCC) Start: 06-12-2024 End: 06-12-2024 Psychotherapy w/patient 60 minutes PTSD (post-traumatic stress disorder) (CMS/HCC) Jose Arevalo MUSIC TEACHER Comment on above: PTSD (post-traumatic stress disorder) (CMS/HCC); Bipolar 1 disorder (CMS/HCC); Attention deficit hyperactivity disorder (ADHD), combined type (CMS/HCC); Seasonal affective disorder (CMS/HCC); Mixed obsessional thoughts and acts (CMS/HCC) Start: 06-05-2024 End: 06-05-2024 Psychotherapy w/patient 45 minutes PTSD (post-traumatic stress disorder) (CMS/HCC) Jose BEAVER Comment on above: PTSD (post-traumatic stress disorder) (CMS/HCC); Attention deficit hyperactivity disorder (ADHD), combined type (CMS/HCC); Bipolar 1 disorder (CMS/HCC); Seasonal affective disorder (CMS/HCC); Mixed obsessional thoughts and acts (CMS/HCC) Start: 05-29-2024 End: 05-29-2024 Psychotherapy w/patient 45 minutes PTSD (post-traumatic stress disorder) (CMS/HCC) Jose BEAVER Comment on above: PTSD (post-traumatic stress disorder) (CMS/HCC); Attention deficit hyperactivity disorder (ADHD), combined type (CMS/HCC) Start: 11-14-2023 [facility] UA (CLEAN/CATCH) MARKET RESEARCH ASSISTANT/MICRO IF IND. Tin Brito DO Work Phone: Start: 07-12-2023 Microscopic observat ion [Identifier] in Cervix by Cyto stain [facility] Work Phone: Start: 12-17-2022 Adult depression screening assessment Bety Cote BIODIESEL DIVISION MANAGERe-SENS Work Phone: Plan of Treatment Date Care Activity Detail Author Start: 08-23-2034 DTaP,Tdap and Td Vaccines (6 - Td or Tdap) DTaP,Tdap and Td Vaccines (6 - Td or Tdap) [facility] Start: 07-12-2026 Screening for malign ant neoplasm of cervix Pap Smear [facility] Start: 10-18-2025 Adult BMI Screening Adult BMI Screen ing [facility] Start: 10-18-2025 Tobacco Screening Tobacco Screening [facility] Start: 08-23-2025 Adult BMI Screening Adult BMI Screen ing [facility] Start: 08-23-2025 Depression Screening Depression Scre ening [facility] Start: 08-23-2025 Screening for Chlamy nhi trachomatis Chlamydia Screening [facility] Comment on above: Postponed from 10/16 (Not Indicated) Start: 08-23-2025 Tobacco Screening Tobacco Screening [facility] Start: 06-03-2025 Influenza vaccination Influenza Vacc ine [facility] Start: 01-18-2025 End: 01-18-2025 Patient encounter procedure 01/18/2025 9:20 AM EDT Office Visit [facility] Internal [facility] - Family Medicine [address] [address] Bety Cote, BIODIESEL DIVISION MANAGER-GALLERY OR MUSEUM ATTENDANT [address] [place] [address] [facility] Internal Medicine - Family [facility] Start: 01-14-2025 End: 01-14-2025 Patient encounter procedure 01/14/2025 2:30 PM EDT Consult [facility] [address] [place] [id number] Tin Brito DO [address] [place] [address] [facility] Start: 01-08-2025 End: 01-08-2025 Professional / ancillary services management 01/08/2025 3:00 PM EDT Ancillary Procedure [facility] [address] [place] [place] [id number] [facility] Start: 01-01-2025 End: 01-01-2026 aPTT in Blood by Coagulation assay APTT Lab Routine Menorrhagia with regular cycle Expected: 01/01/2025 (Approximate), Expires: 01/01/2026 [facility] Comment on above: Expected: 01/01/2025 (Approximate), Expires: 01/01/2026 Start: 01-01-2025 End: 01-01-2026 US Pelvis US Pelvis w/ TV Imaging Routine Menorrhagia with irregular cycle Expected: 01/01/2025, Expires: 01/01/2026 [facility] Comment on above: Expected: 01/01/2025 , Expires: 01/01/2026 Start: 12-06-2024 End: 12-06-2024 Patient encounter procedure 12/06/2024 3:00 PM EST Office Visit [facility] Internal Medicine Family [facility] [address] [place] [address] Bety Cote, BIODIESEL DIVISION MANAGER-GALLERY OR MUSEUM ATTENDANT [address] [place] [address] [facility] Internal [facility] - Family [facility] Start: 10-18-2024 End: 10-18-2024 Patient encounter procedure 10/18/2024 3:20 PM EST Office Visit [facility] - Family Medicine [address] [place] [address] Bety Cote, BIODIESEL DIVISION MANAGER-GALLERY OR MUSEUM ATTENDANT [address] [place] [address] [facility] Internal Medicine - Family [facility] Start: 10-05-2024 End: 10-05-2024 Social Work 10/05/2024 1:00 PM EST Social Work [facility] [address] [facility] [place] [address] Jose Arevalo, MUSIC TEACHER [facility] Start: 09-18-2024 End: 09-18-2024 Social Work 09/18/2024 2:00 PM EST Social Work [facility] [address] [facility] [place] [address] Jose Arevalo, MUSIC TEACHER [facility] Start: 08-28-2024 End: 08-28-2024 Social Work 08/28/2024 1:00 PM EST Social Work [facility] [address] [facility] [place] [address] Jose Arevalo, MUSIC TEACHER [facility] Start: 08-23-2024 End: 08-23-2024 Patient encounter procedure 08/23/2024 4:00 PM EST Office Visit [facility] - Family Medicine [address] [place] [address] Bety Cote, BIODIESEL DIVISION MANAGER-GALLERY OR MUSEUM ATTENDANT [address] [place] [address] [facility] - [facility] Start: 08-21-2024 End: 08-21-2024 Social Work 08/21/2024 1:00 PM EST Social Work [facility] [address] [place] [address] Silvestre Arevalomy, MUSIC TEACHER [facility] Start: 08-14-2024 End: 08-14-2024 Social Work 08/14/2024 1:00 PM EST Social Work [facility] [address] [facility] [place] [address] Mickey Jose, MUSIC TEACHER [facility] Start: 08-07-2024 End: 08-07-2024 Social Work 08/07/2024 1:00 PM EST Social Work [facility] [address] [facility] [place] [address] Mickey Jose, MUSIC TEACHER [facility] Start: 07-31-2024 End: 07-31-2024 Social Work [facility] Start: 07-24-2024 End: 07-24-2024 Social Work 07/24/2024 1:00 PM EDT Social Work [facility] [address] [facility] [address] Mickey Jose, MUSIC TEACHER [facility] Start: 07-17-2024 End: 07-17-2024 Social Work 07/17/2024 1:00 PM EDT Social Work [facility] [address] [facility] [place] [address] Mickey Jose, MUSIC TEACHER [facility] Start: 07-10-2024 End: 07-10-2024 Social Work 07/10/2024 1:00 PM EDT Social Work [facility] [address] [facility] [place] [address] Mickey Jose, MUSIC TEACHER [facility] Start: 07-03-2024 End: 07-03-2024 Social Work 07/03/2024 1:00 PM EDT Social Work [facility] [address] [place] [address] Mickey Jose, MUSIC TEACHER [facility] Start: 06-26-2024 End: 06-26-2024 Social Work [facility] Comment on above: Arrived Start: 06-21-2024 End: 06-21-2024 Patient encounter procedure 06/21/2024 1:00 PM EDT [facility] [address] [place] [address] Bety Cote, BIODIESEL DIVISION MANAGER-GALLERY OR MUSEUM ATTENDANT [address] [place] [address] [facility] - Family [facility] Start: 06-19-2024 End: 06-19-2024 Social Work [facility] Comment on above: Arrived Start: 06-12-2024 End: 06-12-2024 Social Work 06/12/2024 1:00 PM EDT Social Work [facility] [address] [place] [address] Jose Arevalo LSW [facility] Start: 06-05-2024 End: 06-05-2024 Social Work [facility] Comment on above: Arrived Start: 06-03-2024 COVID-19 Vaccine ( season) COVID-19 Vaccine ( season) [facility] Start: 06-03-2024 Influenza vaccination [facility] Start: 05-24-2024 Adult BMI Screening Adult BMI Screen ing [facility] Start: 05-24-2024 Tobacco Screening Tobacco Screening [facility] Start: 12-18-2023 Depression Screening Depression Scre ening [facility] Start: 11-22-2023 End: 11-22-2023 Patient encounter procedure 11/22/2023 2:30 PM EST Routine [facility] [address] [place] [place] [id number] Jessica Cantrell PA [address] [place], [place] [id number] [facility] Start: 06-29-2023 DTaP,Tdap and Td Vaccines (5 - Td or Tdap) DTaP,Tdap and Td Vaccines (5 - Td or Tdap) [facility] Start: 06-03-2023 COVID-19 Vaccine ( season) COVID-19 Vaccine ( season) [facility] Start: 06-03-2023 Influenza vaccination [facility] Start: 10-16-2021 Screening for Chlamy nhi trachomatis Chlamydia Screening [facility] Start: 2019 Adult BMI Follow Up Plan Adult BMI Follow Up Plan [facility] CBC W Auto Different ial panel - Blood CBC and differential Lab Routine Menorrhagia with regular cycle Ordered: 01/01/2025 [facility] Work Phone: Comment on above: Ordered: 01/01/2025 End: 10-18-2025 Genesite Test [facility] Test [facility] Lab Routine Attention deficit hyperactivity disorder (ADHD), combined type Generalized anxiety disorder Severe episode of recurrent major depressive disorder, without psychotic features ([facility]) 1 Occurrences starting 10/18/2024 until 10/18/2025 [facility] Work Phone: Comment on above: 1 Occurrences starti ng 10/18/2024 until 10/18/2025 hCG, quantitative, hCG, quantitative, Lab Routine Menorrhagia with regular cycle Ordered: 01/01/2025 [facility] Comment on above: Ordered: 01/01/2025 Hemoglobin A1c/Hemoglobin.total in Blood Hemoglobin A1c Lab Routine Menorrhagia with regular cycle Ordered: 01/01/2025 [facility] Comment on above: Ordered: 01/01/2025 Prothrombin time (PT ) in Blood by Coagulation assay Protime-INR Lab Routine Menorrhagia with regular cycle Ordered: 01/01/2025 [facility] Comment on above: Ordered: 01/01/2025 Thyrotropin [Units/volume] in Serum or Plasma TSH Lab Routine Menorrhagia with regular cycle Ordered: 01/01/2025 [facility] Comment on above: Ordered: 01/01/2025 Thyroxine (T4) free [Mass/volume] in Serum or Plasma T4, free Lab Routine Menorrhagia with regular cycle Ordered: 01/01/2025 [facility] Comment on above: Ordered: 01/01/2025 Immunizations Immunization Date Immunization Notes Care Provider Christophe desouza 08-23-2024 influenza, seasonal, injectable, preservative free Bety Cote BIODIESEL DIVISION MANAGER-[facility] Work Phone: [facility] 08-23-2024 tetanus toxoid, redu teri diphtheria toxoid, and acellular pertussis vaccine, adsorbed Betyjosé miguel Cote BIODIESEL DIVISION MANAGER-[facility] Work Phone: [facility] 08-23-2024 Immunization, In Clinic,; Translations: [Drug or medicament (substance)] Bety Cote BIODIESEL DIVISION MANAGER-[facility] Work Phone: [facility] 08-23-2024 influenza virus vacc ine, unspecified formulation Bety Giles BIODIESEL DIVISION MANAGER-[facility] Work Phone: [facility] 02-03-2021 COVID-19, mRNA, LNP- S, PF, 100mcg/0.5mL Dose Bety Giles BIODIESEL DIVISION MANAGER-[facility] Work Phone: [facility] 01-06-2021 COVID-19, mRNA, LNP- S, PF, 100mcg/0.5mL Dose Bety Giles BIODIESEL DIVISION MANAGER-[facility] Work Phone: [facility] 07-28-2018 influenza, injectabl e, quadrivalent, contains preservative Betyjosé miguel Cote BIODIESEL DIVISION MANAGER-[facility] Work Phone: [facility] 07-28-2018 influenza virus vacc ine, unspecified formulation Bety Giles BIODIESEL DIVISION MANAGER-[facility] Work Phone: [facility] 05-11-2018 meningococcal polysaccharide (groups A, C, Y and W-135) diphtheria toxoid conjugate vaccine (MCV4P) Betyjosé miguel Cote BIODIESEL DIVISION MANAGER-[facility] Work Phone: [facility] 05-10-2016 human papilloma viru s vaccine, quadrivalent Bety Giles BIODIESEL DIVISION MANAGER-[facility] Work Phone: [facility] 05-09-2015 human papilloma viru s vaccine, quadrivalent Bety Giles BIODIESEL DIVISION MANAGER-[facility] Work Phone: [facility] 06-29-2013 human papilloma viru s vaccine, quadrivalent Bety Giles [facility] Work Phone: [facility] 06-29-2013 meningococcal polysaccharide (groups A, C, Y and W-135) diphtheria toxoid conjugate vaccine (MCV4P) Bety Cote [facility] Work Phone: [facility] 06-29-2013 tetanus toxoid, redu teri diphtheria toxoid, and acellular pertussis vaccine, adsorbed Bety [facility] Work Phone: [facility] 06-29-2013 varicella virus vaccine Ilana mora [facility] Work Phone: [facility] 07-19-2006 diphtheria, tetanus toxoids and acellular pertussis vaccine, unspecified formulation Bety Giles [facility] Work Phone: [facility] 07-19-2006 hepatitis B vaccine, pediatric or pediatric/adolescent dosage Bety Giles [facility] Work Phone: [facility] 07-19-2006 measles, mumps and rubella virus vaccine [facility] Work Phone: [facility] 07-19-2006 poliovirus vaccine, unspecified formulation Betyjosé miguel Cote [facility] Work Phone: [facility] 06-25-2002 diphtheria, tetanus toxoids and acellular pertussis vaccine, unspecified formulation [facility] Work Phone: [facility] 06-25-2002 haemophilus influenz ae type b conjugate and Hepatitis B vaccine [facility] Work Phone: [facility] 06-25-2002 measles, mumps and rubella virus vaccine Bety [facility] Work Phone: [facility] 06-25-2002 poliovirus vaccine, inactivated [facility] Work Phone: [facility] 06-25-2002 varicella virus vaccine Ilana na [facility] Work Phone: [facility] 2001 diphtheria, tetanus toxoids and acellular pertussis vaccine, unspecified formulation [facility] Work [facility]: [facility] 2001 haemophilus influenz ae type b conjugate and Hepatitis B vaccine Bety Cote [facility] Work Phone: [facility] 2001 poliovirus vaccine, inactivated Bety Giles [facility] Work Phone: [facility] 2001 hepatitis B vaccine, pediatric or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 original. Patient called and she was wondering if she could get a referral to adolfo malloy at [facility]. Please and thank you documented in this encounter [facility] 04-26-2024 Telephone encount er Note Patient called and she was wondering if she could get a referral to adolfo malloy at [facility]. Please and thank you [facility] 01-06-2023 Note OPERATIVE NOTE OPERATION DATE: 01/06/2023 PROCEDURE: Suction D AND C. PREOPERATIVE DIAGNOSIS: Missed . POSTOPERATIVE DIAGNOSIS: Missed . ANESTHESIA: General. SURGEON: Tin Brito D.O. RETAIL PERFORMANCE SPECIALIST: None. FINDINGS: Products of conception. SPECIMEN: Products [...] products of conception were removed using an 9-Maori suction curette. Excellent hemostasis was noted. The patient tolerated the procedure well. Sponge, lap, and needle counts were correct x 2. All instruments were then removed from the patient's vagina. The patient was taken to the Recovery Room in stable condition. ?? [facility] 01-05-2023 Note EXAMINATION: XR CHES T 2 [...] authenticated by: JOI ROPER Date: 2023-01-05 14:[address] [facility] 05-02-2022 Evaluation note Encounter Date Diagnosis Assessment [...] treatment plan. Patient left in stable condition. [employer] Other Evaluation noteNo assessment information available [facility] Work Phone: Evaluation note* Diagnosis PTSD (post-traumatic stress disorder) (CMS/HCC) Posttraumatic stress disorder Bipolar 1 disorder (CMS/HCC) Attention deficit hyperactivity disorder (ADHD), combined type (CMS/HCC) [facility] Diagnosis PTSD (post-traumatic stress disorder) (CMS/HCC) Posttraumatic stress disorder Bipolar 1 disorder (CMS/HCC) Attention deficit hyperactivity disorder (ADHD), combined type (CMS/HCC) Seasonal affective disorder (CMS/HCC) Other specified episodic mood disorder [facility] Diagnosis PTSD (post-traumatic stress disorder) (CMS/HCC) Posttraumatic stress disorder Bipolar 1 disorder (CMS/HCC) Attention deficit hyperactivity disorder (ADHD), combined type (CMS/HCC) documented in [facility] encounter [facility]* Diagnosis PTSD (post-traumatic stress disorder) (CMS/HCC) Posttraumatic stress disorder Bipolar 1 disorder (CMS/HCC) Attention deficit hyperactivity disorder (ADHD), combined type (CMS/HCC) documented in [facility] encounter [facility]* Diagnosis PTSD (post-traumatic stress disorder) (CMS/HCC) Posttraumatic stress disorder Bipolar 1 disorder (CMS/HCC) Attention deficit hyperactivity disorder (ADHD), combined type (CMS/HCC) documented in [facility] encounter [facility]* Diagnosis PTSD (post-traumatic stress disorder) (CMS/HCC) Posttraumatic stress disorder Bipolar 1 disorder (CMS/HCC) Attention deficit hyperactivity disorder (ADHD), combined type (CMS/HCC) Seasonal affective disorder (CMS/HCC) Other specified episodic mood disorder documented in this encounter [facility]* Diagnosis PTSD (post-traumatic stress disorder) (CMS/HCC) Posttraumatic stress disorder Bipolar 1 disorder (CMS/HCC) Attention deficit hyperactivity disorder (ADHD), combined type (CMS/HCC) documented [facility]* Diagnosis PTSD (post-traumatic stress disorder) (CMS/HCC) Posttraumatic stress disorder Attention deficit hyperactivity disorder (ADHD), combined type (CMS/HCC) documented [facility]* Diagnosis PTSD (post-traumatic stress disorder) (CMS/HCC) Posttraumatic stress disorder Attention deficit hyperactivity disorder (ADHD), combined type (CMS/HCC) Bipolar 1 disorder (CMS/HCC) Seasonal affective disorder (CMS/HCC) Other specified episodic mood disorder Mixed obsessional thoughts and acts (CMS/HCC) documented [facility] encounter [facility]* Diagnosis PTSD (post-traumatic stress disorder) (CMS/HCC) Posttraumatic stress disorder Bipolar 1 disorder (CMS/HCC) Attention deficit hyperactivity disorder (ADHD), combined type (CMS/HCC) Seasonal affective disorder (CMS/HCC) Other specified episodic mood disorder Mixed obsessional thoughts and acts (CMS/HCC) documented in this encounter [facility]* Diagnosis Attention deficit hyperactivity disorder (ADHD), combined type- Primary Generalized anxiety disorder Severe episode of recurrent major depressive disorder, without psychotic features (CMS-HCC) [facility] Diagnosis Generalized anxiety disorder Dysthymic disorder [facility] in [facility]* Diagnosis Generalized anxiety disorder- Primary [facility] in this [facility]* Diagnosis Carpal tunnel syndrome of left wrist- Primary [facility] Diagnosis Wellness examination- Primary Generalized anxiety disorder Dysthymic disorder Influenza vaccination administered at current visit Iron deficiency anemia, unspecified iron deficiency anemia type Overweight (BMI 25.0-29.9) Overweight [facility] Diagnosis Menorrhagia with irregular cycle Request for sterilization Menorrhagia with regular cycle documented in this encounter [facility]* Diagnosis Severe episode of recurrent major depressive disorder, without psychotic features (CMS-HCC) [facility] - Reported* Type Description Date Medical History Depression/anxiety Assay [place] Other InstructionsNot on filedocumented in this encounter [facility] filedocumented in this [facility] on filedocumented in this [facility] filedocumented in this [facility] on filedocumented in this [facility] on filedocumented in this [facility] on filedocumented in this [facility]* Attachments The following attachments cannot be sent through Care Everywhere. * Atomoxetine, ADULT (Italian) [facility] (narrative)* Consultation (Routine) - Pending Review Specialty Diagnoses / Procedures Referred By Rodriguez t Referred To Contact Psychiatry Diagnoses Generalized anxiety disorder Bety Cote, BIODIESEL DIVISION MANAGER-GALLERY OR MUSEUM ATTENDANT [address] [place] [address] Noname, Noname Referral ID Status Reason Start Date Expiration Date Visits Requested Visits Authorized [id number] Pending Review Specialty Services Required 04/27/2024 04/27/2025 [address] [facility] Summary Purpose Family History No Family History [...] FOR VISIT (unrecogniz ed section and content) Reason Comments Counseling session Reason Comments Treatment planning Reason Comments Screening and Counsling session Reason Comments Anxiety 1 month Reason Comments Med Refill Reason Comments Med Change Request Reason Comments Annual Exam Reason Comments Menorrhagia INFORMATION SOURCE (unrecogn ized section and content) DATE CREATED AUTHOR 01/10/2023 [facility] DATE CREATED AUTHOR AUTHOR'S ORGANIZ ATION 01/17/2023 [facility] DATE CREATED AUTHOR AUTHOR'S ORGANIZ ATION 12/29/2023 [facility] DATE CREATED AUTHOR AUTHOR'S ORGANIZ ATION 08/27/2024 [facility] DATE CREATED AUTHOR AUTHOR'S ORGANIZ ATION 10/21/2024 [facility] DATE CREATED AUTHOR AUTHOR'S ORGANIZ ATION 01/10/2025 [facility] EPIC Care Teams (unrecognized sec tion and content) Team Status: Active Member Role Status Dates Linette Shaffer MD Primary Care Provider Active Team Status: Inactive Member Role Status Dates Linette Shaffer MD Primary Care Provider Active Start: December 23, 2023 End: December 23, 2023 Tin Brito Attending Provider Active Start: [facility] 2023 End: December 23, 2023 Utility Worker [employer] Relationship Specialty Start Date End Date Bety Cote APRN-CNP [address] [place] [address] PCP - General Internal Medicine 05/24/23 Utility Worker [employer] Processing Relationship Specialty Start Date End Date GilesBety bernard BIODIESEL DIVISION MANAGER-GALLERY OR MUSEUM ATTENDANT [address] [place] [address] PCP - General Internal Medicine 05/24/23 Utility Worker Film Processing Relationship Specialty Start Date End Date Bety Cote BIODIESEL DIVISION MANAGER-GALLERY OR MUSEUM ATTENDANT [address] [place] [address] PCP - General Internal Medicine 05/24/23 Utility Worker Film Processing Relationship Specialty Start Date End Date GilesToddBety Aric BIODIESEL DIVISION MANAGERGALLERY OR MUSEUM ATTENDANT [address] [place] [address] PCP - General Internal Medicine 05/24/23 Utility Worker Film Processing Relationship Specialty Start Date End Date GilesToddBety Aric BIODIESEL DIVISION MANAGER-GALLERY OR MUSEUM ATTENDANT [address] [place] [address] PCP - General Internal Medicine 05/24/23 Utility Worker Film Processing Relationship Specialty Start Date End Date GilesBety BIODIESEL DIVISION MANAGER-GALLERY OR MUSEUM ATTENDANT [address] [place] [address] PCP - General Internal Medicine 05/24/23 Utility Worker Film Processing Relationship Specialty Start Date End Date GilesToddBety Aric BIODIESEL DIVISION MANAGER-GALLERY OR MUSEUM ATTENDANT [address] [place] [address] PCP - General Internal Medicine 05/24/23 Utility Worker Film Processing Relationship Specialty Start Date End Date Giles Betyjosé miguel Corbett BIODIESEL DIVISION MANAGER-GALLERY OR MUSEUM ATTENDANT [address] [place] [address] PCP - General Internal Medicine 05/24/23 Utility Worker Film Processing Relationship Specialty Start Date End Date Giles Bety Corbett APRN-FITZ [address] [place] [address] PCP - General Internal Medicine 05/24/23 Goals (unrecognized section and content) Goals may be documented in a n alternate section FOR RECORDS PERTAINING TO PATIENTS WHO ARE [...] BE BASED ON THE PRIMARY CLINICAL RECORDS. [employer] [facility]. provides no warranty or guarantee of the accuracy or completeness of information in this document.
[2025-01-14 12:06] LABS: Basophils Percent Auto 0.6 % (0.2-2.0); Eosinophils Percent Auto 0.3 % (0.9-7.0); Hematocrit 34.5 % (36.0-48.0); Hemoglobin 11.8 g/dL (12.0-16.0); Immature Granulocytes Abs Auto 0.02 10^3/uL (0.00-0.03); Immature Granulocytes Pct Auto 0.3 % (0.0-0.5); Lymphocytes Absolute Auto 1.9 10^3/uL (1.2-3.8); Lymphocytes Percent Auto 30.9 % (20.5-60.0); Mean Corpuscular HGB Conc 34.2 g/dL (29.9-35.2); Mean Corpuscular Volume 87.8 fL (81.0-99.0); Mean Platelet Volume 11.2 fL (9.5-13.5); Monocytes Absolute Auto 0.3 10^3/uL (0.3-0.8); Monocytes Percent Auto 5.4 % (1.7-12.0); Neutrophils Absolute Auto 3.9 10^3/uL (1.4-6.5); Neutrophils Percent Auto 62.5 % (43.0-75.0); Platelet Count 191 10^3/uL (150-450); Red Blood Count 3.93 10^6/uL (4.20-5.40); Red Cell Distribution Width 12.3 % (11.0-15.0); White Blood Count 6.3 10^3/uL (4.0-11.0)
[2025-01-14 12:28] LABS: Thyroid Stimulating Hormone 2.432 uIU/mL (0.358-3.740)
[2025-01-14 12:29] LABS: HCG Quantitative <1 mIU/mL
[2025-01-14 12:31] LABS: Partial Thromboplastin Time 26.5 sec (22.3-36.2); Prothrombin Time 10.6 sec (9.0-11.6)
[2025-01-14 12:50] LABS: Estimated Average Glucose 85 mg/dL; Glycohemoglobin A1C 4.6 % (4.5-6.2)
[2025-01-14 13:04] LABS: Free T4 0.95 ng/dL (0.76-1.46)
== END 2025-01-14 11:29 | disposition home or self-care (01) ==
LOC: LAB 11:31
PROVIDERS: Visit Provider Obstetrics & Gynecology
DX: N92.0 Excessive and frequent menstruation with regular cycle (principal)
CPT/HCPCS: 36415; 83036; 84439; 84443; 84702; 85025; 85610; 85730

== ENCOUNTER 2025-01-29 09:03 | Outpatient (OUT) | payer MEDICAID, SELFPAY ==
--- NOTE | 2025-01-29 09:41 | XR_ITS ---
The [address] [address] Patient Name: SANTOS HARPER MRN: [id number] date: 2000 Sex: F Assigned Patient Location: [facility] [place] Current Patient Location: [facility] [place] Accession/Order Number: [id number] Exam Date: 01/29/2025 09:57 Report Date: 01/29/2025 09:57 At the request of: SHEELA ANTUNEZ DO Procedure: XR chest 2V Chest 2 views CLINICAL HISTORY: Preop exam COMPARISON: Chest 01/05/2023 FINDINGS: Heart normal in size. Lungs are clear. No free air. XR/XR chest 2V IMPRESSION: NO ACUTE CARDIOPULMONARY ABNORMALITY. Impression dictated by: Satish Gaston Jr., D.ORoula 01/29/2025 9:57 AM Dictation Location: [place] [address] Electronically authenticated by: [id number] Y Date: 01/29/2025 09:57
== END 2025-01-29 09:04 | disposition home or self-care (01) ==
LOC: PST 09:05
PROVIDERS: Visit Provider Obstetrics & Gynecology
DX: Z01.810 Encounter for preprocedural cardiovascular examination (principal)
CPT/HCPCS: 71046

== ENCOUNTER 2025-02-08 09:58 | Day surgery (SDC) | payer MEDICAID, SELFPAY ==
[2025-01-29 09:35] VITALS: BP 111/69; PULSE 64; TEMP 36.6; O2SAT 100; BMI 24.6
[2025-02-08] VITALS (10 sets, daily range): BP systolic 100–135; BP diastolic 66–91; PULSE 58–77; TEMP 36.3; O2SAT 99–100; BMI 24.2
[2025-02-08 10:06] LABS: Basophils Percent Auto 0.6 % (0.2-2.0); Eosinophils Percent Auto 0.3 % (0.9-7.0); Hematocrit 36.2 % (36.0-48.0); Hemoglobin 12.7 g/dL (12.0-16.0); Immature Granulocytes Abs Auto 0.03 10^3/uL (0.00-0.03); Immature Granulocytes Pct Auto 0.4 % (0.0-0.5); Lymphocytes Absolute Auto 1.7 10^3/uL (1.2-3.8); Lymphocytes Percent Auto 24.3 % (20.5-60.0); Mean Corpuscular HGB Conc 35.1 g/dL (29.9-35.2); Mean Corpuscular Hemoglobin 30.6 pg (26.7-34.0); Mean Corpuscular Volume 87.2 fL (81.0-99.0); Mean Platelet Volume 10.5 fL (9.5-13.5); Monocytes Absolute Auto 0.3 10^3/uL (0.3-0.8); Monocytes Percent Auto 4.8 % (1.7-12.0); Neutrophils Absolute Auto 4.9 10^3/uL (1.4-6.5); Neutrophils Percent Auto 69.6 % (43.0-75.0); Platelet Count 189 10^3/uL (150-450); Red Blood Count 4.15 10^6/uL (4.20-5.40); Red Cell Distribution Width 11.9 % (11.0-15.0); White Blood Count 7.1 10^3/uL (4.0-11.0)
[2025-02-08] MEDS: LACTATED RINGER'S SOLUTION 1,000 ML 50 ML IV ×2 (10:28→15:04)
[2025-02-08 10:40] LABS: HCG Quantitative <1 mIU/mL
--- NOTE | 2025-02-08 14:09 | P.ON_ITS ---
Brief Operative Note Date of procedure: 02/08/25 Pre-op diagnosis general: desires permanent sterilization, multiparity Post-op diagnosis: same as pre-op Procedure: NAME OF PROCEDURE: robotic assisted bilateral laparoscopic salpingectomy PROCEDURE: The patient was taken back to the Operating Room where she was given general anesthesia without difficulty. She was then prepped and draped in the normal sterile fashion after being placed in a dorsal lithotomy position. A wet sponge stick was placed into the patient's vagina. Attention was then turned to the patient's abdomen, where a scalpel was used to make a small infraumbilical incision. The S retractors were then used to dissect the underlying layers until the fascia could be seen. The fascia was then grasped with Dev clamps and tented up. A knife was then used to make a small incision to the fascia. The muscle was identified, at that time two sutures of #0 Vicryl on a GI needle was then used and placed through the fascia. the peritoneum was then identified and entered bluntly. The 10-4 Jessica was then placed into the patient's abdomen. This was confirmed with direct visualization of the bowel, using the laparoscope. The patient's abdomen was then insufflated using approximately 4 liters of CO2 gas. Survey of the patient's abdomen demonstrated ovaries were normal in appearance as well as both tubes and uterus. A second and third rt and lt lateral robotic ports which were 8 mm in size, was then placed after the skin incision was made under direct visualization . the robotic arms were engaged. The patient's tube on the patient's right side was identified and tented up using a grasper, the ligasure apparatus was then used to come across the mesosalpingx from the fimbriated end to the insertion site at the uterus, the tube was then amputated and removed in its entirety. This was done on the contralateral side. The tubes were the removed from the patients abdomen. Excellent hemostasis was noted. The lateral ports were then moved under direct visualization with excellent hemostasis. All instruments were removed from the patient's abdomen. The fascia was closed using the #0 Vicryl on GI needle. The skin was closed using 4-0 Vicryl subcuticularly. All instruments were removed from the patient's vagina as well. The patient was taken out of the dorsal lithotomy position and placed in the supine position and taken to recovery in s table condition. Sponge, lap and needle counts were correct x2. Anesthesia: PRAVINA Surgeon: Tin Brito Ticket Collector Or Usher: Juliet Patel Estimated blood loss (mL): 5 Pathology: other (tubes) Condition: stable Disposition: PACU Urinary Catheter Management Urinary Catheter Management Urethral: Cath placed during this visit: no
[2025-02-08] MEDS: HYDROMORPHONE HCL 0.5 MG/0.5 ML SYRINGE IV (15:02)
[2025-02-08] MEDS: HYDROCODONE/ACET 5-325 MG TABLET 1 TAB PO (15:26)
--- NOTE | 2025-02-08 15:49 | PC.NURSE ---
Right dressing changed for medium amount of bloody drainage; no active drainage noted; telfa and opsite applied; other 2 sites have scant bloody drainage. Hardened area noted below mid umbilical dressing; no bruising noted and denies pain at site; holding pressure to site; Dr. Brito notified and he talks to family member on symptoms to observe for; wants a abdominal binder applied. Area softens when pressure applied
--- NOTE | 2025-02-08 16:44 | PC.NURSE ---
Right dressing site dry; scant drainage on other 2 sites; ABD'S covered with abdominal binder over swollen area below umbilicus; no increase in size of area and area softer to touch, no bruising noted
--- NOTE | 2025-02-08 16:50 | PC.NURSE ---
Up to bathroom and voids clear yellow without difficulty
--- NOTE | 2025-02-08 16:53 | PC.NURSE ---
Mid dressing chaned for small amount light pink drainage with telfa and opsite; mid steristrip came off with dressing removal; no active drainage noted and cottonball placed under dressing. No change in area below umbilical site; abdominal binder in place.
== END 2025-02-08 16:45 | disposition home or self-care (01) ==
PROVIDERS: Visit Provider Obstetrics & Gynecology
PROC: (CPT 00840; principal; 2025-02-08 11:15)
DX: Z30.2 Encounter for sterilization (principal); F17.290 Nicotine dependence, other tobacco product, uncomplicated
CPT/HCPCS: 00840; 58661; 36415; 84702; 85025; J1100; J1171; J1885; J2175; J2250; J2405; J2704; J3010